=== PATIENT | female | born 1975 | race Caucasian/White ===

== ENCOUNTER 2019-10-26 13:05 | Emergency (ER) | payer BC, SELFPAY ==
--- NOTE | ~2019-10-26 | XR_ITS ---
EXAMINATION: XR foot LT min 3V DATE: 10/26/2019 13:24 INDICATION: Left foot injury and pain. TECHNIQUE: 4 views of left foot were obtained. COMPARISON: None. FINDINGS: Bone alignment is normal. No fracture. There is mild osteoarthritis of first metatarsophala ngeal joint and fifth proximal interphalangeal joint. There is an enthesophyte at posterior aspect of calcaneal tuberosity. IMPRESSION: 1. Mild polyarticular osteoarthritis. Reviewed, dictated and finalized at location A.
[2019-10-26 13:31] VITALS: BP 151/94; PULSE 89; RESP 18; TEMP 37.4; O2SAT 99
--- NOTE | 2019-10-26 13:59 | ED.LOWEXIN ---
HPI - Extremity Injury (Lower) General Chief Complaint: Extremity Injury, Lower Stated Complaint: left ankle injury Time Seen by Provider: 10/26/19 13:36 Source: patient and RN notes reviewed Mode of arrival: ambulatory Limitations: no limitations History of Present Illness HPI Narrative: Patient presents today complaining of an injury to the dorsum of her left foot. 2 days ago, she dropped a piece of Isabella on her foot at home. She has been ambulatory with increased pain. Patient has numbness to the plantar aspect of her foot at baseline, due to chronic sciatica, however, she is having some numbness to the fifth toe that is acute. She currently rates her pain 5/10. She applied ice for 2 hours immediately after injury, but has not applied or taken any [id number] interventions prior to arrival. MD complaint: foot injury Related Data Home Medications Medication Instructions Recorded Confirmed No Home Medications 10/26/19 10/26/19 Allergies Allergy/AdvReac Type Severity Reaction Status Date / Time No Known Allergies Allergy Verified 10/26/19 13:34 Review of Systems Review of Systems: Narrative: CONSTITUTIONAL: Denies body aches, fever, chills, or sweats. EYES: Denies visual changes, redness, or discharge. ENT: Denies rhinorrhea, congestion, sore throat, or otalgia. CARDIOVASCULAR: Denies chest pain, palpitations, or edema. RESPIRATORY: Denies cough or dyspnea. GASTROINTESTINAL: Denies abdominal pain, nausea, vomiting, or diarrhea. GENITOURINARY: Denies dysuria or hematuria. SKIN: Denies rash, itching, or wounds. MUSCULOSKELETAL: Denies back pain, or myalgia. + Left foot injury NEUROLOGIC: Denies headache, numbness, tingling, or weakness. PSYCH: Denies depression or anxiety. [facility] Past Medical History Medical History (Updated 10/26/19 @ 14:05 by Patricia Gomez, [facility], ) Familial Mediterranean fever Comments At time of signature, I have reviewed and agree with nursing past medical, surgical, social and family history unless otherwise noted. Please see nursing chart for further information. There is no relevant family history pertinent to the presenting complaint Exam Narrative: Exam Narrative: GENERAL: Well-appearing, well-nourished, and in no acute distress. HEAD: Normocephalic, atraumatic. EYES: EOMI. No redness or drainage. Conjunctivae normal. ENT: Mucous membranes pink and moist. NECK: Normal AROM. CHEST: No respiratory distress. EXTREMITIES: Left foot: Mild ecchymosis and moderate edema to the dorsum of the foot, extending to the anterior ankle. Sensation intact in toes 1 through 4, but decreased in toe 5. Capillary refill normal. Pedal pulse normal. Full AROM of the ankle and all toes with increased pain. 0.5 cm round scab to the proximal foot. SKIN: Warm, dry, no rash. Capillary refill normal. Normal skin turgor. NEURO: No focal deficits. Alert and oriented x3. Gait steady. PSYCH: Normal affect. No signs of depression or anxiety. Course Vital Signs Vital signs: Vital Signs Temperature 99.3 F 10/26/19 13:31 Pulse Rate 89 10/26/19 13:31 Respiratory Rate 18 10/26/19 13:31 Blood Pressure 151/94 H 10/26/19 13:31 Pulse Oximetry 99 10/26/19 13:31 Temperature 99.3 F 10/26/19 13:31 Pulse Rate 89 10/26/19 13:31 Respiratory Rate 18 10/26/19 13:31 Blood Pressure 151/94 H 10/26/19 13:31 Pulse Oximetry 99 10/26/19 13:31 Reviewed. Pt has been instructed to follow up with her PCP regarding her elevated blood pressure today. MDM - Extremity Injury (Lower) Differential Diagnosis Differential diagnosis: Likely ankle sprain and strain, fracture of toe, ankle fracture and other (Foot fracture, foot sprain, contusion) Imaging Data Radiologist's impression: ITS Impressions Foot X-Ray 10/26/19 13:32 IMPRESSION: 1. Mild polyarticular osteoarthritis. Critical Care Time Critical Care Time Critical Care Time: No Discharge Plan Di
== END 2019-10-26 14:12 | disposition home or self-care (01) ==
PROVIDERS: Emergency Provider Nurse Practitioner
DX: S90.02XA Contusion of left ankle, initial encounter (principal); W20.8XXA Other cause of strike by thrown, projected or falling object, initial encounter; E06.3 Autoimmune thyroiditis
CPT/HCPCS: 73630; 99213; G0463

== ENCOUNTER 2021-07-08 19:56 | Emergency (ER) | payer BC, SELFPAY ==
--- NOTE | ~2021-07-08 | XR_ITS ---
EXAMINATION: XR chest 1V portable Exam Date/Time: 07/08/2021 21:15 CDT CLINICAL HISTORY: fever, chest pain Comparison: None available. RESULT: Lines, tubes, and devices: None. Lungs and pleura: Low lung volumes with crowding, otherwise clear. Cardiomediastinal silhouette: Normal cardiomediastinal silhouette. Other: No acute osseous or upper abdominal finding. IMPRESSION: No acute cardiopulmonary process Reviewed, dictated and finalized at location K.
--- NOTE | ~2021-07-08 | CT_ITS ---
EXAMINATION: CT abdomen pelvis w con DATE: 07/08/2021 22:02 INDICATION: right upper abdominal pain TECHNIQUE: Computed tomography (CT) of the abdomen and pelvis was performed with 100 mL Omnipaque-350 intravenous contrast. Automated exposure control and iterative reconstruction technique were employe d. The dose-length product was 1252.60 mGy-cm. COMPARISON: None FINDINGS: Lower thorax: Hiatal hernia. Liver: Normal. Biliary/Gallbladder: Gallbladder is normal. No bile duct dilation. Pancreas: No mass or duct dilation. Spleen: Normal. Adrenals:No mass. Kidneys: Bilateral nonobstructing renal calculi. Right lower pole hypodensity too small to characteri ze but likely representing a cyst. GI tract: No small or large bowel dilation. Normal appendix. Mesentery/Peritoneum: No ascites, mass, or free air. Retroperitoneum: No mass. Pelvis: Fibroid uterus. Soft Tissues: Small fat-containing umbilical and bilateral inguinal hernias Bones: No acute osseous finding. IMPRESSION: No acute abdominopelvic process detected. Reviewed, dictated and finalized at location K.
[2021-07-08 20:00] VITALS: BP 183/104; PULSE 100; RESP 18; TEMP 36.4; O2SAT 98
[2021-07-08 20:47] LABS: Basophils Absolute Auto 0.1 K/mm3 (0.0-0.1); Basophils Percent Auto 0.7 % (0.2-1.2); Eosinophils Absolute Auto 0.7 K/mm3 (0-0.3); Eosinophils Percent Auto 4.6 % (0-4.4); Hematocrit 33.6 % (37.0-47.0); Hemoglobin 9.1 g/dL (12.0-15.0); Immature Granulocyte Absolute 0.07 K/mm3 (0.00-0.031); Immature Granulocyte Percent A 0.5 % (0-0.5); Lymphocytes Percent Auto 19.7 % (18.3-44.2); Mean Corpuscular HGB Conc 27.1 g/dl (32-36); Mean Corpuscular Hemoglobin 18.7 pg (26-34); Mean Corpuscular Volume 69.1 fl (80-100); Monocytes Absolute Auto 0.9 K/mm3 (0.1-0.6); Neutrophils Absolute Auto 10.1 K/mm3 (1.3-6.7); Neutrophils Percent Auto 68.5 % (45.5-73.1); Platelet Count Result 474 k/mm3 (150-375); Red Blood Count 4.86 M/mm3 (4.2-5.4); Red Cell Distribution Width 18.7 % (11.5-14.5); White Blood Count 14.7 K/mm3 (4.5-10.0)
[2021-07-08 20:56] LABS: Alanine Aminotransferase 19 U/L (6-35); Albumin Level 4.7 g/dL (3.5-5.1); Alkaline Phosphatase 77 U/L (38-126); Anion Gap 7 mmol/L (8-16); Aspartate Amino Transferase 22 U/L (14-36); Bilirubin,Total 0.3 mg/dL (0.2-1.3); Blood Urea Nitrogen 11 mg/dL (7-17); Carbon Dioxide 26 mmol/L (22-30); Chloride 102 mmol/L (98-107); Estimated CRCL calculation 116 ml/min; Estimated Glomerular Filt Rate > 60; Glucose 110 mg/dL (65-110); Lipase 57 U/L (23-300); Potassium 3.9 mmol/L (3.4-5.0); Sodium 135 mmol/L (137-145)
[2021-07-08 21:21] LABS: Appearance Urine Clear (Clear); Bilirubin Urine Negative (Negative); Blood Urine 2+ (Negative); Color Urine Yellow (Yellow); Glucose Urine UA Negative (Negative); Ketones Urine Trace mg/dL (Negative); Leukocyte Esterase Ur Trace LEU/UL (Negative); Nitrate Urine Negative (Negative); Protein Urine 1+ mg/dL (Negative); Urobilinogen Urine 0.2 mg/dL (<2.0)
[2021-07-08 21:24] LABS: Add Urine Microscopic? YES; Bacteria Urine Trace /hpf; Mucus Urine Rare /lpf; RBC Urine >75 /hpf (0-2); Squamous Epithelial Cell Urine Few /hpf (Few)
[2021-07-08] MEDS: KETOROLAC 30 MG/ML VIAL (*BKC) IV PUSH (21:25)
[2021-07-08] MEDS: SODIUM CHLORIDE 0.9% IV 1,000 ML 999 ML IV CONT (21:26)
[2021-07-08] MEDS: ONDANSETRON INJ 4 MG/2 ML VIAL IV PUSH (21:26)
--- NOTE | 2021-07-08 22:24 | ED.ABDPAIN ---
HPI - Abdominal Pain General Chief Complaint: Abdominal Pain Stated Complaint: Abdominal for several days Time Seen by Provider: 07/08/21 20:51 Source: patient, RN notes reviewed and old records reviewed Mode of arrival: ambulatory Limitations: no limitations History of Present Illness HPI narrative: This is a 45 year old female who presents for evaluation of right upper abdominal pain. This pain has been constant for 3 days. She reports pain is radiating to her right back. She reports having episode of nausea and vomiting. She also states her pain is worse with eating. She has not taken anything for pain. She states she had fever right before coming to ER but she denies taking any medication for her fever or pain. She denies runny nose, congestion, or urinary symptoms. she reports having chronic cough due to asthma. 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 Related Data Allergies Allergy/AdvReac Type Severity Reaction Status Date / Time No Known Allergies Allergy Verified 07/08/21 20:30 Review of Systems Review of Systems: All systems reviewed & are unremarkable except as noted in HPI and below Constitutional: Constitutional: Reports chills and Reports fever(s) ENT: Denies nasal congestion and Denies sore throat Cardiovascular: Cardiovascular: Denies chest pain and Denies radiating jaw, neck or arm pain Respiratory: Respiratory: Reports cough and Denies dyspnea Gastrointestinal: Gastrointestinal: Reports abdominal pain, Denies diarrhea, Reports nausea and Reports vomiting Genitourinary: Genitourinary: Denies hematuria, Denies nocturia and Reports flank pain Musculoskeletal: Musculoskeletal: Reports arthralgias (chronic) [facility] Past Medical History Medical History Familial Mediterranean fever Social History Social History (Updated 07/08/21 @ 22:27 by Lenora Leigh MD) Smoking status: Former smoker Exam Narrative: GENERAL: well-nourished, and appears to be in pain. HEAD: Normocephalic, atraumatic EYES: PERRLA and EOMI, conjunctiva clear without discharge EARS: TM's clear bilaterally without erythema or dullness NOSE: Nares clear, no rhinorrhea or epistaxis THROAT:Mucous membranes moist, Oropharynx normal without erythema, exudate, peritonsillar swelling or fluctuance NECK: Supple, without lymphadenopathy or mass RESPIRATORY: No respiratory distress, Airway patent, Respirations non-labored, Clear to auscultation without rales, rhonchi or wheeze HEART: Regular rate and rhythm. No murmur heard. Normal peripheral pulses. ABDOMEN: Soft, RUQ, nondistended, normal active bowel sounds. No masses. No rebound or guarding, No organomegaly. no CVA tenderness EXTREMITIES: No edema, normal strength with full range of motion. SKIN: Warm, dry, normal color without rash NEURO: Alert and oriented x3. CN 2-12 grossly intact. No focal deficits. PSYCH: Normal mood and affect. Course Reevaluation(s) Reevaluation #1: I discussed with patient her CT did not show any cause for her pain. Urine is slightly abnormal so will place on antibiotics. I discussed with patient that her symptoms may be due to her FMF but she does not think so. I offered something different for pain and she declines pain medication. Date: 07/09/21 Time: 00:08 Vital Signs Vital signs: Vital Signs Temperature 97.5 F L 07/08/21 20:00 Pulse Rate 100 07/08/21 20:00 Respiratory Rate 18 07/08/21 20:00 Blood Pressure 183/104 H 07/08/21 20:00 Pulse Oximetry 98 07/08/21 20:00 Temperature 97.5 F L 07/08/21 20:00 Pulse Rate 77 07/09/21 01:28 Respiratory Rate 16 07/09/21 01:28 Blood Pressure 181/107 H 07/09/21 01:28 Pulse Oximetry 97 07/09/21 01:28 MDM - Abdominal Pain Lab Data Attestation: I reviewed the patient's lab results. Result diagrams: 07/08/21 20:41
[2021-07-08 22:59] LABS: SARS-CoV-2 RNA PCR Negative
[2021-07-09 01:28] VITALS: BP 181/107; PULSE 77; RESP 16; O2SAT 97
== END 2021-07-09 01:33 | disposition home or self-care (01) ==
PROVIDERS: Emergency Medicine; Emergency Provider General Practice
DX: N39.0 Urinary tract infection, site not specified (principal); D64.9 Anemia, unspecified; R10.11 Right upper quadrant pain; Z20.822 Contact with and (suspected) exposure to COVID-19; Z87.891 Personal history of nicotine dependence
CPT/HCPCS: 36415; 71045; 74177; 80053; 81001; 81025; 83690; 85025; 87086; 87088; 96361; 96365; 96375; 99284; C9803; J0696; J1885; J2405; J7030; Q9967; U0003; U0005

== ENCOUNTER 2022-12-02 17:48 | Emergency (ER) | payer BC, OTHER, SELFPAY ==
[2022-12-02] VITALS (9 sets, daily range): BP systolic 153–201; BP diastolic 102–115; PULSE 76–96; RESP 11–18; TEMP 36.9; O2SAT 97–99
--- NOTE | ~2022-12-02 | XR_ITS ---
EXAMINATION: XR chest 1V portable INDICATION: Stroke alert TECHNIQUE: Portable AP chest at 1831 hours COMPARISON: 07/08/2021 FINDINGS: The lungs are free of acute opacities. No pleural effusion or pneumothorax. The cardiomedia stinal silhouette is normal. IMPRESSION: 1. No acute cardiopulmonary abnormality. Reviewed, dictated and finalized at location F.
--- NOTE | ~2022-12-02 | CT_ITS ---
EXAMINATION: CT brain wo con INDICATION: Headache COMPARISON: None TECHNIQUE: Standard unenhanced head CT. The dose-length product (DLP) was 605.33 mGy-cm. The mA was a djusted according to patient size. Iterative reconstruction technique was employed. FINDINGS: No intracranial hemorrhage, acute infarction, or abnormal mass lesion. The ventricles are n ormal. No abnormal mass effect or midline shift. The cortes-white matter differentiation is normal. The basal cisterns are patent. The orbits are normal. The paranasal sinuses, mastoids and calvarium are normal. IMPRESSION: 1. No acute intracranial abnormality. As per stroke protocol, I called these results to the Emergency Department. Reviewed, dictated and finalized at location F.
--- NOTE | 2022-12-02 18:00 | ECG_ITS ---
Measurements Intervals [place] Rate: 77 P: 24 NV: 166 QRS: -20 QRSD: 125 T: 17 QT: 394 QTc: 447 Interpretive Statements SINUS RHYTHM RIGHT BUNDLE BRANCH BLOCK [120+ ms QRS DURATION, UPRIGHT V1, 40+ ms S IN I/aVL/V4/V5/V6] POSSIBLE LEFT VENTRICULAR HYPERTROPHY [VOLTAGE CRITERIA PLUS LAE OR QRS WIDENING] LEFT ANTERIOR FASCICULAR BLOCK ABNORMAL ECG NO PREVIOUS ECG AVAILABLE FOR COMPARISON Electronically Signed On 12-03-2022 10:27:22 CDT by Riccardo Dillon M.D.
--- NOTE | 2022-12-02 18:03 | ED.NEUROSD ---
HPI - Neuro Symptoms/Deficit General Chief Complaint: Neuro Symptoms/Deficit Stated Complaint: high blood pressure Time Seen by Provider: 12/02/22 18:00 History of Present Illness HPI Narrative: Patient is a 47-year-old female with history of hypertension, familial Mediterranean fever, possible prior TIA here with a headache, high blood pressure and neurologic symptoms. She states that she has been having headache throughout the day today and checked her blood pressure at home which was elevated. They initially came in for these reasons and on walking into the emergency department she started to feel her left side become weak. LKN [id number]. She notes she is having left face weakness, upper and lower extremity weakness as well as numbness on the left side. She does notes similar symptoms about 10 years ago, they were also left-sided symptoms which mostly resolved. she did not have insurance at that time so she did not get initially evaluated for it however she has been told later on that she likely suffered a TIA. No blood thinner use. No recent surgeries. She notes history of fibroids, no active bleeding at this time. Related Data Allergies Allergy/AdvReac Type Severity Reaction Status Date / Time No Known Allergies Allergy Verified 07/08/21 20:30 [facility] Past Medical History Medical History Familial Mediterranean fever Social History Social History (Updated 07/08/21 @ 22:27 by Lenora Leigh MD) Smoking status: Former smoker Exam Narrative: GENERAL: Well-appearing, well-nourished, and tearful. HEAD: Normocephalic, atraumatic. EYES: PERRLA and EOMI. ENT: Nares clear. Mucous membranes moist. NECK: Supple. CHEST: Clear to auscultation. No respiratory distress. HEART: Regular rate and rhythm. Normal peripheral pulses. ABDOMEN: Soft, nontender, nondistended. EXTREMITIES: Normal range of motion. No edema. SKIN: Warm, dry, no rash. NEURO: Left upper and lower extremity drift, decreased sensation over left upper and lower extremity. Facial droop appreciated on the left side with decreased sensation over the left face. Alert, oriented, follows commands. PSYCH: Normal mood and affect. Course Course Emergency Course: Patient seen and evaluated on arrival to her room in the emergency department at 1803. Neurologic exam performed, NIH is 7, she was hypertensive in triage. She has left-sided deficits. Stroke alert activated and patient brought to CT, orders placed by myself. Labetalol ordered for hypertension in triage and Tylenol, morphine, Zofran ordered for headache. CT head negative on my evaluation and confirmed on radiology read. Initial delay in TPA administration due to hypertension. After labetalol patient's blood pressure is 153/108, no contraindications appreciated or tPA. At this time extensive discussion with patient and boyfriend at bedside regarding risks and benefits of tPA. I did discuss that there is a chance of life-threatening bleeding with medication. She would like to proceed with tPA at this time. All questions and concerns addressed. I did speak with Dr. Pardo from [facility] stroke service he was in agreement with tPA and will need patient at [facility] on arrival. tPA administered. Accepting physician at [facility] is Dr. Collins. Helicopter coordinated for ED to ED transfer. Vital Signs Vital signs: Vital Signs Temperature 98.5 F 12/02/22 17:50 Pulse Rate 96 12/02/22 17:50 Respiratory Rate 16 12/02/22 17:50 Blood Pressure 201/110 H 12/02/22 17:50 Pulse Oximetry 99 12/02/22 17:50 Temperature 98.5 F 12/02/22 17:50 Pulse Rate 78 12/02/22 18:48 Respiratory Rate 14 12/02/22 18:48 Blood Pressure 167/102 H 12/02/22 18:48 Pulse Oximetry 97 12/02/22 18:48 Transfer Transfered to: [facility] MDM - Neuro Symptoms/Deficit Lab Data 12/02/22 18:14 12/02/22 18:14 Labs: Lab Results
[2022-12-02 18:14] LABS: Glucose Point of Care 120 mg/dl (65-105)
[2022-12-02] MEDS: LABETALOL HCL INJ 100 MG/20 ML VIAL 10 MG IV PUSH (18:17)
[2022-12-02] MEDS: MORPHINE SULFATE (*CRX) 4 MG/ML INJ IV PUSH (18:17)
[2022-12-02] MEDS: ONDANSETRON INJ 4 MG/2 ML VIAL IV PUSH (18:17)
[2022-12-02 18:19] LABS: Basophils Absolute Auto 0.1 K/mm3 (0.0-0.1); Basophils Percent Auto 0.8 % (0.2-1.2); Eosinophils Absolute Auto 0.4 K/mm3 (0-0.3); Eosinophils Percent Auto 3.2 % (0-4.4); Hematocrit 33.7 % (37.0-47.0); Hemoglobin 9.6 g/dL (12.0-15.0); Immature Granulocyte Absolute 0.08 K/mm3 (0.00-0.031); Immature Granulocyte Percent A 0.6 % (0-0.5); Lymphocytes Absolute Auto 2.05 K/mm3 (0.9-3.2); Lymphocytes Percent Auto 14.9 % (18.3-44.2); Mean Corpuscular HGB Conc 28.5 g/dl (32-36); Mean Corpuscular Volume 73.7 fl (80-100); Mean Platelet Volume 9.7 fl (7.4-10.4); Monocytes Absolute Auto 0.7 K/mm3 (0.1-0.6); Monocytes Percent Auto 4.7 % (2.6-8.5); Neutrophils Absolute Auto 10.5 K/mm3 (1.3-6.7); Neutrophils Percent Auto 75.8 % (45.5-73.1); Platelet Count Result 461 k/mm3 (150-375); Red Blood Count 4.57 M/mm3 (4.2-5.4); Red Cell Distribution Width 15.9 % (11.5-14.5); White Blood Count 13.8 K/mm3 (4.5-10.0)
[2022-12-02 18:28] LABS: Alanine Aminotransferase 32 U/L (6-35); Albumin Level 4.5 g/dL (3.5-5.1); Alkaline Phosphatase 69 U/L (38-126); Anion Gap 10 mmol/L (8-16); Aspartate Amino Transferase 31 U/L (14-36); Bilirubin,Total 0.5 mg/dL (0.2-1.3); Blood Urea Nitrogen 11 mg/dL (7-17); Calcium 9.4 mg/dL (8.4-10.2); Carbon Dioxide 25 mmol/L (22-30); Chloride 100 mmol/L (98-107); Estimated CRCL calculation 126 ml/min; Estimated Glomerular Filt Rate > 60; Glucose 126 mg/dL (65-110); Potassium 3.7 mmol/L (3.4-5.0); Prothrombin Time 13.2 Seconds (11.1-14.7); Sodium 135 mmol/L (137-145)
[2022-12-02 18:29] LABS: Partial Thromboplastin Time 30.8 SECONDS (22.3-36.8)
[2022-12-02 18:34] LABS: Ethanol < 10 mg/dL (<10)
[2022-12-02 18:40] LABS: Troponin I 0.023 ng/mL (0.000-0.034)
--- NOTE | 2022-12-02 18:40 | PC.NURSE ---
dr rose gave VORB for TPA PT DOES GIVE CONSENT QUESTIONA ANSWERED PRIOR TO ADMINISTRATION
--- NOTE | 2022-12-02 18:51 | PC.NURSE ---
PT DID NOT RECEIVE MORPHINE, UNABLE TO CHANGE IN APR. PIPER ROMERO IS WITNESS PT ALSO REFUSED T YLENOL TPA STARTED IN PRESCENCE OF AIREVAC
[2022-12-02 18:55] LABS: Hypochromasia 1+ (NORMAL); Platelet Estimate Increased (Adequate); Schistocytes None Seen (NORMAL)
[2022-12-02 18:56] LABS: Anisocytosis 2+ (NORMAL)
== END 2022-12-02 19:08 | disposition short-term general hospital (02) ==
PROVIDERS: Emergency Provider Student in an Organized Health Care Education/Training Program
DX: R51.9 Headache, unspecified (principal); I10 Essential (primary) hypertension; R53.1 Weakness; R20.2 Paresthesia of skin
CPT/HCPCS: 36415; 37195; 70450; 71045; 80053; 80307; 82948; 84484; 85025; 85610; 85730; 93005; 96374; 96375; 99285; A9270; J2270; J2405; J2997

== ENCOUNTER 2022-12-09 05:59 | Emergency (ER) | payer BC, OTHER, SELFPAY ==
[2022-12-09] VITALS (30 sets, daily range): BP systolic 131–161; BP diastolic 97–116; PULSE 88–121; RESP 8–22; TEMP 37; O2SAT 96–100
--- NOTE | ~2022-12-09 | XR_ITS ---
Clinical Indication: Shortness of breath AP and lateral views of the chest: Comparison: 12/02/2022 Findings: The lungs are clear, without evidence of focal consolidation or pleural effusion. Cardiome diastinal silhouette is within normal limits. Bones and soft tissues are unremarkable. Impression: Normal chest. Reviewed, dictated and finalized at location . Impression: Normal chest.
--- NOTE | 2022-12-09 06:09 | ECG_ITS ---
Measurements Intervals [place] Rate: 100 P: 40 MD: 159 QRS: -20 QRSD: 115 T: 56 QT: 349 QTc: 450 Interpretive Statements SINUS TACHYCARDIA POSSIBLE LEFT ATRIAL ENLARGEMENT [-0.1mV P WAVE IN V1/V2] INCOMPLETE RIGHT BUNDLE BRANCH BLOCK [90+ ms QRS DURATION, TERMINAL R IN V1/V2, 40+ ms S IN I/aVL/V4/V5/V6] POSSIBLE LEFT VENTRICULAR HYPERTROPHY [VOLTAGE CRITERIA PLUS LAE OR QRS WIDENING] COMPARED TO ECG 12/02/2022 18:42:16 NO SIGNIFICANT CHANGES Electronically Signed On 12-09-2022 15:00:14 CDT by Uri Horta M.D.
[2022-12-09 07:36] LABS: Basophils Absolute Auto 0.1 K/mm3 (0.0-0.1); Basophils Percent Auto 0.9 % (0.2-1.2); Eosinophils Absolute Auto 0.6 K/mm3 (0-0.3); Hematocrit 36.8 % (37.0-47.0); Hemoglobin 10.3 g/dL (12.0-15.0); Immature Granulocyte Absolute 0.03 K/mm3 (0.00-0.031); Immature Granulocyte Percent A 0.3 % (0-0.5); Lymphocytes Absolute Auto 2.04 K/mm3 (0.9-3.2); Lymphocytes Percent Auto 22.1 % (18.3-44.2); Mean Corpuscular Hemoglobin 20.9 pg (26-34); Mean Corpuscular Volume 74.8 fl (80-100); Mean Platelet Volume 10.7 fl (7.4-10.4); Monocytes Absolute Auto 0.8 K/mm3 (0.1-0.6); Monocytes Percent Auto 8.3 % (2.6-8.5); Neutrophils Absolute Auto 5.8 K/mm3 (1.3-6.7); Neutrophils Percent Auto 62.4 % (45.5-73.1); Platelet Count Result 468 k/mm3 (150-375); Red Blood Count 4.92 M/mm3 (4.2-5.4); Red Cell Distribution Width 16.1 % (11.5-14.5); White Blood Count 9.2 K/mm3 (4.5-10.0)
[2022-12-09 07:46] LABS: Alanine Aminotransferase 39 U/L (6-35); Albumin Level 4.7 g/dL (3.5-5.1); Alkaline Phosphatase 69 U/L (38-126); Anion Gap 12 mmol/L (8-16); Aspartate Amino Transferase 30 U/L (14-36); Bilirubin,Total 0.5 mg/dL (0.2-1.3); Blood Urea Nitrogen 15 mg/dL (7-17); Calcium 9.4 mg/dL (8.4-10.2); Carbon Dioxide 25 mmol/L (22-30); Chloride 100 mmol/L (98-107); Estimated CRCL calculation 102 ml/min; Estimated Glomerular Filt Rate > 60; Glucose 132 mg/dL (65-110); Potassium 3.9 mmol/L (3.4-5.0); Sodium 137 mmol/L (137-145)
[2022-12-09] MEDS: ALBUTEROL SULFATE NEB 2.5 MG/3 ML INH 10 MG INHALATION (07:47)
[2022-12-09] MEDS: IPRATROPIUM BR 0.02% INH SOLN 0.5 MG/2.5 ML VIAL 1 MG INHALATION (07:47)
--- NOTE | 2022-12-09 07:53 | ED.GENADULT ---
HPI - General Adult General Chief complaint: Shortness of Breath/Dyspnea Stated complaint: SOB, cough, congestion Time Seen by Provider: 12/09/22 07:02 History of Present Illness HPI narrative: Patient is a 47-year-old female who presents ER with reports of cough and cold symptoms. Last 2 days she has had sinus congestion with sore throat and productive cough. She endorses wheezing when she breathes. She has history of asthma. Of note patient reports last week she had a CVA and was given tPA and flown to [facility]. She reports she has no residual deficits. No chest pain or chest pressure. No hemoptysis. No leg swelling from Related Data Allergies Allergy/AdvReac Type Severity Reaction Status Date / Time No Known Allergies Allergy Verified 07/08/21 20:30 Review of Systems Review of Systems: All systems reviewed & are unremarkable except as noted in HPI and below Constitutional: Constitutional: Reports chills and Reports fever(s) ENT: Reports nasal congestion and Reports sore throat Cardiovascular: Cardiovascular: Denies chest pain, Denies rapid heart rate and Denies radiating jaw, neck or arm pain Respiratory: Respiratory: Reports cough, Reports dyspnea and Reports wheezing Gastrointestinal: Gastrointestinal: Denies abdominal pain, Denies nausea and Denies vomiting Neurologic: Reports system reviewed and no additional complaints, except as documented PMFSH Past Medical History Medical History (Updated 12/09/22 @ 09:16 by Alistair Yancey MD) CVA (cerebral vascular accident) Received tPA 11/2022, transferred to [facility], discharged without antiplatelet therapy. Familial Mediterranean fever Hyperlipidemia Hypertension Social History Social History (Updated 07/08/21 @ 22:27 by Lenora Leigh MD) Smoking status: Former smoker Exam Narrative: GENERAL: Fatigued-appearing, well-nourished, and in no acute distress. HEAD: Normocephalic, atraumatic. CHEST: Expiratory wheezing bilaterally. No respiratory distress. HEART: Regular rate and rhythm. Normal peripheral pulses. ABDOMEN: Soft, nontender, nondistended. EXTREMITIES: Normal range of motion. No edema. SKIN: Warm, dry, no rash. NEURO: Alert and oriented x3. PSYCH: Normal mood and affect. Course Course Emergency Course: Wheezing improved after nebulizer treatment. No leukocytosis. Chest x-ray without pneumonia. Normal electrolytes and renal function. COVID and influenza testing negative. Patient felt to have a viral bronchitis. Will be started on prednisone. She also has a nebulizer at home so she will be given DuoNeb medication to help with wheezing. Vital Signs Vital signs: Vital Signs Temperature 98.6 F 12/09/22 06:25 Pulse Rate 98 12/09/22 06:25 Respiratory Rate 19 12/09/22 06:25 Blood Pressure 161/105 H 12/09/22 06:25 Pulse Oximetry 97 12/09/22 06:25 Oxygen Delivery Room Air 12/09/22 06:25 Temperature 98.6 F 12/09/22 06:25 Pulse Rate 115 H 12/09/22 08:48 Respiratory Rate 18 12/09/22 08:48 Blood Pressure 161/105 H 12/09/22 06:25 Pulse Oximetry 97 12/09/22 06:25 Oxygen Delivery Room Air 12/09/22 06:25 Medical Decision Making Vital Signs Vital Signs: Vital Signs Temperature 98.6 F 12/09/22 06:25 Pulse Rate 98 12/09/22 06:25 Respiratory Rate 19 12/09/22 06:25 Blood Pressure 161/105 H 12/09/22 06:25 Pulse Oximetry 97 12/09/22 06:25 Oxygen Delivery Room Air 12/09/22 06:25 Temperature 98.6 F 12/09/22 06:25 Pulse Rate 115 H 12/09/22 08:48 Respiratory Rate 18 12/09/22 08:48 Blood Pressure 161/105 H 12/09/22 06:25 Pulse Oximetry 97 12/09/22 06:25 Oxygen Delivery Room Air 12/09/22 06:25 Lab Data 12/09/22 07:31 12/09/22 07:31 Labs: Lab Results 12/09/22 12/09/22 Range/Units 07:31 07:49 WBC 9.2 (4.5-10.0) K/mm3 RBC 4.92 (4.2-5.4) M/mm3 Hgb 10.3 L (12.0-15.0) g/d
[2022-12-09 07:54] LABS: Anisocytosis 2+ (NORMAL); Platelet Estimate Increased (Adequate)
[2022-12-09 07:55] LABS: Hypochromasia 2+ (NORMAL); Schistocytes None Seen (NORMAL)
[2022-12-09 08:31] LABS: Influenza A QL RT-PCR Negative (Negative); Influenza B QL RT-PCR Negative (Negative); SARS-CoV-2 RNA PCR Negative (Negative)
== END 2022-12-09 09:29 | disposition home or self-care (01) ==
PROVIDERS: Emergency Provider Emergency Medicine; PCP Family Medicine
DX: J20.9 Acute bronchitis, unspecified (principal); J45.909 Unspecified asthma, uncomplicated; Z20.822 Contact with and (suspected) exposure to COVID-19; E78.5 Hyperlipidemia, unspecified; I10 Essential (primary) hypertension; Z86.73 Personal history of transient ischemic attack (TIA), and cerebral infarction without residual deficits; Z87.891 Personal history of nicotine dependence
CPT/HCPCS: 36415; 71046; 80053; 85025; 87636; 93005; 94640; 99284

== ENCOUNTER 2023-01-12 12:31 | Outpatient (CLI) | payer BC, OTHER, SELFPAY ==
[2023-01-15 05:25] LABS: Lupus dRVVT Screen 40 sec (<=45); PTT-LA Screen 34 sec (<=40)
[2023-01-18 16:19] LABS: Factor V (Leiden) Mutation NEGATIVE
[2023-01-19 06:25] LABS: Anti Cardio Antibody IgM <2.0 MPL-U/mL (<20.0); Anti Cardiolipin Antibody IgA <2.0 APL-U/mL (<20.0); Anti Cardiolipin Antibody IgG <2.0 GPL-U/mL (<20.0)
== END 2023-01-12 12:32 | disposition home or self-care (01) ==
PROVIDERS: PCP Family Medicine
DX: I63.9 Cerebral infarction, unspecified (principal)
CPT/HCPCS: 36415; 81240; 81241; 85303; 85306; 85613; 85730; 86147

== ENCOUNTER 2023-03-13 09:51 | Outpatient (CLI) | payer BC, OTHER, SELFPAY ==
[2023-03-13 12:22] LABS: Amylase 104 U/L (30-110); Lipase 118 U/L (23-300)
== END 2023-03-13 09:52 | disposition home or self-care (01) ==
LOC: ANHGOSHLAB 09:53
PROVIDERS: PCP Family Medicine; Visit Provider Nurse Practitioner Family
DX: E78.5 Hyperlipidemia, unspecified (principal); R10.11 Right upper quadrant pain; K80.20 Calculus of gallbladder without cholecystitis without obstruction
CPT/HCPCS: 36415; 82150; 83690

== ENCOUNTER 2023-03-13 12:58 | Outpatient (CLI) | payer BC, OTHER, SELFPAY ==
--- NOTE | ~2023-03-13 | US_ITS ---
EXAMINATION: US abdomen limited DATE: 03/13/2023 14:45 INDICATION: Right upper quadrant abdominal pain. TECHNIQUE: Multiple grayscale and Doppler ultrasound images of the abdomen were obtained. COMPARISON: CT abdomen and pelvis 07/08/2021 FINDINGS: The visualized portions of the head and body of pancreas are normal. There is diffuse hepat ic steatosis. There is normal flow in main portal vein. The gallbladder is normal in size. No gallsto gonzalo or gallbladder wall thickening. There was no sonographic Lopez sign. The common duct is normal a nd measures 5 mm. IMPRESSION: 1. Diffuse hepatic steatosis. Reviewed, dictated and finalized at location E. 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
== END 2023-03-13 12:59 | disposition home or self-care (01) ==
LOC: ANHIMG 13:01
PROVIDERS: PCP Family Medicine; Visit Provider Nurse Practitioner Family
DX: R10.11 Right upper quadrant pain (principal); K80.20 Calculus of gallbladder without cholecystitis without obstruction; K76.0 Fatty (change of) liver, not elsewhere classified
CPT/HCPCS: 76705

== ENCOUNTER 2023-04-02 10:58 | Emergency (ER) | payer BC, OTHER, SELFPAY ==
--- NOTE | ~2023-04-02 | XR_ITS ---
EXAMINATION: XR chest 1V portable INDICATION: Epigastric pain TECHNIQUE: Portable AP chest at 1243 hours COMPARISON: 12/09/2022 FINDINGS: The lungs are free of acute opacities. No pleural effusion or pneumothorax. The cardiomedia stinal silhouette is normal. IMPRESSION: 1. No acute cardiopulmonary abnormality. Reviewed, dictated and finalized at location L. GER [employer]ANNING
--- NOTE | ~2023-04-02 | US_ITS ---
EXAMINATION: US abdomen limited DATE: 04/02/2023 14:45 INDICATION: Right upper quadrant pain TECHNIQUE: Multiple grayscale and Doppler ultrasound images of the abdomen were obtained. COMPARISON: 03/13/2023 FINDINGS: Bowel gas obscures visualization of the pancreas. The visualized portions of the pancreas a re unremarkable. The liver is normal with normal echogenicity and echotexture. No surface nodularity. Normal hepatopetal flow in the main portal vein. The gallbladder is normal with no abnormal wall thi ckening, pericholecystic fluid or stones. The normal common bile duct measures 3 mm. There was no son ographic Lopez sign. IMPRESSION: 1. Normal sonographic study of the gallbladder. Reviewed, dictated and finalized at location L. 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
--- NOTE | ~2023-04-02 | CT_ITS ---
EXAMINATION: CT abdomen pelvis w con INDICATION: Epigastric abdominal pain TECHNIQUE: Computed tomographic images of the abdomen and pelvis were obtained after the administrati on of 100 cc of Omnipaque 350 intravenous contrast. The dose-length product (DLP) was 1480.72 mGy-cm. Automated exposure control and iterative reconstruction technique were employed. COMPARISON: 07/08/2021 FINDINGS: The lung bases are clear. The heart size is normal. There is a small sliding hiatal hernia. There is mild wall thickening of the distal stomach. The liver, spleen, pancreas, gallbladder, and a drenal glands are normal. The right kidney is unremarkable. There is a 9 mm nonobstructing stone of t he left kidney lower pole. There is a 4 mm nonobstructing stone of the left mid kidney. No pathologic ally enlarged abdominal or pelvic lymph nodes are identified. No free intraperitoneal gas or evidence of bowel obstruction. The appendix is normal. There is a 5.7 cm enhancing intramural fibroid of the left uterine body. There is mild lumbar spondylosis. There are bilateral inguinal hernias containing fat. IMPRESSION: 1. Mild wall thickening of the distal stomach which could reflect gastritis. Reviewed, dictated and finalized at location L. 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
[2023-04-02 11:55] VITALS: BP 155/100; PULSE 88; RESP 16; TEMP 36.7; O2SAT 100
--- NOTE | 2023-04-02 12:00 | ECG_ITS ---
Measurements Intervals [place] Rate: 87 P: 40 ID: [id number] QRS: -13 QRSD: 116 T: 42 QT: 371 QTc: 446 Interpretive Statements SINUS RHYTHM WITH SINUS ARRHYTHMIA INCOMPLETE RIGHT BUNDLE BRANCH BLOCK [90+ ms QRS DURATION, TERMINAL R IN V1/V2, 40+ ms S IN I/aVL/V4/V5/V6] MODERATE VOLTAGE CRITERIA FOR LVH, CONSIDER NORMAL VARIANT [MEETS CRITERIA IN ONE OF: R(aVL), S(V1), R(V5), R(V5/V6)+S(V1)] COMPARED TO ECG 12/09/2022 06:08:42 SINUS RHYTHM NOW PRESENT SINUS ARRHYTHMIA NOW PRESENT Electronically Signed On 04-02-2023 15:02:55 [employer] OPERATOR by Uri Horta M.D.
[2023-04-02 12:16] LABS: Basophils Absolute Auto 0.1 K/mm3 (0.0-0.1); Basophils Percent Auto 0.6 % (0.2-1.2); Eosinophils Absolute Auto 0.2 K/mm3 (0-0.3); Hematocrit 32.4 % (37.0-47.0); Hemoglobin 9.2 g/dL (12.0-15.0); Immature Granulocyte Absolute 0.06 K/mm3 (0.00-0.031); Immature Granulocyte Percent A 0.4 % (0-0.5); Lymphocytes Absolute Auto 2.43 K/mm3 (0.9-3.2); Lymphocytes Percent Auto 15.4 % (18.3-44.2); Mean Corpuscular HGB Conc 28.4 g/dl (32-36); Mean Corpuscular Hemoglobin 20.8 pg (26-34); Mean Corpuscular Volume 73.1 fl (80-100); Mean Platelet Volume 10.4 fl (7.4-10.4); Monocytes Absolute Auto 0.7 K/mm3 (0.1-0.6); Monocytes Percent Auto 4.6 % (2.6-8.5); Neutrophils Absolute Auto 12.3 K/mm3 (1.3-6.7); Platelet Count Result 459 k/mm3 (150-375); Red Blood Count 4.43 M/mm3 (4.2-5.4); Red Cell Distribution Width 16.9 % (11.5-14.5); White Blood Count 15.8 K/mm3 (4.5-10.0)
[2023-04-02 12:29] LABS: Alanine Aminotransferase 19 U/L (6-35); Albumin Level 4.4 g/dL (3.5-5.1); Alkaline Phosphatase 82 U/L (38-126); Anion Gap 8 mmol/L (8-16); Aspartate Amino Transferase 22 U/L (14-36); Bilirubin,Total 0.5 mg/dL (0.2-1.3); Blood Urea Nitrogen 11 mg/dL (7-17); Calcium 9.5 mg/dL (8.4-10.2); Carbon Dioxide 26 mmol/L (22-30); Chloride 104 mmol/L (98-107); Estimated CRCL calculation 122 ml/min; Estimated Glomerular Filt Rate > 60; Glucose 106 mg/dL (65-110); Lipase 65 U/L (23-300); Sodium 138 mmol/L (137-145)
[2023-04-02 12:40] LABS: Anisocytosis 1+ (NORMAL); Hypochromasia 2+ (NORMAL); Ovalocytes 1+ (NORMAL); Platelet Estimate Increased (Adequate); Schistocytes None Seen (NORMAL)
[2023-04-02 12:48] LABS: Appearance Urine Cloudy (Clear); Bacteria Urine 1+ /hpf; Bilirubin Urine Negative (Negative); Blood Urine Negative (Negative); Color Urine Yellow (Yellow); Glucose Urine UA Negative (Negative); Ketones Urine Trace mg/dL (Negative); Leukocyte Esterase Ur 1+ LEU/UL (Negative); Mucus Urine Present /lpf; Nitrate Urine Negative (Negative); Non Pathogenic Casts 0-2; Protein Urine Trace mg/dL (Negative); Specific Grav Ur 1.022 (1.001-1.035); Squamous Epithelial Cell Urine Moderate /hpf (Few); Urobilinogen Urine 0.2 mg/dL (<2.0); pH Urine 7.5 (5.0-9.0)
[2023-04-02 12:52] LABS: Add Urine Microscopic? YES
[2023-04-02 13:01] LABS: Lactic Acid Reflex 1.3 mmol/L (0.7-2.0)
[2023-04-02 13:11] LABS: Troponin I 0.018 ng/mL (0.000-0.034)
--- NOTE | 2023-04-02 13:37 | ED.ABDPAIN ---
HPI - Abdominal Pain General Chief Complaint: Abdominal Pain Stated Complaint: abd pain Time Seen by Provider: 04/02/23 12:06 Source: patient Limitations: no limitations History of Present Illness HPI narrative: Patient is a 47-year-old female presents to the emergency department complaining of abdominal pain. Patient states she has been having right upper quadrant soreness that is constant for a couple weeks now in addition to a hunger pain that comes and goes for the gastric region and radiates to the bilateral upper quadrants, has not tried any medications for, admits to history is in the past 1.5 years ago in which she does not know what was going on at the time of found a toy and helps was to stop eating, has not noticed anything making her pain better or worse, admits to associated nausea. Patient admits to seeing a service promoter salesperson in the remote past however she needs to establish care with a new service promoter salesperson. Patient denies chest pain, difficulty breathing, diarrhea, constipation, urinary discomfort, urinary urgency, hematuria, cough, sore throat, nasal congestion, rash, numbness, weakness, recent injuries. Patient has not noticed any association with fatty foods. Patient admits to trying to make an appointment with her primary care physician a couple weeks ago and they did blood work addition to an ultrasound which she does not know what the results were. Patient admits to urinary frequency at night. Patient is to history kidney stones. Patient states when she had symptoms similar to this in the past antibiotics were given and she does feel as though that may have helped. Related Data Home Medications Medication Instructions Recorded Confirmed albuterol sulfate 90 mcg/actuation 1 puff inhalation Q4H PRN 12/25/22 03/13/23 aerosol inhaler fluticasone propionate 44 1 puff inhalation DAILY 12/25/22 03/13/23 mcg/actuation HFA aerosol inhaler (Flovent HFA) losartan 100 1 tablet PO DAILY 12/25/22 03/13/23 mg-hydrochlorothiazide 25 mg tablet Allergies Allergy/AdvReac Type Severity Reaction Status Date / Time aloe AdvReac Mild Skin Verified 03/25/23 08:17 Irritation latex AdvReac Mild Skin Verified 03/25/23 08:17 Irritation Review of Systems Review of Systems: A 10 system review of systems was completed on the patient and is negative except for what is stated in the HPI. Nursing and ancillary documentation was reviewed. [facility] Past Medical History Medical History Allergies Anxiety Arthritis Asthma CVA (cerebral vascular accident) Received tPA 11/2022, transferred to [facility], discharged without antiplatelet therapy. Familial Mediterranean fever Febrile seizures GERD (gastroesophageal reflux disease) Jamar's disease Hyperlipidemia Hypertension RUQ abdominal pain Skin cancer Basal cell carcinoma removed 2002 Family History Family History Father Alcoholism Carcinoma of colon Diabetes mellitus Hypertension Malignant neoplasm of prostate Mother Diabetes mellitus Hypertension Depression Thyroid disorder Daughter Asthma Depression Grandparent Alcoholism Cancer Cerebrovascular accident Social History Social History Smoking status: Never smoker Alcohol intake: never Substance use: never Substance use type: does not use Do You Feel Safe in your Home?: Yes Lack of Transportation: No Lack of Food: Never True Current Housing: I Have Housing Concerned About Future Housing: No Difficulty Paying Gas/Electric Bills: No Difficulty Paying for Meds: No Currently Unemployed: No Education: Master's Degree or Higher Living arrangements: with family Comments At time of signature, I have reviewed and agree with nursing past medical, surgical, social and
[2023-04-02] MEDS: ONDANSETRON INJ 4 MG/2 ML VIAL IV PUSH (13:46)
[2023-04-02] MEDS: FAMOTIDINE 20 MG/2 ML VIAL IV PUSH (13:47)
[2023-04-02] MEDS: SODIUM CHLORIDE 0.9% IV 1,000 ML 999 ML IV CONT (14:43)
[2023-04-02] MEDS: cefTRIAXone 2 GM/NS 100 ML 2 GM/100 ML BAG IVPB (14:44)
[2023-04-02 14:51] VITALS: BP 160/99; PULSE 78; RESP 20; TEMP 37; O2SAT 100
[2023-04-02 16:08] VITALS: BP 158/110; PULSE 72; RESP 20; O2SAT 100
[2023-04-02 16:54] VITALS: BP 156/104; PULSE 73; RESP 20; TEMP 36.1; O2SAT 100
== END 2023-04-02 16:57 | disposition home or self-care (01) ==
PROVIDERS: Emergency Medicine; Emergency Provider Student in an Organized Health Care Education/Training Program; PCP Family Medicine
DX: K29.70 Gastritis, unspecified, without bleeding (principal); N39.0 Urinary tract infection, site not specified; R31.9 Hematuria, unspecified; I10 Essential (primary) hypertension; J45.909 Unspecified asthma, uncomplicated; E06.3 Autoimmune thyroiditis; E78.5 Hyperlipidemia, unspecified; K21.9 Gastro-esophageal reflux disease without esophagitis; Z86.73 Personal history of transient ischemic attack (TIA), and cerebral infarction without residual deficits; Z85.828 Personal history of other malignant neoplasm of skin; I45.10 Unspecified right bundle-branch block
CPT/HCPCS: 36415; 71045; 74177; 76705; 80053; 81001; 81025; 83605; 83690; 84484; 85025; 87086; 93005; 96365; 96375; 99284; J0696; J2405; J7030; Q9967

== ENCOUNTER 2023-04-28 01:24 | Day surgery (SDC) | payer BC, OTHER, SELFPAY ==
[2023-04-15 14:51] VITALS: BMI 39.1
--- NOTE | 2023-04-24 13:51 | SUR.PREOP ---
Patient called regarding upcoming procedure. Reviewed preop instructions, appointment times, and procedure prep.
[2023-04-28 12:35] VITALS: BP 133/95; PULSE 95; RESP 18; TEMP 36.4; O2SAT 100; BMI 37.4
--- NOTE | 2023-04-28 12:53 | WPDANESEPPF ---
Anes - Initial Pre Proc Eval Procedure: Operation Date: 04/28/23 13:30 Proposed Procedures p Esophagogastroduodenoscopy & Colonoscopy - Diego Rosales MD Date/Time: 04/28/23 12:53 Surgeon: Diego Rosales MD Pre Op Diagnosis: Right upper quadrant pain, nausea Patient Data Age: 47 Gender: F Height: 1.68 m Weight: 110 kg Allergies Allergy/AdvReac Type Severity Reaction Status Date / Time latex Allergy Mild Skin Verified 04/28/23 12:49 Irritation aloe AdvReac Intermediate DERMATITIS Verified 04/28/23 12:49 chlorine Allergy Intermediate Rash Uncoded 04/28/23 12:49 Home Medications Medication Instructions Recorded Confirmed Type ipratropium 0.5 mg-albuterol 3 mg 3 ml inhalation QID PRN shortness 12/09/22 04/28/23 Rx (2.5 mg base)/3 mL nebulization of breath or wheezing #90 mL soln albuterol sulfate 90 mcg/actuation 1 puff inhalation Q4H PRN 12/25/22 04/28/23 History aerosol inhaler Shortness Of Breath Or Wheezing fluticasone propionate 44 2 puff inhalation BID 12/25/22 04/28/23 History mcg/actuation HFA aerosol inhaler (Flovent HFA) losartan 100 1 tablet PO DAILY 12/25/22 04/28/23 History mg-hydrochlorothiazide 25 mg tablet norethindrone (contraceptive) 0.35 0.35 mg PO DAILY #84 tabs 01/29/23 04/28/23 Rx mg tablet atorvastatin 80 mg tablet 80 mg PO QHS #90 tabs 03/04/23 04/28/23 Rx levothyroxine 25 mcg tablet 25 mcg PO DAILY #90 tabs 03/31/23 04/28/23 Rx aluminum-mag hydroxide-simethicone 10 ml PO QID PRN dyspepsia #3,000 04/02/23 04/28/23 Rx 200 mg-200 mg-20 mg/5 mL oral susp mL (Antacid Regular Strength) famotidine 20 mg tablet 20 mg PO DAILY 1 month #30 tabs 04/09/23 04/28/23 Rx ondansetron HCl 4 mg tablet 4 mg PO Q6H PRN Nausea #4 tabs 04/15/23 Rx Patient hx anesthesia problems: none Family hx anesthesia problems: none Results Review: All pre-operative results and documents have been reviewed as part of the pre-operative evaluation. [facility] Past Medical History Medical History (Updated 04/09/23 @ 14:43 by KARTHIK Wills) Allergies Anxiety Arthritis Asthma CVA (cerebral vascular accident) Received tPA 11/2022, transferred to [facility], discharged without antiplatelet therapy. Encounter for screening colonoscopy Familial Mediterranean fever Family history of colon cancer in father Febrile seizures GERD (gastroesophageal reflux disease) Jamar's disease Hyperlipidemia Hypertension Nausea RUQ abdominal pain Skin cancer Basal cell carcinoma removed 2002 Family History Family History Father Alcoholism Carcinoma of colon Diabetes mellitus Hypertension Malignant neoplasm of prostate Mother Diabetes mellitus Hypertension Depression Thyroid disorder Daughter Asthma Depression Grandparent Alcoholism Cancer Cerebrovascular accident Social History Social History Years smoked: 7 Smoking status: Former smoker Tobacco type: cigarettes Alcohol intake: current Substance use: never Substance use type: does not use Do You Feel Safe in your Home?: Yes Lack of Transportation: No Lack of Food: Never True Current Housing: I Have Housing Concerned About Future Housing: No Difficulty Paying Gas/Electric Bills: No Difficulty Paying for Meds: No Currently Unemployed: No Education: Master's Degree or Higher Living arrangements: with family Spiritual care concerns: No Anes - Eval Final PreProcedure Day of Procedure 04/28/23 12:53 Patient weight: morbidly obese Heart: regular rate and rhythm Lungs: clear to auscultation Airway: Mallampati scale Neurological: alert and oriented Last oral intake: >/= 8 hours ASA classification: III Emergent: no Anesthetic plan: proceed Results Review: All pre-operative results and documents have been reviewed as part of the
[2023-04-28] MEDS: LACTATED RINGERS 1,000 ML 150 ML IV CONT (13:05)
--- NOTE | 2023-04-28 13:34 | WPDHPUPDATE1 ---
History and Physical Update Update Date/Time: 04/28/23 13:34 History and Physical has been reviewed, including an updated exam of the patient. There are NO changes in the patient's condition. Risks, benefits, and alternatives have been discussed and questions answered. Patient agrees to proceed with procedure.
--- NOTE | 2023-04-28 14:03 | SUR.OPER ---
EGD START: 1343; END: 1348. COLONOSCOPY START: 1353; END: 1410.
[2023-04-28 14:14] VITALS: BP 106/68; PULSE 87; RESP 18; O2SAT 98
[2023-04-28 14:23] VITALS: BP 105/72; PULSE 83; RESP 18; O2SAT 99
[2023-04-28 14:33] VITALS: BP 132/72; PULSE 75; RESP 18; O2SAT 100
== END 2023-04-28 14:45 | disposition home or self-care (01) ==
PROVIDERS: PCP Family Medicine; Visit Provider Internal Medicine Gastroenterology
PROC: 0DJ08ZZ Inspection of Upper Intestinal Tract, Via Natural or Artificial Opening Endoscopic (ICD-10-PCS; CPT 43235; principal; 2023-04-28 13:30)
DX: Z12.11 Encounter for screening for malignant neoplasm of colon (principal); D12.5 Benign neoplasm of sigmoid colon; K57.30 Diverticulosis of large intestine without perforation or abscess without bleeding; K64.8 Other hemorrhoids; Z80.0 Family history of malignant neoplasm of digestive organs; K25.9 Gastric ulcer, unspecified as acute or chronic, without hemorrhage or perforation; K29.70 Gastritis, unspecified, without bleeding; K21.9 Gastro-esophageal reflux disease without esophagitis; J45.909 Unspecified asthma, uncomplicated; I10 Essential (primary) hypertension; E78.5 Hyperlipidemia, unspecified; E06.3 Autoimmune thyroiditis; F41.9 Anxiety disorder, unspecified; Z86.73 Personal history of transient ischemic attack (TIA), and cerebral infarction without residual deficits; Z79.51 Long term (current) use of inhaled steroids; E66.01 Morbid (severe) obesity due to excess calories; Z68.37 Body mass index [BMI] 37.0-37.9, adult
CPT/HCPCS: 45385; 43239; 87081; 88305; 88342; J2405; J2704; J3010; J7120

== ENCOUNTER 2023-05-11 12:10 | Outpatient (CLI) | payer BC, OTHER, SELFPAY ==
[2023-05-11 12:28] LABS: Basophils Absolute Auto 0.1 K/mm3 (0.0-0.1); Basophils Percent Auto 0.9 % (0.2-1.2); Eosinophils Absolute Auto 0.7 K/mm3 (0-0.3); Hematocrit 26.7 % (37.0-47.0); Hemoglobin 7.5 g/dL (12.0-15.0); Immature Granulocyte Absolute 0.08 K/mm3 (0.00-0.031); Immature Granulocyte Percent A 0.7 % (0-0.5); Lymphocytes Absolute Auto 3.22 K/mm3 (0.9-3.2); Lymphocytes Percent Auto 27.5 % (18.3-44.2); Mean Corpuscular HGB Conc 28.1 g/dl (32-36); Mean Corpuscular Volume 71.2 fl (80-100); Mean Platelet Volume 9.5 fl (7.4-10.4); Monocytes Absolute Auto 0.6 K/mm3 (0.1-0.6); Monocytes Percent Auto 5.4 % (2.6-8.5); Neutrophils Percent Auto 59.5 % (45.5-73.1); Platelet Count Result 444 k/mm3 (150-375); Red Blood Count 3.75 M/mm3 (4.2-5.4); Red Cell Distribution Width 16.2 % (11.5-14.5); White Blood Count 11.7 K/mm3 (4.5-10.0)
[2023-05-11 12:37] LABS: Anisocytosis 1+; Microcytosis 1+ (NORMAL); Ovalocytes 1+; Platelet Estimate Increased (Adequate); Schistocytes None Seen
[2023-05-11 12:38] LABS: Hypochromasia 1+; Poikilocytosis 1+
[2023-05-11 14:08] LABS: Alanine Aminotransferase 14 U/L (6-35); Albumin Level 3.9 g/dL (3.5-5.1); Alkaline Phosphatase 78 U/L (38-126); Anion Gap 6 mmol/L (8-16); Aspartate Amino Transferase 16 U/L (14-36); Bilirubin,Total 0.3 mg/dL (0.2-1.3); Blood Urea Nitrogen 12 mg/dL (7-17); CRP 1.8 mg/dL (<1.0); Calcium 9.1 mg/dL (8.4-10.2); Carbon Dioxide 26 mmol/L (22-30); Chloride 105 mmol/L (98-107); Estimated Glomerular Filt Rate > 60; Glucose 107 mg/dL (65-110); Lactate Dehydrogenase 146 U/L (120-246); Potassium 3.8 mmol/L (3.4-5.0); Sodium 137 mmol/L (137-145)
[2023-05-11 14:23] LABS: Erythrocyte Sedimentation Rate 50 mm/hr (0-20)
[2023-05-11 14:41] LABS: Iron 20 ug/dL (37-170)
[2023-05-11 14:51] LABS: Percent Iron Saturation 4 % (20-50)
[2023-05-11 15:21] LABS: Ferritin 5.99 ng/mL (6.24-137)
[2023-05-11 18:27] LABS: Folic Acid 6.4 ng/mL (2.76->20)
[2023-05-14 16:46] LABS: Methylmalonic Acid 102 nmol/L (87-318)
[2023-05-19 12:32] LABS: Soluble Transferrin Receptor 3.67 mg/L (0.76-1.76)
[2023-05-21 23:44] LABS: Hematocrit 29.2 % (35.0-45.0); Hemoglobin 7.6 g/dL (11.7-15.5); MCH 19.4 pg (27.0-33.0); MCV 74.5 fL (80.0-100.0); RDW 15.2 % (11.0-15.0); Red Blood Cell Count 3.92 Mill/uL (3.80-5.10)
== END 2023-05-11 12:11 | disposition home or self-care (01) ==
LOC: ANHLAB 12:12
PROVIDERS: Nurse Practitioner Family; PCP Family Medicine; Visit Provider Internal Medicine Hematology & Oncology
DX: D72.829 Elevated white blood cell count, unspecified (principal); D50.9 Iron deficiency anemia, unspecified
CPT/HCPCS: 36415; 80053; 82607; 82728; 82746; 83021; 83540; 83550; 83615; 83921; 84238; 85025; 85652; 86140

== ENCOUNTER 2023-07-09 07:51 | Observation (INO) | payer BC, OTHER, SELFPAY ==
[2023-07-09] VITALS (29 sets, daily range): BP systolic 116–164; BP diastolic 47–98; PULSE 65–99; RESP 12–20; TEMP 36.2–37.1; O2SAT 96–100; BMI 39.8
--- NOTE | 2023-07-09 | ECHO_ITS ---
Patient Info Name: Tita Boucher Age: 47 years : 1975 Gender: Female Ht: 66 in Wt: 246 lbs BSA: 2.33 m2 HR: 77 bpm BP: 150 / 93 mmHg Heart Rhythm: Sinus Rhythm Technical Quality: Fair Exam Date: 07/09/2023 3:13 PM Exam Location: Echo Lab Patient Status: Inpatient Admit Date: 07/09/2023 Staff Ordering Physician: Uri Horta MD (meagan/azeb) Target Worker: Jodie Medeiros [facility] Attending Provider: Fatoumata Weller MD Referring Physician: Mychal WOOD; Exam Type: CA echo dop color flow w con Study Info Indications R00.2 - Palpitations Complete two-dimensional, color flow and Doppler transthoracic echocardiogram is performed with contrast to opacify the left ventricle and to improve the deliniation of the left ventricle endocardial borders. Contrast/Agitated Saline Contrast/Ag. Saline: Definity Amount: 2.00 ml IV Access Condition: patent with no signs of infiltration Summary 1. Left ventricular chamber dimension is normal. 2. Left ventricular systolic function is normal, estimated at 65-70%. 3. The left ventricular diastolic function is grade I diastolic dysfunction. 4. Right ventricular systolic function is normal. 5. No significant valvular disease. Left Ventricle Left ventricular chamber dimension is normal. Left ventricular systolic function is normal, estimated at 65-70%. There is no increased left ventricular wall thickness. The left ventricular diastolic function is grade I diastolic dysfunction. Right Ventricle Right ventricular chamber dimension is normal. Right ventricular systolic function is normal. Left Atria Left atrial chamber dimension is normal. Right Atria Right atrial chamber dimension is normal. Atrial Septum Intact interatrial septum visualized by color flow imaging. Aortic Valve The aortic valve is trileaflet. There is no aortic valve stenosis. There is no aortic valve regurgitation. Pulmonic Valve The pulmonic valve is not well visualized. There is trace pulmonic regurgitation. Mitral Valve There is trace mitral valve regurgitation. Tricuspid Valve There is trace tricuspid valve regurgitation. Pericardium/Pleural The pericardium appears epicardial fat pad. There is no pericardial effusion. Inferior Vena Cava Normal inferior vena cava with >50% collapse upon inspiration consistent with normal right atrial pressure, 3 mmHg. Aorta The aortic root size at the sinus of Valsalva is normal. Left Ventricular Outflow Tract Name Value Normal LVOT 2D LVOT Diameter 2.04 cm LVOT Doppler LVOT Peak Gradient 6 mmHg LVOT Mean Gradient 3 mmHg LVOT VTI 24.56 cm LVOT VTI/AV VTI Ratio 0.84 LVOT Stroke Volume 80.46 ml LVOT CO 5.89 l/min LVOT CI 2.52 L/min/m2 Pulmonic Valve Name Value Normal RVOT Doppler
--- NOTE | ~2023-07-09 | XR_ITS ---
Clinical Indication: Heart fluttering PA and lateral views of the chest: Comparison: 04/02/2023 Findings: The lungs are clear, without evidence of focal consolidation or pleural effusion. Cardiome diastinal silhouette is within normal limits. Bones and soft tissues are unremarkable. Impression: Normal chest. Reviewed, dictated and finalized at location . Impression: Normal chest.
--- NOTE | ~2023-07-09 | NM_ITS ---
EXAMINATION: NM brie stress w perfusion DATE: 07/10/2023 14:19 INDICATION: Elevated troponins. TECHNIQUE: Rest images were obtained following intravenous administration of 9.6 mCi Tc99m tetrofosmi n (Myoview). The patient was infused intravenously with Lexiscan (Regadenoson). Then, 30.8 mCi Tc99m tetrofosmin (Myoview) was administered intravenously, and stress images were obtained initially in th e supine position with repeat post stress images obtained in the prone position. Data was reconstruct ed into short axis and horizontal and vertical long axis SPECT images. Gated SPECT images were also o btained. COMPARISON: None. FINDINGS: There is some diaphragmatic attenuation artifact along the inferior and inferolateral pickard which reverses with prone imaging. There is no perfusion defect on the prone post stress imaging to suggest ischemia or infarction. There is normal left ventricular chamber size, wall motion and eject ion fraction. Left ventricular ejection fraction measures >70%. IMPRESSION: 1. Normal myocardial perfusion at rest and during stress. 2. Left ventricular ejection fraction measuring >70%. Reviewed, dictated and finalized at location A.
--- NOTE | ~2023-07-09 | US_ITS ---
EXAMINATION: US venous doppler [facility] DATE: 07/09/2023 14:51 INDICATION: Left lower limb swelling TECHNIQUE: Grayscale ultrasound images without and with compression and Doppler ultrasound images of the left lower extremity veins were obtained. COMPARISON: None. FINDINGS: The visualized portions of left common femoral vein, profunda (deep) femoral vein, femoral vein, popl iteal vein, peroneal veins, posterior tibial veins, gastrocnemius vein and greater saphenous vein out flow are patent. IMPRESSION: 1. No deep venous thrombosis in the left lower limb. Reviewed, dictated and finalized at location A.
--- NOTE | ~2023-07-09 | CT_ITS ---
Clinical Indication: Leg swelling, palpitations CT Scan of the Chest with Contrast: Technique: Contiguous sections were acquired throughout the chest after intravenous administration of 100 cc of Omnipaque 350. Dose reduction technique was used on this scan by utilizing automated expos ure control and iterative reconstruction technique. The dose-length product (DLP) was 593.87 mGy-cm. Findings: There is no evidence of any significant mediastinal, hilar or axillary lymphadenopathy. There is no f illing defect in the pulmonary arterial tree to suggest pulmonary embolus. There is no evidence of ao rtic dissection or aneurysm. There is no evidence of pleural or pericardial effusion. The lungs are clear. No pulmonary nodules or infiltrates are noted. Images through the upper abdomen reveal no abnormalities. Impression: No evidence of pulmonary embolus, aortic dissection, or aortic aneurysm. Clear lungs. Reviewed, dictated and finalized at [facility]. Impression: No evidence of pulmonary embolus, aortic dissection, or aortic aneurysm. Clear lungs.
--- NOTE | 2023-07-09 08:01 | ECG_ITS ---
SEE SCANNED COPY FOR CONFIRMED REPORT MTDD
[2023-07-09 08:21] LABS: Basophils Absolute Auto 0.1 K/mm3 (0.0-0.1); Basophils Percent Auto 0.6 % (0.2-1.2); Eosinophils Absolute Auto 0.3 K/mm3 (0-0.3); Eosinophils Percent Auto 2.4 % (0-4.4); Hematocrit 31.2 % (37.0-47.0); Hemoglobin 8.5 g/dL (12.0-15.0); Immature Granulocyte Absolute 0.06 K/mm3 (0.00-0.031); Immature Granulocyte Percent A 0.4 % (0-0.5); Lymphocytes Absolute Auto 1.97 K/mm3 (0.9-3.2); Lymphocytes Percent Auto 14.1 % (18.3-44.2); Mean Corpuscular HGB Conc 27.2 g/dl (32-36); Mean Corpuscular Hemoglobin 20.9 pg (26-34); Mean Corpuscular Volume 76.8 fl (80-100); Monocytes Absolute Auto 0.6 K/mm3 (0.1-0.6); Monocytes Percent Auto 4.2 % (2.6-8.5); Neutrophils Absolute Auto 10.9 K/mm3 (1.3-6.7); Neutrophils Percent Auto 78.3 % (45.5-73.1); Platelet Count Result 491 k/mm3 (150-375); Red Blood Count 4.06 M/mm3 (4.2-5.4)
--- NOTE | 2023-07-09 08:29 | ED.GENADULT ---
HPI - General Adult General Chief complaint: Unspecified Stated complaint: Nausea, lethargy, heart flutters Time Seen by Provider: 07/09/23 07:56 History of Present Illness HPI narrative: This is a 47-year-old female, with history of ischemic stroke 1 year ago, asthma, hypothyroidism, who presents emergency department complaining of palpitations since last night. The patient states history evening, she noted the sensation of ?bubbles in my heart.? These seem to have worsened with rest. She states she woke twice overnight with a moderate squeezing sensation in the center of the chest lasting seconds and completely resolving without radiation. She states physical exertion seems to improve the sensation. She recently started a new inhaler (Tami) but denies other changes in her medications. She believes her left leg is slightly swollen compared to the right. She has no other complaints at this time. Related Data Home Medications Medication Instructions Recorded Confirmed losartan 100 1 tablet PO DAILY 12/25/22 07/09/23 mg-hydrochlorothiazide 25 mg tablet vitamin B complex 1 tablet PO DAILY 06/02/23 07/09/23 ascorbic acid (vitamin C) 1 tab-cap PO DAILY 07/09/23 07/09/23 Allergies Allergy/AdvReac Type Severity Reaction Status Date / Time latex Allergy Mild Skin Verified 07/09/23 08:00 Irritation aloe AdvReac Intermediate DERMATITIS Verified 07/09/23 08:00 chlorine Allergy Intermediate Rash Uncoded 07/09/23 08:00 Review of Systems Review of Systems: All systems reviewed & are unremarkable except as noted in HPI and below PMFSH Past Medical History Medical History Allergies Anxiety Arthritis Asthma CVA (cerebral vascular accident) Received tPA 11/2022, transferred to [facility], discharged without antiplatelet therapy. Encounter for screening colonoscopy Familial Mediterranean fever Family history of colon cancer in father Febrile seizures GERD (gastroesophageal reflux disease) Jamar's disease Hyperlipidemia Hypertension Nausea RUQ abdominal pain Skin cancer Basal cell carcinoma removed 2002 Family History Family History Father Alcoholism Carcinoma of colon Diabetes mellitus Hypertension Malignant neoplasm of prostate Mother Diabetes mellitus Hypertension Depression Thyroid disorder Daughter Asthma Depression Grandparent Alcoholism Cancer Cerebrovascular accident Social History Social History Smoking packs per day: 0.5 Smoking cigarettes per day: 10.0 Years smoked: 7 Smoking pack-years: 3.50 Smoking status: Former smoker Tobacco type: cigarettes Smoking end date: 12/22/18 Alcohol intake: never Substance use: current Substance use type: marijuana Do You Feel Safe in your Home?: Yes Lack of Transportation: No Lack of Food: Never True Current Housing: I Have Housing Concerned About Future Housing: No Difficulty Paying Gas/Electric Bills: No Difficulty Paying for Meds: No Currently Unemployed: No Education: High School Diploma/GED Difficulty w/ Childcare or Family Care: No Living arrangements: with family Spiritual care concerns: No Exam Narrative: GENERAL: Well-developed, well-nourished, and in no acute distress. HEAD: Normocephalic, atraumatic. EYES: PERRLA and EOMI. CHEST: Clear to auscultation. No respiratory distress. No wheezes rales or rhonchi HEART: Regular rate and rhythm. No murmur heard. Normal peripheral pulses. ABDOMEN: Soft, nontender, nondistended, normal active bowel sounds. EXTREMITIES: Normal range of motion. No edema. SKIN: Warm, dry, no rash. NEURO: Alert and oriented x3. No focal deficit. Moving all 4 limbs spontaneously PSYCH: Mildly anxious mood and affect. Course Course Emergency Course: 10:00 - CBC demonstrates previously elevat
[2023-07-09 08:33] LABS: Alanine Aminotransferase 20 U/L (6-35); Albumin Level 4.4 g/dL (3.5-5.1); Alkaline Phosphatase 79 U/L (38-126); Anion Gap 7 mmol/L (4-12); Aspartate Amino Transferase 18 U/L (14-36); Bilirubin,Total 0.4 mg/dL (0.2-1.3); Blood Urea Nitrogen 14 mg/dL (7-17); Calcium 8.9 mg/dL (8.4-10.2); Carbon Dioxide 25 mmol/L (22-30); Chloride 104 mmol/L (98-107); Estimated CRCL calculation 146 ml/min; Estimated Glomerular Filt Rate > 60; Glucose 135 mg/dL (65-110); Lipase 87 U/L (23-300); Partial Thromboplastin Time 28.3 Seconds (22.3-36.8); Potassium 4.3 mmol/L (3.4-5.0); Prothrombin Time 13.9 Seconds (11.1-14.7); Sodium 136 mmol/L (137-145)
[2023-07-09 08:37] LABS: D Dimer 2.23 ug/mL (<0.48)
[2023-07-09 08:45] LABS: Hypochromasia 2+; Ovalocytes 1+; Platelet Estimate Adequate (Adequate); Poikilocytosis 1+; Stomatocytes 1+
[2023-07-09 08:46] LABS: Anisocytosis 1+; Microcytosis 1+ (NORMAL); Schistocytes Rare
[2023-07-09] MEDS: ASPIRIN 81 MG CHEWABLE TABLET 324 MG PO (10:09)
--- NOTE | 2023-07-09 11:04 | ADMGEN ---
This patient, Tita Boucher, was admitted to IMU Room 202-01. Patient/family oriented to hospital policies and general routines including ID bracelet, bed and alarms, visiting hours, pain management, procedures, bathroom and other care routines, personal items, smoking policy, room service/diet, and visiting hours. Information on how to activate the Rapid Response Team has been discussed. Patient/Family are encouraged to report perceived risks to care and to ask questions if they do not understand what they are told or what they should do.
--- NOTE | 2023-07-09 11:51 | PM.CNCAR ---
Assessment and Plan Assessment and plan (1) Palpitations: Code(s): R00.2 - Palpitations Status: Acute Assessment and Plan: Continue to monitor on tele. Will check TSH level. Echocardiogram ordered. (2) Chest pain: Qualifiers: Chest pain type: unspecified Qualified Code(s): R07.9 - Chest pain, unspecified Code(s): R07.9 - Chest pain, unspecified Status: Acute Assessment and Plan: Atypical, currently chest pain free. Echocardiogram ordered. (3) Elevated troponin: Code(s): R79.89 - Other specified abnormal findings of blood chemistry Status: Acute Assessment and Plan: Minimally elevated. EKG without ischemic changes. Will trend troponins. Echocardiogram ordered. (4) Hyperlipidemia: Code(s): E78.5 - Hyperlipidemia, unspecified Status: Acute Assessment and Plan: Continue statin. (5) CVA (cerebral vascular accident): Qualifiers: CVA mechanism: unspecified Qualified Code(s): I63.9 - Cerebral infarction, unspecified Code(s): I63.9 - Cerebral infarction, unspecified Status: Acute Assessment and Plan: Continue statin. History of Present Illness History of Present Illness Consult date/time: 07/09/23 11:51 Requesting physician: Rigo Staton MD Consult reason: Other (Chest pain, palpitations, elevated troponin) Reason For Visit: chest pain,pancreatitis Narrative: Patient is a 47 year old female with CVA 11/2022 (received TPA), familial Mediterranean fever, iron deficiency anemia (currently receiving IV iron transfusions as outpatient), hypertension, hyperlipidemia, asthma who presented with palpitations. Patient states that yesterday morning, she had sudden onset of what she states bubbles in her chest and heart fluttering. This lasted the whole day. She did not notice it as much with exertion or doing activities, but could tell when resting. Overnight when laying down to sleepy, she had two very brief episodes of chest squeezing. Has not had these symptoms before. Patient states she started Symbicort yesterday morning, which is a new medication for her. Her symptoms started after that. Reports father had coronary stent in his late 60s. Former smoker - quit in 2019, smoked about 6-7 years. Workup shows: EKG w ith sinus rhythm with IRBBB. Has chronically elevated WBC count. Hgb at 8.5. Platelet count at 491. D-dimer elevated at 2.23. Initial troponin was 0.050. Chest CTA negative for PE. Review of Systems Review of Systems: All systems reviewed & are unremarkable except as noted in HPI and below (HPI) [facility] Past Medical History Medical History Allergies Anxiety Arthritis Asthma CVA (cerebral vascular accident) Received tPA 11/2022, transferred to [facility], discharged without antiplatelet therapy. Encounter for screening colonoscopy Familial Mediterranean fever Family history of colon cancer in father Febrile seizures GERD (gastroesophageal reflux disease) Jamar's disease Hyperlipidemia Hypertension Nausea RUQ abdominal pain Skin cancer Basal cell carcinoma removed 2002 Family History Family History Father Alcoholism Carcinoma of colon Diabetes mellitus Hypertension Malignant neoplasm of prostate Mother Diabetes mellitus Hypertension Depression Thyroid disorder Daughter Asthma Depression Grandparent Alcoholism Cancer Cerebrovascular accident Social History Social History Smoking packs per day: 0.5 Smoking cigarettes per day: 10.0 Years smoked: 7 Smoking pack-years: 3.50 Smoking status: Former smoker Tobacco type: cigarettes Smoking end date: 12/22/18 Alcohol intake: never Substance use: current Substance use type: marijuana Do You Feel Safe in your Home?: Yes
--- NOTE | 2023-07-09 12:39 | PM.IMHP ---
H&P: HPI History of Present Illness Date/Time: 07/09/23 22:55 Chief Complaint: Palpitations Narrative: 47 y/o F presents here with palpitations with PMH of asthma, anxiety, arthritis, gastric ulcers, CVA (2022), familial Mediterranean fever, GERD, Jamar's, HLD, HTN, and basal cell carcinoma (s/p excision, 2002). Patient presents here with palpitations and chest discomfort. Palpations started yesterday morning upon awakening (07/07) around 0500. Patient describes the palpations as a bubbling sensation. Patient rested her hand over her heart and could feel her heart racing/tapping against her fingers quickly. Started Symbicort that morning (first dose of this med, was not on prior), unclear if the symptoms started with the inhaler or awakening because the patient takes her meds shortly after getting up. Chest discomfort started at last night while she was sleeping. She experienced 2 sharp episodes of chest pain that lasted approximately 5 seconds each that woke her from her sleep. Describes the pain as squeezing, nonradiating, and has some second episode was accompanied by diaphoresis and nausea without emesis. Also reporting asymmetric leg swelling, L worse than R, with unclear onset. No tenderness or erythema. Patient is currently on oral contraceptives to control fibroid bleeding. Initial VS at presentation: 98? F, HR 99, RR 16, 164/98, and 100% on RA. ED workup showed: WBC 14, hgb 8.5, elevated d-dimer, no significant electrolyte derangements, creatinine 0.5 and GFR >60. Initial troponin 0.042 an EKG showed RBBB, moderate voltage criteria for LVH, borderline R-wave progression. CXR showed normal chest. Chest CTA showed clear lungs and no evidence of PE, dissection, or aneurysm. Review of Systems Review of Systems: All systems reviewed & are unremarkable except as noted in HPI and below [facility] Past Medical History Medical History (Updated 07/09/23 @ 23:18 by Tatiana Saldivar APRN) Allergies Anxiety Arthritis Asthma CVA (cerebral vascular accident) Received tPA 11/2022, transferred to [facility], discharged without antiplatelet therapy. Encounter for screening colonoscopy Familial Mediterranean fever Family history of colon cancer in father Febrile seizures GERD (gastroesophageal reflux disease) Jamar's disease Hyperlipidemia Hypertension Iron deficiency anemia Kidney stones staghorn Major depressive disorder Nausea Restless leg syndrome Sciatica Skin cancer Basal cell carcinoma, s/p Moh's, 2002 Umbilical hernia Family History Family History Father Alcoholism Carcinoma of colon Diabetes mellitus Hypertension Malignant neoplasm of prostate Mother Diabetes mellitus Hypertension Depression Thyroid disorder Daughter Asthma Depression Grandparent Alcoholism Cancer Cerebrovascular accident Social History Social History Smoking packs per day: 0.5 Smoking cigarettes per day: 10.0 Years smoked: 7 Smoking pack-years: 3.50 Smoking status: Former smoker Tobacco type: cigarettes Smoking end date: 12/22/18 Alcohol intake: never Substance use: current Substance use type: marijuana Do You Feel Safe in your Home?: Yes Lack of Transportation: No Lack of Food: Never True Current Housing: I Have Housing Concerned About Future Housing: No Difficulty Paying Gas/Electric Bills: No Difficulty Paying for Meds: No Currently Unemployed: No Education: High School Diploma/GED Difficulty w/ Childcare or Family Care: No Living arrangements: with family Spiritual care concerns: No Meds Home Medications and Allergies Home Medications Medication Instructions Recorded Confirmed Type ipratropium 0.5 mg-albuterol 3 mg 3 ml inhalation QID PRN shortness 12/09/22 07/09/23 Rx (2.5 mg base)/3 mL nebulization of breath or wheezing #90 mL soln
[2023-07-09 13:02] LABS: Free T4 Free Thyroxine 1.24 ng/mL (0.78-2.19)
[2023-07-09 13:03] LABS: Troponin I 0.042 ng/mL (0.000-0.034)
[2023-07-09] MEDS: VITAMIN B COMPLEX CAPSULE 1 CAP PO (15:54)
[2023-07-09] MEDS: PANTOPRAZOLE SODIUM IV 40 MG VIAL IV PUSH (15:54)
--- NOTE | 2023-07-09 16:30 | IVDEFINITY ---
Prior to administration of IV Definity the patient was educated on the risks and benefits of the imaging enhancing agent including potential adverse side effects. The patient verbalized understanding. Allergies were verified. No exclusion criteria were identified and at least one of the following inclusion criteria were met: 1) physician request, 2) patient technically difficult to image (per the [place] [employer] guidelines of two or more segments not discernable within the apical view), or 3) questionable left ventricular function. ?
[2023-07-09] MEDS: PERFLUTREN LIPID MICROSPHERES 1.5 ML VIAL DILUTED TO 10 ML TOTAL VOLUME IV PUSH (16:31)
[2023-07-09 18:07] LABS: Troponin I 0.046 ng/mL (0.000-0.034)
[2023-07-09] MEDS: FLUTICASONE/SALMETEROL 115-21 MCG INHALER 1 PUFF 2 PUFF INHALATION (20:10)
[2023-07-09] MEDS: ATORVASTATIN 40 MG TABLET 80 MG PO (20:16)
[2023-07-09] MEDS: ACETAMINOPHEN 325 MG TABLET 650 MG PO (20:17)
[2023-07-10] VITALS (9 sets, daily range): BP systolic 130–148; BP diastolic 84–87; PULSE 61–104; RESP 14–16; TEMP 36.2; O2SAT 98–100
[2023-07-10 05:17] LABS: Anion Gap 6 mmol/L (4-12); Blood Urea Nitrogen 14 mg/dL (7-17); Calcium 8.6 mg/dL (8.4-10.2); Carbon Dioxide 26 mmol/L (22-30); Chloride 106 mmol/L (98-107); Estimated CRCL calculation 106 ml/min; Estimated Glomerular Filt Rate > 60; Glucose 101 mg/dL (65-110); Potassium 3.7 mmol/L (3.4-5.0); Sodium 138 mmol/L (137-145)
[2023-07-10 05:34] LABS: Basophils Absolute Auto 0.1 K/mm3 (0.0-0.1); Eosinophils Absolute Auto 0.5 K/mm3 (0-0.3); Eosinophils Percent Auto 4.4 % (0-4.4); Hematocrit 30.2 % (37.0-47.0); Hemoglobin 7.9 g/dL (12.0-15.0); Immature Granulocyte Absolute 0.05 K/mm3 (0.00-0.031); Immature Granulocyte Percent A 0.5 % (0-0.5); Lymphocytes Percent Auto 29.8 % (18.3-44.2); Mean Corpuscular HGB Conc 26.2 g/dl (32-36); Mean Corpuscular Hemoglobin 20.5 pg (26-34); Mean Corpuscular Volume 78.4 fl (80-100); Mean Platelet Volume 10.2 fl (7.4-10.4); Monocytes Absolute Auto 0.6 K/mm3 (0.1-0.6); Monocytes Percent Auto 6.1 % (2.6-8.5); Neutrophils Absolute Auto 6.1 K/mm3 (1.3-6.7); Neutrophils Percent Auto 58.2 % (45.5-73.1); Platelet Count Result 445 k/mm3 (150-375); Red Blood Count 3.85 M/mm3 (4.2-5.4); Red Cell Distribution Width 23.2 % (11.5-14.5); White Blood Count 10.4 K/mm3 (4.5-10.0)
[2023-07-10] MEDS: LEVOTHYROXINE SODIUM 25 MCG TABLET PO (06:35)
[2023-07-10 07:16] LABS: Anisocytosis 2+; Hypochromasia 1+; Microcytosis 2+ (NORMAL); Ovalocytes 1+; Platelet Estimate Increased (Adequate); Schistocytes None Seen
[2023-07-10] MEDS: PANTOPRAZOLE SODIUM IV 40 MG VIAL IV PUSH (08:29)
[2023-07-10] MEDS: VITAMIN B COMPLEX CAPSULE 1 CAP PO (08:29)
[2023-07-10] MEDS: LOSARTAN POTASSIUM 100 MG TABLET PO (08:30)
[2023-07-10] MEDS: hydroCHLOROthiazide 25 MG TABLET PO (08:30)
[2023-07-10] MEDS: FLUTICASONE/SALMETEROL 115-21 MCG INHALER 1 PUFF 2 PUFF INHALATION (08:39)
--- NOTE | 2023-07-10 08:54 | EST_ITS ---
Patient Info Name: Tita Boucher Age: 47 years : 1975 Gender: Female Ht: 66 in Wt: 251 lbs BSA: 2.36 m2 Exam Date: 07/10/2023 12:30 PM Exam Location: Echo Lab Patient Status: Inpatient Admit Date: 07/09/2023 Staff Ordering Physician: Uri Horta MD Attending Provider: Fatoumata Weller MD Exercise Technologist: Olivia Gustafson RDCS Nurse: Shelia Blair APN Exam Type: CA stress brie w NM Study Info A regadenoson stress test was performed. Summary 1. No abnormal ST/T wave changes diagnostic of ischemia with Lexiscan. 2. Please correlate with nuclear medicine images, reported separately. 3. Stress test supervised by Shelia Blair NP. Stress test interpreted by Uri Horta MD. Protocol: Lexiscan Stress ECG Details Stage: REST Duration (min): 0 min : 49 sec HR (bpm): 84 SBP (mmHg): 141 DBP (mmHg): 96 Stage: REST Duration (min): 3 min : 50 sec HR (bpm): 87 SBP (mmHg): 141 DBP (mmHg): 96 Stage: STAGE 1 Duration (min): 0 min : 59 sec HR (bpm): 122 SBP (mmHg): 172 DBP (mmHg): 101 Stage: RECOVERY Duration (min): 1 min : 0 sec HR (bpm): 112 SBP (mmHg): 172 DBP (mmHg): 101 Stage: RECOVERY Duration (min): 2 min : 0 sec HR (bpm): 101 SBP (mmHg): 172 DBP (mmHg): 101 Stage: RECOVERY Duration (min): 3 min : 0 sec HR (bpm): 99 SBP (mmHg): 160 DBP (mmHg): 100 Stage: RECOVERY Duration (min): 4 min : 0 sec HR (bpm): 100 SBP (mmHg): 160 DBP (mmHg): 100 Stage: RECOVERY Duration (min): 4 min : 48 sec HR (bpm): 97 SBP (mmHg): 137 DBP (mmHg): 99 Rest HR: 87 bpm Peak HR: 123 bpm Rest Sys BP: 141 mmHg Peak Sys BP: 172 mmHg Max Pred HR: 171 bpm % Max Pred HR: 72 % Target HR: 145 bpm Max RPP: 21,156 bpm*mmHg Total Time: 1 min : 0 sec Rest Mcdaniel BP: 96 mmHg Peak Mcdaniel BP: 101 mmHg Total Dose: 0.4 mg Resting ECG Sinus rhythm. Right bundle branch block. Stress ECG Sinus tachycardia. No abnormal ST/T wave changes diagnostic of ischemia with Lexiscan. Arrhythmias None. Report Signatures
--- NOTE | 2023-07-10 10:34 | PM.PNCARD ---
Progress Note: A&P Assessment and Plan (1) Palpitations: Code(s): R00.2 - Palpitations Status: Acute Assessment and Plan: No arrhythmias noted on telemetry Echo showed normal LV function, no valvular abnormalities TSH WNL If she has further palpitations can order outpatient tele monitor, however, patient has latex allergy so need to ensure there is a latex free monitor that can be placed. (2) Chest pain: Qualifiers: Chest pain type: unspecified Qualified Code(s): R07.9 - Chest pain, unspecified Code(s): R07.9 - Chest pain, unspecified Status: Acute Assessment and Plan: Atypical, currently chest pain free. Echocardiogram unremarkable. Lexiscan today negative for any ischemia or infarct. (3) Elevated troponin: Code(s): R79.89 - Other specified abnormal findings of blood chemistry Status: Acute Assessment and Plan: Minimally elevated. EKG without ischemic changes. Negative MPI and normal echo. (4) Hyperlipidemia: Code(s): E78.5 - Hyperlipidemia, unspecified Status: Inactive Assessment and Plan: Continue statin. (5) CVA (cerebral vascular accident): Qualifiers: CVA mechanism: unspecified Qualified Code(s): I63.9 - Cerebral infarction, unspecified Code(s): I63.9 - Cerebral infarction, unspecified Status: Resolved Assessment and Plan: Continue statin. Plan OK for discharge from a cardiac perspective. Cardiology will sign off please call with questions. Subjective Date/time seen: 07/10/23 10:34 Interval history: Cardiology follow-up for palpitations, chest pain Date of service 07/10/2023: She is feeling better today. She has not had any recurrence of palpitations or ?bubbles? she describes them. No chest pain. Review of Systems Review of Systems: All systems reviewed & are unremarkable except as noted in HPI and below (HPI) Exam Const: General: comfortable and no acute distress HENMT: Mouth: Yes moist mucous membranes Eyes: General: appearance normal, both eyes and all related structures Sclera: sclerae normal Neck: Neck: supple Resp: Effort & Inspection: normal respiratory effort Cardio: Rate: regular rate Rhythm: regular rhythm Heart sounds: no murmurs Skin: General skin exam: normal color Neuro: Speech: normal speech Psych: Mental Status: mental status grossly normal Affect: normal affect Objective Data Vital Signs Vital Signs: Vital Signs - 24 hr 07/09/23 10:40 07/09/23 10:58 07/09/23 12:05 Temperature 37.1 C 37.0 C Pulse Rate 90 86 89 Respiratory Rate 18 20 20 Blood Pressure 147/90 H 150/93 H 148/47 H Pulse Oximetry 99 99 100 Oxygen Delivery 07/09/23 12:00 07/09/23 15:57 07/09/23 14:00 Temperature 36.4 C Pulse Rate 81 82 70 Respiratory Rate 20 Blood Pressure 130/86 Pulse Oximetry 96 Oxygen Delivery 07/09/23 16:00 07/09/23 16:00 07/09/23 18:00 Temperature Pulse Rate 65 90 Respiratory Rate Blood Pressure Pulse Oximetry Oxygen Delivery Room Air 07/09/23 19:50 07/09/23 21:57 07/09/23 20:00 Temperature 37.1 C Pulse Rate 86 Respiratory Rate 16 Blood Pressure 116/72 Pulse Oximetry 97 98 Oxygen Delivery Room Air Room Air 07/09/23 23:58 07/10/23 00:00 07/10/23 04:00 Temperature 36.2 C L Pulse Rate 77 Respiratory Rate 16 Blood Pressure 124/76 Pulse Oximetry 96 Oxygen Delivery Room Air Room Air 07/10/23 04:00 07/09/23 20:00 07/09/23 22:00 Temperature 36.2 C L Pulse Rate 65 89 70 Respiratory Rate 16 Blood Pressure 130/84 Pulse Oximetry 100 Oxygen Delivery 07/10/23 00:00 07/10/23 02:00 07/10/23 04:00 Temperature Pulse Rate 75 61 62 Respiratory Rate Blood Pressure Pulse Oximetry Oxygen Delivery 07/10/23 06:00 07/10/23 07:51 07/10/23 08:45 Temperature 36.2 C L Pulse Rate 72 75 Respiratory Rate 14 Blood Pressure 148/87 H Pu
--- NOTE | 2023-07-10 11:47 | PC.NURSE ---
Patient left floor via wheelchair with transportation for [id number].
--- NOTE | 2023-07-10 15:29 | PM.DS ---
DS: Admitting Diagnosis Discharge Date July 10, 2023 Admitting Diagnosis Chest pain DS: Discharge Diagnosis Discharge Diagnosis (1) Asthma: Code(s): J45.909 - Unspecified asthma, uncomplicated Status: Acute (2) Chest pain: Qualifiers: Chest pain type: unspecified Qualified Code(s): R07.9 - Chest pain, unspecified Code(s): R07.9 - Chest pain, unspecified Status: Acute DS: Summary Hospital Course Hospital Course: 47-year-old female with a past medical history CVA (received TPA in 11/2022), familial Mediterranean fever, iron deficiency anemia (currently receiving IV iron transfusions in the outpatient setting), hypertension, hyperlipidemia, asthma, hypothyroidism, gastritis who presents with palpitations to which she more describes as a bubbly feeling in her chest and heart fluttering. They lasted an entire day and then she decided to present to [place] [facility]. As well, she had 2 brief episodes of squeezing in the chest the night prior to admission, it woke her up. She did just start Symbicort. Due to gastritis the patient elected to stop aspirin previously. Patient was admitted on 07/08 for further workup. Workup revealed TSH within normal limits Surface echocardiogram with normal LV function and no valvular abnormalities Telemetry without any noted arrhythmias Lexiscan stress test negative for ischemia or infarct. Minimal elevation of troponins and no ischemic changes noted on EKGs. The patient's pain resolved she is stable for discharge on 07/10/2023. Her Symbicort is being switched out for Advair. Adverse effects, risks, benefits discussed with the patient to which she understands and agrees to medications and the above plan. She knows to follow up with her PCP within 2 weeks and knows to return to the ER if she has significant pain or worsening/return of symptoms. She was full code during the admission. Time Spent with Patient Time attestation: Total time spent providing and/or coordinating discharge services: Exam Const: General: cooperative and no acute distress Resp: Effort & Inspection: normal respiratory effort Auscultation: clear to auscultation bilaterally Cardio: Rate: regular rate Rhythm: regular rhythm Heart sounds: S1 normal heart sound present and S2 normal heart sound present GI: GI Palp: No abdominal tenderness Auscultation: normal bowel sounds DS: Data Data Completed and Pending Labs on day of discharge: Labs from last 24 hours 07/10/23 07/09/23 04:20 17:14 WBC 10.4 H RBC 3.85 L Hgb 7.9 L Hct 30.2 L MCV 78.4 L MCH 20.5 L MCHC 26.2 L RDW 23.2 H Plt Count 445 H MPV 10.2 Immature Gran % (Auto) 0.5 Neut % (Auto) 58.2 Lymph % (Auto) 29.8 [place] % (Auto) 6.1 Eos % (Auto) 4.4 Baso % (Auto) 1.0 Lymph # (Auto) 3.10 [place] # (Auto) 0.6 Eos # (Auto) 0.5 H Baso # (Auto) 0.1 Abs Immat Gran (auto) 0.05 H Absolute Neuts (auto) 6.1 Absolute Nucleated RBC 0.000 Nucleated RBC % 0.0 Platelet Estimate Increased Hypochromasia 1+ Anisocytosis 2+ Microcytosis 2+ Ovalocytes 1+ Schistocytes None seen Sodium 138 Potassium 3.7 Chloride 106 Carbon Dioxide 26 Anion Gap 6 BUN 14 Creatinine 0.70 Estim Creat Clear Calc 106 Estimated GFR > 60 Glucose 101 Calcium 8.6 Troponin I 0.046 H* Discharge Plan Discharge Attending physician on discharge: Nicole Majano Consulting providers: Uri Horta Discharging Clinician: Nicole Majano Patient Disposition: Home, Self-Care Activity: may shower Diet: as tolerated Patient Instructions: Antibiotic Form Stand Alone Forms: General Discharge Information Follow-up/Referrals: Dafne Gomez DO [Primary Care Provider] - 2 Weeks Discharge Medications: New fluticasone propion-salmeterol [Advair Diskus] 100-50 mcg/dose blister with device 1 inh inhalation Q12H Qty: 60 0RF Continued vitamin
== END 2023-07-10 15:50 | disposition home or self-care (01) ==
LOC: ANHED 10:01 → ANHIMU 07-10 11:03
PROVIDERS: Internal Medicine; Admitting Provider Family Medicine; Emergency Provider Preventive Medicine Aerospace Medicine; PCP Family Medicine; Visit Provider General Practice
DX: R07.9 Chest pain, unspecified (principal); J45.909 Unspecified asthma, uncomplicated; R00.2 Palpitations; R79.89 Other specified abnormal findings of blood chemistry; M79.89 Other specified soft tissue disorders; I10 Essential (primary) hypertension; E78.5 Hyperlipidemia, unspecified; D50.9 Iron deficiency anemia, unspecified; E06.3 Autoimmune thyroiditis; K21.9 Gastro-esophageal reflux disease without esophagitis; Z86.73 Personal history of transient ischemic attack (TIA), and cerebral infarction without residual deficits; Z87.891 Personal history of nicotine dependence; F12.90 Cannabis use, unspecified, uncomplicated; Z79.51 Long term (current) use of inhaled steroids
CPT/HCPCS: 36415; 71046; 71275; 78452; 80048; 80053; 81025; 83690; 84439; 84443; 84484; 85025; 85380; 85610; 85730; 93005; 93017; 93306; 93971; 94640; 96374; 96375; 96376; 99285; A9270; A9502; C8929; C9113; G0378; J2785; Q9957; Q9967

== ENCOUNTER 2023-07-29 15:09 | Outpatient (CLI) | payer BC, OTHER, SELFPAY ==
[2023-07-29 19:58] LABS: CRP 1.2 mg/dL (<1.0); Cholesterol 146 mg/dL (0-200); HDL Direct 43 mg/dL; Triglycerides 139 mg/dL (<150)
[2023-07-29 20:00] LABS: Rheumatoid Factor < 12.0 IU/ML (<12)
[2023-07-29 20:06] LABS: LDL Cholesterol Direct 75 mg/dL
[2023-07-29 20:10] LABS: Hemoglobin A1C 5.3 % (<5.7)
[2023-07-29 20:25] LABS: Vitamin D 25 Hydroxy 36.3 ng/mL
[2023-07-29 20:55] LABS: Erythrocyte Sedimentation Rate 23 mm/hr (0-20)
[2023-08-05 14:19] LABS: Anti Cyclic Citrullinated Pept <16 UNITS
== END 2023-07-29 15:10 | disposition home or self-care (01) ==
LOC: ANHGOSHLAB 15:11
PROVIDERS: PCP Family Medicine; Visit Provider Family Medicine
DX: E78.5 Hyperlipidemia, unspecified (principal); E55.9 Vitamin D deficiency, unspecified; R73.9 Hyperglycemia, unspecified; M25.50 Pain in unspecified joint
CPT/HCPCS: 36415; 80061; 82306; 83036; 85652; 86038; 86039; 86140; 86200; 86430

== ENCOUNTER 2023-08-12 19:20 | Outpatient (NON) | payer BC, OTHER, SELFPAY ==
[2023-08-12 20:29] LABS: Appearance Urine Clear (Clear); Bacteria Urine None Seen /hpf; Bilirubin Urine Negative (Negative); Blood Urine Negative (Negative); Color Urine Yellow (Yellow); Glucose Urine UA Negative (Negative); Ketones Urine Negative (Negative); Leukocyte Esterase Ur Negative LEU/UL (Negative); Nitrate Urine Negative (Negative); Protein Urine Trace mg/dL (Negative); Specific Grav Ur 1.013 (1.001-1.035); Squamous Epithelial Cell Urine Occasional /hpf (Few); Urobilinogen Urine 0.2 mg/dL (<2.0); WBC Urine 0-5 /hpf (0-3)
[2023-08-12 20:32] LABS: Add Urine Microscopic? YES
== END 2023-08-12 19:21 | disposition home or self-care (01) ==
LOC: ANHLAB 19:22
PROVIDERS: PCP Family Medicine; Visit Provider Nurse Practitioner
DX: R30.0 Dysuria (principal)
CPT/HCPCS: 81001; 87086; 87088

== ENCOUNTER 2023-10-08 15:15 | Outpatient (CLI) | payer BC, OTHER, SELFPAY ==
--- NOTE | ~2023-10-08 | MM_ITS ---
EXAMINATION: MM screening michael BI w haily HISTORY: Screening TECHNIQUE: Craniocaudal and mediolateral oblique 3-D tomosynthesis images were obtained and synthetic 2-D images were generated. CAD analysis was submitted and interpreted. COMPARISON: No prior mammogram is available for comparison at this institution. BREAST PARENCHYMAL COMPOSITION: Not dense: There are scattered areas of fibroglandular density. FINDINGS: There is focal asymmetry laterally in the right breast on CC view, middle third. There is n o mammographic evidence for malignancy in the left breast. IMPRESSION: 1. Right breast asymmetry. 2. Additional spot compression and mediolateral views with possible follow-up breast ultrasound recom mended. BI-RADS Category 0: Incomplete: Needs additional imaging evaluation. Reviewed, dictated and finalized at location B. IMPRESSION: 1. Right breast asymmetry. 2. Additional spot compression and mediolateral views with possible follow-up b reast ultrasound recommended. BI-RADS Category 0: Incomplete: Needs additional imaging evaluation.
== END 2023-10-08 15:16 | disposition home or self-care (01) ==
LOC: ANHIMG 15:16
PROVIDERS: PCP Family Medicine; Visit Provider Nurse Practitioner Family
DX: Z12.31 Encounter for screening mammogram for malignant neoplasm of breast (principal); N64.89 Other specified disorders of breast
CPT/HCPCS: 77063; 77067

== ENCOUNTER 2023-10-29 09:49 | Outpatient (CLI) | payer BC, OTHER, SELFPAY ==
--- NOTE | ~2023-10-29 | US_ITS ---
EXAMINATION: US pelvic complete w TV INDICATION: Excessive frequent menstruation Comparison:No prior studies for comparison. TECHNIQUE: Multiple transabdominal and endovaginal sonographic images of the pelvis performed. FINDINGS: The uterus measures 11.8 x 7.6 x 7.8 cm. There are multiple uterine fibroids, largest measu ring 6.3 x 6.1 x 5.5 cm. Endometrium is not well delineated due to fibroid changes. There is a right ovarian cyst measuring 2.5 cm which is minimally complicated. Left ovary measures 2.3 x 1.9 x 1.5 cm with normal Doppler signal. There is no free fluid in the pelvis. There are no abnormal masses seen on either side. IMPRESSION: 1. Enlarged fibroid uterus, largest discrete fibroid measures 6.3 cm. 2: Minimally complicated right ovarian cyst measuring 2.5 cm. Reviewed, dictated and finalized at location B.
== END 2023-10-29 09:50 | disposition home or self-care (01) ==
PROVIDERS: PCP Family Medicine; Visit Provider Obstetrics & Gynecology
DX: N92.0 Excessive and frequent menstruation with regular cycle (principal); Z86.018 Personal history of other benign neoplasm; D25.9 Leiomyoma of uterus, unspecified
CPT/HCPCS: 76830; 76856

== ENCOUNTER 2023-10-29 10:50 | Outpatient (CLI) | payer BC, OTHER, SELFPAY ==
--- NOTE | ~2023-10-29 | MM_ITS ---
EXAMINATION: MM diagnostic michael RT w haily HISTORY: Asymmetric density right breast. TECHNIQUE: Additional 3-D tomosynthesis images of the right breast were performed and synthetic 2-D i mages were generated. CAD analysis was submitted and interpreted. COMPARISON: 10/08/2023 BREAST PARENCHYMAL COMPOSITION:Not Dense. There are scattered areas of fibroglandular density. FINDINGS: Spot compression views demonstrate several small low-density circumscribed nodules, most co mpatible with small benign findings. No suspicious masses or dissection seen. No suspicious mammograp hic or calcification. IMPRESSION: No mammographic evidence for malignancy. BI-RADS Category 2: Benign finding(s). Reviewed, dictated and finalized at location M.
== END 2023-10-29 10:51 | disposition home or self-care (01) ==
PROVIDERS: PCP Family Medicine; Visit Provider Internal Medicine Hematology & Oncology
DX: R92.8 Other abnormal and inconclusive findings on diagnostic imaging of breast (principal)
CPT/HCPCS: 77061; 77065; G0279

== ENCOUNTER 2024-02-22 12:59 | Outpatient (CLI) | payer BC, OTHER, SELFPAY ==
[2024-02-22 13:44] LABS: Hematocrit 36.7 % (37.0-47.0); Hemoglobin 11.3 g/dL (12.0-15.0); Mean Corpuscular HGB Conc 30.8 g/dl (32-36); Mean Corpuscular Hemoglobin 25.4 pg (26-34); Mean Corpuscular Volume 82.5 fl (80-100); Mean Platelet Volume 10.4 fl (7.4-10.4); Platelet Count Result 341 k/mm3 (150-375); Red Blood Count 4.45 M/mm3 (4.2-5.4); Red Cell Distribution Width 20.8 % (11.5-14.5); White Blood Count 13.3 K/mm3 (4.5-10.0)
[2024-02-22 14:15] LABS: Add Urine Microscopic? YES; Appearance Urine Cloudy (Clear); Bacteria Urine None Seen /hpf; Bilirubin Urine Negative (Negative); Blood Urine Negative (Negative); Color Urine Yellow (Yellow); Glucose Urine UA Negative (Negative); Ketones Urine Trace mg/dL (Negative); Leukocyte Esterase Ur Negative LEU/UL (Negative); Mucus Urine Present /lpf; Need Manual Microscopic Reviewed; Nitrate Urine Negative (Negative); Non Pathogenic Casts 0-2; Protein Urine Negative (Negative); RBC Urine 51-100 /hpf (0-2); Specific Grav Ur 1.022 (1.001-1.035); Squamous Epithelial Cell Urine None Seen /hpf (Few); Urobilinogen Urine 0.2 mg/dL (<2.0); WBC Urine 0-5 /hpf (0-3); pH Urine 6.5 (5.0-9.0)
== END 2024-02-22 13:00 | disposition home or self-care (01) ==
LOC: ANHLAB 13:00
PROVIDERS: Visit Provider Obstetrics & Gynecology
DX: N92.0 Excessive and frequent menstruation with regular cycle (principal); Z87.440 Personal history of urinary (tract) infections
CPT/HCPCS: 36415; 81001; 85027

== ENCOUNTER 2024-03-11 10:40 | Outpatient (CLI) | payer BC, OTHER, SELFPAY ==
[2024-03-11 15:41] LABS: Anion Gap 7 mmol/L (4-12); Blood Urea Nitrogen 16 mg/dL (7-17); Calcium 8.6 mg/dL (8.4-10.2); Carbon Dioxide 30 mmol/L (22-30); Chloride 103 mmol/L (98-107); Estimated Glomerular Filt Rate > 60; Glucose 92 mg/dL (65-110); Potassium 4.3 mmol/L (3.4-5.0); Sodium 140 mmol/L (137-145)
--- OUTSIDE RECORDS SUMMARY | 2024-03-17 06:31 | XMS_ITS | Continuity of Care Document ---
Author Name [facility] Organization [facility] Care Team Providers Care Knotter Name Role Phone [facility] Unavailable Unavailable Problems Combined list of problems from Department of Defense and Veterans Affairs facilities. It does not include entries that were removed or entered in error. Problem Status Onset Date Problem Type Date of Resolution Comments Source pyrexia Inactive Condition DoD Fever Inactive Condition Pt to walk in for recurrent fevers. [facility] Vaginal Pap Smear Inactive Condition [facility] Cervical Pap Smear Inactive Condition [facility] Gynecologic Services Contraceptive Management Active Condition DoD visit for: screening exam malignant neoplasm breast Inactive Condition [facility] Pelvic Exam (Internal) Active Condition Mood/Depression : stable, pt has few weeks of Zoloft remaining. Instructed pt to call clinic 4-5 days prior to run out of meds, leave [facility] for med refill...... will provide 90 day supply of Zoloft 100mg daily.Of note: , will no longer have after . [facility] nontoxic solitary thyroid nodule Active Condition Pt notes that a previous FNAB at [employer] was benign, pt advised that the nodule would need to be re-aspirated if the lesion increases in size. [facility] Gynecologic Service Prescrip Of Contracept Agent - Repeat Rx Active Condition Pt overdue for PapSmear; due in . Refill current OCP until can be seen for CPE/well woman exam for breast/pap/pelvi c. DoD esophageal reflux Active Condition Ne w onset, trial of acute management with Zantac and addition of Prilosec fo [place] therapy. [facility] nontoxic goiter diffuse Active Condition Thyroid US foun d mass in mid-right lobe of thyroid. This is a known finding with hx of negative bx few yrs ago. Given new symptom of fever of unknown cause, recommend Endocrinology Consult to determine if further evaluation required.Thyriod note: 30yo female with Hx of Thyroid lump. Recent thyroid US revealed 1.5cm round hypechoic mass noted in mid lobe of thyroid. Patient states this is known finding, had a negative biopsy few yrs ago. US performed during evaluation for fever of unknown origin (chest CT revealed thryoid mass). Please assist if further evaluation/manag ement required. thank you. DoD visit for: administrative purpose Inactive Condition DoD fever of unknown origin Inactive Condition DoD lumbago Active Condition DoD Other Physical Therapy Inactive Condition Pt has progressed well w/ her LBP. Pt has met all of her goals and is IND w/ her HEP. Pt displays good LS AROM w/ mild TTP at bilat PSIS areas. Pt instructed to continue w/ CORE stability trng and swimming to continue to combat and eliminate her LBP. Pt verbalized understanding. Pt is therefore being discharged to her HEP. Pt verbalized understanding and appreciation. DoD intervertebral disc degeneration - lumbar Active Condition DoD muscle weakness Active Condition DoD herniated disc of L5 - S1 Active Condition Improving with physical therapy. Reviewed MRI findings-- slight disc protrusion at L5-S1, will consult neurosurg to discuss management options and jail prognosis. [facility] visit for: services physical Inactive Condition DoD hypothyroidism Active Condition DoD dysthymic disorder (depressive neurosis) Active Condition Reviewed result s only. Sub optimal control. Increase Zoloft to 150mg daily. (Dose not increased at last visit). F/u 1 mo. DoD joint pain, localized in the shoulder Active Condition DoD depression Active Condition DoD anxiety disorder NOS Active Condition DoD upper respiratory infection Inactive Condition DoD Allergies, Adverse Reactions, Alerts Combined list of allergies from Department of Defense and Veterans Affairs facilities. It does not include entries that were removed or entered in error. Substance Category Reaction Severity Reaction type Status Date Reported Comments Source No Known Allergies Drug allergy (disorder) active 7 [facility] Encounters Combined list of: 1) Encounters from Department of Veterans Affairs facilities going back up to thelast 18 months. 2) Encounters from the Department of Defense facilities going back up to 280 months. Location Location Details Encounter Type Encounter Number Reason For Visit Attending Provider ADM Date DC Date Status Disposition Source [facility]) TELE CONSULT [id number] referra GLADYS Mckenzie 10/05 [facility](F am Prac Resourc e Sharing ) [facility]) OUTPATIENT [id number] sore throat & congest GLADYS Low 12/31 Released w/o Limitations [facility](F am[facility] Practic e Contrac t [facility]) [facility] OUTPATIENT [id number] SHOULDE GLADYS ANGELES M 05/09 Released w/o Limitations [facility]rac [facility]) [facility]) TELE CONSULT [id number] Med GLADYS Cheema M 06/03 [facility]) [facility]) TELE CONSULT [id number] Medicat ion refGLADYS Saenz M 07/30 [facility]) [facility]) OUTPATIENT [id number] OSS GLADYS FLORENCE M 11/27 Released w/o Limitations [facility](F amily Practic e Contrac t Clinic) [facility]) OUTPATIENT [id number] WAYNE BLAKE 08/14 Released w/o Limitations [facility]) [facility](Phy Ther FE) OUTPATIENT [id number] Lumbago HUMAIRA WAKEFIELD 09/03 Released w/o Limitations [facility]) [facility]) OUTPATIENT [id number] mri results WAYNE BLAKE 09/04 Released w/o Limitations [facility]) [facility]) OUTPATIENT [id number] back ALEXANDRA SERNA 09/08 Released w/o Limitations [facility]) [facility]) OUTPATIENT [id number] back GUDELIA MCCORMACK 09/10 Released w/o Limitations [facility]) [facility]hy [facility]) OUTPATIENT [id number] back SCARLETT HART 09/11 Released w/o Limitations [facility]) [facility]) TELE CONSULT [id number] mri results need to be address ed lab results were [facility] Dodge [facility] [place] [facility](Phy Ther FE) OUTPATIENT [id number] back SCARLETT HART 09/16 Released w/o Limitations [facility]) [facility](Neurosu rgery [facility]) OUTPATIENT [id number] HERNIAT ED DISC (L5 - S1) ELTON GARCIA 09/22 Released w/o Limitations [facility](Clive rosurge ry [facility]) [facility] h(Phy Ther FE) OUTPATIENT [id number] back HUMAIRA WAKEFIELD 09/23 Released w/o Limitations [facility] h(Phy Ther FE) OUTPATIENT [id number] back TRENTON, YOANNA H 09/30 Released w/o Limitations [facility] h(Phy Ther FE) OUTPATIENT [id number] back TRENTON, YOANNA H 10/01 Released w/o Limitations [facility]) [facility] h(Phy Ther FE) OUTPATIENT [id number] back ALEXANDRA SERNA 10/06 Released w/o Limitations [facility]) [facility] [place] [facility](Phy Ther [facility]) OUTPATIENT [id number] back TRENTON, YOANNA H 10/08 Released w/o Limitations [facility]) OUTPATIENT [id number] back ALEXANDRA SERNA 10/13 Released w/o Limitations [facility]) [facility]PATIENT [id number] back ALEXANDRA SERNA 10/15 Released w/o Limitations [facility](Phy Ther FE) OUTPATIENT [id number] back GUDELIA MCCORMACK 10/29 Released w/o Limitations [facility]) [facility](Phy Ther [facility]) OUTPATIENT [id number] LOWER BACK HUMAIRA WAKEFIELD 10/30 Released w/o Limitations [facility]) [facility]) [facility] [id number] [facility] w/o Limitations [facility]) [facility]) TELE CONSULT [id number] lab results EYAD HAUSER 12/02 [facility]) [facility]) OUTPATIENT [id number] ongoing fevers WAYNE BLAKE 12/10 Released w/o Limitations [facility]) [facility]) OUTPATIENT [id number] f/u labs WAYNE BLAKE 01/14 Released w/o Limitations [facility]) [facility]) TELE CONSULT [id number] CT results WAYNE BLAKE 02/09 [facility]) [facility]) OUTPATIENT [id number] Pas entered the order WAYNE BLAKE 03/04 Released w/o Limitations [facility]) [facility]) TELE CONSULT [id number] Thyroid US results WAYNE BLAKE 03/25 [facility]) [facility](Infecti ous Disease [facility]) OUTPATIENT [id number] FEVER OF UNKNOWN ORIGIN ADELA VAUGHAN 03/31 Released w/o Limitations [facility](Inf ectious Disease [facility]) [facility](Endocri nology [facility]) OUTPATIENT [id number] GOITER (DIFFUS E NONTOXI C) JEANETTE CHAVEZ 04/22 Released w/o Limitations [facility](End ocrinol ogy [facility]) [facility]) TELE CONSULT [id number] MED REFILL EYAD HAUSER 04/28 [facility]) [facility]) OUTPATIENT [id number] pap WAYNE BLAKE 05/20 Released w/o Limitations [facility]) [facility](Infecti ous Disease [facility]) OUTPATIENT [id number] ADELA VAUGHAN 05/26 Released w/o Limitations [facility](Inf ectious Disease [facility]) [facility]) TELE CONSULT [id number] MED REFILL EYAD HAUSER 06/01 [facility]) [facility](Infecti ous Disease [facility]) TELE CONSULT [id number] MRI [facility] ADELA VAUGHAN 06/03 [facility](Inf ectious Disease [facility]) [facility]) TELE CONSULT [id number] pap WYATT Barboza 06/10 [facility]) [facility](Infecti ous Disease [facility]) TELE CONSULT [id number] retrun call ADELA VAUGHAN 06/15 [facility](Inf ectious Disease [facility]) [facility](Infecti ous Disease [facility]) OUTPATIENT [id number] ADELA VAUGHAN 04/26 /2007 Released w/o Limitations [facility](Inf ectious Disease [facility]) [facility](Infecti ous Disease [facility]) TELE CONSULT [id number] Lab Results ADELA VAUGHAN 06/29 [facility](Inf ectious Disease [facility]) [facility](Infecti ous Disease [facility]) TELE CONSULT [id number] lab results ADELA VAUGHAN 07/07 [facility](Inf ectious Disease [facility]) Procedures Combined list of: 1) Procedures from Department of [facility] Affairs facilities going back up to thelast 18 months, not all [place] non-surgical procedures are included; 2) All procedures from the Department of Defense facilities. Procedure Procedure Type Code Date Perfomer Comments Sourc e INDIVIDUAL PSYCHOTHERAPY, INSIGHT ORIENTED, BEHAVIOR MODIFYING AND/OR SUPPORTIVE, IN AN OFFICE OR OUTPATIENT FACILITY, APPROXIMATELY 20 TO 30 MINUTES [id number] WITH THE PATIENT 11/27/2004 [facility] SCREENING PAPANICOLAOU SMEAR; OBTAINING, PREPARING AND CONVEYANCE OF CERVICAL OR VAGINAL SMEAR TO LABORATORY 05/20/2006 [facility] SELF-CARE/HOME MANAGMENT TRAIN (EG,ACT OF DAILY LIVING (ADL) &COMPENSAT TRAIN,MEAL PREPARATION,SAFETY PROCS,AND INSTRUCT IN USE OF ASST TECHNOLOGY DEV/ADPT EQUIP) DIR ONE-ON-ONE CONT,EA 15 MINUTES 10/30/2005 [facility] THERAPEUTIC PROCEDURE,1 OR MORE AREAS,EACH 15 MINUTES;NEUROMUSCULA R REEDUCATION OF MOVEMENT,BALANCE,BARYTES GRINDER RDINATION,KINESTHETI C SENSE,POSTURE,AND/OR PROPRIOCEPTION FOR SITTING AND/OR STANDING ACTIVITIES 10/29/2005 DoD THERAPEUTIC PROCEDURE,1 OR MORE AREAS,EACH 15 MINUTES;NEUROMUSCULA R REEDUCATION OF MOVEMENT,BALANCE,BARYTES GRINDER RDINATION,KINESTHETI C SENSE,POSTURE,AND/OR PROPRIOCEPTION FOR SITTING AND/OR STANDING ACTIVITIES 10/15/2005 [facility]D THERAPEUTIC PROCEDURE,1 OR MORE AREAS,EACH 15 MINUTES;NEUROMUSCULA R REEDUCATION OF MOVEMENT,BALANCE,BARYTES GRINDER RDINATION,KINESTHETI C SENSE,POSTURE,AND/OR PROPRIOCEPTION FOR SITTING AND/OR STANDING ACTIVITIES 10/13/2005 [facility]D THERAPEUTIC PROCEDURE,1 OR MORE AREAS,EACH 15 MINUTES;NEUROMUSCULA R REEDUCATION OF MOVEMENT,BALANCE,BARYTES GRINDER RDINATION,KINESTHETI C SENSE,POSTURE,AND/OR PROPRIOCEPTION FOR SITTING AND/OR STANDING ACTIVITIES 10/08/2005 [facility] THERAPEUTIC PROCEDURE,1 OR MORE AREAS,EACH 15 MINUTES;NEUROMUSCULA R REEDUCATION OF MOVEMENT,BALANCE,BARYTES GRINDER RDINATION,KINESTHETI C SENSE,POSTURE,AND/OR PROPRIOCEPTION FOR SITTING AND/OR STANDING ACTIVITIES 10/06/2005 [facility] THERAPEUTIC ACTIVITIES, DIRECT (ONE-ON-ONE) PATIENT CONTACT (USE OF DYNAMIC ACTIVITIES TO IMPROVE FUNCTIONAL PERFORMANCE), EACH 15 MINUTES 10/01/2005 [facility] THERAPEUTIC PROCEDURE,1 OR MORE AREAS,EACH 15 MINUTES;NEUROMUSCULA R REEDUCATION OF MOVEMENT,BALANCE,BARYTES GRINDER RDINATION,KINESTHETI C SENSE,POSTURE,AND/OR PROPRIOCEPTION FOR SITTING AND/OR STANDING ACTIVITIES 09/30/2005 [facility] SELF-CARE/HOME MANAGMENT TRAIN (EG,ACT OF DAILY LIVING (ADL) &COMPENSAT TRAIN,MEAL PREPARATION,SAFETY PROCS,AND INSTRUCT IN USE OF ASST TECHNOLOGY DEV/ADPT EQUIP) DIR ONE-ON-ONE CONT,EA 15 MINUTES 09/23/2005 [facility] APPLICATION OF A MODALITY TO 1 OR MORE AREAS; TRACTION, MECHANICAL 09/16/2005 [facility] APPLICATION OF A MODALITY TO 1 OR MORE AREAS; TRACTION, MECHANICAL 09/11/2005 [facility] THERAPEUTIC PROCEDURE,1 OR MORE AREAS,EACH 15 MINUTES;NEUROMUSCULA R REEDUCATION OF MOVEMENT,BALANCE,BARYTES GRINDER RDINATION,KINESTHETI C SENSE,POSTURE,AND/OR PROPRIOCEPTION FOR SITTING AND/OR STANDING ACTIVITIES 09/10/2005 [facility] APPLICATION OF A MODALITY TO 1 OR MORE AREAS; HOT OR COLD PACKS 09/08/2005 [facility] APPLICATION OF A MODALITY TO 1 OR MORE AREAS; HOT OR COLD PACKS 09/03/2005 [facility] INJECTION, DIAZEPAM, UP TO 5 MG 08/07/2005 [facility] CYTOPATHOLOGY, SMEARS, CERVICAL OR VAGINAL, UP TO THREE SMEARS; SCREENING BY FRUIT COORDINATOR UNDER PHYSICIAN SUPERVISION 02/03/2005 [facility] Screening papanicolaou smear; obtaining, preparing and conveyance of cervical or vaginal smear to laboratory 05/20/2006 WAYNE BLAKE [facility] Patient Training And Self-Care Skills Patient Training And Self-Care Skills [id number] 10/30/2005 HUMAIRA WAKEFIELD [facility] Physical Therapy Service Re-Evaluation Physical Therapy Service Re-Evaluation [id number] 10/30/2005 HUMAIRA WAKEFIELD [facility] Physical Therapy Neuromuscular Re-education Physical Therapy Neuromuscular Re-education [id number] 10/29/2005 GUDELIA MCCORMACK Rodriguez [facility] Physical Therapy: ___ Se ion Segments, 15 Minutes Each Physical Therapy: ___ Session Segments, 15 Minutes Each [id number] 10/29/2005 GUDELIA MCCORMACK Rodriguez [facility] Physical Therapy Neuromuscular Re-education Physical Therapy Neuromuscular Re-education [id number] 10/15/2005 ALEXANDRA SERNA [facility] Physical Therapy: ___ Se ion Segments, 15 Minutes Each Physical Therapy: ___ Session Segments, 15 Minutes Each [id number] 10/15/2005 ALEXANDRA SERNA [facility] Physical Therapy Neuromuscular Re-education Physical Therapy Neuromuscular Re-education [id number] 10/13/2005 ALEXANDRA SERNA [facility] Physical Therapy: ___ Se ion Segments, 15 Minutes Each Physical Therapy: ___ Session Segments, 15 Minutes Each [id number] 10/13/2005 ALEXANDRA SERNA [facility] Physical Therapy Neuromuscular Re-education Physical Therapy Neuromuscular Re-education [id number] 10/08/2005 TRENTONYOANNA [facility] Physical Therapy: ___ Se ion Segments, 15 Minutes Each Physical Therapy: ___ Session Segments, 15 Minutes Each [id number] 10/08/2005 TRENTON, YOANNA [facility] Physical Therapy Neuromuscular Re-education Physical Therapy Neuromuscular Re-education 42221 10/06/2005 ALEXANDRA SERNA [facility] Physical Therapy: ___ Se ion Segments, 15 Minutes Each Physical Therapy: ___ Session Segments, 15 Minutes Each [id number] 10/06/2005 ALEXANDRA SERNA [facility] PT A e ment Kinetic Training PT Assessment Kinetic Training [id number] 10/03/2005 TRENTONVANESSAYOANNA Luiza [facility] Physical Therapy: ___ Se ion Segments, 15 Minutes Each Physical Therapy: ___ Session Segments, 15 Minutes Each [id number] 10/03/2005 TRENTON, YOANNA Luiza [facility] Physical Therapy Neuromuscular Re-education Physical Therapy Neuromuscular Re-education [id number] 09/30/2005 TRENTON, YOANNA Luiza [facility] Physical Therapy: ___ Se ion Segments, 15 Minutes Each Physical Therapy: ___ Session Segments, 15 Minutes Each [id number] 09/30/2005 TRENTON, YOANNA [facility] Physical Therapy Service Re-Evaluation Physical Therapy Service Re-Evaluation [id number] 09/23/2005 HUMAIRA WAKEFIELD [facility] Patient Training And Self-Care Skills Patient Training And Self-Care Skills [id number] 09/23/2005 HUMAIRA WAKEFIELD [facility] Physical Therapy: ___ Se ion Segments, 15 Minutes Each Physical Therapy: ___ Session Segments, 15 Minutes Each [id number] 09/16/2005 JOSE HARTELE Rosey [facility] Physical Therapy Neuromuscular Re-education Physical Therapy Neuromuscular Re-education 55646 09/16/2005 SCARLETT HART [facility] Traction Pelvic Traction Pelvic [id number] 09/16/2005 SCARLETT SANCHEZ [facility] Physical Therapy: ___ Se ion Segments, 15 Minutes Each Physical Therapy: ___ Session Segments, 15 Minutes Each [id number] 09/11/2005 HART, SCARLETT Rosey [facility] Physical Therapy Neuromuscular Re-education Physical Therapy Neuromuscular Re-education 19939 09/11/2005 HARTSCARLETT Rosey [facility] Traction Pelvic Traction Pelvic 57362 09/11/2005 RYLIE CRAMERJOSE MartinezELE Rosey [facility] Physical Therapy: ___ Se ion Segments, 15 Minutes Each Physical Therapy: ___ Session Segments, 15 Minutes Each [id number] 09/08/2005 ALEXANDRA SERNA [facility] Physical Therapy Neuromuscular Re-education Physical Therapy Neuromuscular Re-education 26627 09/08/2005 ALEXANDRA SERNA [facility] Modalities Traction Modalities Traction 13840 006 ALEXANDRA SERNA [facility] Modalities Cryotherapy Cold Packs Modalities Cryotherapy Cold Packs 52539 09/08/2005 ALEXANDRA SERNA [facility] Patient Training And Self-Care Skills Patient Training And Self-Care Skills 63005 09/03/2005 HUMAIRA WAKEFIELD [facility] Physical Therapy: ___ Se ion Segments, 15 Minutes Each Physical Therapy: ___ Session Segments, 15 Minutes Each [id number] 09/03/2005 HUMAIRA WAKEFIELD [facility] Modalities Heat Hot Packs Modalities Heat Hot Packs 05878 09/03/2005 HUMAIRA WAKEFIELD [facility] Physical Therapy Service Evaluation Physical Therapy Service Evaluation 13261 09/03/2005 HUMAIRA WAKEFIELD [facility] Social History Combined list of available smoking, tobacco, and other social history from Department of Defense and Veterans Affairs facilities. Social History Type Response Date Comment [facility] e This section is an empty social history section. DoD
--- OUTSIDE RECORDS SUMMARY | 2024-03-17 06:31 | XMS_ITS | Data Portability ---
Author Organization [place] [facility] [employer], Main Office Address [address] [place] [address] Assessment No assessment recorded. Plan of Treatment Reminders Order Date Submit Date Provider Last Modified By Organization Details Last Modified Time Details Appointments None record ed. Lab None record ed. Referral None record ed. Procedures None record ed. Surgeries None record ed. Imaging None record ed. Medication Orders None record ed. Patient TargetsNo targets recorded. Patient InstructionsNo instructions recorded. Reason for Referral None Reported. Results Created Date Observation Date Name Description Value Unit Range Abnormal Flag Note LastModifiedBy Organization Detail LastModifiedTime 07/20/19 22 07/23/2021 PRISCILLA/A NTINU CLEAR ANTIB ODIES ,IFA antinuclear antibodies, ifa negati ve Negat vanessa <1:80 Borde rline 1:80 Posit vanessa >1:80 ICAP nomen clatu re: AC-0 For more infor roosevelt andrews about Hep-2 cell patte rns use ANApa ttern s.org , the offic paul jose for the Inter natio nal Conse nsus on Antin uclea r Antib amaya (PRISCILLA) Patte rns (ICA ). Perfo rmed at: - [facility] [address], [place] [address] Lab Direc tor: Lupillo aguilar PhD, Phone : [phone] Not Available [facility] (Lab) [address] [place], [address], 07/23/2021 16:10:44 07/20/19 22 07/19/2021 HEMOG LOBIN A1C HA1C 5.5 % 4.0-6. 0 Diabe jaylen Screaaron ogdeng Crite trinh: <5.7% Consi stent with absen ce of diabe jaylen 5.7-6 .4% Consi stent with incre ased risk for diabe jaylen (pred iabet es) >OR=6 .5% Consi stent with diabe jaylen REFER ENCE: Diabe jaylen Care 2016, 39(Andrew ppl.1 ):s13 -s22 Not Available [facility] (Lab) [address] [place], [address], 07/19/2021 19:47:25 07/20/19 22 07/19/2021 SEDIM ENTAT ION RATE erythrocyte sedimentatio n rate 18 mm/HR 0-20 Not Available [facility] (Lab) [address] [place], [address], 07/19/2021 19:32:48 07/20/19 22 07/19/2021 TSH thyroid-stim ulating hormone 1.510 uIU/m L 0.465- 4.680 Not Available [facility] (Lab) [address] [place], [address], 07/19/2021 19:19:56 07/20/19 22 07/19/2021 T3 FREE free T3 3.1 pg/mL 2.77-5 .27 Not Available [facility] (Lab) [address] [place], [address], 07/19/2021 19:06:19 07/20/19 22 07/19/2021 T4 FREE free T4 1.43 NG/dL 0.78-2 .19 Not Available [facility] (Lab) [address] [place], [address], 07/19/2021 19:06:18 07/20/19 22 07/19/2021 CBC W/O DIFFE RENTI AL white blood cells 8.6 x10'3 /uL 4.2-10 .8 Not Available [facility] (Lab) [address] [place], [address], 07/19/2021 19:03:06 07/20/19 22 07/19/2021 CBC W/O DIFFE RENTI AL red blood cells 4.69 x10'6 /uL 3.80-5 .20 Not Available [facility] (Lab) [address] [place], [address], 07/19/2021 19:03:06 07/20/19 22 07/19/2021 CBC W/O DIFFE RENTI AL hemoglobin 8.9 g/dL 12.0-1 5.6 low Not Available [facility] (Lab) [address] [place], [address], 07/19/2021 19:03:06 07/20/19 22 07/19/2021 CBC W/O DIFFE RENTI AL hematocrit 32.5 % 35.7-4 5.7 low Not Available [facility] (Lab) [address] [place], [address], 07/19/2021 19:03:06 07/20/19 22 07/19/2021 CBC W/O DIFFE RENTI AL mean red cell volume 69.3 fL 82.0-9 9.0 low Not Available [facility] (Lab) [address] [place], [address], 07/19/2021 19:03:06 07/20/19 22 07/19/2021 CBC W/O DIFFE RENTI AL mean red cell hemoglobin 19.0 pg 27.0-3 3.0 low Not Available [facility] (Lab) [address] [place], [address], 07/19/2021 19:03:06 07/20/19 22 07/19/2021 CBC W/O DIFFE RENTI AL mean RBC HGB concentratio n 27.4 g/dL 31.0-3 6.0 low Not Available [facility] (Lab) [address] [place], [address], 07/19/2021 19:03:06 07/20/19 22 07/19/2021 CBC W/O DIFFE RENTI AL red cell distribution width 18.3 % 11.8-1 5.5 high Not Available [facility] (Lab) [address] [place], [address], 07/19/2021 19:03:06 07/20/19 22 07/19/2021 CBC W/O DIFFE RENTI AL platelets 471 x10'3 /uL 150-40 0 high Not Available [facility] (Lab) [address] [place], [address], 07/19/2021 19:03:06 07/20/19 22 07/19/2021 CBC W/O DIFFE RENTI AL mean platelet volume 11.4 fL 9.0-12 .4 Not Available [facility] (Lab) [address] [place], [address], 07/19/2021 19:03:06 07/20/19 22 07/19/2021 RHEUM ATOID FACTO R rf <8.6 IU/mL 0.0-11 .9 Not Available [facility] (Lab) [address] [place], [address], 07/19/2021 18:58:57 07/20/19 22 07/19/2021 C REACT VANESSA PROTE IN,UL TRA SENS C-reactive protein 1.33 mg/dL 0.0-0. 5 high Not Available [facility] (Lab) [address] [place], [address], 07/19/2021 18:58:52 07/20/19 22 07/19/2021 LIPID PANEL cholesterol 209 mg/dL 140-19 9 high NIH ADALI NSUS RECOM MENDA TION FOR KYLER STERO L: ADULT CHILD LOW RISK: <200 <170 BORDE RLINE : <200- 239 ----- HIGH RISK: >240 >200 Not Available [facility] (Lab) [address] [place], [address], 07/19/2021 18:58:13 07/20/1907/19/2021 LIPID PANEL triglyceride s 123 mg/dL 0-150 NIH ADALI NSUS REPOR T RECOM MENDA TION FOR TRIGL YCERI RYAN: ADULT CHILD LOW RISK: <150 ----- BODER LINE: 150-1 99 ----- HIGH RISK: >200 ----- Not Available [facility] (Lab) [address] [place], [address], 07/19/2021 18:58:13 07/20/1907/19/2021 LIPID PANEL HDL cholesterol 68 mg/dL 40- Not Available [facility] (Lab) [address] [place], [address], 07/19/2021 18:58:13 07/20/19 22 07/19/2021 LIPID PANEL LDL cholesterol, calculated 116 mg/dL 0-130 NIH ADALI NSUS REPOR T RECOM MENDA TIONS FOR LDL: ADULT CHILD LOW RISK <130 <110 (OPTI MAL LDL) <100 ----- BORDE RLINE : 130-1 59 ----- HIGH RISK: >160 >130 A TRIGL YCERI DE RESUL T >400 INVAL IDATE S THE CALCU LATIO N FOR LDL FRACT IONAT ION - THE LDL RESUL T WILL NOT BE REPOR JANE. Not Available [facility] (Lab) [address] [place], [address], 07/19/2021 18:58:13 07/20/1907/19/2021 COMPR EHENS VANESSA METAB OLIC PANEL sodium 138 mmol/ L 137-14 5 Not Available [facility] (Lab) [address] [place], [address], 07/19/2021 18:58:02 07/20/19 22 07/19/2021 COMPR EHENS VANESSA METAB OLIC PANEL potassium 4.4 mmol/ L 3.5-5. 1 Not Available [facility] (Lab) [address] [place], [address], 07/19/2021 18:58:02 07/20/19 22 07/19/2021 COMPR EHENS VANESSA METAB OLIC PANEL chloride 104 mmol/ L 98-107 Not Available [facility] (Lab) [address] [place], [address], 07/19/2021 18:58:02 07/20/19 22 07/19/2021 COMPR EHENS VAENSSA METAB OLIC PANEL carbon dioxide 26 mmol/ L 22-30 Not Available [facility] (Lab) [address] [place], [address], 07/19/2021 18:58:02 07/20/19 22 07/19/2021 COMPR EHENS VANESSA METAB OLIC PANEL anion gap 12.4 mmol/ L 14-22 low Not Available [facility] (Lab) [address] [place], [address], 07/19/2021 18:58:02 07/20/19 22 07/19/2021 COMPR EHENS VANESSA METAB OLIC PANEL glucose 77 mg/dL 70-99 Not Available [facility] (Lab) [address] [place], [address], 07/19/2021 18:58:02 07/20/19 22 07/19/2021 COMPR EHENS VANESSA METAB OLIC PANEL BUN 11 mg/dL 8-19 Not Available [facility] (Lab) [address] [place], [address], 07/19/2021 18:58:02 07/20/19 22 07/19/2021 COMPR EHENS VANESSA METAB OLIC PANEL creatinine 0.62 mg/dL 0.66-1 .25 low Not Available [facility] (Lab) [address] [place], [address], 07/19/2021 18:58:02 07/20/19 22 07/19/2021 COMPR EHENS VANESSA METAB OLIC PANEL GFR >60 Refer ence Range : [place] ge GFR Healt hy Adult : >60 mL/mi n/1.7 3 m2 Chron ic Kidne y Disea se: 15-60 mL/mi n/1.7 3 m2 Kidne y Failu re: <15/m L/min /1.73 m2 www.n iddk. nih.g ov The MDRD study equat ion has not been valid ated in child gunnar <18 years of age; pregn ant women ; the elder ly >85 years of age; or in some racia l or ethni c subgr oups, such as Hispa nics. Outsi de the valid ated alexander eters , estim ated GFR is less accur ate, requi ring clini monica judgm ent on a case- by-ca se basis . Clini monica inter preta tion for other races and ages must be made by the clini cezar. The MDRD study equat ion has not been valid ated for the evalu ation of serum creat inine relat ed to nutri haylee l statu s or medic ation usage . For perso ns <18 years of age, a pedia tric GFR calcu lator is avail able on the [facility] websi te: https ://mai ceja.rich ornelas.o moshe/pr delano champagneal s/kdo qi/gf r_cal culat or Not Available [facility] (Lab) [address] [place], [address], 07/19/2021 18:58:02 07/20/19 22 07/19/2021 COMPR EHENS VANESSA METAB OLIC PANEL alkaline phosphatase 72 U/L 38-126 Not Available [facility] (Lab) [address] [place], [address], 07/19/2021 18:58:02 07/20/19 22 07/19/2021 COMPR EHENS VANESSA METAB OLIC PANEL alanine aminotransfe rase 16 U/L 0-35 Not Available [facility] (Lab) [address] [place], [address], 07/19/2021 18:58:02 07/20/19 22 07/19/2021 COMPR EHENS VANESSA METAB OLIC PANEL aspartate aminotransfe rase 25 U/L 15-37 Not Available [facility] (Lab) [address] [place], [address], 07/19/2021 18:58:02 07/20/19 22 07/19/2021 COMPR EHENS VANESSA METAB OLIC PANEL bilirubin, total 0.20 mg/dL 0.20-1 .30 Not Available [facility] (Lab) [address] [place], [address], 07/19/2021 18:58:02 07/20/19 22 07/19/2021 COMPR EHENS VANESSA METAB OLIC PANEL calcium 9.3 mg/dL 8.4-10 .2 Not Available [facility] (Lab) [address] [place], [address], 07/19/2021 18:58:02 07/20/19 22 07/19/2021 COMPR EHENS VANESSA METAB OLIC PANEL total protein 7.4 g/dL 6.3-8. 2 Not Available [facility] (Lab) [address] [place], [address], 07/19/2021 18:58:02 07/20/19 22 07/19/2021 COMPR EHENS VANESSA METAB OLIC PANEL albumin 4.3 g/dL 3.4-5. 0 Not Available [facility] (Lab) [address] [place], [address], 07/19/2021 18:58:02 07/20/19 22 07/19/2021 COMPR EHENS VANESSA METAB OLIC PANEL globulin 3.1 g/dL 2.6-4. 2 Not Available [facility] (Lab) [address] [place], [address], 07/19/2021 18:58:02 07/20/19 22 07/19/2021 COMPR EHENS VANESSA METAB OLIC PANEL A/G ratio 1.4 ratio 1.0-2. 0 Not Available [facility] (Lab) [address] [place], [address], 07/19/2021 18:58:02 07/20/19 22 07/19/2021 CPK TOTAL creatine kinase 88 U/L 30-135 Not Available [facility] (Lab) [address] [place], [address], 07/19/2021 18:57:50 01/09/20 22 01/10/2022 FOLAT E, SERUM /PLAS MA folate >20.0 NG/mL 2.76-2 0.0 Not Available [facility] (Lab) [address] [place], [address], 01/10/2022 16:38:20 01/09/20 22 01/10/2022 VITAM IN B12 (KRISH SHARON ) vb12 400 pg/mL 239-93 1 Not Available [facility] (Lab) [address] [place], [address], 01/10/2022 16:38:19 01/09/20 22 01/10/2022 VITAM IN D 25-HY DROXY vd25oh 14.3 NG/mL 30-100 low Vitam in D Statu s: Defic ient: <20 ng/mL Insuf ficie nt: 20-29 ng/mL Suffi cient : 30-10 0 ng/mL Not Available [facility] (Lab) [address] [place], [address], 01/10/2022 15:48:59 01/09/20 22 01/08/2022 IRON/ TIBC PANEL total iron binding capacity 445 mcg/d L 265-47 5 Not Available [facility] (Lab) [address] [place], [address], 01/08/2022 22:09:37 01/09/20 22 01/08/2022 IRON/ TIBC PANEL % transferrin saturation 4 % 20-55 low Not Available [facility] (Lab) [address] [place], [address], 01/08/2022 22:09:37 01/09/20 22 01/08/2022 IRON/ TIBC PANEL unsaturated iron bind capacity 425 mcg/d L 126-38 2 high Not Available [facility] (Lab) [address] [place], [address], 01/08/2022 22:09:37 01/09/20 22 01/08/2022 IRON/ TIBC PANEL iron 20 mcg/d L 42-175 low Not Available [facility] (Lab) [address] [place], [address], 01/08/2022 22:09:37 01/09/20 22 01/08/2022 CBC W/O DIFFE RENTI AL white blood cells 9.6 x10'3 /uL 4.2-10 .8 Not Available [facility] (Lab) [address] [place], [address], 01/08/2022 20:58:54 01/09/20 22 01/08/2022 CBC W/O DIFFE RENTI AL red blood cells 3.62 x10'6 /uL 3.80-5 .20 low Not Available [facility] (Lab) [address] [place], [address], 01/08/2022 20:58:54 01/09/20 22 01/08/2022 CBC W/O DIFFE RENTI AL hemoglobin 9.4 g/dL 12.0-1 5.6 low Not Available [facility] (Lab) [address] [place], [address], 01/08/2022 20:58:54 01/09/20 22 01/08/2022 CBC W/O DIFFE RENTI AL hematocrit 31.4 % 35.7-4 5.7 low Not Available [facility] (Lab) [address] [place], [address], 01/08/2022 20:58:54 01/09/20 22 01/08/2022 CBC W/O DIFFE RENTI AL mean red cell volume 86.7 fL 82.0-9 9.0 Not Available [facility] (Lab) [address] [place], [address], 01/08/2022 20:58:54 01/09/20 22 01/08/2022 CBC W/O DIFFE RENTI AL mean red cell hemoglobin 26.0 pg 27.0-3 3.0 low Not Available [facility] (Lab) [address] [place], [address], 01/08/2022 20:58:54 01/09/20 22 01/08/2022 CBC W/O DIFFE RENTI AL mean RBC HGB concentratio n 29.9 g/dL 31.0-3 6.0 low Not Available [facility] (Lab) [address] [place], [address], 01/08/2022 20:58:54 01/09/20 22 01/08/2022 CBC W/O DIFFE RENTI AL red cell distribution width 15.9 % 11.8-1 5.5 high Not Available [facility] (Lab) [address] [place], [address], 01/08/2022 20:58:54 01/09/20 22 01/08/2022 CBC W/O DIFFE RENTI AL platelets 383 x10'3 /uL 150-40 0 Not Available [facility] (Lab) [address] [place], [address], 01/08/2022 20:58:54 01/09/20 22 01/08/2022 CBC W/O DIFFE YARELIS GARCIA mean platelet volume 11.1 fL 9.0-12 .4 Not Available [facility] (Lab) [address] [place], [address], 01/08/2022 20:58:54 Result Notes None recorded. 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 Not Available [facility] 3 18:11:59 History of pneumonia 777199194 Active 2021 Not Available [facility] 3 18:11:59 Asthma 662145999 Active 2021 Not Available [facility] 3 18:11:59 Irritable bowel syndrome with diarrhea 793521658 Active 2021 Not Available [facility] 3 18:11:59 Jamar thyroiditis 01814918 Active 2021 Not Available [facility] 3 18:11:59 Arthritis 9697148 Active 2021 Not Available [facility] 3 18:11:59 Basal cell carcinoma of face 141991684 Active 2021 Not Available [facility] 3 18:11:59 Obesity 284982366 Active 2021 Not Available [facility] 3 18:11:59 Chronic colitis 68448507 Active 2021 Not Available [facility] 3 18:11:59 Essential hypertension 32340789 Active 2021 Not Available [facility] 3 18:11:59 Optic neuritis 88973826 Active 2021 Not Available [facility] 3 18:11:59 Intervertebra l disc prolapse 00144392 Active 2021 Not Available [facility] 3 18:11:59 Hiatal hernia 45393002 Active 2021 Not Available [facility] 3 18:11:59 Uterine leiomyoma 36770884 Active 05/27/ 2022 Not Available [facility] 3 18:11:59 Notes:Some problems listed i n Document: #[id number] could not be added to this patient's chart. Please review this document and add these problems to the patient's chart manually as needed. Problem Notes None recorded. Medical Equipment None Reported. Medications Name Sig Start Date Stop Date Status Note LastModified by Organization Details LastModified Time losartan 100 mg-hydrochlor othiazide 25 mg tablet Take 1 tablet by mouth once daily active Not Available Not Available No t Available cephalexin 500 mg capsule 08/12 completed Not Available Not Available Not Available ferrous sulfate 325 mg (65 mg iron) tablet Take 1 tablet by mouth once daily 2022 active Not Available Not Available Not Avai lable docusate sodium 100 mg capsule Take one cap daily prn 2022 active Not Available Not Available Not Avai lable albuterol sulfate HFA 90 mcg/actuation aerosol inhaler INHALE 2 PUFFS BY MOUTH EVERY 4 HOURS NEEDED active Not Available Not Available No t Available norethindrone (contraceptiv e) 0.35 mg tablet Take 1 tablet every day by oral route. active Not Available Not Available No t Available losartan 100 mg tablet Take 1 tablet every day by oral route for 90 days. active Not Available Not Available No t Available Flovent HFA 44 mcg/actuation aerosol inhaler active Not Available Not Available Not Available Vitals Date Recorded Body mass index (BMI) Body height Oxygen saturation Oxygen saturation in Arterial blood by Pulse oximetry Heart rate Body temperature Body weight Systolic blood pressure Diastolic blood pressure Provider Name and Address Organization Details Last Updated DateTime 2 36.2 kg/m2 167.64 cm 99 % 99 % 79 /min 99.5 [degF] 614639. 69 g 166 mm[Hg] 100 mm[Hg] Not Available [facility] 3 17:12:47 Date Recorded Body mass index (BMI) Body height Oxygen saturation Oxygen saturation in Arterial blood by Pulse oximetry Heart rate Body temperature Body weight Systolic blood pressure Diastolic blood pressure Provider Name and Address Organization Details Last Updated DateTime 2 36.8 kg/m2 167.64 cm 98 % 98 % 70 /min 96.8 [degF] 845377. 06 g 145 mm[Hg] 100 mm[Hg] Not Available [facility] 3 17:12:47 Date Recorded Body mass index (BMI) Body height Oxygen saturation Oxygen saturation in Arterial blood by Pulse oximetry Heart rate Body temperature Body weight Systolic blood pressure Diastolic blood pressure Provider Name and Address Organization Details Last Updated DateTime 2 37.2 kg/m2 167.64 cm 97 % 97 % 84 /min 99 [degF] 038905. 4 g 120 mm[Hg] 80 mm[Hg] Not Available [facility] 3 17:12:47 Date Recorded Body mass index (BMI) Body height Oxygen saturation Oxygen saturation in Arterial blood by Pulse oximetry Heart rate Body temperature Body weight Systolic blood pressure Diastolic blood pressure Provider Name and Address Organization Details Last Updated DateTime 2 37.3 kg/m2 167.64 cm 97 % 97 % 98 /min 97.8 [degF] 593275. 84 g 138 mm[Hg] 78 mm[Hg] Not Available [facility] 3 17:12:47 Date Recorded Body mass index (BMI) Body height Oxygen saturation Oxygen saturation in Arterial blood by Pulse oximetry Heart rate Body temperature Body weight Systolic blood pressure Diastolic blood pressure Provider Name and Address Organization Details Last Updated DateTime 2 36.6 kg/m2 167.64 cm 99 % 99 % 88 /min 96.8 [degF] 533243. 47 g 150 mm[Hg] 98 mm[Hg] Not Available [facility] 3 17:12:47 Social History Question Answer Notes LastModified by Organizat ion Details LastModified Time Tobacco Smoking Status Former Smoker Not Available [facility] 04/23/2022 17:12:25 Do You Have An Advance Directive? No [id number].66531 [id number] Information not available 04/23/2022 What Is Your Level Of Alcohol Consumption? None MIGRATION.86617 80935 Information not available 04/23/2022 Do You Wear A Helmet When Biking? No MIGRATION.43023 19076 Information not available 04/23/2022 What Is Your Level Of Caffeine Consumption? Heavy MIGRATION.11162 77832 Information not available 04/23/2022 In The 14 Days Before Symptom Onset, Have You Had Close Contact With A Laboratory-oneyda burger COVID-19 While That Case Was Ill? No MIGRATION.95747 36461 Information not available 04/23/2022 In The 14 Days Before Symptom Onset, Have You Had Close Contact With A Person Who Is Under Investigation For COVID-19 While That Person Was Ill? No MIGRATION.46190 93590 Information not available 04/23/2022 What Type Of Diet Are You Following? REGULAR MIGRATION.57524 02512 Information not available 04/23/2022 What Is The Highest Grade Or Level Of School You Have Completed Or The Highest Degree You Have Received? [id number] MIGRATION.86045 49133 Information not available 04/23/2022 Have There Been Any Changes To Your Family Or Social Situation? Yes MIGRATION.80477 01629 Information not available 04/23/2022 What Is The Fluoride Status Of Your Home? Unknown MIGRATION.58631 82967 Information not available 04/23/2022 When Did You Quit Smoking? 1-5yearssincelastci torrie MIGRATION.27219 06496 Information not available 04/23/2022 Are There Any Guns Present In Your Home? No MIGRATION.34960 36809 Information not available 04/23/2022 Do You Use Insect Repellent Routinely? Yes MIGRATION.10107 36956 Information not available 04/23/2022 Where Do You Live? [place] MIGRATION.51870 91821 Information not available 04/23/2022 Do You Have A Medical Power Of Head Batcher? No MIGRATION.02847 79158 Information not available 04/23/2022 What Was The Date Of Your Most Recent Tobacco Screening? 08/21/2021 MIGRATION.77670 39018 Information not available 04/23/2022 Do You Have Any Pets? Yes MIGRATION.56345 90987 Information not available 04/23/2022 What Is Your Relationship Status? MIGRATION.01889 05280 Information not available 04/23/2022 Do You Use Your Seat Belt Or Car Seat Routinely? Yes MIGRATION.21402 12458 Information not available 04/23/2022 Do You Have Smoke And Carbon Monoxide Detectors In Your Home? No MIGRATION.72337 45859 Information not available 04/23/2022 At What Age Did You Start Smoking Tobacco? 16 MIGRATION.03896 56511 Information not available 04/23/2022 Are You Passively Exposed To Smoke? Yes MIGRATION.52507 16686 Information not available 04/23/2022 Are There Any Smokers In Your House? Yes MIGRATION.11918 57504 Information not available 04/23/2022 Do You Participate In Social Media? Yes MIGRATION.21892 34602 Information not available 04/23/2022 Do You Feel Stressed (tense, Restless, Nervous, Or Anxious, Or Unable To Sleep At Night)? [id number] MIGRATION.79304 23867 Information not available 04/23/2022 Do You Use Any Illicit Or Recreational Drugs? No MIGRATION.39461 45882 Information not available 04/23/2022 Do You Use Sunscreen Routinely? No MIGRATION.21562 80261 Information not available 04/23/2022 How Many Years Have You Smoked Tobacco? 15 MIGRATION.61028 15875 Information not available 04/23/2022 Have You Recently Traveled Abroad? No MIGRATION.50474 67190 Information not available 04/23/2022 Are You Currently In School? No MIGRATION.23701 09017 Information not available 04/23/2022 Do You Have Any Dietary Restrictions? No MIGRATION.70102 20989 Information not available 04/23/2022 Do You Or Have You Ever Used Any Other Forms Of Tobacco Or Nicotine? No MIGRATION.45237 44141 Information not available 04/23/2022 Sex: Unknown Functional Status Question Answer Note LastModified by [email or web address] ion Details LastModified Time What is your exercise level? Occasional [id number] Information not available 04/23/2022 Mental Status None recorded. Family History Relationship Description Onset Age of this Age Resolved Age Notes LastModified by Organization Details LastModified Time Mother Jamar thyroiditis MIGRATION.714 [id number] Not available 04/23/2022 17:12:31 Mother Diabetes mellitus MIGRATION.111 [id number] Not available 04/23/2022 17:12:31 Mother Glaucoma MIGRATION.937 [id number] Not available 04/23/2022 17:12:31 Mother Diverticulit is MIGRATION.173 [id number] Not available 04/23/2022 17:12:31 Mother Cataract MIGRATION.234 [id number] Not available 04/23/2022 17:12:31 Father Malignant tumor of colon MIGRATION.214 [id number] Not available 04/23/2022 17:12:31 Father Malignant tumor of prostate MIGRATION.512 [id number] Not available 04/23/2022 17:12:31 Father Gallstone MIGRATION.198 [id number] Not available 04/23/2022 17:12:31 Father Kidney stone MIGRATION.0 30 [id number] Not available 04/23/2022 17:12:31 Father Chronic renal failure MIGRATION.769 [id number] Not available 04/23/2022 17:12:31 Father Anemia MIGRATION.864 [id number] Not available 04/23/2022 17:12:31 Medical History Condition Response BLINDNESS N RHEUMATIC FEVER N KIDNEY STONES N BLADDER PROBLEMS N MRSA N OTHER # 1 Y POLIO N LUNG DISEASE/DISORDER Y HISTORY OF DRUG ABUSE N COPD N RADIATION / CHEMOTHERAPY N Other # 2 N BLOOD DISEASES N SURGERY N EAR OR HEARING PROBLEMS N MUMPS N SHINGLES N FEMALE PROBLEMS / INFECTIONS N DEPRESSION (INCLUDING POST ) Y BOWEL PROBLEMS N STROKE/TIA N THYROID DISEASE N ULCERS N BENIGN PROSTATIC HYPERPLASIA N MEASLES N CERVICALGIA N HYPOTENSION N TB SKIN TEST N MYOCARDIAL INFARCTION N OBESITY Y PARAPELGIA N GERD/NAUSEA Y ANEURYSM N URINARY/BLADDER/KIDNEY PROBLEMS N CORONARY ARTERY DISEASE (CAD) N MENIERE'S DISEASE N ADDICTION CONCERNS N ENDOMETRIOSIS N USE OF BLOOD THINNERS N SKIN PROBLEMS Y EMPHYSEMA N GASTROINTESTINAL DISORDER N MUSCLE,JOINT OR BONE PROBLEMS N GASTROINTESTINAL BLEEDING N BLOOD CLOTS N ASTHMA N CATARACTS N ERECTILE DYSFUNCTION N GI PROBLEMS Y CHF N Low Testosterone N NEUROPATHY N INFERTILITY N AIDS/HIV N FRACTURES N CHEMOTHERAPY / RADIATION N VISION/EYE PROBLEMS N LIVER DISEASE N MALE HYPOGONADISM N HYPERTENSION Y TOURETTE'S N ANXIETY DISORDER N BLOOD TRANSFUSION N ANEMIA/BLOOD DISORDER Y CHRONIC EAR INFECTIONS N BRONCHITIS N TUBERCULOSIS N GLAUCOMA N FOOT PROBLEM N DIVERTICULITIS N SLEEP APNEA N CHICKENPOX N ALLERGIES/HAYFEVER N INFECTIOUS DISEASE N PROSTATE N HEART ARRHYTHMIA N INSOMNIA Y HIGH CHOLESTEROL / HYPERLIPIDEMIA N HYPERTHYROIDISM N EYE PROBLEMS Y EATING DISORDER N EDEMA N CHRONIC PAIN SYNDROME N HYPOTHYROIDISM Y CONSTIPATION N CAROTID BLOCKAGE N BACK / NECK PROBLEMS N HAVE YOU BEEN HOSPITALIZED OR SEEN IN [facility] IN THE PAST YEAR ? Y ATHEROSCLEROSIS N BREAST PROBLEMS N DIALYSIS N ECZEMA N FIBROMYALGIA N OSTEOPOROSIS N ARTHRITIS N NO SIGNIFICANT PAST MEDICAL HISTORY N APPENDICITIS N DIABETES, TYPE N BAD TEETH N HEARTBURN / REFLUX N ADD/ADHD N AUTISM SPECTRUM DISORDER (ASD) N HEPATITIS / LIVER DISEASE N PULMONARY DISEASE N GOUT N SLEEP DISORDER N ALZHEIMER'S DISEASE N PAIN N HERPES N DEMENTIA N SEIZURES/EPILEPSY Y HEADACHES/MIGRAINES N VASCULAR DISEASE N PACEMAKER N DIZZINESS N KIDNEY DISEASE N HEART DISEASE/HEART PROBLEMS N SCARLET FEVER N MULTIPLE SCLEROSIS N MENTAL DISORDER/ILLNESS N DEVELOPMENTAL OR BEHAVIORAL DISORDERS N CARDIAC ARRHYTHMIA N CANCER: SPECIFY N PNEUMONIA N Gall Stones N ATRIAL FIBRILLATION N PULMONARY EMBOLISM N AUTOIMMUNE DISEASE N Gynecological History Statement/Question Response Abnormal Pap Y Flow Heavy Date of LMP 07/19/2021 Dislike of Light during Menstrual Headac he N Date of Last Pap Duration of Flow (days) 5 Age at Menarche 9 Current Control Method None How many live births 3 Date of Last Colonoscopy Frequency of Cycle (Q days) 28 Menses Monthly Y Obstetrics History GPAL:G 8 P 3 0 5 3 Type Value Full Term 3 Spontaneous 5 Living 3 Total 8 Immunizations Vaccine Type Date Status Note Provider Nam e and Address Organization Details Recorded Time Influenza, split virus, quadrivalent, preservative 2 completed Not Available [facility] 09/01/2022 18:12:00 COVID-19, mRNA, LNP-S, PF, 30 mcg/0.3 mL dose 1 completed Not Available [facility] 09/01/2022 18:12:00 COVID-19, mRNA, LNP-S, PF, 30 mcg/0.3 mL dose 1 completed Not Available [facility] 09/01/2022 18:12:00 COVID-19, mRNA, LNP-S, PF, 30 mcg/0.3 mL dose 1 completed Not Available [facility] 09/01/2022 18:12:00 COVID-19, mRNA, LNP-S, bivalent, PF, 50 mcg/0.5 mL or 25mcg/0.25 mL dose 3 completed Zuleima Johnson RN [facility], [place] - [facility] [employer] [facility] 09/11/2022 15:15:29 Past Encounters Encounter ID Performer Location Encounter Start Date Encounter Closed Date Diagnosis/Indication Diagnosis SNOMED-CT Code Diagnosis ICD10 Code Diagnosis Note [id number] [facility] [address] [place] [address] 07/19/2021 00:00:00 07/19/2021 18:19:23 [id number] [facility] [address] [facility] [address] [place] [address] 08/02/2021 00:00:00 08/02/2021 13:40:24 [id number] [facility] Bautista Alston [address] [place] [address] 08/16/2021 00:00:00 08/16/2021 14:04:01 [id number] _ATHENA_M IGRATION_ DEFAULT_1 _1 , 08/21/2021 00:00:00 08/21/2021 15:09:23 [id number] [facility] [facility] [address] [facility] [address] [facility] [place] [address] 01/08/2022 00:00:00 01/08/2022 18:32:28 Health Concerns Section Related Observation LastModified by Organization Detai ls LastModified Time None Recorded Concern Status LastModified by Organization Details LastModified Time None Recorded Advance Directives Directive N: Payers None recorded. OBGyn Episode No OBEpisode recorded.
== END 2024-03-11 10:41 | disposition home or self-care (01) ==
PROVIDERS: Anesthesiology; PCP Family Medicine; Visit Provider Obstetrics & Gynecology
DX: D25.9 Leiomyoma of uterus, unspecified (principal); Z79.899 Other long term (current) drug therapy; Z01.818 Encounter for other preprocedural examination
CPT/HCPCS: 36415; 80048; 86850; 86900; 86901

== ENCOUNTER 2024-03-18 01:07 | Day surgery (SDC) | payer BC, OTHER, SELFPAY ==
[2024-03-11 09:43] VITALS: BMI 42.0
--- NOTE | 2024-03-11 09:51 | PC.NURSE ---
Addendum entered by Herb Silveira RN 03/11/24 15:38: Told patient to use Advair inhaler morning of surgery and if needed could also use albuterol. Also encouraged to use Hydroxyzine morning of surgery if needed for anxiety. Original Note: Report to the Outpatient Waiting Room, entrance under the green pavilion located off [facility], at time _0600_ on date _[id number]_. Planned Procedure Time: _0730_.? Time changes happen often and if your time is changed the preop area will call you the afternoon before. - You and your visitor will be asked to self-screen and do not enter if you have any COVID symptoms. Please call surgeon if you need to reschedule. - A mask is optional within the hospital at this time. Patients may have clear liquids (water, carbonated beverages, clear teas, apple juice) until 3 hours prior to surgery with a maximum of 20 ounces. - No food from midnight until time of surgery and no smoking. This includes no chewing gum, candy or mints. Take only the following medications with a SIP of water on the morning of surgery: __None____ DO NOT STOP ANY OF YOUR OTHER PRESCRIPTION MEDICATIONS PRIOR TO SURGERY EXCEPT THE FOLLOWING Medications to discontinue per physician ___All vitamins Date to take last kzyb___[id number]___ Please no make-up, nail occitan, hairspray, perfume, deodorant, or body powder the day of surgery.? No jewelry (including any body piercings) or valuables the day of surgery, leave them at home.? Please take a shower or bath the night before, or the morning of, surgery with an antibacterial soap.? Wear comfortable, loose fitting clothing.? - Jewelry must be removed prior to entering the operating room.? Rings and piercings that are not removed may be cut off. - The hospital will not accept responsibility for valuables.? - Please leave all valuables, including medications, at home the day of surgery. If you are going home after surgery, a licensed ro[employer] carrier driver must drive you home.? - NO public transportation without another adult if you receive anesthesia. - We recommend that an adult stay with you for 24 hours following discharge. - We also recommend that you do not drive, make important decision, drink alcoholic beverages, or take any drugs that were not prescribed by your health care provider for at least 24 hours after your discharge time. Follow any additional instructions given to you from your surgeon. Telephone instructions given to __Betsy__and asked if any additional questions and then verbalized understanding. Patient advised to call surgeon office or pre surgery nurse liaison [phone] if any additional questions.
--- NOTE | 2024-03-17 14:50 | P.PNAN_ITS ---
Anes - Initial Pre Proc Eval Procedure: Operation Date: 03/18/24 07:30 Proposed Procedures p Robotic Assisted Vaginal Hysterectomy with Bilateral Salpingo-oophorectomy - Young Kelly MD Date/Time: 03/17/24 14:50 Surgeon: Young Kelly MD Pre Op Diagnosis: fibroids, menorrhagia, right ovarian cyst Patient Data Age: 48 Gender: F Height: 1.68 m Weight: 118.2 kg Allergies Allergy/AdvReac Type Severity Reaction Status Date / Time latex Allergy Mild Skin Verified 03/18/24 06:20 Irritation aloe AdvReac Intermediate DERMATITIS Verified 03/18/24 06:20 chlorine Allergy Intermediate Rash Uncoded 03/18/24 06:20 Home Medications ?Medication ?Instructions ?Recorded ?Confirmed ?Type atorvastatin 80 mg tablet 80 mg PO QHS #90 tabs 03/04/23 03/11/24 Rx inhalational spacing device #1 ea 05/09/23 01/11/24 Rx (Aerochamber MV spacer) vitamin B complex 1 tablet PO DAILY 06/02/23 03/18/24 History famotidine 20 mg tablet See Rx Instructions .Route 06/09/23 03/11/24 Rx .COMPLEX #30 tabs losartan 100 1 tablet PO DAILY #90 tabs 07/29/23 03/11/24 Rx mg-hydrochlorothiazide 25 mg tablet norethindrone (contraceptive) 0.35 0.35 mg PO HS #84 tabs 11/12/23 03/11/24 Rx mg tablet albuterol sulfate 90 mcg/actuation 2 puff inhalation Q4H PRN 11/23/23 03/11/24 Rx aerosol inhaler shortness of breath or wheezing #8.5 grams levothyroxine 25 mcg tablet 25 mcg PO DAILY #90 tabs 11/23/23 03/11/24 Rx ipratropium 0.5 mg-albuterol 3 mg 3 ml inhalation QID PRN SOB 11/25/23 03/11/24 History (2.5 mg base)/3 mL nebulization soln fluticasone propionate 115 2 puff inhalation BID #12 grams 12/01/23 03/18/24 Rx mcg-salmeterol 21 mcg/actuation HFA inhaler (Advair HFA) cholecalciferol (vitamin D3) 25 25 mcg PO DAILY 12/23/23 03/18/24 History mcg (1,000 unit) capsule escitalopram oxalate 20 mg tablet 20 mg PO DAILY #90 tabs 12/23/23 03/11/24 Rx (Lexapro) multivitamin 1 tablet PO DAILY 12/23/23 03/18/24 History hydroxyzine HCl 25 mg tablet 25 mg PO QID #90 tabs 03/02/24 03/18/24 Rx ascorbic acid (vitamin C) 500 mg 500 mg PO DAILY 03/11/24 03/18/24 History tablet,extended release (C-500) Patient hx anesthesia problems: post op nausea/vomiting Family hx anesthesia problems: none Results Review: All pre-operative results and documents have been reviewed as part of the pre- operative evaluation. [facility] Past Medical History Medical History History of miscarriage Sciatica Kidney stones staghorn Umbilical hernia Iron deficiency anemia Major depressive disorder Restless leg syndrome Family history of colon cancer in father Encounter for screening colonoscopy Nausea Jamar's disease Febrile seizures GERD (gastroesophageal reflux disease) Skin cancer Basal cell carcinoma, s/p Moh's, 2003 Arthritis Anxiety Asthma Allergies Hyperlipidemia Hypertension CVA (cerebral vascular accident) Received tPA 11/2022, transferred to [facility], discharged without antiplatelet therapy. Familial Mediterranean fever Surgical History Surgical History Stendal teeth extracted Hx of dilation and curettage H/O colposcopy with cervical biopsy Family History Family History Father Alcoholism Carcinoma of colon Diabetes mellitus Hypertension Malignant neoplasm of prostate Mother Diabetes mellitus Hypertension Depression Thyroid disorder Daughter Asthma Depression Grandparent Alcoholism Cancer Cerebrovascular accident Social History Social History Smoking packs per day: 0.5 Smoking cigarettes per day: 10.0 Years smoked: 7 Smoking pack-years: 3.50 Smoking status: Former smoker Tobacco type: cigarettes Smoking end date: 03/11/18 Alcohol intake: never Substance use: current Substance use type: marijuana Other substance usage details: Daily Do You Feel Safe in your Home?: Yes Lack of Transportation: No Lack of Food: Never True Current Housing: I Have Housing Concerned About Future Housing: No Difficulty Paying Gas/Electric Bills: No Difficulty Paying for Meds: No Currently Unemployed: No Education: High School Diploma/GED Difficulty w/ Childcare or Family Care: No Living arrangements: with family Spiritual care concerns: No Anes - Eval Final PreProcedure Day of Procedure 03/17/24 14:50 Patient weight: normal and morbidly obese Heart: regular rate and rhythm Lungs: clear to auscultation Airway: Mallampati scale class III Neurological: alert and oriented Last oral intake: >/= 8 hours ASA classification: III Emergent: no Anesthetic plan: proceed Anesthesia type and monitoring: general ETT and standard monitoring Results Review: All pre-operative results and documents have been reviewed as part of the pre- operative evaluation. Informed Consent: The patient's anesthetic plan and its attendant risks and benefits were discussed with the patient/family/POA. Questions were solicited and answers provided to the satisfaction of the patient/family/POA.
[2024-03-18] VITALS (9 sets, daily range): BP systolic 103–151; BP diastolic 56–97; PULSE 77–97; RESP 13–18; TEMP 36.3–36.9; O2SAT 93–100
[2024-03-18 06:24] LABS: BEDSIDEPREGUCG Negative (Negative)
--- OUTSIDE RECORDS SUMMARY | 2024-03-18 06:28 | XMS_ITS | Continuity of Care Document ---
Author Name [facility] Organization [facility] Care Team Providers Care Trade Recruiter Name Role Phone [facility] Unavailable Unavailable Problems Combined list of problems from Department of Defense and Veterans Affairs facilities. It does not include entries that were removed or entered in error. Problem Status Onset Date Problem Type Date of Resolution Comments Source pyrexia Inactive Condition [facility] Fever Inactive Condition Pt to walk in for recurrent fevers. [facility] Vaginal Pap Smear Inactive Condition [facility] Cervical Pap Smear Inactive Condition [facility] Gynecologic Services Contraceptive Management Active Condition [facility] visit for: screening exam malignant neoplasm breast Inactive Condition [facility] Pelvic Exam (Internal) Active Condition Mood/Depression : stable, pt has few weeks of Zoloft remaining. Instructed pt to call clinic 4-5 days prior to run out of meds, leave [facility] for med refill...... will provide 90 day supply of Zoloft 100mg daily.Of note: , will no longer have after . [facility] nontoxic solitary thyroid nodule Active Condition Pt notes that a previous FNAB at [employer] was benign, pt advised that the nodule would need to be re-aspirated if the lesion increases in size. [facility] Gynecologic Service Prescrip Of Contracept Agent - Repeat Rx Active Condition Pt overdue for PapSmear; due in . Refill current OCP until can be seen for CPE/well woman exam for breast/pap/pelvi c. Do[facility] esophageal reflux Active Condition Ne w onset, trial of acute management with Zantac and addition of Prilosec fo nursing home therapy. [facility] nontoxic goiter diffuse Active Condition [...] consult neurosurg to discuss management options and half-way prognosis. [facility] visit for: services physical Inactive Condition DoD [...] Known Allergies Drug allergy (disorder) active 7 [facility] Encounters Combined list of: 1) Encounters from Department of Veterans Affairs facilities going back up to thelast 18 months. 2) Encounters from the Department of Defense facilities going back up to 280 months. Location Location Details Encounter Type Encounter Number Reason For Visit Attending Provider ADM Date DC Date Status Disposition Source [facility]) TELE CONSULT [id number] referra GLADYS Mckenzie 10/05 [facility](F am Prac Resourc e Sharing ) [facility]) OUTPATIENT [id number] sore throat & congest GLADYS Low 12/31 Released w/o Limitations [employer](F amily Practic e Contrac t Clinic) [facility]) OUTPATIENT [id number] SHOULDE GLADYS ANGELES M 05/09 Released w/o Limitations [employer] [facility]) [employer]([facility]) TELE CONSULT [id number] Med GLADYS Cheema M 06/03 [employer]) [employer] [facility] [employer]([facility]) TELE CONSULT [id number] Medicat ion refGLADYS Saenz M 07/30 [employer] [facility]) [employer] [facility] [employer]([facility]) OUTPATIENT [id number] OSS GLADYS FLORENCE M 11/27 Released w/o Limitations [employer]([facility] am[facility] Practic e [facility]rac t [facility]) [facility]) OUTPATIENT [id number] WAYNE BLAKE 08/14 Released w/o Limitations [facility]) [facility]) OUTPATIENT [id number] Lumbago HUMAIRA WAKEFIELD 09/03 Released w/o Limitations [facility]) [facility]) OUTPATIENT [id number] mri results WAYNE BLAKE 09/04 Released w/o Limitations [facility]) [facility]) OUTPATIENT [id number] back ALEXANDRA SERNA 09/08 Released w/o Limitations [facility]) [facility]) OUTPATIENT [id number] back GUDELIA MCCORMACK 09/10 Released w/o Limitations [facility]) [facility]) OUTPATIENT [id number] back SCARLETT HART 09/11 Released w/o Limitations [facility]) [facility]) TELE CONSULT [id number] mri results need to be address ed lab results were WAYNE Dodge 09/11 [facility]) OUTPATIENT [id number] back SCARLETT HART 09/16 [facility]ased w/o Limitations [facility](Neurosu rgery [facility]) OUTPATIENT [id number] HERNIAT ED DISC (L5 - S1) ELTON GARCIA 09/22 Released w/o Limitations [facility](Clive rosurge ry [facility]) [facility]) OUTPATIENT [id number] back HUMAIRA WAKEFIELD 09/23 [facility]ased w/o Limitations [facility]) OUTPATIENT [id number] back TRENTON, YOANNA H 09/30 [facility]ased w/o Limitations [facility]) OUTPATIENT [id number] back TRENTON, YOANNA H 10/01 Released w/o Limitations [facility]) OUTPATIENT [id number] back ALEXANDRA SERNA 10/06 [facility]ased w/o Limitations [facility]) [facility] [place] [facility]) OUTPATIENT [id number] back TRENTON, YOANNA H 10/08 [facility]ased w/o Limitations [facility]) [facility] [id number] back ALEXANDRA SERNA 10/13 [facility]ased w/o Limitations [facility] [id number] back ALEXANDRA SERNA 10/15 [facility]ased w/o Limitations [facility]) [facility]) OUTPATIENT [id number] back GUDELIA MCCORMACK 10/29 Released w/o Limitations [facility]) [facility]) OUTPATIENT [id number] LOWER BACK HUMAIRA WAKEFIELD 10/30 Released w/o Limitations [facility]) [id number] [facility] Released w/o Limitations [facility]) [facility]) TELE CONSULT [id number] lab results EYAD HAUSER 12/02 [facility]) [facility]) OUTPATIENT [id number] ongoing fevers WAYNE BLAKE 12/10 Released w/o Limitations [facility]) [facility]) OUTPATIENT [id number] f/u labs WAYNE BLAKE 01/14 Released w/o Limitations [facility]) [facility]) TELE CONSULT [id number] CT results WAYNE BLAKE 02/09 [facility]) [facility]) OUTPATIENT [id number] Pas entered the order WAYNE BLAKE 03/04 Released w/o Limitations [facility]) [facility]) TELE CONSULT [id number] Thyroid US results WAYNE BLAKE 03/25 [facility]) [facility](Infecti ous Disease [facility]) OUTPATIENT [id number] FEVER OF UNKNOWN ORIGIN ADELA VAUGHAN 03/31 Released w/o Limitations [facility](Inf ectious Disease [facility]) [facility](Endocri nology [facility]) OUTPATIENT [id number] GOITER (DIFFUS E NONTOXI C) JEANETTE CHAVEZ 04/22 Released w/o Limitations [facility](End ocrinol ogy [facility]) [facility]) TELE CONSULT [id number] MED REFILL EYAD HAUSER 04/28 [facility]) [facility]) OUTPATIENT [id number] pap WAYNE BLAKE 05/20 Released w/o Limitations [facility]) [facility](Infecti ous Disease [facility]) OUTPATIENT [id number] ADELA VAUGHAN 05/26 Released w/o Limitations [facility](Inf ectious Disease [facility]) [facility]) TELE CONSULT [id number] MED REFILL EYAD HAUSER 06/01 [facility]) [facility](Infecti ous Disease [facility]) TELE CONSULT [id number] MRI [facility] ADELA VAUGHAN 06/03 [facility](Inf ectious Disease [facility]) [facility]) TELE CONSULT [id number] pap WYATT Barboza 06/10 [facility]) [facility](Infecti ous Disease [facility]) TELE CONSULT [id number] retrun call ADELA VAUGHAN 06/15 [facility](Inf ectious Disease [facility]) [facility](Infecti ous Disease [facility]) OUTPATIENT [id number] ADELA VAUGHAN 04/26 /2007 Released w/o Limitations [facility](Inf ectious Disease [facility]) [facility](Infecti ous Disease [facility]) TELE CONSULT [id number] Lab Results ADELA VAUGHAN 06/29 [facility](Inf ectious Disease [facility]) [facility](Infecti ous Disease [facility]) TELE CONSULT [id number] lab results ADELA VAUGHAN 07/07 [facility](Inf ectious Disease [facility]) Procedures Combined list of: 1) Procedures from Department of [facility] Affairs facilities going back up to thelast 18 months, not all [place] non-surgical procedures are included; 2) All procedures from the Department of Defense facilities. Procedure Procedure Type Code Date Perfomer Comments Sourc e INDIVIDUAL PSYCHOTHERAPY, INSIGHT ORIENTED, BEHAVIOR MODIFYING AND/OR SUPPORTIVE, IN AN OFFICE OR OUTPATIENT FACILITY, APPROXIMATELY 20 TO 30 MINUTES [id number] WITH THE PATIENT 11/27/2004 [facility] SCREENING PAPANICOLAOU SMEAR; OBTAINING, PREPARING AND CONVEYANCE OF CERVICAL OR VAGINAL SMEAR TO LABORATORY 05/20/2006 [facility] SELF-CARE/HOME MANAGMENT TRAIN (EG,ACT OF DAILY LIVING (ADL) &COMPENSAT TRAIN,MEAL PREPARATION,SAFETY PROCS,AND INSTRUCT IN USE OF ASST TECHNOLOGY DEV/ADPT EQUIP) DIR ONE-ON-ONE CONT,EA 15 MINUTES 10/30/2005 [facility] THERAPEUTIC PROCEDURE,1 OR MORE AREAS,EACH 15 MINUTES;NEUROMUSCULA R REEDUCATION OF MOVEMENT,BALANCE,KITCHEN HELP HANDYMAN RDINATION,KINESTHETI C SENSE,POSTURE,AND/OR PROPRIOCEPTION FOR SITTING AND/OR STANDING ACTIVITIES 10/29/2005 [facility]D THERAPEUTIC PROCEDURE,1 OR MORE AREAS,EACH 15 MINUTES;NEUROMUSCULA R REEDUCATION OF MOVEMENT,BALANCE,KITCHEN HELP HANDYMAN RDINATION,KINESTHETI C SENSE,POSTURE,AND/OR PROPRIOCEPTION FOR SITTING AND/OR STANDING ACTIVITIES 10/15/2005 [facility] THERAPEUTIC PROCEDURE,1 OR MORE AREAS,EACH 15 MINUTES;NEUROMUSCULA R REEDUCATION OF MOVEMENT,BALANCE,KITCHEN HELP HANDYMAN RDINATION,KINESTHETI C SENSE,POSTURE,AND/OR PROPRIOCEPTION FOR SITTING AND/OR STANDING ACTIVITIES 10/13/2005 [facility] THERAPEUTIC PROCEDURE,1 OR MORE AREAS,EACH 15 MINUTES;NEUROMUSCULA R REEDUCATION OF MOVEMENT,BALANCE,KITCHEN HELP HANDYMAN RDINATION,KINESTHETI C SENSE,POSTURE,AND/OR PROPRIOCEPTION FOR SITTING AND/OR STANDING ACTIVITIES 10/08/2005 [facility] THERAPEUTIC PROCEDURE,1 OR MORE AREAS,EACH 15 MINUTES;NEUROMUSCULA R REEDUCATION OF MOVEMENT,BALANCE,KITCHEN HELP HANDYMAN RDINATION,KINESTHETI C SENSE,POSTURE,AND/OR PROPRIOCEPTION FOR SITTING AND/OR STANDING ACTIVITIES 10/06/2005 [facility] THERAPEUTIC ACTIVITIES, DIRECT (ONE-ON-ONE) PATIENT CONTACT (USE OF DYNAMIC ACTIVITIES TO IMPROVE FUNCTIONAL PERFORMANCE), EACH 15 MINUTES 10/01/2005 [facility] THERAPEUTIC PROCEDURE,1 OR MORE AREAS,EACH 15 MINUTES;NEUROMUSCULA R REEDUCATION OF MOVEMENT,BALANCE,KITCHEN HELP HANDYMAN RDINATION,KINESTHETI C SENSE,POSTURE,AND/OR PROPRIOCEPTION FOR SITTING AND/OR STANDING ACTIVITIES 09/30/2005 [facility] SELF-CARE/HOME MANAGMENT TRAIN (EG,ACT OF DAILY LIVING (ADL) &COMPENSAT TRAIN,MEAL PREPARATION,SAFETY PROCS,AND INSTRUCT IN USE OF ASST TECHNOLOGY DEV/ADPT EQUIP) DIR ONE-ON-ONE CONT,EA 15 MINUTES 09/23/2005 [facility] APPLICATION OF A MODALITY TO 1 OR MORE AREAS; TRACTION, MECHANICAL 09/16/2005 [facility] APPLICATION OF A MODALITY TO 1 OR MORE AREAS; TRACTION, MECHANICAL 09/11/2005 [facility] THERAPEUTIC PROCEDURE,1 OR MORE AREAS,EACH 15 MINUTES;NEUROMUSCULA R REEDUCATION OF MOVEMENT,BALANCE,KITCHEN HELP HANDYMAN RDINATION,KINESTHETI C SENSE,POSTURE,AND/OR PROPRIOCEPTION FOR SITTING AND/OR STANDING ACTIVITIES 09/10/2005 [facility] APPLICATION OF A MODALITY TO 1 OR MORE AREAS; HOT OR COLD PACKS 09/08/2005 [facility] APPLICATION OF A MODALITY TO 1 OR MORE AREAS; HOT OR COLD PACKS 09/03/2005 [facility] INJECTION, DIAZEPAM, UP TO 5 MG 08/07/2005 [facility] CYTOPATHOLOGY, SMEARS, CERVICAL OR VAGINAL, UP TO THREE SMEARS; SCREENING BY COAL CHEMIST UNDER PHYSICIAN SUPERVISION 02/03/2005 [facility] Screening papanicolaou smear; obtaining, preparing and conveyance of cervical or vaginal smear to laboratory 05/20/2006 WAYNE BLAKE [facility] Patient Training And Self-Care Skills Patient Training And Self-Care Skills [id number] 10/30/2005 HUMAIRA WAKEFIELD [facility] Physical Therapy Service Re-Evaluation Physical Therapy Service Re-Evaluation [id number] 10/30/2005 HUMAIRA WAKEFIELD [facility] Physical Therapy Neuromuscular Re-education Physical Therapy Neuromuscular Re-education [id number] 10/29/2005 GUDELIA MCCORMACK Rodriguez [facility] Physical Therapy: ___ Se ion Segments, 15 Minutes Each Physical Therapy: ___ Session Segments, 15 Minutes Each [id number] 10/29/2005 GUDELIA MCCORMACK Rodriguez [facility] Physical Therapy Neuromuscular Re-education Physical Therapy Neuromuscular Re-education [id number] 10/15/2005 ALEXANDRA SERNA [facility] Physical Therapy: ___ Se ion Segments, 15 Minutes Each Physical Therapy: ___ Session Segments, 15 Minutes Each [id number] 10/15/2005 ALEXANDRA SERNA [facility] Physical Therapy Neuromuscular Re-education Physical Therapy Neuromuscular Re-education 58573 10/13/2005 ALEXANDRA SENRA [facility] Physical Therapy: ___ Se ion Segments, 15 Minutes Each Physical Therapy: ___ Session Segments, 15 Minutes Each [id number] 10/13/2005 ALEXANDRA SERNA [facility] Physical Therapy Neuromuscular Re-education Physical Therapy Neuromuscular Re-education [id number] 10/08/2005 TRENTONYOANNA [facility] Physical Therapy: ___ Se ion Segments, 15 Minutes Each Physical Therapy: ___ Session Segments, 15 Minutes Each [id number] 10/08/2005 TRENTON, YOANNA [facility] Physical Therapy Neuromuscular Re-education Physical Therapy Neuromuscular Re-education [id number] 10/06/2005 ALEXANDRA SERNA [facility] Physical Therapy: ___ Se ion Segments, 15 Minutes Each Physical Therapy: ___ Session Segments, 15 Minutes Each [id number] 10/06/2005 ALEXANDRA SERNA [facility] PT A e ment Kinetic Training PT Assessment Kinetic Training [id number] 10/03/2005 TRENTONVANESSAYOANNA Luiza [facility] Physical Therapy: ___ Se ion Segments, 15 Minutes Each Physical Therapy: ___ Session Segments, 15 Minutes Each [id number] 10/03/2005 TRENTON, YOANNA Luiza [facility] Physical Therapy Neuromuscular Re-education Physical Therapy Neuromuscular Re-education 23197 09/30/2005 TRENTON, YOANNA Luiza [facility] Physical Therapy: ___ Se ion Segments, 15 Minutes Each Physical Therapy: ___ Session Segments, 15 Minutes Each [id number] 09/30/2005 RTENTON, YOANNA [facility] Physical Therapy Service Re-Evaluation Physical Therapy Service Re-Evaluation 71208 09/23/2005 HUMAIRA WAKEFIELD [facility] Patient Training And Self-Care Skills Patient Training And Self-Care Skills [id number] 09/23/2005 HUMAIRA WAKEFIELD [facility] Physical Therapy: ___ Se ion Segments, 15 Minutes Each Physical Therapy: ___ Session Segments, 15 Minutes Each [id number] 09/16/2005 JOSE HARTELE Rosey [facility] Physical Therapy Neuromuscular Re-education Physical Therapy Neuromuscular Re-education 93180 09/16/2005 SCARLETT HART [facility] Traction Pelvic Traction Pelvic [id number] 09/16/2005 SCARLETT SANCHEZ [facility] Physical Therapy: ___ Se ion Segments, 15 Minutes Each Physical Therapy: ___ Session Segments, 15 Minutes Each [id number] 09/11/2005 HART, SCARLETT Rosey [facility] Physical Therapy Neuromuscular Re-education Physical Therapy Neuromuscular Re-education 36642 09/11/2005 HARTSCARLETT Rosey [facility] Traction Pelvic Traction Pelvic 57520 09/11/2005 RYLIE CRAMERJOSE MartinezELE Rosey [facility] Physical Therapy: ___ Se ion Segments, 15 Minutes Each Physical Therapy: ___ Session Segments, 15 Minutes Each [id number] 09/08/2005 ALEXANDRA SERNA [facility] Physical Therapy Neuromuscular Re-education Physical Therapy Neuromuscular Re-education 07744 09/08/2005 ALEXANDRA SERNA [facility] Modalities Traction Modalities Traction 62369 006 ALEXANDRA SERNA [facility] Modalities Cryotherapy Cold Packs Modalities Cryotherapy Cold Packs 28481 09/08/2005 ALEXANDRA SERNA [facility] Patient Training And Self-Care Skills Patient Training And Self-Care Skills 52993 09/03/2005 HUMAIRA WAKEFIELD [facility] Physical Therapy: ___ Se ion Segments, 15 Minutes Each Physical Therapy: ___ Session Segments, 15 Minutes Each [id number] 09/03/2005 HUMAIRA WAKEFIELD [facility] Modalities Heat Hot Packs Modalities Heat Hot Packs 59204 09/03/2005 HUMAIRA WAKEFIELD [facility] Physical Therapy Service Evaluation Physical Therapy Service Evaluation 61978 09/03/2005 HUMAIRA WAKEFIELD [facility] Social History Combined list of available smoking, tobacco, and other social history from Department of Defense and Veterans Affairs facilities. Social History Type Response Date Comment [facility] e This section is an empty social history section. DoD
[2024-03-18] MEDS: LACTATED RINGERS 1,000 ML 30 ML IV CONT ×2 (06:55→10:25)
[2024-03-18] MEDS: KETOROLAC 15 MG/ML VIAL (*BKC) IV PUSH (07:00)
[2024-03-18] MEDS: ACETAMINOPHEN 500 MG TABLET 1000 MG PO ×3 (07:00→20:51)
--- NOTE | 2024-03-18 07:13 | WPDHPUPDATE1 ---
History and Physical Update Update Date/Time: 03/18/24 07:13 History and Physical has been reviewed, including an updated exam of the patient. There are NO changes in the patient's condition. Risks, benefits, and alternatives have been discussed and questions answered. Patient agrees to proceed with procedure.
[2024-03-18] MEDS: ceFAZolin 3 GM/D5W 100 ML 100 ML IVPB (07:32)
[2024-03-18] MEDS: BUPivacaine HCL 0.5% 10 ML AMP 20 ML INFILTRATE (08:34)
--- NOTE | 2024-03-18 10:38 | SUR.PHASEI ---
SEIZURE PADS PRESENT ON STRETCHER
--- NOTE | 2024-03-18 10:59 | W.PM.PROC2 ---
Procedure Note - Detailed Date of Procedure 03/18/24 Pre-op Diagnosis fibroids, menorrhagia, right ovarian cyst Post-op Diagnosis Same Procedure Performed Laparoscopic robotic assisted total vaginal hysterectomy with bilateral salpingo-oophorectomy Surgeon Young Kelly MD Call Center Support Representative Maryana Anesthesia General Indications Symptomatic fibroid uterus Findings Enlarged uterus with multiple intramural fibroids, normal fallopian tubes and ovaries Description of Procedure After informed consent was obtained she was taken to the operating room and general endotracheal anesthesia was administered. She was placed in low lithotomy position. An exam under anesthesia was performed. Uterus palpated approximately 14 week size, no adnexal masses palpated. She was and prepped and draped in sterile fashion. Mccabe catheter placed in bladder. Attention was turned to the vagina speculum was inserted. Single-tooth tenaculum placed on anterior lip of the cervix the uterus sounded to 10 cm. The cervix was dilated to a 8 Mace dilator. A size 10 uterine manipulator was inserted and secured. A size 3.0 colp cup was secured in the vagina. Then attention was turned to the abdomen with new sterile gloves. .5% marcaine injected subcutaneously. An incision was made horizontal 2 cm above the umbilicus. A Veress needle was inserted. Confirmation into abdomen obtained with normal flow of saline through port and normal peritoneal pressures. A Pneumoperitoneum of 15 mm per mercury was obtained. No abdominal or pelvic adhesions noted. A small incision was made approximately 6 cm lateral to the port on the left side of the port. A size 8mm robotic port was inserted under laparoscopic visualization into the abdomen on the left side. Medial and superior and incision was made and robotic port inserted. Attention was turned to right side of abdomen and robotic and farm assistant port inserted under laparoscopic visualization. She was placed in trendelenburg position. Attention was turned to uterine manipulator which was not working and it was replaced. Robotic arms attached. Attention was turned to surgery console. The right round ligament was ligated. The anterior leaf of broad ligament was dissected anteriorly. The bladder was dissected from the lower uterine segment and upper cervix. The right infundibularpelvicligament was ligated with the vessel sealer. The a posterior leaf of the broad ligament was further dissected. The ascending uterine vessels on the right were ligated. The uterine artery was ligated. Attention was turned to the left round ligament which was ligated and the anterior leaf of the broad ligament was dissected anteriorly. The rest of the vesicouterine peritoneum was dissected off of the uterus. Once the bladder was dissected below the colp cup then the left infundibularpelvic ligament was ligated. The ascending uterine vessels ligated. The uterine arteries were ligated. The cardinal ligaments were ligated. This was done on both sides. An incision was made anterior colpotomy incision was made and this was carried around to posterior. The uterus was bivalved. The rest of the colpotomy was performed. The uterus, cervix, fallopian tubes and ovaries could not be removed with the bivalve. The uterus was with cautery in three sections and uterus cervix and fallopian tubes and ovaries removed through vagina. Pelvis was irrigated. The vaginal cuff was closed in a running fashion with 0 V lock suture x 2. Hemostasis was noted. The pelvis was irrigated. Hemostasis noted. Hemoderm was applied in the pelvis. The patient was taken out of Trendelenburg position. The pneumoperitoneum was released and the ports were removed. The skin incisions were closed with 4 O Vicryl and skin glue. The patient was extubated in operating room. The sponge count was correct x2. Patient tolerated procedure well and was taken to recovery in stable condition. Estimated Blood Loss 125 Drains No Packing No Pathology Yes (uterus with multiple fibroids and cervix and fallopian tubes and ovaries) Complications No immediate complications Condition Stable Disposition Floor [facility] Billing Surgery - Charge Forward: Surgery Billing
--- NOTE | 2024-03-18 11:30 | PC.NURSE ---
Patient transferred to post room #292 via stretcher.. Support person present. Oriented to unit, room, information board, rooming in, admission packet and security measures. Patient verbalizes understanding.
[2024-03-18] MEDS: DEXTROSE 5%/0.45% SOD CHL 1,000 ML 125 ML IV CONT (13:45)
[2024-03-18] MEDS: SIMETHICONE 80 MG TAB.CHEW PO ×2 (13:46→17:53)
[2024-03-18] MEDS: KETOROLAC 30 MG/ML VIAL (*BKC) 15 MG IV PUSH ×2 (13:46→20:55)
[2024-03-18] MEDS: ceFAZolin 1 GM/NS 50 ML 1 GM/50 ML BAG IVPB ×2 (15:22→23:19)
[2024-03-18] MEDS: ESCITALOPRAM OXALATE 10 MG TABLET 20 MG PO (17:52)
[2024-03-18] MEDS: LOSARTAN POTASSIUM 100 MG TABLET PO (17:52)
[2024-03-18] MEDS: ATORVASTATIN 40 MG TABLET 80 MG PO (17:52)
[2024-03-18] MEDS: SENNA/DOCUSATE SODIUM TABLET 2 TAB PO (17:53)
[2024-03-18] MEDS: hydroCHLOROthiazide 25 MG TABLET PO (17:53)
[2024-03-19] MEDS: ACETAMINOPHEN 500 MG TABLET 1000 MG PO ×2 (03:40→09:29)
[2024-03-19] MEDS: KETOROLAC 30 MG/ML VIAL (*BKC) 15 MG IV PUSH (03:41)
[2024-03-19 03:46] VITALS: BP 146/91; PULSE 78; RESP 18; TEMP 36.4; O2SAT 96
[2024-03-19 07:25] VITALS: BP 145/95; PULSE 69; RESP 16; TEMP 36.7; O2SAT 97
[2024-03-19] MEDS: LEVOTHYROXINE SODIUM 25 MCG TABLET PO (07:25)
[2024-03-19] MEDS: SIMETHICONE 80 MG TAB.CHEW PO (07:25)
[2024-03-19] MEDS: ceFAZolin 1 GM/NS 50 ML 1 GM/50 ML BAG IVPB (07:25)
--- NOTE | 2024-03-19 08:11 | P.PNOB_ITS ---
CUSTOMER ASSISTANCE REPRESENTATIVE - A/P Assessment and plan (1) Status post hysterectomy with oophorectomy: Code(s): Z90.710 - Acquired absence of both cervix and uterus; Z90.721 - Acquired absence of ovaries, unilateral Status: Acute Assessment and Plan: POD1. Doing well. Will discharge home today. Discharge precautions discussed. Postoperative Procedures: Procedures Operation Date: 03/18/24 07:30 Actual Procedure Side Surgeon p Robotic Assisted Vaginal Hysterectomy with Bilateral Salpingo-oophorectomy B ilateral Young Kelly MD Time Spent With Patient Time: Total time spent is greater than 50% in coordination of care (as documented) at patient's floor/unit and/or counseling patient: Time with patient: less than 15 minutes CUSTOMER ASSISTANCE REPRESENTATIVE- PN:Subj Post-Op Subjective Date/time seen: 03/19/24 08:11 Interval history: She has set up in a chair. She reports positive flatus. She has had a good pain control with Tylenol mostly. Has urinated without problems. Subjective: pain is well controlled and patient is tolerating oral intake Review of Systems Review of Systems: All systems reviewed & are unremarkable except as noted in HPI and below Cardiovascular: Cardiovascular: Reports no additional cardiovascular complaints Respiratory: Respiratory: Reports no additional respiratory complaints Gastrointestinal: Gastrointestinal: Reports belching and Denies vomiting Genitourinary: Genitourinary: Reports no additional female genitourinary complaints Musculoskeletal: Musculoskeletal: Reports no additional musculoskeletal complaints Exam Const: General: comfortable and no acute distress Orientation/consciousness: oriented to person, oriented to place and oriented to time Resp: Auscultation: clear to auscultation bilaterally Cardio: Rate: regular rate Rhythm: regular rhythm GI: GI Palp: Yes Soft to palpation and No Tenderness to palpation present (GI) Auscultation: normal bowel sounds Other: incisions intact, +BS, mildly distended Neuro: General: oriented to person, oriented to place and oriented to time Extrem: General: no calf tenderness Psych: Mental Status: mental status grossly normal CUSTOMER ASSISTANCE REPRESENTATIVE - PN: Obj Data Vital Signs Vital Signs: Vital Signs - 24 hr 03/18/24 10:25 03/18/24 10:40 03/18/24 10:55 Temperature 97.6 F Pulse Rate 91 92 97 Respiratory Rate 13 14 14 Blood Pressure 114/60 112/60 111/56 L Pulse Oximetry 100 100 99 Oxygen Delivery Simple Face Mask Simple Face Mask Room Air Oxygen Flow Rate 8 8 03/18/24 11:10 03/18/24 11:40 03/18/24 12:49 Temperature 98.2 F Pulse Rate 95 93 Respiratory Rate 14 16 Blood Pressure 103/60 138/83 Pulse Oximetry 96 95 Oxygen Delivery Room Air Room Air Oxygen Flow Rate 03/18/24 17:15 03/18/24 17:15 03/18/24 20:45 Temperature 98.4 F 98.2 F Pulse Rate 82 87 Respiratory Rate 16 18 Blood Pressure 126/79 122/76 Pulse Oximetry 98 97 Oxygen Delivery Room Air Oxygen Flow Rate 03/18/24 23:45 03/19/24 03:46 Temperature 98.3 F 97.6 F Pulse Rate 77 78 Respiratory Rate 16 18 Blood Pressure 123/69 146/91 H Pulse Oximetry 93 96 Oxygen Delivery Oxygen Flow Rate Intake/Output Intake/Output: Intake & Output 03/16/24 03/17/24 03/18/24 03/19/24 23:59 23:59 23:59 23:59 Intake Total 250 240 Output Total 1500 500 Balance -1250 -260 Meds/Results Medications: Active Medications Generic Name Dose Route Start Last Admin Trade Name Freq PRN Reason Stop Dose Admin Acetaminophen 1,000 mg 03/18/24 12:00 03/19/24 03:40 Acetaminophen 500 Mg Tablet PO 1,000 mg Q6HR NATALIA Administration Albuterol 2 puff 03/18/24 22:09 Albuterol Sulfate (*Sp) Inhaler INHALATION Q4H PRN shortness of breath or wheezin Albuterol/Ipratropium 3 ml 03/18/24 11:14 Ipratropium 0.5 Mg/Albuterol Sulfate 2.5 Mg Ampul.Neb 3 Ml INHALATION QID PRN Shortness Of Breath Atorvastatin Calcium 80 mg 03/18/24 21:00 03/18/24 17:52 Atorvastatin 40 Mg Tablet PO 80 mg QHS NATALIA Administration Escitalopram Oxalate 20 mg 03/18/24 21:00 03/18/24 17:52 Escitalopram Oxalate 10 Mg Tablet PO 20 mg HS NATALIA Administration Famotidine 20 mg 03/19/24 09:00 Famotidine 20 Mg Tablet PO DAILY NATALIA Hydrochlorothiazide 25 mg 03/18/24 21:00 03/18/24 17:53 Hydrochlorothiazide 25 Mg Tablet PO 25 mg HS NATALIA Administration Dextrose/Sodium Chloride 1,000 mls @ 125 mls/hr 03/18/24 11:10 03/19/24 07:12 Dextrose 5% Sodium Chloride 0.45% IV CONT Not Given .Q8H NATALIA Cefazolin Sodium 1 gm in 50 mls @ 100 mls/hr 03/18/24 15:00 03/19/24 07:25 Ancef 1 Gm/Ns 50 Ml IVPB 100 mls/hr Q8H NATALIA Administration Levothyroxine Sodium 25 mcg 03/19/24 06:30 03/19/24 07:25 Levothyroxine Sodium 25 Mcg Tablet PO 25 mcg DAILY@0630 NATALIA Administration Losartan Potassium 100 mg 03/18/24 21:00 03/18/24 17:52 Losartan Potassium 100 Mg Tablet PO 100 mg HS NATALIA Administration Morphine Sulfate 4 mg 03/18/24 11:10 Morphine Sulfate (*Crx) 4 Mg/Ml Inj IV PUSH Q4H PRN Breakthrough Pain Rated 7-10 or NPO Naloxone HCl 0.1 mg 03/18/24 11:10 Naloxone Hcl 0.4 Mg/Ml Vial IV PUSH Q2M PRN Respiratory rate less than 10 Ondansetron HCl 4 mg 03/18/24 11:10 Ondansetron Inj 4 Mg/2 Ml Vial IV PUSH Q6H PRN Nausea And Vomiting Oxycodone HCl 5 mg 03/18/24 11:10 Oxycodone Hcl (*Crx) 5 Mg Tab Ir PO Q4H PRN Pain Rated 4-6 Oxycodone HCl 10 mg 03/18/24 11:10 Oxycodone Hcl (*Crx) 5 Mg Tab Ir PO Q6H PRN Pain Rated 7-10 Fluticasone/Salmeterol 2 puff 03/19/24 08:00 Fluticasone/Salmeterol 115-21 Mcg (*Sp) Inhaler INHALATION Q12HRT NATALIA Senna/Docusate Sodium 2 tab 03/18/24 21:00 03/18/24 17:53 Senna/Docusate Sodium Tablet PO 2 tab HS NATALIA Administration Simethicone 80 mg 03/18/24 12:00 03/19/24 07:25 Simethicone 80 Mg Tab.Chew PO 80 mg TIDWM NATALIA Administration
--- NOTE | 2024-03-19 08:15 | PM.DS ---
DS: Admitting Diagnosis Discharge Date 03/19/24 Admitting Diagnosis Symptomatic fibroid uterus DS: Discharge Diagnosis Discharge Diagnosis (1) Fibroid uterus: Code(s): D25.9 - Leiomyoma of uterus, unspecified Status: Acute (2) Status post hysterectomy with oophorectomy: Code(s): Z90.710 - Acquired absence of both cervix and uterus; Z90.721 - Acquired absence of ovaries, unilateral Status: Acute DS: Summary Hospital Course Reason for hospitalization: Hysterectomy Hospital Course: She was admitted for planned robotic hysterectomy. She had an uncomplicated hysterectomy with salpingo-oophorectomy. She did well post op. On POD1 she had adequate pain control and was tolerating regular diet, positive flatus, ambulating without problems in room. Time Spent with Patient Time attestation: Total time spent providing and/or coordinating discharge services: Exam Const: General: comfortable and no acute distress Orientation/consciousness: oriented to person, oriented to place and oriented to time Resp: Auscultation: clear to auscultation bilaterally Cardio: Rate: regular rate Rhythm: regular rhythm GI: GI Palp: Yes Soft to palpation and No Tenderness to palpation present (GI) Auscultation: normal bowel sounds Other: incisions intact Neuro: General: oriented to person, oriented to place and oriented to time Extrem: General: no calf tenderness Psych: Mental Status: mental status grossly normal DS: Data Data Completed and Pending Pending studies at discharge: Pending at discharge 03/18/24 09:14 Surgical [PTH] Routine Discharge Plan Discharge Patient Disposition: Home, Self-Care Patient Language: Hong Konger Stand Alone Forms: General Discharge Instructions Follow-up/Referrals: Young Kelly MD [Physician] - Keep Reg. Scheduled Appt. Discharge Medications: New oxycodone 5 mg Tablet 5 mg PO Q4H PRN (Reason: Pain Rated 4-6) Qty: 14 0RF No Action vitamin B complex Tablet 1 tablet PO DAILY Patient Comments: Says takes at HS multivitamin Tablet 1 tablet PO DAILY Patient Comments: Says takes at HS cholecalciferol (vitamin D3) 25 mcg (1,000 unit) capsule 25 mcg PO DAILY Patient Comments: Says takes at HS escitalopram oxalate [Lexapro] 20 mg tablet 20 mg PO DAILY Qty: 90 1RF Patient Comments: Takes at HS losartan-hydrochlorothiazide 100-25 mg tablet 1 tablet PO DAILY Qty: 90 1RF Patient Comments: Says takes at HS ascorbic acid (vitamin C) [C-500] 500 mg tablet extended release 500 mg PO DAILY atorvastatin 80 mg tablet 80 mg PO QHS Qty: 90 3RF (DME) Aerochamber MV Spacer See Rx Instructions .Route Qty: 1 0RF Rx Instructions: Use with inhaler famotidine 20 mg tablet See Rx Instructions .ROUTE .COMPLEX Qty: 30 6RF Dose Instruction: Take 1 tablet by mouth once daily Patient Comments: Says takes at HS Rx Instructions: Take 1 tablet by mouth once daily norethindrone (contraceptive) 0.35 mg tablet 0.35 mg PO HS Qty: 84 1RF albuterol sulfate 90 mcg/actuation HFA aerosol inhaler 2 puff inhalation Q4H PRN (Reason: shortness of breath or wheezing) Qty: 8.5 0RF Rx Instructions: Use with spacer levothyroxine 25 mcg tablet 25 mcg PO DAILY Qty: 90 1RF Patient Comments: Says takes at HS ipratropium-albuterol 0.5 mg-3 mg(2.5 mg base)/3 mL solution for nebulization 3 ml inhalation QID PRN (Reason: SOB) fluticasone propion-salmeterol [Advair HFA] 115-21 mcg/actuation HFA aerosol inhaler 2 puff inhalation BID Qty: 12 5RF Rx Instructions: administer with spacer hydroxyzine HCl 25 mg tablet 25 mg PO QID Qty: 90 5RF Patient Comments: Says takes 2 tabs at HS Rx Instructions: Take 1/2 tab at onset of panic attack, Take 1 tablet at bedtime. No more than 4 a day.
[2024-03-19 08:33] VITALS: PULSE 80; RESP 20
[2024-03-19] MEDS: FLUTICASONE/SALMETEROL 115-21 MCG (*SP) INHALER 2 PUFF INHALATION (08:33)
[2024-03-19] MEDS: FAMOTIDINE 20 MG TABLET PO (09:30)
== END 2024-03-19 09:44 | disposition home or self-care (01) ==
LOC: ANHSURGERY 06:01 → ANHOB2 12:37
PROVIDERS: PCP Family Medicine; Visit Provider Obstetrics & Gynecology
PROC: (CPT 58554; principal; 2024-03-18 07:30)
DX: D25.1 Intramural leiomyoma of uterus (principal); D27.1 Benign neoplasm of left ovary; D27.0 Benign neoplasm of right ovary; N83.02 Follicular cyst of left ovary; N84.0 Polyp of corpus uteri; N72 Inflammatory disease of cervix uteri; N88.8 Other specified noninflammatory disorders of cervix uteri; N83.8 Other noninflammatory disorders of ovary, fallopian tube and broad ligament; Z87.891 Personal history of nicotine dependence; E66.01 Morbid (severe) obesity due to excess calories; Z68.41 Body mass index [BMI] 40.0-44.9, adult
CPT/HCPCS: 58554; S2900; 88307; 94640; 99199; A9270; J0360; J0690; J1100; J1171; J1885; J2003; J2250; J2405; J2704; J3010; J7030; J7120

== ENCOUNTER 2024-06-09 07:43 | Outpatient (CLI) | payer OTHER, BC, SELFPAY ==
--- OUTSIDE RECORDS SUMMARY | 2024-06-09 07:47 | XMS_ITS | Patient Health Record ---
Author Organization [facility] [employer] Address [address] [facility] [address] [place] [address] Care Team Providers Care Admitting Supervisor Name Role Phone Osiris West Unavailable [phone] Allergies No Known Allergies Results Component Value Reference Range Notes UDT Reviewed date:09/04/2023 08:03:55 PM Interpretation: Performing Lab: Notes/Report: THC p 0 - 50 ng/ml Cocaine n 0 - 300 ng/ml Amphetamine n 0 - 1000 ng/ml Buprenorphine (BUP) n 0 - 10 ng/ml Secobarbital (Bar) n 0 - 300 ng/ml Oxazepam (BZO) n 0 - 300 ng/ml 5-xmxgzwgmjz-8,1-bcfcsfjm-8,3-diphenylpyrrolidine (KATIE P) n 0 - 300 ng/ml Methamphetamine (MET) n 0 - 1000 ng/ml Morphine (MOP 300/[id number]) n 0 - 300 ng/ml Methadone (MTD) n 0 - 300 ng/ml Phencyclidine (PCP) n 0 - 25 ng/ml Nortriptyline (TCA) n 0 - 1000 ng/ml Oxycodone n 0 - 300 ng/ml x n 0 - 300 ng/ml Reason For Referral No Information Medications Medication SIG (Take, Route, Frequency, Duration) Notes Start Date End Date Status Losartan Potassium-HCTZ 100-25 MG 1 tablet Orally Once a day Active Norethindrone 0.35 MG 1 tablet Orally On ce a day Active Omeprazole 40 MG 1 capsule 30 minutes before morning meal Orally Once a day Active Advair Diskus 100-50 MCG/ACT 1 puff Inhalation Twice a day Active Albuterol Sulfate - as directed Active Atorvastatin Calcium 80 MG 1 tablet Oral ly Once a day Active B Complex - as directed Orally Active Escitalopram Oxalate 20 MG 1 tablet Oral ly Once a day Active Famotidine 20 MG 1 tablet at bedtime as needed Orally Once a day Active hydrOXYzine HCl 25 MG TAKE 1/2 TABLET AT THE ONSET OF PANIC ATTACK, TAKE 1 TABLET AT BEDTIME. NO MORE THAN 4 TABLETS A DAY. Oral Active Levothyroxine Sodium 100 MCG/ML 1 mL Intravenous Once a day Active Social History Tobacco Use: Social History Observation Description Date Details (start date - stop date) Former Smoker NA - NA Sex Assigned At : Social History Observation Description Sex Assigned At Female Tobacco Control (Standard) Question Answer Notes Tobacco use: Former smoker How long has it been since you last smoked? 1-5 years AUDIT-C (Standard) Question Answer Notes Did you have a drink contain ing alcohol in the past year? Yes How often did you have six o r more drinks on one occasion in the past year? Never (0 point) How many drinks did you have on a typical day when you were drinking in the past year? 1 or 2 drinks (0 point) How often did you have a dri nk containing alcohol in the past year? 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) Active confirmed Problem Asperger's syndrome (78808486) Asperger's syndrome (F84.5) Active confirmed Problem 03902669 Post traumatic stress disorder (PTSD) (F43.10) Active confirmed Problem 22010574 Recurrent major depressive disorder, remission status unspecified (F33.9) Active confirmed Problem 77546977 Autism spectrum (F84.0) Active confirmed Vital Signs Heart Rate 92 /min 09/21/2023 Blood pressure diastolic 85 mm Hg 09/21/2023 Weight-kg 111.77 kg 09/21/2023 Blood pressure systolic 117 mm Hg 09/21/2023 Weight 246.4 lbs 09/21/2023 Encounters Encounter Location Date Provider Diagnosis [facility] [address] [facility] [address] [place] [address] 08/31/2023 Thena Brett Asperger's syndrome F84.5 ; Recurrent major depressive disorder, remission status unspecified F33.9 and Post traumatic stress disorder (PTSD) F43.10 [facility] [address] [facility] [address] [place] [address] 09/21/2023 Thena Brett Autism spectrum F84. 0 ; Major depressive disorder, recurrent severe without psychotic features F33.2 and Post traumatic stress disorder (PTSD) F43.10 Assessments Encounter Date Diagnosis (ICD Code) Assessment Notes Treatment Notes Treatment Clinical Notes Section Notes 08/31/2023 Asperger's syndrome (ICD-10 - F84.5) 08/31/2023 Recurrent major depressive disorder, remission status unspecified (ICD-10 - F33.9) 09/21/2023 Major depressive disorder, recurrent severe without psychotic features (ICD-10 - F33.2) 09/21/2023 Autism spectrum (ICD-10 - F84.0) 09/21/2023 Post traumatic stress disorder (PTSD) (ICD-10 - F43.10) 08/31/2023 Post traumatic stress disorder (PTSD) (ICD-10 - F43.10) 08/31/2023 Other Learning About Depression Screening material was printed Plan Of Treatment No Information Insurance Providers Payer Name Payer Address Payer Phone Subscriber Number Group Number Insured Name Patient Relationship to Insured Coverage Start Date Coverage End Date [employer] [address] [place] [address] [id number] Sander Tita Self - patient is the insured [facility] [address] [address] [place] [address] [id number] Tita Boucher Self - patient is the insured Medical (General) History Medical History History ICD Code Past Psychiatric History: Anxiety Disord er,Major Depressive Episode
--- OUTSIDE RECORDS SUMMARY | 2024-06-09 07:47 | XMS_ITS | Encounter Summary ---
Author Organization [facility] Address [address] [place] [address] Care Team Providers Care Timber Framer Helper Name Role Phone Dafne Gomez DO Primary Care Provider + Encounter Details Date Type Department Care Team (Late st Contact Info) Description 06/07/2024 External Device Data [place] ABSTRACTION Provider, Abstract NO ADDRESS ON FILE Social History Tobacco Use Types Packs/Day Years Used Date Smoking Tobacco: Former Cigarettes 1 7 1 - 11/23/2018 Alcohol Use Standard Drinks/Week Comments Not Currently 0 (1 standard drink = 0.6 oz pur e alcohol) Socially Comments Unknown Sex and Gender Information Value Date Recorded Sex Assigned at Not on file Legal Sex Female 11:41 AM CDT Gender Identity Not on file Sexual Orientation Not on file documented as of this encounter Plan of Treatment Upcoming Encounters Date Type Department Care Team (Late st Contact Info) Description 06/28/2024 11:15 AM CDT Office Visit [facility] Oncology and Hematology - [place] [address] [place] [address] [address] Kali Caputo MD [address] [facility] [address] [place] [address] documented as of this encounter Visit Diagnoses Not on filedocumented in this encounter Care Teams Timber Framer Helper Relationship Specialty Start Date End Date Dafne Gomez DO [address] [place] [address] [place] [address] PCP - General Family Practice 08/18/23 documented as of this encounter
--- OUTSIDE RECORDS SUMMARY | 2024-06-09 07:47 | XMS_ITS | Data Portability ---
Author Organization [place] - [facility] [employer], Main Office Address [address] [place] [address] Assessment No assessment recorded. Plan of Treatment [...] (ICA ). Perfo rmed at: - [facility] [address] [facility] [address] [facility], [place] [address] Lab Direc tor: Lupillo aguilar PhD, Phone : [phone] Not Available [facility] (Lab) [address] [place], [address], 07/23/2021 16:10:44 07/20/19 22 07/19/2021 HEMOG LOBIN A1C HA1C 5.5 % 4.0-6. 0 Diabe jaylen Screaaron ogdeng Crite trinh: <5.7% Consi stent with absen ce of diabe jaylen 5.7-6 .4% Consi stent with incre ased risk for diabe jaylen (pred iabet es) >OR=6 .5% Consi stent with diabe jaylen REFER ENCE: Diabe jaylen Care 2016, 39(Andrew ppl.1 ):s13 -s22 Not Available [facility] (Lab) [address] [place], [address], 07/19/2021 19:47:25 07/20/19 22 07/19/2021 SEDIM ENTAT ION RATE erythrocyte sedimentatio n rate 18 mm/HR 0-20 Not Available [facility] (Lab) [address] [place], [address], 07/19/2021 19:32:48 07/20/19 22 07/19/2021 TSH thyroid-stim ulating hormone 1.510 uIU/m L 0.465- 4.680 Not Available [facility] (Lab) [address] [place], [address], 07/19/2021 19:19:56 07/20/19 22 07/19/2021 T3 FREE free T3 3.1 pg/mL 2.77-5 .27 Not Available [facility] (Lab) [address] [place], [address], 07/19/2021 19:06:19 07/20/19 22 07/19/2021 T4 FREE free T4 1.43 NG/dL 0.78-2 .19 Not Available [facility] (Lab) [address] [place], [address], 07/19/2021 19:06:18 07/20/19 22 07/19/2021 CBC W/O DIFFE RENTI AL white blood cells 8.6 x10'3 /uL 4.2-10 .8 Not Available [facility] (Lab) [address] [place], [address], 07/19/2021 19:03:06 07/20/19 22 07/19/2021 CBC W/O DIFFE RENTI AL red blood cells 4.69 x10'6 /uL 3.80-5 .20 Not Available [facility] (Lab) [address] [place], [address], 07/19/2021 19:03:06 07/20/19 22 07/19/2021 CBC W/O DIFFE RENTI AL hemoglobin 8.9 g/dL 12.0-1 5.6 low Not Available [facility] (Lab) [address] [place], [address], 07/19/2021 19:03:06 07/20/19 22 07/19/2021 CBC W/O DIFFE RENTI AL hematocrit 32.5 % 35.7-4 5.7 low Not Available [facility] (Lab) [address] [place], [address], 07/19/2021 19:03:06 07/20/19 22 07/19/2021 CBC W/O DIFFE RENTI AL mean red cell volume 69.3 fL 82.0-9 9.0 low Not Available [facility] (Lab) [address] [place], [address], 07/19/2021 19:03:06 07/20/19 22 07/19/2021 CBC W/O DIFFE RENTI AL mean red cell hemoglobin 19.0 pg 27.0-3 3.0 low Not Available [facility] (Lab) [address] [place], [address], 07/19/2021 19:03:06 07/20/19 22 07/19/2021 CBC W/O DIFFE RENTI AL mean RBC HGB concentratio n 27.4 g/dL 31.0-3 6.0 low Not Available [facility] (Lab) [address] [place], [address], 07/19/2021 19:03:06 07/20/19 22 07/19/2021 CBC W/O DIFFE RENTI AL red cell distribution width 18.3 % 11.8-1 5.5 high Not Available [facility] (Lab) [address] [place], [address], 07/19/2021 19:03:06 07/20/19 22 07/19/2021 CBC W/O DIFFE RENTI AL platelets 471 x10'3 /uL 150-40 0 high Not Available [facility] (Lab) [address] [place], [address], 07/19/2021 19:03:06 07/20/19 22 07/19/2021 CBC W/O DIFFE RENTI AL mean platelet volume 11.4 fL 9.0-12 .4 Not Available [facility] (Lab) [address] [place], [address], 07/19/2021 19:03:06 07/20/19 22 07/19/2021 RHEUM ATOID FACTO R rf <8.6 IU/mL 0.0-11 .9 Not Available [facility] (Lab) [address] [place], [address], 07/19/2021 18:58:57 07/20/19 22 07/19/2021 C REACT VANESSA PROTE IN,UL TRA SENS C-reactive protein 1.33 mg/dL 0.0-0. 5 high Not Available [facility] (Lab) [address] [place], [address], 07/19/2021 18:58:52 07/20/19 22 07/19/2021 LIPID PANEL cholesterol 209 mg/dL 140-19 9 high NIH ADALI NSUS RECOM MENDA TION FOR KYLER STERO L: ADULT CHILD LOW RISK: <200 <170 BORDE RLINE : <200- 239 ----- HIGH RISK: >240 >200 Not Available [facility] (Lab) [address] [place], [address], 07/19/2021 18:58:13 07/20/1907/19/2021 LIPID PANEL triglyceride s 123 mg/dL 0-150 NIH ADALI NSUS REPOR T RECOM MENDA TION FOR TRIGL YCERI RYAN: ADULT CHILD LOW RISK: <150 ----- BODER LINE: 150-1 99 ----- HIGH RISK: >200 ----- Not Available [facility] (Lab) [address] [place], [address], 07/19/2021 18:58:13 07/20/1907/19/2021 LIPID PANEL HDL cholesterol 68 mg/dL 40- Not Available [facility] (Lab) [address] [place], [address], 07/19/2021 18:58:13 07/20/19 22 07/19/2021 LIPID PANEL [...] WILL NOT BE REPOR JANE. Not Available [facility] (Lab) [address] [place], [address], 07/19/2021 18:58:13 07/20/1907/19/2021 COMPR EHENS VANESSA METAB OLIC PANEL sodium 138 mmol/ L 137-14 5 Not Available [facility] (Lab) [address] [place], [address], 07/19/2021 18:58:02 07/20/19 22 07/19/2021 COMPR EHENS VANESSA METAB OLIC PANEL potassium 4.4 mmol/ L 3.5-5. 1 Not Available [facility] (Lab) [address] [place], [address], 07/19/2021 18:58:02 07/20/19 22 07/19/2021 COMPR EHENS VANESSA METAB OLIC PANEL chloride 104 mmol/ L 98-107 Not Available [facility] (Lab) [address] [place], [address], 07/19/2021 18:58:02 07/20/19 22 07/19/2021 COMPR EHENS VANESSA METAB OLIC PANEL carbon dioxide 26 mmol/ L 22-30 Not Available [facility] (Lab) [address] [place], [address], 07/19/2021 18:58:02 07/20/19 22 07/19/2021 COMPR EHENS VANESSA METAB OLIC PANEL anion gap 12.4 mmol/ L 14-22 low Not Available [facility] (Lab) [address] [place], [address], 07/19/2021 18:58:02 07/20/19 22 07/19/2021 COMPR EHENS VANESSA METAB OLIC PANEL glucose 77 mg/dL 70-99 Not Available [facility] (Lab) [address] [place], [address], 07/19/2021 18:58:02 07/20/19 22 07/19/2021 COMPR EHENS VANESSA METAB OLIC PANEL BUN 11 mg/dL 8-19 Not Available [facility] (Lab) [address] [place], [address], 07/19/2021 18:58:02 07/20/19 22 07/19/2021 COMPR EHENS VANESSA METAB OLIC PANEL creatinine 0.62 mg/dL 0.66-1 .25 low Not Available [facility] (Lab) [address] [place], [address], 07/19/2021 18:58:02 07/20/19 22 07/19/2021 COMPR EHENS VANESSA METAB OLIC PANEL GFR >60 Refer ence Range : [place] ge GFR Healt hy Adult : >60 [...] calcu lator is avail able on the [facility] websi te: https :[email or web address] ceja.rich [email or web address] moshe/pr delano champagneal s/kdo qi/gf r_cal culat or Not Available [facility] (Lab) [address] [place], [address], 07/19/2021 18:58:02 07/20/19 22 07/19/2021 COMPR EHENS VANESSA METAB OLIC PANEL alkaline phosphatase 72 U/L 38-126 Not Available [facility] (Lab) [address] [place], [address], 07/19/2021 18:58:02 07/20/19 22 07/19/2021 COMPR EHENS VANESSA METAB OLIC PANEL alanine aminotransfe rase 16 U/L 0-35 Not Available [facility] (Lab) [address] [facility] [place], [address], 07/19/2021 18:58:02 07/20/19 22 07/19/2021 COMPR EHENS VANESSA METAB OLIC PANEL aspartate aminotransfe rase 25 U/L 15-37 Not Available [facility] (Lab) [address] [place], [address], 07/19/2021 18:58:02 07/20/19 22 07/19/2021 COMPR EHENS VANESSA METAB OLIC PANEL bilirubin, total 0.20 mg/dL 0.20-1 .30 Not Available [facility] (Lab) [address] [place], [address], 07/19/2021 18:58:02 07/20/19 22 07/19/2021 COMPR EHENS VANESSA METAB OLIC PANEL calcium 9.3 mg/dL 8.4-10 .2 Not Available [facility] (Lab) [address] [place], [address], 07/19/2021 18:58:02 07/20/19 22 07/19/2021 COMPR EHENS VANESSA METAB OLIC PANEL total protein 7.4 g/dL 6.3-8. 2 Not Available [facility] (Lab) [address] [place], [address], 07/19/2021 18:58:02 07/20/19 22 07/19/2021 COMPR EHENS VANESSA METAB OLIC PANEL albumin 4.3 g/dL 3.4-5. 0 Not Available [facility] (Lab) [address] [place], [address], 07/19/2021 18:58:02 07/20/19 22 07/19/2021 COMPR EHENS VANESSA METAB OLIC PANEL globulin 3.1 g/dL 2.6-4. 2 Not Available [facility] (Lab) [address] [place], [address], 07/19/2021 18:58:02 07/20/19 22 07/19/2021 COMPR EHENS VANESSA METAB OLIC PANEL A/G ratio 1.4 ratio 1.0-2. 0 Not Available [facility] (Lab) [address] [place], [address], 07/19/2021 18:58:02 07/20/19 22 07/19/2021 CPK TOTAL creatine kinase 88 U/L 30-135 Not Available [facility] (Lab) [address] [place], [address], 07/19/2021 18:57:50 01/09/20 22 01/10/2022 FOLAT E, SERUM /PLAS MA folate >20.0 NG/mL 2.76-2 0.0 Not Available [facility] (Lab) [address] [place], [address], 01/10/2022 16:38:20 01/09/20 22 01/10/2022 VITAM IN B12 (KRISH SHARON ) vb12 400 pg/mL 239-93 1 Not Available [facility] (Lab) [address] [place], [address], 01/10/2022 16:38:19 01/09/20 22 01/10/2022 VITAM IN D 25-HY DROXY vd25oh 14.3 NG/mL 30-100 low Vitam in D Statu s: Defic ient: <20 ng/mL Insuf ficie nt: 20-29 ng/mL Suffi cient : 30-10 0 ng/mL Not Available [facility] (Lab) [address] [place], [address], 01/10/2022 15:48:59 01/09/20 22 01/08/2022 IRON/ TIBC PANEL total iron binding capacity 445 mcg/d L 265-47 5 Not Available [facility] (Lab) [address] [place], [address], 01/08/2022 22:09:37 01/09/20 22 01/08/2022 IRON/ TIBC PANEL % transferrin saturation 4 % 20-55 low Not Available [facility] (Lab) [address] [place], [address], 01/08/2022 22:09:37 01/09/20 22 01/08/2022 IRON/ TIBC PANEL unsaturated iron bind capacity 425 mcg/d L 126-38 2 high Not Available [facility] (Lab) [address] [place], [address], 01/08/2022 22:09:37 01/09/20 22 01/08/2022 IRON/ TIBC PANEL iron 20 mcg/d L 42-175 low Not Available [facility] (Lab) [address] [place], [address], 01/08/2022 22:09:37 01/09/20 22 01/08/2022 CBC W/O DIFFE RENTI AL white blood cells 9.6 x10'3 /uL 4.2-10 .8 Not Available [facility] (Lab) [address] [place], [address], 01/08/2022 20:58:54 01/09/20 22 01/08/2022 CBC W/O DIFFE RENTI AL red blood cells 3.62 x10'6 /uL 3.80-5 .20 low Not Available [facility] (Lab) [address] [place], [address], 01/08/2022 20:58:54 01/09/20 22 01/08/2022 CBC W/O DIFFE RENTI AL hemoglobin 9.4 g/dL 12.0-1 5.6 low Not Available [facility] (Lab) [address] [place], [address], 01/08/2022 20:58:54 01/09/20 22 01/08/2022 CBC W/O DIFFE RENTI AL hematocrit 31.4 % 35.7-4 5.7 low Not Available [facility] (Lab) [address] [place], [address], 01/08/2022 20:58:54 01/09/20 22 01/08/2022 CBC W/O DIFFE RENTI AL mean red cell volume 86.7 fL 82.0-9 9.0 Not Available [facility] (Lab) [address] [place], [address], 01/08/2022 20:58:54 01/09/20 22 01/08/2022 CBC W/O DIFFE RENTI AL mean red cell hemoglobin 26.0 pg 27.0-3 3.0 low Not Available [facility] (Lab) [address] [place], [address], 01/08/2022 20:58:54 01/09/20 22 01/08/2022 CBC W/O DIFFE RENTI AL mean RBC HGB concentratio n 29.9 g/dL 31.0-3 6.0 low Not Available [facility] (Lab) [address] [place], [address], 01/08/2022 20:58:54 01/09/20 22 01/08/2022 CBC W/O DIFFE RENTI AL red cell distribution width 15.9 % 11.8-1 5.5 high Not Available [facility] (Lab) [address] [place], [address], 01/08/2022 20:58:54 01/09/20 22 01/08/2022 CBC W/O DIFFE RENTI AL platelets 383 x10'3 /uL 150-40 0 Not Available [facility] (Lab) [address] [place], [address], 01/08/2022 20:58:54 01/09/20 22 01/08/2022 CBC W/O DIFFE YARELIS GARCIA mean platelet volume 11.1 fL 9.0-12 .4 Not Available [facility] (Lab) [address] [place], [address], 01/08/2022 20:58:54 Result Notes None recorded. 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 Not Available [facility] 3 18:11:59 History of pneumonia 242920696 Active 2021 Not Available [facility] 3 18:11:59 Asthma 093021847 Active 2021 Not Available [facility] 3 18:11:59 Irritable bowel syndrome with diarrhea 920108611 Active 2021 Not Available [facility] 3 18:11:59 Jamar thyroiditis 85575921 Active 2021 Not Available [facility] 3 18:11:59 Arthritis 4696627 Active 2021 Not Available [facility] 3 18:11:59 Basal cell carcinoma of face 663296924 Active 2021 Not Available [facility] 3 18:11:59 Obesity 474185133 Active 2021 Not Available [facility] 3 18:11:59 Chronic colitis 59988925 Active 2021 Not Available [facility] 3 18:11:59 Essential hypertension 89215461 Active 2021 Not Available [facility] 3 18:11:59 Optic neuritis 62450649 Active 2021 Not Available [facility] 3 18:11:59 Intervertebra l disc prolapse 47350253 Active 2021 Not Available [facility] 3 18:11:59 Hiatal hernia 05163532 Active 2021 Not Available [facility] 3 18:11:59 Uterine leiomyoma 77258297 Active 05/27/ 2022 Not Available [facility] 3 18:11:59 Notes:Some problems listed i n Document: #[id number] could not be added to this patient's chart. Please review this document and add these problems to the patient's chart manually as needed. Problem Notes None recorded. Medical Equipment None Reported. Medications Name Sig Start Date Stop Date Status Note LastModified by Organization Details LastModified Time losartan 100 mg-hydrochlor othiazide 25 mg tablet active Not Available Not Available No t [...] % 99 % 79 /min 99.5 [degF] 590061. 69 g 166 mm[Hg] 100 mm[Hg] Not Available [facility] 3 17:12:47 Date Recorded Body mass index (BMI) Body height Oxygen saturation Oxygen saturation in Arterial blood by Pulse oximetry Heart rate Body temperature Body weight Systolic blood pressure Diastolic blood pressure Provider Name and Address Organization Details Last Updated DateTime 2 36.8 kg/m2 167.64 cm 98 % 98 % 70 /min 96.8 [degF] 093363. 06 g 145 mm[Hg] 100 mm[Hg] Not Available [facility] 3 17:12:47 Date Recorded Body mass index (BMI) Body height Oxygen saturation Oxygen saturation in Arterial blood by Pulse oximetry Heart rate Body temperature Body weight Systolic blood pressure Diastolic blood pressure Provider Name and Address Organization Details Last Updated DateTime 2 37.2 kg/m2 167.64 cm 97 % 97 % 84 /min 99 [degF] 479803. 4 g 120 mm[Hg] 80 mm[Hg] Not Available [facility] 3 17:12:47 Date Recorded Body mass index (BMI) Body height Oxygen saturation Oxygen saturation in Arterial blood by Pulse oximetry Heart rate Body temperature Body weight Systolic blood pressure Diastolic blood pressure Provider Name and Address Organization Details Last Updated DateTime 2 37.3 kg/m2 167.64 cm 97 % 97 % 98 /min 97.8 [degF] 401051. 84 g 138 mm[Hg] 78 mm[Hg] Not Available [facility] 3 17:12:47 Date Recorded Body mass index (BMI) Body height Oxygen saturation Oxygen saturation in Arterial blood by Pulse oximetry Heart rate Body temperature Body weight Systolic blood pressure Diastolic blood pressure Provider Name and Address Organization Details Last Updated DateTime 2 36.6 kg/m2 167.64 cm 99 % 99 % 88 /min 96.8 [degF] 759325. 47 g 150 mm[Hg] 98 mm[Hg] Not Available [facility] 3 17:12:47 Social History Question Answer Notes LastModified by Organizat ion Details LastModified Time Tobacco Smoking Status Former Smoker Not Available [facility] 04/23/2022 17:12:25 Do You Have An Advance Directive? No MIGRATION.11125 13736 Information not available 04/23/2022 What Is Your Level Of Alcohol Consumption? None MIGRATION.47920 17026 Information not available 04/23/2022 Do You Wear A Helmet When Biking? No MIGRATION.74117 88387 Information not available 04/23/2022 What Is Your Level Of Caffeine Consumption? Heavy MIGRATION.97875 08530 Information not available 04/23/2022 In The 14 Days Before Symptom Onset, Have You Had Close Contact With A Laboratory-oneyda salvadored COVID-19 While That Case Was Ill? No MIGRATION.37955 60470 Information not available 04/23/2022 In The 14 Days Before Symptom Onset, Have You Had Close Contact With A Person Who Is Under Investigation For COVID-19 While That Person Was Ill? No MIGRATION.15139 14701 Information not available 04/23/2022 What Type Of Diet Are You Following? REGULAR MIGRATION.30260 53779 Information not available 04/23/2022 What Is The Highest Grade Or Level Of School You Have Completed Or The Highest Degree You Have Received? [id number] MIGRATION.56472 84093 Information not available 04/23/2022 Have There Been Any Changes To Your Family Or Social Situation? Yes MIGRATION.94818 92621 Information not available 04/23/2022 What Is The Fluoride Status Of Your Home? Unknown MIGRATION.35369 12124 Information not available 04/23/2022 When Did You Quit Smoking? 1-5yearssincelastci torrie MIGRATION.44263 42637 Information not available 04/23/2022 Are There Any Guns Present In Your Home? No MIGRATION.74978 30895 Information not available 04/23/2022 Do You Use Insect Repellent Routinely? Yes MIGRATION.04846 20491 Information not available 04/23/2022 Where Do You Live? [place] MIGRATION.07629 54325 Information not available 04/23/2022 Do You Have A Medical Power Of Fur Joiner? No MIGRATION.24019 07985 Information not available 04/23/2022 What Was The Date Of Your Most Recent Tobacco Screening? 08/21/2021 MIGRATION.69890 91308 Information not available 04/23/2022 Do You Have Any Pets? Yes MIGRATION.69715 16861 Information not available 04/23/2022 What Is Your Relationship Status? MIGRATION.08283 23628 Information not available 04/23/2022 Do You Use Your Seat Belt Or Car Seat Routinely? Yes MIGRATION.06470 10231 Information not available 04/23/2022 Do You Have Smoke And Carbon Monoxide Detectors In Your Home? No MIGRATION.96694 61099 Information not available 04/23/2022 At What Age Did You Start Smoking Tobacco? 16 MIGRATION.31512 07223 Information not available 04/23/2022 Are You Passively Exposed To Smoke? Yes MIGRATION.49586 05461 Information not available 04/23/2022 Are There Any Smokers In Your House? Yes MIGRATION.72759 54656 Information not available 04/23/2022 Do You Participate In Social Media? Yes MIGRATION.87929 26525 Information not available 04/23/2022 Do You Feel Stressed (tense, Restless, Nervous, Or Anxious, Or Unable To Sleep At Night)? [id number] MIGRATION.50594 40435 Information not available 04/23/2022 Do You Use Any Illicit Or Recreational Drugs? No MIGRATION.09653 35581 Information not available 04/23/2022 Do You Use Sunscreen Routinely? No MIGRATION.80230 97378 Information not available 04/23/2022 How Many Years Have You Smoked Tobacco? 15 MIGRATION.06103 13908 Information not available 04/23/2022 Have You Recently Traveled Abroad? No MIGRATION.84066 78429 Information not available 04/23/2022 Are You Currently In School? No MIGRATION.19558 42004 Information not available 04/23/2022 Do You Have Any Dietary Restrictions? No MIGRATION.02067 20961 Information not available 04/23/2022 Do You Or Have You Ever Used Any Other Forms Of Tobacco Or Nicotine? No MIGRATION.84150 62724 Information not available 04/23/2022 Sex: Unknown Functional Status Question Answer Note LastModified by [employer] ion Details LastModified Time What is your exercise level? Occasional MIGRATION.[id number] 26 Information not available 04/23/2022 Mental Status None recorded. Family History Relationship Description Onset Age of this Age Resolved Age Notes LastModified by Organization Details LastModified Time Mother Jamar thyroiditis MIGRATION.890 [id number] Not available 04/23/2022 17:12:31 Mother Diabetes mellitus MIGRATION.235 [id number] Not available 04/23/2022 17:12:31 Mother Glaucoma MIGRATION.443 [id number] Not available 04/23/2022 17:12:31 Mother Diverticulit is MIGRATION.236 3494853 Not available 04/23/2022 17:12:31 Mother Cataract MIGRATION.237 [id number] Not available 04/23/2022 17:12:31 Father Malignant tumor of colon MIGRATION.503 8247032 Not available 04/23/2022 17:12:31 Father Malignant tumor of prostate MIGRATION.440 7543277 Not available 04/23/2022 17:12:31 Father Gallstone MIGRATION.988 [id number] Not available 04/23/2022 17:12:31 Father Kidney stone MIGRATION.0 30 [id number] Not available 04/23/2022 17:12:31 Father Chronic renal failure MIGRATION.750 [id number] Not available 04/23/2022 17:12:31 Father Anemia MIGRATION.112 [id number] Not available 04/23/2022 17:12:31 Medical History Condition Response BLINDNESS N RHEUMATIC FEVER N KIDNEY STONES N BLADDER PROBLEMS N MRSA N OTHER # 1 Y POLIO N LUNG DISEASE/DISORDER Y HISTORY OF DRUG ABUSE N RADIATION / CHEMOTHERAPY N COPD N Other # 2 N BLOOD DISEASES N SURGERY N EAR OR HEARING PROBLEMS N MUMPS N SHINGLES N BOWEL PROBLEMS N FEMALE PROBLEMS / INFECTIONS N DEPRESSION (INCLUDING POST ) Y STROKE/TIA N THYROID DISEASE N ULCERS N BENIGN PROSTATIC HYPERPLASIA N MEASLES N CERVICALGIA N HYPOTENSION N TB SKIN TEST N MYOCARDIAL INFARCTION N PARAPELGIA N OBESITY Y GERD/NAUSEA Y ANEURYSM N URINARY/BLADDER/KIDNEY PROBLEMS N [...] GLAUCOMA N FOOT PROBLEM N DIVERTICULITIS N CHICKENPOX N SLEEP APNEA N ALLERGIES/HAYFEVER N INFECTIOUS DISEASE N HEART ARRHYTHMIA N PROSTATE N INSOMNIA Y HIGH CHOLESTEROL / HYPERLIPIDEMIA N HYPERTHYROIDISM N EYE PROBLEMS Y EATING DISORDER N EDEMA N CHRONIC PAIN SYNDROME N HYPOTHYROIDISM Y CONSTIPATION N CAROTID BLOCKAGE N BACK / NECK PROBLEMS N HAVE YOU BEEN HOSPITALIZED OR SEEN IN [facility] IN THE PAST YEAR ? Y ATHEROSCLEROSIS [...] N PAIN N HERPES N DEMENTIA N HEADACHES/MIGRAINES N SEIZURES/EPILEPSY Y VASCULAR DISEASE N PACEMAKER N DIZZINESS N HEART DISEASE/HEART PROBLEMS N KIDNEY DISEASE N DEVELOPMENTAL OR BEHAVIORAL DISORDERS N MULTIPLE SCLEROSIS N SCARLET FEVER N MENTAL DISORDER/ILLNESS N CARDIAC ARRHYTHMIA N CANCER: SPECIFY N PNEUMONIA N ATRIAL FIBRILLATION N Gall Stones N PULMONARY EMBOLISM N AUTOIMMUNE DISEASE N [...] virus, quadrivalent, preservative 2 completed Not Available [facility] 09/01/2022 18:12:00 COVID-19, mRNA, LNP-S, PF, 30 mcg/0.3 mL dose 1 completed Not Available [facility] 09/01/2022 18:12:00 COVID-19, mRNA, LNP-S, PF, 30 mcg/0.3 mL dose 1 completed Not Available [facility] 09/01/2022 18:12:00 COVID-19, mRNA, LNP-S, PF, 30 mcg/0.3 mL dose 1 completed Not Available [facility] 09/01/2022 18:12:00 COVID-19, mRNA, LNP-S, bivalent, PF, 50 mcg/0.5 mL or 25mcg/0.25 mL dose 3 completed Zuleima Johnson RN null, [place] - [facility] [employer] [facility] 09/11/2022 15:15:29 Past Encounters Encounter ID Performer Location Encounter Start Date Encounter Closed Date Diagnosis/Indication Diagnosis SNOMED-CT Code Diagnosis ICD10 Code Diagnosis Note [id number] [facility] [address] [place] [address] 07/19/2021 00:00:00 07/19/2021 18:19:23 [id number] [facility] [address] [facility] [address] [place] [address] 08/02/2021 00:00:00 08/02/2021 13:40:24 [id number] [facility] [address] [place] [address] 08/16/2021 00:00:00 08/16/2021 14:04:01 [id number] _PORTER_M IGRATION_ DEFAULT_1 _1 , 08/21/2021 00:00:00 08/21/2021 15:09:23 [id number] [facility] [address] [facility] [address] [place] [address] 01/08/2022 00:00:00 01/08/2022 18:32:28 Health Concerns Section Related Observation LastModified by Organization Detai ls LastModified Time None Recorded Concern Status LastModified by Organization Details LastModified Time None Recorded Advance Directives Directive N: Payers None recorded. OBGyn Episode No OBEpisode recorded.
--- OUTSIDE RECORDS SUMMARY | 2024-06-09 07:47 | XMS_ITS | Clinical Summary ---
Author Organization [facility] [employer] Address [address] [address] Care Team Providers Care Engraver Set Up Operator Name Role Phone None, Physician Primary Care Provider Unavailabl e Source Comments [facility],non-owned Affiliates and Associated Physician Practices is amultiple site organization consisting of ambulatory clinics and hospital sitesin [place], [place], [place] and [place]. This disclosure is being madepursuant to the Care Everywhere program and may not contain all information available regarding this patient. Last updated 17.[facility] [employer] Allergies Active Allergy Reactions Criticality Noted Date Comments Lidocaine Itching 01/01/2023 Latex Itching 05/24/2014 Latex sensitivity Medications * Be aware that medications may not be up to date on this document. Alwaysverify current medications with the patient. Progesterone 100 MG capsule Take 1 (one) capsule by mouth once daily Active fluticasone hfa 110 (Flovent HFA 110) 110 MCG/ACT inhaler Inhale 2 (two) puffs by mouth 2 times daily Active atorvastatin (Lipitor) 80 MG tablet Take 1 (one) tablet by mouth at bedtime 90 tablet 3 3 Active aspirin (Aspirin) 81 MG chew tablet Take 1 (one) tablet by mouth once daily 90 tablet 3 3 Active Additional Information Patient taking differently:81 mg Oral DAILY,Only takes on days when she doesn't take mj radha, Reported on 01/01/2023 albuterol HFA (Proventil; Ventolin; Proair) 108 (90 Base) MCG/ACT inhaler Inhale 2 (two) puffs by mouth every 6 hours as needed Active aspirin effervescent (Mj [place]) 325 MG efferv tablet Take 1 (one) tablet by mouth once daily as needed for Pain or Fever Active losartan-hydroCH LOROthiazide (Hyzaar) 100-25 MG tablet Take 1 (one) tablet by mouth once daily Active Active Problems Problem Noted Date Diagnosed Date Weakness 12/02/2022 Received intravenous tissue plasminogen activator (tPA) in emergency department 12/02/2022 Cerebrovascular accident (CVA), unspecified mech anism 12/02/2022 Mediastinal lymphadenopathy 12/02/2022 Hypertension 12/02/2022 Asthma 12/02/2022 Social History Tobacco Use Types Packs/Day Years Used Date Smoking Tobacco: Former Cigarettes Smokeless Tobacco: Never Tobacco Cessation:Counseling Given: Not Answered AUDIT-C Answer Date Recorded Q1: How often do you have a drink containing alcohol? Never 12/02/2022 Q2: How many drinks containi ng alcohol do you have on a typical day when you are drinking? Patient does not drink Q3: How often do you have si x or more drinks on one occasion? Never 12/02/2022 Overall Financial Resource Strain (CARDIA) Answe r Date Recorded How hard is it for you to pa y for the very basics like food, housing, medical care, and heating? Not hard at all 12/02/2022 PHQ-2 Answer Date Recorded Patient Health Questionnaire-2 Score 0 12/04/2022 [facility] - Occupational Stress Questionnaire Answer Date Recorded Do you feel stress - tense, restless, nervous, or anxious, or unable to sleep at night because your mind is troubled all the time - these days? Not at all 12/02/2022 Hunger Vital Sign Answer Date Recorded Within the past 12 months, y ou worried that your food would run out before you got the money to buy more. Never true 12/03/19 23 Within the past 12 months, t he food you bought just didn't last and you didn't have money to get more. Never true 12/02/2022 PRAPARE - Transportation Answer Date Re corded In the past 12 months, has l ack of transportation kept you from medical appointments or from getting medications? No 10/1 In the past 12 months, has l ack of transportation kept you from meetings, work, or from getting things needed for daily living? No 12/02/2022 Housing Stability Vital Sign Answer Ancelmo e Recorded In the last 12 months, was t here a time when you were not able to pay the mortgage or rent on time? No 12/02/2022 In the last 12 months, how many places have you lived? 1 12/02/2022 In the last 12 months, was t here a time when you did not have a steady place to sleep or slept in a nursing home (including now)? No 12/02/2022 Comments No Sex and Gender Information Value Date Recorded Sex Assigned at Not on file Legal Sex Female 6:40 PM CDT Gender Identity Not on file Sexual Orientation Not on file Last Filed Vital Signs Vital Sign Reading Time Taken Comments Blood Pressure 127/86 01/01/2023 9:23 AM SCHEDULING COORDINATOR Pulse 76 01/01/2023 9:23 AM SCHEDULING COORDINATOR Temperature 36.9 C (98.4 F) 12/04/2022 11:36 AM CDT Respiratory Rate 12 01/01/2023 9:23 AM SCHEDULING COORDINATOR Oxygen Saturation 100% 12/04/2022 11:36 AM CDT Inhaled Oxygen Concentration - - Weight 111.1 kg (245 lb) 01/01/2023 9:23 AM SCHEDULING COORDINATOR Height 167.6 cm (5' 6 ) 12/03/2022 9:00 AM CDT Body Mass Index 39.54 12/03/2022 9:00 AM CDT Plan of Treatment Health Maintenance Due Date Last Done Comments COLOGUARD (AGES 45-75) - COLON CA SCREENING 1973 COLON MONITORING 1973 COLONOSCOPY - COLON CA SCREENING 1973 CT COLONOGRAPHY - COLON CA SCREENING 1973 Colorectal Cancer Screening 1973 FIT - COLON CA SCREENING 1973 FLEX SIG - COLON CA SCREENING 1973 MAMMOGRAM 1973 PAP SMEAR 1973 HIV SCREENING 1988 HEPATITIS C SCREENING 11/11/1991 DTAP/TDAP/TD VACCINES (1 - Tdap) 1992 HEPATITIS B VACCINE (1 of 3 - 19+ 3-dose series) 1992 PNEUMOCOCCAL VACCINE 50+ (1 of 2 - PCV) 1992 COVID-19 VACCINE ( season) 2023 06/10/2022, 01/20/2021, 07/20/2020, Additional history exists ZOSTER VACCINE (1 of 2) 11/16/2023 DEPRESSION SCREENING 02/24/2024 12/02/2022 INFLUENZA VACCINE (Season Ended) 2024 01/01/2022 SCREENING FOR DIABETES 12/04/2025 , 12/04/2022, 12/04/2022, Additional history exists HIB VACCINE Aged Out No longer eligi ble based on patient's age to complete this topic HPV VACCINE Aged Out No longer eligi ble based on patient's age to complete this topic MENINGOCOCCAL (Group B) VACCINE SHARED DECISION-MAKING Aged Out No longer eligible based on patient's age to complete this topic MENINGOCOCCAL GROUPS A/C/Y/W VACCINE Aged Out No longer eligible based on patient's age to complete this topic Procedures Procedure Name Priority Date/Time Associated Diagnosis Comments BASIC METABOLIC PANEL (CALCIUM TOTAL) Routine 12/04/2022 2:08 AM CDT from Last 3 Months or Most Recently Relevant to Health Maintenance Results * (ABNORMAL) BASIC METABOLIC PANEL (CALCIUM TOTAL) (12/04/2022 2:08 AM CDT) BUN 17 7 - 26 mg/dL 12/04/2022 3:22 AM [facility] Creatinine 0.68 0.56 - 0.96 mg/dL 12/04/2022 3:22 AM [facility] Sodium 139 136 - 145 mmol/L 12/04/2022 3:22 AM [facility] Potassium 3.3(L) 3.5 - 4.5 mmol/L 12/04/2022 3:22 AM [facility] Chloride 103 98 - 107 mmol/L 12/04/2022 3:22 AM [facility] CO2 24 22 - 29 mmol/L 12/04/2022 3:22 AM [facility] Glucose 105 70 - 115 mg/dL 12/04/2022 3:22 AM [facility] Calcium 9.0 8.4 - 10.2 mg/dL 12/04/2022 3:22 AM CDT [facility] Anion Gap 12 6 - 16 12/04/2022 3:22 AM [facility] BUN/Creatinine Ratio 25(H) 7 - 23 12/04/2022 3:22 AM T [facility] Osmolality Calculated 290 275 - 295 mOsm/kg 12/04/2022 3:22 AM T [facility] eGFR by CKD-EPI >90 >=90 mL/min/1.7 3 m2 12/04/2022 3:22 AM T [facility] Blood BLOOD SPECIMEN / Unknown Lab Venipuncture / Unknown 12/04/2022 2:08 AM CDT 12/04/2022 2:53 AM CDT us Juanita Alvarez MD LAB - CHEMISTRY ORDERABLES Fin al Result [facility] [address] [place] [address], [facility] [phone] from Last 3 Months or Most Recently Relevant to Health Maintenance Insurance [facility] 2] COMMERCIAL GENERIC COMMERCIAL GENERIC [facility] [place] 2] COMMERCIAL GENERIC [facility] [place] 2] COMMERCIAL GENERIC [facility] [place] 2] COMMERCIAL GENERIC [facility] [place] 2] COMMERCIAL GENERIC Advance Directives * Full Code (Latest Code Status on File) Date Activated Date Inactivated Comments 12/02/2022 7:46 PM 12/04/2022 5:26 PM Care Teams Engraver Set Up Operator Relationship Specialty Start Date End Date None, Physician [address] [place] [address] PCP - General 01/01/23
--- OUTSIDE RECORDS SUMMARY | 2024-06-09 07:47 | XMS_ITS | Clinical Summary ---
Author Organization [facility] Address [facility] [place] [address] Care Team Providers Care Crm Functional Analyst Name Role Phone None, Provider MD Primary Care Provider Unavaila ble Allergies Active Allergy Reactions Criticality Noted Date Comments Latex Unknown 05/24/2014 Social History Tobacco Use Types Packs/Day Years Used Date Smoking Tobacco: Former Smokeless Tobacco: Never Alcohol Use Standard Drinks/Week Comments No 0 (1 standard drink = 0.6 oz pur e alcohol) AUDIT-C Answer Date Recorded Frequency of Alcohol Consumption Never 11/14/2018 Average Number of Drinks Not on file 019 Frequency of Binge Drinking Not on file 10/25 Comments Unknown Sex and Gender Information Value Date Recorded Sex Assigned at Not on file Legal Sex Female 7:02 PM CDT Gender Identity Not on file Sexual Orientation Not on file Last Filed Vital Signs Vital Sign Reading Time Taken Comments Blood Pressure 185/105 11/14/2018 4:30 PM CDT Pulse 94 11/14/2018 11:57 AM CDT Temperature 36.9 C (98.5 F) 11/14/2018 11:57 AM CDT Respiratory Rate 18 11/14/2018 11:57 AM CDT Oxygen Saturation 92% 11/14/2018 4:30 PM CDT Inhaled Oxygen Concentration - - Weight 90.7 kg (200 lb) 11/14/2018 11:57 AM CDT Height 170.2 cm (5' 7 ) 11/14/2018 11:57 AM CDT Body Mass Index 31.32 11/14/2018 11:57 AM CDT Plan of Treatment Health Maintenance Due Date Last Done Comments Cervical Cancer Screening Pa p Smear (Age 30 to 64) Every 3 Years 1973 Colorectal Cancer Screening Colonoscopy (10 Years) 1973 Annual Physical 1976 Hepatitis C 11/16/1991 DTaP, Tdap and Td Vaccines ( 1 - Tdap) 1992 Hepatitis B Vaccines (1 of 3 - 19+ 3-dose series) 1992 Mammogram Screening 2013 Cervical Cancer Screening Pa p with HPV Testing (Age 30 to 64) Every 5 Years 02/27/2022 02/27/2017 Cervical Cancer Screening with HPV 02/27/2022 COVID-19 Vaccine (1 - 2023-2 5 season) 2023 Zoster Vaccines (1 of 2) 11/16/2023 Meningococcal B Vaccine Aged Out No l onger eligible based on patient's age to complete this topic Meningococcal Vaccine Aged Out No elisabeth chapo eligible based on patient's age to complete this topic Pneumococcal Vaccine: Pediat rics (0 to 5 Years) and At-Risk Patients (6 to 49 Years) Aged Out No longer eligi ble based on patient's age to complete this topic RSV Immunizations Under 20 Months Aged Out No longer eligible based on patient's age to complete this topic Procedures Procedure Name Priority Date/Time Associated Diagnosis Comments HPV MRNA E6/E7 Routine 02/27/2017 5:04 PM PROFESSIONAL SHOPPER from Last 3 Months or Most Recently Relevant to Health Maintenance Results * HPV MRNA E6/E7 (02/27/2017 5:04 PM PROFESSIONAL SHOPPER) HPV MRNA E6/E7 Not Detected NOT DETECTED 03/04/2017 11:36 PM PROFESSIONAL SHOPPER [facility] Comment: This test was performed using the APTIMA(R) HPV Assay([employer]This assay detects E6/E7 viral messenger RNA (mRNA)from 14 high-risk HPV types (16,18,31,33,35,39,45,51,52,56,58,59,66,68).For additional information please refer to:http://education.[employer]/faq/ZOY870o9(This link is being provided for informational/educational purposes only.)Test Performed by Britta Ervin,[employer] [facility],[address] [place] [id number] Bauer M.D., Ph.D., Director of [phone], [facility] [id number] FLUID SPECIMEN / Unknown 02/27/2017 5:04 PM PROFESSIONAL SHOPPER 02/27/2017 5:04 PM PROFESSIONAL SHOPPER us Generic Conversion Md MOY PATHOLOGY/CYTOLOGY LETTY LY Final Result [facility] [address] [place] [address], from Last 3 Months or Most Recently Relevant to Health Maintenance Insurance Care Teams Crm Functional Analyst Relationship Specialty Start Date End Date None, Provider, PCP - General 11/14/18
--- OUTSIDE RECORDS SUMMARY | 2024-06-09 07:48 | XMS_ITS ---
Author Organization [facility] [employer] Address [facility] [address] Care Team Providers Care Powder Mixer Name Role Phone Osiris Vázquez Unavailable [phone] Social History Sex Assigned At : Social History Observation Description Sex Assigned At Female Encounters Encounter Location Date Provider Diagnosis [facility] [address] [address] 11/19/2023 Osiris Vázquez Plan Of Treatment No Information Progress Notes * Tita BOUCHERDOB:1975 (3 0 yo F)Acc No.[id number]:11/19/2023 Patient: Tita HOSKINS Provider: Pillo VÁZQUEZ MD :1975 A ge:48 Y S ex:Female Date:11/19/2023 Phone: Address:[address] [place], [place] [id number] Subjective: * Chief Complaints: * * Medical History: Objective: * Vitals: Assessment: Plan: * Treatment: * Billing Information: * Visit Code: * Procedure Codes: * Electronic signature of Dariel Vázquez MD on 06/09/2024 at 07:47 AM CDT Sign off status: Pending * Provider: Pillo VÁZQUEZ MD Date: 0 11/19/2023 Generated for Hali dickson/Peyton/eTnoahsmitting on: 06/09/2024 07:47 AM CDT
--- OUTSIDE RECORDS SUMMARY | 2024-06-09 07:49 | XMS_ITS | Clinical Summary ---
Author Organization [facility] Dominique Enrique Address [address] [place] [address] Care Team Providers Care Coordinate Measuring Machine Operator Name Role Phone Dafne Gomez DO Primary Care Provider + Allergies Active Allergy Reactions Criticality Noted Date Comments Latex Itching,Unknown Low 05/24/2014 Latex sensitivity Lidocaine Itching Low 01/01/2023 Medications atorvastatin (LIPITOR) 80 mg tablet Take 80 mg by mouth. 3 Active losartan-hydroC HLOROthiazide (HYZAAR) 100-25 mg tablet Take 1 Tablet by mouth daily. Active levothyroxine 25 mcg tablet Take 25 mcg by mouth daily in the morning. Active famotidine (PEPCID) 20 mg tablet Take 20 mg by mouth 2 times daily. Active omeprazole (PriLOSEC) 40 mg Capsule, Delayed Release(E.C.) Take 20 mg by mouth daily. Active albuterol sulfate HFA 90 mcg/actuation aerosol inhaler Take 2 Puffs by inhalation every 4 hours as needed. Active Advair HFA 115-21 mcg/actuation HFA Aerosol Inhaler Take 2 Puffs by inhalation every 12 hours. 4 Active hydrOXYzine HCL (ATARAX) 25 mg tablet Take 25 mg by mouth. 4 Active escitalopram oxalate (LEXAPRO) 20 mg tablet Take 20 mg by mouth daily. 4 Active B-complex + vitamin C (SUPER B-C) Tablet Take 1 Tablet by mouth daily. Active CALCIUM CITRATE-VITAMIN D3 ORAL Take 1,000 mcg by mouth daily. Active multivitamin (DAILY-ANTONIO) tablet Take 1 Tablet by mouth daily. Active Active Problems Problem Noted Date Diagnosed Date DICK (iron deficiency anemia) 05/11/2023 Encounters Date Type Department Care Team Description 06/07/2024 External Device Data [facility] ABSTRACTION Provider, Abstract 05/11/2024 External Device Data [facility] ABSTRACTION Provider, Abstract 05/03/2024 External Device Data [facility] ABSTRACTION Provider, Abstract 05/03/2024 External Device Data [facility]STRACTION Provider, Abstract 04/30/2024 External Device Data [facility] ABSTRACTION Provider, Abstract 04/29/2024 External Device Data [facility] ABSTRACTION Provider, Abstract 04/27/2024 External Device Data [facility] ABSTRACTION Provider, Abstract 04/21/2024 1:15 PM SUPERVISOR LUMP ROOM Office Visit [facility] Oncology and Hematology [facility] [address] [place] [address] Kali Caputo MD Iron deficiency anemia, unspecified iron deficiency anemia type (Primary Dx) 04/20/2024 Orders Only [facility] Oncology and [facility] [address] [place] [address] Kali Caputo MD 04/13/2024 External Device Data [facility] ABSTRACTION Provider, Abstract from Last 3 Months Family History Medical History Relation Name Comments Colon Cancer Father Diabetes Father Prostate Cancer Father Diabetes Mother Relation Name Status Comments Brother Alive Daughter 1 Alive Daughter 2 Alive Father Mother Alive Son Alive Social History Tobacco Use Types Packs/Day Years Used Date Smoking Tobacco: Former Cigarettes 1 7 1 - 11/23/2018 Tobacco Cessation:Counseling Given: Not Answered Alcohol Use Standard Drinks/Week Comments Not Currently 0 (1 standard drink = 0.6 oz pur e alcohol) Socially Comments Unknown Sex and Gender Information Value Date Recorded Sex Assigned at Not on file Legal Sex Female 11:41 AM CDT Gender Identity Not on file Sexual Orientation Not on file Last Filed Vital Signs Vital Sign Reading Time Taken Comments Blood Pressure 151/122 04/21/2024 1:24 PM SUPERVISOR LUMP ROOM Pulse 92 04/21/2024 1:18 PM SUPERVISOR LUMP ROOM Temperature 36.3 C (97.4 F) 04/21/2024 1:18 PM SUPERVISOR LUMP ROOM Respiratory Rate 15 04/21/2024 1:18 PM SUPERVISOR LUMP ROOM Oxygen Saturation 97% 04/21/2024 1:18 PM SUPERVISOR LUMP ROOM Inhaled Oxygen Concentration - - Weight 124.8 kg (275 lb 3.2 oz) 04/21/2024 1:18 PM SUPERVISOR LUMP ROOM Height 167.6 cm (5' 6 ) 05/11/2023 11:0 5 AM CDT Body Mass Index 44.42 05/11/2023 11:05 AM CDT Plan of Treatment Upcoming Encounters Date Type Department Care Team (Late st Contact Info) Description 06/28/2024 11:15 AM CDT Office Visit [facility] Oncology and Hematology [facility] [address] [facility] [address] [place] [address] Kali Caputo MD [address] [facility] [address] [place] [address] Health Maintenance Due Date Last Done Comments Pre-Diabetes and Diabetes Screening 1973 DTAP/TDAP/TD VACCINES (1 - Tdap) 1992 HEPATITIS B VACCINES (1 of 3 - 19+ 3-dose series) 10/25 HPV/Cotest (21-29) 1994 PAP SMEAR 1994 CERVICAL CANCER SCREENING 11/16/2003 HPV/Cotest (30-65) 11/16/2003 PAP SMEAR 11/16/2003 COLORECTAL SCREENING 2018 Colorectal Cancer Screening 2018 FIT-DNA Q 3 years 2018 FIT/FOBT Q 1 year 2018 Flex Sig/CT Colonography Q 5 years 2018 INFLUENZA VACCINE (#1) 2023 01/01/2022 ZOSTER VACCINE (1 of 2) 11/16/2023 Preventative Visit- Commercial 02/24/2024 BREAST CANCER SCREENING 10/07/2024 10/08/2023 Procedures Procedure Name Priority Date/Time Associated Diagnosis Comments CBC WITH AUTODIFFERENTIAL Routine 2024 11:09 AM SUPERVISOR LUMP ROOM MAMMO SCREENING BILAT Routine 10/08/2023 11:19 AM CDT from Last 3 Months or Most Recently Relevant to Health Maintenance Results * CBC WITH AUTODIFFERENTIAL (04/18/2024 11:09 AM SUPERVISOR LUMP ROOM) Blood Kali Caputo MD HEMATOLOGY ORDERABLES Final Res ult * MAMMO SCREENING BILAT (10/08/2023 11:19 AM CDT) Anatomical Region Laterality Modality Breast Bilateral Mammography Kali Caputo MD MAMMO ORDERABLES Final Result from Last 3 Months or Most Recently Relevant to Health Maintenance Insurance [facility] Care Teams Coordinate Measuring Machine Operator Relationship Specialty Start Date End Date Dafne Gomez DO [address] [facility] [place] [id number] PCP - General Family Practice 08/18/23
--- NOTE | 2024-06-19 18:46 | WPDHOMESLEEP ---
Sleep Study - Home Unattended Date of Study: 06/09/24 Ordering Provider: Dafne Gomez DO Interpreting Provider: Dafne Gomez DO Home Sleep Study Type: Watch PAT Height: 1.68 m Weight: 121.563 kg Body Mass Index: 43.2 Neck Circumference (inches): 16 [place]: 12 Reason for Sleep Study Daytime hypersomnia Sleep History The patient is a 48-year-old female that had a sleep study ordered for evaluation of sleep apnea. The patient admits to excessive daytime sleepiness and trouble maintaining sleep. The patient denies snoring loudly. She denies interruptions in breathing while asleep. She denies choking or gasping at night. She does have trouble breathing on her back. She does have morning headaches. She does have a dry or sore mouth /throat in the morning. She admits to nocturnal heartburn. She denies nocturia. She denies having trouble falling asleep. She denies having trouble remaining asleep. She does have difficulty returning to sleep if she wakes up throughout the night. She does use a hypnotic or sedative. She denies feeling anxious about sleep. She does feel tired or sleepy during the day. She does feel tired in the morning. She does have the urge to fall asleep during the day. She denies feeling drowsy while driving. She denies sleep paralysis, cataplexy and hypnagogic/ hypnopompic hallucinations. She does clench or grind her teeth. She does kick her jerk her legs excessively. She does have a restless feeling in her legs it causes an urge to move her legs. The restless feeling gets worse with rest but better with activity. It is worse in the evening or nighttime. The restless feeling does cause a disturbance in her sleep. She goes to bed at 9:00 p.m. on both weekdays and weekends. It takes her 45 minutes To fall asleep. She gets 7 hours of sleep on work days and 6 hours on her days off. Her sleep is somewhat restorative on her days off. She denies taking any planned naps. She denies dream enactment behavior and sleep walking. She consumes 3-4 cups of caffeinated beverage per day. She denies tobacco and alcohol use. She exercises 3-4 nights per week. FORMERLY [facility], [facility] Past Medical History Medical History History of miscarriage Sciatica Kidney stones staghorn Umbilical hernia Iron deficiency anemia Major depressive disorder Restless leg syndrome Family history of colon cancer in father Encounter for screening colonoscopy Nausea Jamar's disease Febrile seizures GERD (gastroesophageal reflux disease) Skin cancer Basal cell carcinoma, s/p Moh's, 2002 Arthritis Anxiety Asthma Allergies Hyperlipidemia Hypertension CVA (cerebral vascular accident) Received tPA 11/2022, transferred to [facility], discharged without antiplatelet therapy. Familial Mediterranean fever Surgical History Surgical History H/O: hysterectomy [place] teeth extracted Hx of dilation and curettage H/O colposcopy with cervical biopsy Family History Family History Father Alcoholism Carcinoma of colon Diabetes mellitus Hypertension Malignant neoplasm of prostate Mother Diabetes mellitus Hypertension Depression Thyroid disorder Daughter Asthma Depression Grandparent Alcoholism Cancer Cerebrovascular accident Social History Social History Smoking packs per day: 0.5 Smoking cigarettes per day: 10.0 Years smoked: 7 Smoking pack-years: 3.50 Smoking status: Former smoker Tobacco type: cigarettes Smoking end date: 03/11/18 Alcohol intake: never Substance use: current Substance use type: marijuana Other substance usage details: Daily Do You Feel Safe in your Home?: Yes Lack of Transportation: No Lack of Food: Never True Current Housing: I Have Housing Concerned About Future Housing: No Difficulty Paying Gas/Electric Bills: No Difficulty Paying for Meds: No Currently Unemployed: No Education: High School Diploma/GED Difficulty w/ Childcare or Family Care: No Living arrangements: with family Spiritual care concerns: No Medications Home Medications ?Medication ?Instructions ?Recorded ?Confirmed ?Type atorvastatin 80 mg tablet 80 mg PO QHS #90 tabs 03/04/23 05/25/24 Rx inhalational spacing device #1 ea 05/09/23 05/25/24 Rx (Aerochamber MV spacer) vitamin B complex 1 tablet PO DAILY 06/02/23 05/25/24 History albuterol sulfate 90 mcg/actuation 2 puff inhalation Q4H PRN 11/23/23 05/25/24 Rx aerosol inhaler shortness of breath or wheezing #8.5 grams levothyroxine 25 mcg tablet 25 mcg PO DAILY #90 tabs 11/23/23 05/25/24 Rx ipratropium 0.5 mg-albuterol 3 mg 3 ml inhalation QID PRN SOB 11/25/23 05/25/24 History (2.5 mg base)/3 mL nebulization soln cholecalciferol (vitamin D3) 25 25 mcg PO DAILY 12/23/23 05/25/24 History mcg (1,000 unit) capsule escitalopram oxalate 20 mg tablet 20 mg PO DAILY #90 tabs 12/23/23 05/25/24 Rx (Lexapro) multivitamin 1 tablet PO DAILY 12/23/23 05/25/24 History hydroxyzine HCl 25 mg tablet 25 mg PO QID #90 tabs 03/02/24 05/25/24 Rx ascorbic acid (vitamin C) 500 mg 500 mg PO DAILY 03/11/24 05/25/24 History tablet,extended release (C-500) losartan 100 1 tablet PO DAILY #90 tabs 04/20/24 05/25/24 Rx mg-hydrochlorothiazide 25 mg tablet omeprazole 20 mg capsule,delayed 10 mg PO DAILY 05/13/24 05/25/24 History release desvenlafaxine succinate 25 mg 25 mg PO DAILY #90 tabs 05/25/24 05/25/24 Rx tablet,extended release 24 hr fluticasone propionate 115 2 puff inhalation BID #12 grams 06/07/24 Rx mcg-salmeterol 21 mcg/actuation HFA inhaler (Advair HFA) Sleep Procedure The sleep study was completed using [employer] a technically adequate device with seven channels: peripheral arterial tone, actigraphy, body position, snore, respiratory movement, pulse oximetry, sleep staging, and heart rate. Prior to using the device, the patient received verbal and written instructions for its application and was provided with the help desk phone number for additional telephonic instruction with 24-hour availability of qualified personnel to answer questions. The study was scored using CMS guidelines. Sleep Architecture The total recording time is 9 hrs, 59 min. The total sleep time is 9 hrs, 5 min. Sleep latency is 25 minutes. REM latency is 125 minutes. The patient had 8 episodes of waking. Sleep architecture shows 7.0% deep sleep, 76.7% light sleep, and (as % Total Sleep Time) showed NREM (Light 76.7%; Deep 7.0%), and a 16.3% stage REM. The patient spent 12.8% of total sleep time in the supine position. Sleep efficiency was 90.98. Respiratory Analysis The overall AHI (pAHI 4%:) is 46.6. The overall AHI (pAHI 3%:) is 66.2. The central AHI is 2.5. The AHI was 68.1 in NREM and 56.3 in REM sleep. The AHI was 97.0 in Supine and 61.7 in Non-supine sleep. Percent of Wes Brandt respirations is 0.0. Oximetry Data The oxygen desaturation index (NAILA 4%:) is 47.1. The mean saturation is 94%, and the lowest saturation is 84%. Time spent with saturation < 88% is 1.4 minutes. Snoring Profile Snoring average intensity is 53 dB. The patient snored above 45 decibels for 346.0 minutes, 63.4% of sleep time. Cardiac Profile The average pulse rate is 65 beats per minutes. The lowest pulse rate is 49 bpm. The highest pulse rate reported is 102 bpm. Atrial fibrillation was not detected. Premature beats occur <0.1 per minute. Assessment and Plan Assessment and Plan (1) AVIS (obstructive sleep apnea): Code(s): G47.33 - Obstructive sleep apnea (adult) (pediatric) Status: Acute Assessment and Plan: The patient had an overall AHI of 46.6 with desaturation down to 84%. This is consistent with severe sleep apnea. I recommend that the patient have a CPAP Titration study with the use of a hypnotic to ensure we obtain enough sleep data. The patient's sleep history is highly suggestive of Restless Leg Syndrome. Her serum ferritin level on 04/18/2024 was 25.40. She needs to continue taking an iron supplement along with Vitamin C daily. Data The data obtained during this sleep study is adequate for interpretation. Certification This sleep study has been reviewed by a board certified sleep medicine physician.
[2024-06-20 10:14] VITALS: BMI 43.2
== END 2024-06-14 11:26 | disposition home or self-care (01) ==
LOC: ANHCSM 07:44
PROVIDERS: PCP Family Medicine; Visit Provider Family Medicine
DX: G47.19 Other hypersomnia (principal); G47.33 Obstructive sleep apnea (adult) (pediatric)
CPT/HCPCS: 95800

== ENCOUNTER 2024-06-29 09:24 | Emergency (ER) | payer BC, OTHER, SELFPAY ==
[2024-06-29 09:35] VITALS: BP 159/110; PULSE 83; RESP 16; TEMP 37.3; O2SAT 99
--- NOTE | 2024-06-29 09:37 | ED.FEMALEGU ---
HPI - Female Genitourinary General Chief complaint: Urogenital-Female Stated complaint: BLOOD IN URINE/FLANK PAIN/FEVER/NAUSEA Source: patient Mode of arrival: ambulatory Limitations: no limitations History of Present Illness HPI Narrative: Patient is a 48-year-old female who presents to urgent care with complaints of left flank pain, nausea, vomiting, decreased appetite, and blood in her urine x 2 weeks. Currently rating her pain an 8/10. She has not been taking anything [id number]. She has a history of kidney stones and UTI's. She states that she has had fevers at home. When asked how high the fevers have been, she said 99.8 F. Related Data Home Medications ?Medication ?Instructions ?Recorded ?Confirmed ?Last Taken ?Type vitamin B complex 1 tablet PO DAILY 06/02/23 05/25/24 03/14/24 History ipratropium 0.5 mg-albuterol 3 mg 3 ml inhalation QID PRN SOB 11/25/23 05/25/24 Unknown History (2.5 mg base)/3 mL nebulization soln cholecalciferol (vitamin D3) 25 25 mcg PO DAILY 12/23/23 05/25/24 03/14/24 History mcg (1,000 unit) capsule multivitamin 1 tablet PO DAILY 12/23/23 05/25/24 03/14/24 History ascorbic acid (vitamin C) 500 mg 500 mg PO DAILY 03/11/24 05/25/24 03/14/24 History tablet,extended release (C-500) omeprazole 20 mg capsule,delayed 10 mg PO DAILY 05/13/24 05/25/24 Unknown History release Allergies Allergy/AdvReac Type Severity Reaction Status Date / Time latex Allergy Mild Skin Verified 05/25/24 14:06 Irritation aloe AdvReac Intermediate DERMATITIS Verified 05/25/24 14:06 chlorine Allergy Intermediate Rash Uncoded 05/25/24 14:06 Review of Systems Review of Systems: CONSTITUTIONAL: Denies body aches, chills, or sweats. Reports fever. EYES: Denies visual changes, redness, or discharge. ENT: Denies rhinorrhea, congestion, sore throat, or otalgia. CARDIOVASCULAR: Denies chest pain, palpitations, or edema. RESPIRATORY: Denies cough or dyspnea. GASTROINTESTINAL: Denies abdominal pain and diarrhea. Reports nausea and vomiting. GENITOURINARY: Denies dysuria or hematuria. Reports hematuria and left flank pain. SKIN: Denies rash, itching, or wounds. MUSCULOSKELETAL: Reports back pain. Denies joint pain, or myalgia. NEUROLOGIC: Denies headache, numbness, tingling, or weakness. PSYCH: ?Denies depression or anxiety. All systems reviewed & are unremarkable except as noted in HPI and below PMFSH Past Medical History Medical History History of miscarriage Sciatica Kidney stones staghorn Umbilical hernia Iron deficiency anemia Major depressive disorder Restless leg syndrome Family history of colon cancer in father Encounter for screening colonoscopy Nausea Jamar's disease Febrile seizures GERD (gastroesophageal reflux disease) Skin cancer Basal cell carcinoma, s/p Moh's, 2002 Arthritis Anxiety Asthma Allergies Hyperlipidemia Hypertension CVA (cerebral vascular accident) Received tPA 11/2022, transferred to [facility], discharged without antiplatelet therapy. Familial Mediterranean fever Surgical History Surgical History H/O: hysterectomy [place] teeth extracted Hx of dilation and curettage H/O colposcopy with cervical biopsy Family History Family History Father Alcoholism Carcinoma of colon Diabetes mellitus Hypertension Malignant neoplasm of prostate Mother Diabetes mellitus Hypertension Depression Thyroid disorder Daughter Asthma Depression Grandparent Alcoholism Cancer Cerebrovascular accident Social History Social History Smoking packs per day: 0.5 Smoking cigarettes per day: 10.0 Years smoked: 7 Smoking pack-years: 3.50 Smoking status: Former smoker Tobacco type: cigarettes Smoking end date: 03/11/18 Alcohol intake: never Substance use: current Substance use type: marijuana Other substance usage details: Daily Do You Feel Safe in your Home?: Yes Lack of Transportation: No Lack of Food: Never True Current Housing: I Have Housing Concerned About Future Housing: No Difficulty Paying Gas/Electric Bills: No Difficulty Paying for Meds: No Currently Unemployed: No Education: High School Diploma/GED Difficulty w/ Childcare or Family Care: No Living arrangements: with family Spiritual care concerns: No Comments At time of signature, I have reviewed and agree with nursing past medical, surgical, social and family history unless otherwise noted. Please see nursing chart for further information. There is no relevant family history pertinent to the presenting complaint. Exam Narrative: GENERAL: Well-appearing, well-nourished, and in no acute distress. HEAD: Normocephalic, atraumatic. EYES: EOMI. ?No redness or drainage. Conjunctivae normal. ENT: Mucous membranes pink and moist. ?No rhinorrhea. ?TMs normal bilaterally. ?Throat normal. Uvula midline. NECK: Normal AROM. ?Supple. ?No lymphadenopathy. CHEST: ?No respiratory distress. Clear to auscultation. HEART: Regular rate and rhythm. No murmur appreciated. Normal peripheral pulses. ABDOMEN: Soft, nondistended, normal active bowel sounds. Endorsees left CVA tenderness with palpation and percussion. Endorses RUQ and LUQ pain with palpation. MUSCULOSKELETAL: ?No bony tenderness. EXTREMITIES: Normal range of motion. No edema. SKIN: Warm, dry, no rash. Capillary refill normal. ?Normal skin turgor. NEURO: No focal deficits. Alert and oriented x3. Gait steady. PSYCH: ?Normal affect. ?No signs of depression or anxiety. Course Course Level of Care: Express Care Visit Vital Signs Vital signs: Vital Signs Temperature 99.1 F 06/29/24 09:35 Pulse Rate 83 06/29/24 09:35 Respiratory Rate 16 06/29/24 09:35 Blood Pressure 159/110 H 06/29/24 09:35 Pulse Oximetry 99 06/29/24 09:35 Temperature 99.1 F 06/29/24 09:35 Pulse Rate 83 06/29/24 09:35 Respiratory Rate 16 06/29/24 09:35 Blood Pressure 159/110 H 06/29/24 09:35 Pulse Oximetry 99 06/29/24 09:35 Reviewed. Transfer Transfered to: Delia Transfer comments: Pt is agreeable to transfer. Requests transfer to [facility] via private vehicle. Risks of transportation reviewed with pt including injury, worsening of condition and . will be driving pt; Report called to hospital, spoke with RISSA Lindquist , accepting provider. Pt is in stable condition at time of transfer. Advised to remain NPO and go directly to the hospital. MDM - Female Genitourinary MDM Narrative Medical decision making narrative: Discussed physical exam findings. Advised patient to go to the ER for further evaluation of possible kidney stone. Patient agreeable to transfer. Differential Diagnosis Differential diagnosis: Likely urinary tract infection and other (kidney stones) Critical Care Time Critical Care Time Critical Care Time: No Discharge Plan Discharge Clinical Impression: Acute flank pain Patient Disposition: Acute Care Hospital Condition: Stable Patient Language: Welsh Prescriptions: No Action vitamin B complex Tablet 1 tablet PO DAILY Patient Comments: Says takes at HS omeprazole 20 mg capsule,delayed release(DR/EC) 10 mg PO DAILY multivitamin Tablet 1 tablet PO DAILY Patient Comments: Says takes at HS cholecalciferol (vitamin D3) 25 mcg (1,000 unit) capsule 25 mcg PO DAILY Patient Comments: Says takes at HS escitalopram oxalate [Lexapro] 20 mg tablet 20 mg PO DAILY Qty: 90 1RF Patient Comments: Takes at HS desvenlafaxine succinate 25 mg tablet extended release 24 hr 25 mg PO DAILY Qty: 90 0RF ascorbic acid (vitamin C) [C-500] 500 mg tablet extended release 500 mg PO DAILY atorvastatin 80 mg tablet 80 mg PO QHS Qty: 90 3RF (DME) Aerochamber MV Spacer See Rx Instructions .Route Qty: 1 0RF Rx Instructions: Use with inhaler albuterol sulfate 90 mcg/actuation HFA aerosol inhaler 2 puff inhalation Q4H PRN (Reason: shortness of breath or wheezing) Qty: 8.5 0RF Patient Comments: . Rx Instructions: Use with spacer ipratropium-albuterol 0.5 mg-3 mg(2.5 mg base)/3 mL solution for nebulization 3 ml inhalation QID PRN (Reason: SOB) losartan-hydrochlorothiazide 100-25 mg tablet 1 tablet PO DAILY Qty: 90 1RF Patient Comments: Says takes at HS fluticasone propion-salmeterol [Advair HFA] 115-21 mcg/actuation HFA aerosol inhaler 2 puff inhalation BID Qty: 12 5RF Rx Instructions: administer with spacer eszopiclone [Lunesta] 3 mg tablet 3 mg PO QHS Qty: 1 0RF hydroxyzine HCl 25 mg tablet 25 mg PO QID Qty: 90 5RF Patient Comments: Says takes 2 tabs at HS Rx Instructions: Take 1/2 tab at onset of panic attack, Take 1 tablet at bedtime. No more than 4 a day. levothyroxine 25 mcg tablet 25 mcg PO DAILY Qty: 90 1RF Patient Comments: Says takes at HS Follow-up/Referrals: Dafne Gomez DO [Primary Care Provider] -
[2024-06-29 09:57] LABS: EDUAAPPEAR Cloudy; EDUABILI 1+ (Negative); EDUABLOOD 3+ (Negative); EDUACOLOR1 Dark; EDUAGLUCOSE Negative (Negative); EDUAKETONE Negative (Negative); EDUALEUKO Negative (Negative); EDUANITRATE Negative (Negative); EDUAPH 6.5; EDUAPROTEIN 2+ (Negative); EDUASPGRAVITY 1.025; EDUAUROBILI 0.2
== END 2024-06-29 10:00 | disposition short-term general hospital (02) ==
PROVIDERS: Nurse Practitioner Family; PCP Family Medicine
DX: R10.9 Unspecified abdominal pain (principal); Z87.891 Personal history of nicotine dependence; F12.90 Cannabis use, unspecified, uncomplicated; G25.81 Restless legs syndrome; E06.3 Autoimmune thyroiditis; K21.9 Gastro-esophageal reflux disease without esophagitis; M19.90 Unspecified osteoarthritis, unspecified site; J45.909 Unspecified asthma, uncomplicated; I10 Essential (primary) hypertension; Z86.73 Personal history of transient ischemic attack (TIA), and cerebral infarction without residual deficits; Z85.828 Personal history of other malignant neoplasm of skin; F41.9 Anxiety disorder, unspecified; F32.A Depression, unspecified
CPT/HCPCS: 81003; 87086; 99213; G0463

== ENCOUNTER 2024-06-29 10:19 | Emergency (ER) | payer BC, OTHER, SELFPAY ==
--- NOTE | ~2024-06-29 | CT_ITS ---
EXAMINATION: CT abdomen pelvis w con DATE: 06/29/2024 13:13 INDICATION: Flank pain TECHNIQUE: Computed tomography (CT) of the abdomen and pelvis was performed with 100 mL Omnipaque-350 intravenous contrast. Automated exposure control and iterative reconstruction technique were employe d. The dose-length product was 1534.20 mGy-cm. COMPARISON: None FINDINGS: Lung bases are clear. Heart size is normal. No pericardial or pleural effusion. Hepatomegaly with dif fuse hepatic steatosis scattered peripheral focal sparing most prominent at the gallbladder fossa. Ga llbladder, spleen, pancreas and bilateral adrenal glands are normal. Bilateral nonobstructing nephrol ithiasis with single stone measuring 2 mm at the lower pole of the right kidney with couple stones at the upper pole of the left kidney, the larger measuring 1.1 cm. 8 mm cyst at the lower pole the righ t kidney. There are few scattered colonic diverticula without adjacent from trace stranding to sugges t diverticulitis. Small bowel and appendix are normal. Bladder is normal. The uterus is not identifie d and has likely been surgically resected. No free intraperitoneal gas or fluid. No pathologically en larged abdominal or pelvic lymphadenopathy. Severe spondylosis at L5-S1, moderate lower thoracic spon dylosis and mild spondylosis of the intervening lumbar spine. Spondylosis IMPRESSION: 1. Bilateral nonobstructing nephrolithiasis. 2. Hepatomegaly with diffuse hepatic steatosis. 3. Moderate bilateral fat-containing inguinal hernias. Reviewed, dictated and finalized at location A.
[2024-06-29 10:22] VITALS: BP 153/105; PULSE 87; RESP 18; TEMP 36.4; O2SAT 98
[2024-06-29 11:00] LABS: Basophils Absolute Auto 0.1 K/mm3 (0.0-0.1); Basophils Percent Auto 0.9 % (0.2-1.2); Eosinophils Absolute Auto 0.4 K/mm3 (0-0.3); Eosinophils Percent Auto 2.9 % (0-4.4); Hematocrit 41.8 % (37.0-47.0); Hemoglobin 12.8 g/dL (12.0-15.0); Immature Granulocyte Absolute 0.06 K/mm3 (0.00-0.031); Immature Granulocyte Percent A 0.5 % (0-0.5); Lymphocytes Absolute Auto 2.31 K/mm3 (0.9-3.2); Lymphocytes Percent Auto 18.3 % (18.3-44.2); Mean Corpuscular HGB Conc 30.6 g/dl (32-36); Mean Corpuscular Volume 81.8 fl (80-100); Mean Platelet Volume 10.4 fl (7.4-10.4); Monocytes Absolute Auto 0.6 K/mm3 (0.1-0.6); Monocytes Percent Auto 4.6 % (2.6-8.5); Neutrophils Absolute Auto 9.2 K/mm3 (1.3-6.7); Neutrophils Percent Auto 72.8 % (45.5-73.1); Platelet Count Result 283 k/mm3 (150-375); Red Blood Count 5.11 M/mm3 (4.2-5.4); Red Cell Distribution Width 19.1 % (11.5-14.5); White Blood Count 12.6 K/mm3 (4.5-10.0)
--- OUTSIDE RECORDS SUMMARY | 2024-06-29 11:05 | XMS_ITS | Clinical Summary ---
Author Organization [facility] AddressReport Address [address] [place] [address] Care Team Providers Care Tankman Name Role Phone None, Physician Primary Care Provider Unavailabl e Source Comments [facility],non-owned Affiliates and Associated Physician Practices is amultiple site organization consisting of ambulatory clinics and hospital sitesin [place], [place], [place] and [place]. This disclosure is being madepursuant to the Care Everywhere program and may not contain all information available regarding this patient. Last updated 17.[facility] AddressReport Allergies Active Allergy Reactions Criticality Noted Date [...] hours as needed Active aspirin effervescent ([place]) 325 MG efferv tablet Take 1 (one) [...] Recorded Patient Health Questionnaire-2 Score 0 12/04/2022 [facility] - Occupational [...] place to sleep or slept in a group home (including now)? 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 SAW OPERATOR Pulse 76 01/01/2023 9:23 AM STOCK SAW OPERATOR Temperature 36.9 C (98.4 F) 12/04/2022 11:36 AM CDT Respiratory Rate 12 01/01/2023 9:23 AM STOCK SAW OPERATOR Oxygen Saturation 100% 12/04/2022 11:36 AM CDT Inhaled Oxygen Concentration - - Weight 111.1 kg (245 lb) 01/01/2023 9:23 AM STOCK SAW OPERATOR Height 167.6 cm (5' 6 ) 12/03/2022 [...] 7 - 26 mg/dL 12/04/2022 3:22 AM [facility] Creatinine 0.68 0.56 - 0.96 mg/dL 12/04/2022 3:22 AM [facility] Sodium 139 136 - 145 mmol/L 12/04/2022 3:22 AM [facility] Potassium 3.3(L) 3.5 - 4.5 mmol/L 12/04/2022 3:22 AM [facility] Chloride 103 98 - 107 mmol/L 12/04/2022 3:22 AM [facility] CO2 24 22 - 29 mmol/L 12/04/2022 3:22 AM [facility] Glucose 105 70 - 115 mg/dL 12/04/2022 3:22 AM [facility] Calcium 9.0 8.4 - 10.2 mg/dL 12/04/2022 3:22 AM CDT [facility] Anion Gap 12 6 - 16 12/04/2022 3:22 AM T [facility] BUN/Creatinine Ratio 25(H) 7 - 23 12/04/2022 3:22 AM T [facility] Osmolality Calculated 290 275 - 295 mOsm/kg 12/04/2022 3:22 AM T [facility] eGFR by CKD-EPI >90 >=90 mL/min/1.7 3 m2 12/04/2022 3:22 AM T [facility] Blood BLOOD SPECIMEN / Unknown Lab Venipuncture / Unknown 12/04/2022 2:08 AM CDT 12/04/2022 2:53 AM CDT us Juanita Alvarez MD LAB - CHEMISTRY ORDERABLES Fin al Result [facility] [address] [place] [address], [facility] [phone] from Last 3 Months or Most Recently Relevant to Health Maintenance Insurance [facility] COMMERCIAL GENERIC [facility] Advance Directives * Full Code (Latest Code Status on File) Date Activated Date Inactivated Comments 12/02/2022 7:46 PM 12/04/2022 5:26 PM Care Teams Tankman Relationship Specialty Start Date End Date None, Physician [address] [place] [address] PCP - General 01/01/23
--- OUTSIDE RECORDS SUMMARY | 2024-06-29 11:05 | XMS_ITS | Encounter Summary ---
Author Organization [facility] [employer] [facility] Address [address] [place] [address] Care Team Providers Care Fork Truck Driver Name Role Phone Dafne Gomez Primary Care Provider + Reason for Visit * Reason Comments Follow Up Encounter Details Date Type Department Care Team (Late st Contact Info) Description 06/28/2024 11:15 AM CDT Office Visit [facility] Oncology and Hematology - Karlos [address] [facility] [address] [place] [address] Kali Caputo MD [address] [facility] [address] [place] [address] Iron deficiency anemia, unspecified iron deficiency anemia type (Primary Dx) Social History Tobacco Use Types Packs/Day Years [...] on file documented as of this encounter Last Filed Vital Signs Vital Sign Reading Time Taken Comments Blood Pressure 159/96 06/28/2024 10:53 AM CDT Pulse 94 06/28/2024 10:50 AM CDT Temperature 36 C (96.8 F) 06/28/2024 10:50 AM CDT Respiratory Rate 16 06/28/2024 10:50 AM CDT Oxygen Saturation 96% 06/28/2024 10:50 AM CDT Inhaled Oxygen Concentration - - Weight 125.2 kg (276 lb) 06/28/2024 10:50 AM CDT Height - - Body Mass Index 44.55 05/11/2023 11:05 AM CDT documented in this encounter Progress Notes * Kali Caputo MD - 06/28/2024 10:56 AM CDT HEMATOLOGY / ONCOLOGY PROGRESS NOTE Patient Identification: Name: Tita Boucher Age: 48 y.o. Sex: female : 1975 DIAGNOSIS Iron deficiency anemia CURRENT TREATMENT Intolerant to oral iron TREATMENT HISTORY Iron infusion May 2023 in August 2023. Iron infusion on January 18, 2024. Iron infusion May 20, 2024 SUBJECTIVE Patient came to the office for follow-up visit after the iron infusion. She is having some intermittent hematuria with tiredness and fatigue and rash in the upper extremities. She just does not feel very well. No other new complaints. Review of system Constitutional: Patient did not mention fevers, sweats, complain of tiredness and fatigue HEENT: Patient did not mention sinus congestion, hearing or vision problems Respiratory: Patient did not mention cough, dyspnea, wheeze Cardiovascular: Patient did not mention chest pain, exertional chest pressure/discomfort, nausea, syncope, shortness of breath GI: Patient did not mention constipation, diarrhea, dsyphagia, reflux symptoms, vomiting, melena : Patient did not mention dysuria, frequency, incontinence, urgency, complain of intermittent hematuria Integumentary system: no lymphadenopathy, sweats, flushing Musculoskeletal: Patient not mention: myalgia, arthralgia Neurological: Patient did not mention blurry or disturbed vision, numbness/weakness, dizziness Skin: No lumps, bumps or rashes. 12 point review of system was reviewed Objective: Vital signs in last 24 hours: As per nursing note Exam: General appearance: alert, cooperative, no distress, appears stated age Head: normocephalic, without obvious abnormality, atraumatic Eyes: conjunctivae/corneas clear, EOM's intact Ears: normal external ear canals AU Nose: Nares normal. Septum midline. Mucosa normal. No drainage or sinus tenderness Throat: Lips, mucosa, and tongue normal. Teeth and gums normal Neck: supple, symmetrical, trachea midline. Lungs: clear to auscultation bilaterally Heart: regular rate and rhythm, S1, S2 normal, no murmur, click, rub or gallop Abdomen: soft, non-tender. Bowel sounds normal. No masses, No organomegaly Extremities: extremities normal, atraumatic, no cyanosis or edema Skin: Skin color, texture, turgor normal. No rashes or lesions Lymph nodes: No lymphadenopathy Neuro: No obvious focal deficit Exam as above PATH LABS Labs from December 17 showed hemoglobin 9.8 MCV 78 B12 547 iron 37 saturation 9 ferritin 10.6 Labs from April 18 showed hemoglobin 11.2 iron 34 saturation 9 ferritin 25 Labs from June 22 showed hemoglobin 12.6 WBC 11.6 iron 84 saturation 27 ferritin 405 Assessment: Plan: Patient Active Problem List Diagnosis Date Noted DICK (iron deficiency anemia) 05/11/2023 Iron deficiency anemia. Patient is intolerant to oral iron. Patient has history of gastritis based on the EGD. She has been dealing with heavy menstrual bleeding. Patient had hysterectomy done on March 18, 2024. Patient received iron infusion on May 20, 2024. Labs showed improvement in hemoglobin and iron studies. I will repeat labs again in 3 months. Thrombocytosis secondary to iron deficiency. Resolved. Platelet count 298,000. Hypertension. Blood pressure is elevated and she will follow-up with the primary care physician. Gastritis. Patient will continue Prilosec. Hematuria. Could be secondary to UTI. I recommended to follow-up with the primary care physician. 06/28/2024 Kali Caputo MD documented in this encounter Plan of Treatment Upcoming Encounters Date Type Department Care Team (Late st Contact Info) Description 10/11/2024 11:00 AM CDT Office Visit [facility] Oncology and Hematology - Karlos [address] [facility] [address] [place] [address] Kali Caputo MD [address] [facility] [address] [place] [address] Scheduled Orders Name Type Priority Associated Diagnoses Orde r Schedule CBC WITHOUT DIFFERENTIAL Lab Stat Iron deficiency anemia, unspecified iron deficiency anemia type Expected: 09/20/2024, Expires: 06/28/2025 FERRITIN Lab Routine Iron deficiency anemia, unspecified iron deficiency anemia type Expected: 09/20/2024, Expires: 06/28/2025 IRON, TIBC, AND PERCENT SATURATION Lab Routine Iron deficiency anemia, unspecified iron deficiency anemia type Expected: 09/20/2024, Expires: 06/28/2025 documented as of this encounter Visit Diagnoses Diagnosis Iron deficiency anemia, unspecified iron deficiency anemia type- Primary documented in this encounter Care Teams Fork Truck Driver Relationship Specialty Start Date End Date Dafne Gomez DO [facility] [facility] [place] [address] PCP - General Family Practice 08/18/23 documented as of this encounter
--- OUTSIDE RECORDS SUMMARY | 2024-06-29 11:05 | XMS_ITS | Clinical Summary ---
Author Organization [facility] Address [facility] [place] [address] Care Team Providers Care Paste Worker Name Role Phone None, Provider MD Primary [...] Vaccine (1 - 2023-2 5 season) 2023 Pneumococcal Vaccine: 50+ Ye ars (1 of 1 - PCV) 11/16/2023 Zoster Vaccines (1 of 2) 11/16/2023 Meningococcal [...] HPV MRNA E6/E7 Routine 02/27/2017 5:04 PM PRINCIPAL SECURITY ARCHITECT from Last 3 Months or Most Recently Relevant to Health Maintenance Results * HPV MRNA E6/E7 (02/27/2017 5:04 PM PRINCIPAL SECURITY ARCHITECT) HPV MRNA E6/E7 Not Detected NOT DETECTED 03/04/2017 11:36 PM PRINCIPAL SECURITY ARCHITECT [employer] BENOIT BUCKNER Comment: This test was performed using the APTIMA(R) HPV Assay([employer]This assay detects E6/E7 viral messenger RNA (mRNA)from 14 high-risk HPV types (16,18,31,33,35,39,45,51,52,56,58,59,66,68).For additional information please refer to:http://education.[employer]/faq/LRV241r4(This link is being provided for informational/educational purposes only.)Test Performed by [employer] [employer] Seth Hudson Mcbee,[address] [place] [address] [id number] Bauer M.D., Ph.D., Director of [phone], [facility] [phone] FLUID SPECIMEN / Unknown 02/27/2017 5:04 PM PRINCIPAL SECURITY ARCHITECT 02/27/2017 5:04 PM PRINCIPAL SECURITY ARCHITECT us Generic Conversion Md MOY PATHOLOGY/CYTOLOGY LETTY LY Final Result DIOGENES WILSON [address] [place] [address], [place] [phone] from Last 3 Months or Most Recently Relevant to Health Maintenance Insurance Care Teams Paste Worker Relationship Specialty Start Date End Date None, Provider, PCP - General 11/14/18
--- OUTSIDE RECORDS SUMMARY | 2024-06-29 11:05 | XMS_ITS | Patient Health Record ---
Author Organization [facility] [employer] Address [address] [facility] [address] [place] [address] Care Team Providers Care Assistant Sales Manager Name Role Phone Osiris West Unavailable [phone] Allergies No Known Allergies Results Component Value Reference Range Notes UDT Reviewed date:09/04/2023 08:03:55 PM Interpretation: Performing Lab: Notes/Report: THC p 0 - 50 ng/ml Cocaine n 0 - 300 ng/ml Amphetamine n 0 - 1000 ng/ml Buprenorphine (BUP) n 0 - 10 ng/ml Secobarbital (Bar) n 0 - 300 ng/ml Oxazepam (BZO) n 0 - 300 ng/ml 0-wotnwwontv-2,8-iewuxtam-8,3-diphenylpyrrolidine (KATIE P) n 0 - 300 ng/ml Methamphetamine (MET) n 0 - 1000 ng/ml Morphine (MOP 300/DQI9313) n 0 - 300 ng/ml Methadone (MTD) [...] Problem Status W/U Status Risk Notes Problem [id number] Major depressive disorder, recurrent severe without psychotic features (F33.2) Active confirmed Problem Asperger's syndrome (F84.5) Active confirmed Problem 03958550 Post traumatic stress disorder (PTSD) (F43.10) Active confirmed Problem 15568012 Recurrent major depressive disorder, remission status unspecified (F33.9) Active confirmed Problem 27748955 Autism spectrum (F84.0) Active confirmed Vital Signs Heart Rate 92 /min 09/21/2023 Blood pressure diastolic 85 mm Hg 09/21/2023 Weight-kg 111.77 kg 09/21/2023 Blood pressure systolic 117 mm Hg 09/21/2023 Weight 246.4 lbs 09/21/2023 Encounters Encounter Location Date Provider Diagnosis [facility] [address] [place] [address] 08/31/2023 Thena Brett Asperger's syndrome F84.5 ; Recurrent major depressive disorder, remission status unspecified F33.9 and Post traumatic stress disorder (PTSD) F43.10 [facility] [address] [place] [address] 09/21/2023 Thena Brett Autism spectrum F84. 0 [...] Date Coverage End Date [place] [address] [place] [address] [id number] Tita Boucher Self - patient is the insured [address] [address] [place] [address] [id number] Tita Boucher Self - patient is the insured Medical (General) History Medical History History ICD Code Past Psychiatric History: Anxiety Disord er,Major Depressive Episode
--- OUTSIDE RECORDS SUMMARY | 2024-06-29 11:05 | XMS_ITS | Encounter Summary ---
Author Organization [facility] [employer] [facility] Address [address] [place] [address] Care Team Providers Care Director Credit Risk Name Role Phone Dafne Gomez Primary Care Provider + Encounter Details Date Type Department Care Team ([facility] Contact Info) Description 06/22/2024 Orders Only [facility] Oncology and Hematology [facility] [address] [place] [address] Kali Caputo MD [facility] [address] [place] [address] Social History Tobacco Use Types Packs/Day Years [...] Encounters Date Type Department Care Team (Late Contact Info) Description 10/11/2024 11:00 AM CDT Office Visit [facility] Oncology and Hematology - Karlos [address] [place] [address] Kali Caputo MD [facility] [address] [place] [address] documented as of this encounter Procedures Procedure Name Priority Date/Time Associated Diagnosis Comments CBC WITH DIFFERENTIAL Routine 06/22/2024 4:09 PM CDT CBC MIXED CELL DIFFERENTIAL Routine 06/22/2024 3:43 PM CDT documented in this encounter Results * CBC WITH DIFFERENTIAL (06/22/2024 4:09 PM CDT) Blood us Kali Caputo MD HEMATOLOGY ORDERABLES Final Res ult * CBC MIXED CELL DIFFERENTIAL (06/22/2024 3:43 PM CDT) Blood us Kali Caputo MD HEMATOLOGY ORDERABLES Final Res ult documented in this encounter Visit Diagnoses Not on filedocumented in this encounter Care Teams Director Credit Risk Relationship Specialty Start Date End Date Dafne Gomez DO [address] [place] [address] [place] [address] PCP - General Family Practice 08/18/23 documented as of this encounter
--- OUTSIDE RECORDS SUMMARY | 2024-06-29 11:05 | XMS_ITS | Data Portability ---
Author Organization [place] - [facility] ([employer]), Main Office Address [address] [place] [address] Assessment No assessment recorded. Plan of Treatment [...] (ICA ). Perfo rmed at: - [facility] [address], [place] [address] Lab Direc tor: Lupillo aguilar PhD, Phone : [phone] Not Available [facility] (Lab) [address] [place], [address], 07/23/2021 16:10:44 07/20/19 22 07/19/2021 HEMOG LOBIN A1C HA1C 5.5 % 4.0-6. 0 Diabe jaylen Screaaron ogdeng Crite trinh: <5.7% Consi stent with absen ce of diabe jaylen 5.7-6 .4% Consi stent with incre ased risk for diabe jaylen (pred iabet es) >OR=6 .5% Consi stent with diabe jaylen REFER ENCE: Diabe jaylen Care 2016, 39(Andrew ppl.1 ):s13 -s22 Not Available [facility] (Lab) [address] [place], [address], 07/19/2021 19:47:25 07/20/19 22 07/19/2021 SEDIM ENTAT ION RATE erythrocyte sedimentatio n rate 18 mm/HR 0-20 Not Available [facility] (Lab) [address] [place], [address], 07/19/2021 19:32:48 07/20/19 22 07/19/2021 TSH thyroid-stim ulating hormone 1.510 uIU/m L 0.465- 4.680 Not Available [facility] (Lab) [address] [place], [address], 07/19/2021 19:19:56 07/20/19 22 07/19/2021 T3 FREE free T3 3.1 pg/mL 2.77-5 .27 Not Available [facility] (Lab) [address] [place], [address], 07/19/2021 19:06:19 07/20/19 22 07/19/2021 T4 FREE free T4 1.43 NG/dL 0.78-2 .19 Not Available [facility] (Lab) [address] [place], [address], 07/19/2021 19:06:18 07/20/19 22 07/19/2021 CBC W/O DIFFE RENTI AL white blood cells 8.6 x10'3 /uL 4.2-10 .8 Not Available [facility] (Lab) [address] [place], [address], 07/19/2021 19:03:06 07/20/19 22 07/19/2021 CBC W/O DIFFE RENTI AL red blood cells 4.69 x10'6 /uL 3.80-5 .20 Not Available [facility] (Lab) [address] [place], [address], 07/19/2021 19:03:06 07/20/19 22 07/19/2021 CBC W/O DIFFE RENTI AL hemoglobin 8.9 g/dL 12.0-1 5.6 low Not Available [facility] (Lab) [address] [place], [address], 07/19/2021 19:03:06 07/20/19 22 07/19/2021 CBC W/O DIFFE RENTI AL hematocrit 32.5 % 35.7-4 5.7 low Not Available [facility] (Lab) [address] [place], [address], 07/19/2021 19:03:06 07/20/19 22 07/19/2021 CBC W/O DIFFE RENTI AL mean red cell volume 69.3 fL 82.0-9 9.0 low Not Available [facility] (Lab) [address] [place], [address], 07/19/2021 19:03:06 07/20/19 22 07/19/2021 CBC W/O DIFFE RENTI AL mean red cell hemoglobin 19.0 pg 27.0-3 3.0 low Not Available [facility] (Lab) [address] [place], [address], 07/19/2021 19:03:06 07/20/19 22 07/19/2021 CBC W/O DIFFE RENTI AL mean RBC HGB concentratio n 27.4 g/dL 31.0-3 6.0 low Not Available [facility] (Lab) [address] [place], [address], 07/19/2021 19:03:06 07/20/19 22 07/19/2021 CBC W/O DIFFE RENTI AL red cell distribution width 18.3 % 11.8-1 5.5 high Not Available [facility] (Lab) [address] [place], [address], 07/19/2021 19:03:06 07/20/19 22 07/19/2021 CBC W/O DIFFE RENTI AL platelets 471 x10'3 /uL 150-40 0 high Not Available [facility] (Lab) [address] [place], [address], 07/19/2021 19:03:06 07/20/19 22 07/19/2021 CBC W/O DIFFE RENTI AL mean platelet volume 11.4 fL 9.0-12 .4 Not Available [facility] (Lab) [address] [place], [address], 07/19/2021 19:03:06 07/20/19 22 07/19/2021 RHEUM ATOID FACTO R rf <8.6 IU/mL 0.0-11 .9 Not Available [facility] (Lab) [address] [place], [address], 07/19/2021 18:58:57 07/20/19 22 07/19/2021 C REACT VANESSA PROTE IN,UL TRA SENS C-reactive protein 1.33 mg/dL 0.0-0. 5 high Not Available [facility] (Lab) [address] [place], [address], 07/19/2021 18:58:52 07/20/19 22 07/19/2021 LIPID PANEL cholesterol 209 mg/dL 140-19 9 high NIH ADALI NSUS RECOM MENDA TION FOR KYLER STERO L: ADULT CHILD LOW RISK: <200 <170 BORDE RLINE : <200- 239 ----- HIGH RISK: >240 >200 Not Available [facility] (Lab) [address] [place], [address], 07/19/2021 18:58:13 07/20/1907/19/2021 LIPID PANEL triglyceride s 123 mg/dL 0-150 NIH ADALI NSUS REPOR T RECOM MENDA TION FOR TRIGL YCERI RYAN: ADULT CHILD LOW RISK: <150 ----- BODER LINE: 150-1 99 ----- HIGH RISK: >200 ----- Not Available [facility] (Lab) [address] [place], [address], 07/19/2021 18:58:13 07/20/1907/19/2021 LIPID PANEL HDL cholesterol 68 mg/dL 40- Not Available [facility] (Lab) [address] [place], [address], 07/19/2021 18:58:13 07/20/19 22 07/19/2021 LIPID PANEL [...] WILL NOT BE REPOR JANE. Not Available [facility] (Lab) [address] [place], [address], 07/19/2021 18:58:13 07/20/1907/19/2021 COMPR EHENS VANESSA METAB OLIC PANEL sodium 138 mmol/ L 137-14 5 Not Available [facility] (Lab) [address] [place], [address], 07/19/2021 18:58:02 07/20/19 22 07/19/2021 COMPR EHENS VANESSA METAB OLIC PANEL potassium 4.4 mmol/ L 3.5-5. 1 Not Available [facility] (Lab) [address] [place], [address], 07/19/2021 18:58:02 07/20/19 22 07/19/2021 COMPR EHENS VANESSA METAB OLIC PANEL chloride 104 mmol/ L 98-107 Not Available [facility] (Lab) [address] [place], [address], 07/19/2021 18:58:02 07/20/19 22 07/19/2021 COMPR EHENS VANESSA METAB OLIC PANEL carbon dioxide 26 mmol/ L 22-30 Not Available [facility] (Lab) [address] [place], [address], 07/19/2021 18:58:02 07/20/19 22 07/19/2021 COMPR EHENS VANESSA METAB OLIC PANEL anion gap 12.4 mmol/ L 14-22 low Not Available [facility] (Lab) [address] [place], [address], 07/19/2021 18:58:02 07/20/19 22 07/19/2021 COMPR EHENS VANESSA METAB OLIC PANEL glucose 77 mg/dL 70-99 Not Available [facility] (Lab) [address] [place], [address], 07/19/2021 18:58:02 07/20/19 22 07/19/2021 COMPR EHENS VANESSA METAB OLIC PANEL BUN 11 mg/dL 8-19 Not Available [facility] (Lab) [address] [place], [address], 07/19/2021 18:58:02 07/20/19 22 07/19/2021 COMPR EHENS VANESSA METAB OLIC PANEL creatinine 0.62 mg/dL 0.66-1 .25 low Not Available [facility] (Lab) [address] [place], [address], 07/19/2021 18:58:02 07/20/19 22 07/19/2021 COMPR EHENS VANESSA METAB OLIC PANEL GFR >60 Refer ence Range : Lihue ge GFR Healt hy Adult : >60 [...] calcu lator is avail able on the [facility] websi te: https :[email or web address] ceja.rich [email or web address] moshe/pr delano champagneal s/kdo qi/gf r_cal culat or Not Available [facility] (Lab) [address] [place], [address], 07/19/2021 18:58:02 07/20/19 22 07/19/2021 COMPR EHENS VANESSA METAB OLIC PANEL alkaline phosphatase 72 U/L 38-126 Not Available [facility] (Lab) [address] [place], [address], 07/19/2021 18:58:02 07/20/19 22 07/19/2021 COMPR EHENS VANESSA METAB OLIC PANEL alanine aminotransfe rase 16 U/L 0-35 Not Available [facility] (Lab) [address] [facility] [place], [address], 07/19/2021 18:58:02 07/20/19 22 07/19/2021 COMPR EHENS VANESSA METAB OLIC PANEL aspartate aminotransfe rase 25 U/L 15-37 Not Available [facility] (Lab) [address] [place], [address], 07/19/2021 18:58:02 07/20/19 22 07/19/2021 COMPR EHENS VANESSA METAB OLIC PANEL bilirubin, total 0.20 mg/dL 0.20-1 .30 Not Available [facility] (Lab) [address] [place], [address], 07/19/2021 18:58:02 07/20/19 22 07/19/2021 COMPR EHENS VANESSA METAB OLIC PANEL calcium 9.3 mg/dL 8.4-10 .2 Not Available [facility] (Lab) [address] [place], [address], 07/19/2021 18:58:02 07/20/19 22 07/19/2021 COMPR EHENS VANESSA METAB OLIC PANEL total protein 7.4 g/dL 6.3-8. 2 Not Available [facility] (Lab) [address] [place], [address], 07/19/2021 18:58:02 07/20/19 22 07/19/2021 COMPR EHENS VANESSA METAB OLIC PANEL albumin 4.3 g/dL 3.4-5. 0 Not Available [facility] (Lab) [address] [place], [address], 07/19/2021 18:58:02 07/20/19 22 07/19/2021 COMPR EHENS VANESSA METAB OLIC PANEL globulin 3.1 g/dL 2.6-4. 2 Not Available [facility] (Lab) [address] [place], [address], 07/19/2021 18:58:02 07/20/19 22 07/19/2021 COMPR EHENS VANESSA METAB OLIC PANEL A/G ratio 1.4 ratio 1.0-2. 0 Not Available [facility] (Lab) [address] [place], [address], 07/19/2021 18:58:02 07/20/19 22 07/19/2021 CPK TOTAL creatine kinase 88 U/L 30-135 Not Available [facility] (Lab) [address] [place], [address], 07/19/2021 18:57:50 01/09/20 22 01/10/2022 FOLAT E, SERUM /PLAS MA folate >20.0 NG/mL 2.76-2 0.0 Not Available [facility] (Lab) [address] [place], [address], 01/10/2022 16:38:20 01/09/20 22 01/10/2022 VITAM IN B12 (KRISH SHARON ) vb12 400 pg/mL 239-93 1 Not Available [facility] (Lab) [address] [place], [address], 01/10/2022 16:38:19 01/09/20 22 01/10/2022 VITAM IN D 25-HY DROXY vd25oh 14.3 NG/mL 30-100 low Vitam in D Statu s: Defic ient: <20 ng/mL Insuf ficie nt: 20-29 ng/mL Suffi cient : 30-10 0 ng/mL Not Available [facility] (Lab) [address] [place], [address], 01/10/2022 15:48:59 01/09/20 22 01/08/2022 IRON/ TIBC PANEL total iron binding capacity 445 mcg/d L 265-47 5 Not Available [facility] (Lab) [address] [place], [address], 01/08/2022 22:09:37 01/09/20 22 01/08/2022 IRON/ TIBC PANEL % transferrin saturation 4 % 20-55 low Not Available [facility] (Lab) [address] [place], [address], 01/08/2022 22:09:37 01/09/20 22 01/08/2022 IRON/ TIBC PANEL unsaturated iron bind capacity 425 mcg/d L 126-38 2 high Not Available [facility] (Lab) [address] [place], [address], 01/08/2022 22:09:37 01/09/20 22 01/08/2022 IRON/ TIBC PANEL iron 20 mcg/d L 42-175 low Not Available [facility] (Lab) [address] [place], [address], 01/08/2022 22:09:37 01/09/20 22 01/08/2022 CBC W/O DIFFE RENTI AL white blood cells 9.6 x10'3 /uL 4.2-10 .8 Not Available [facility] (Lab) [address] [place], [address], 01/08/2022 20:58:54 01/09/20 22 01/08/2022 CBC W/O DIFFE RENTI AL red blood cells 3.62 x10'6 /uL 3.80-5 .20 low Not Available [facility] (Lab) [address] [place], [address], 01/08/2022 20:58:54 01/09/20 22 01/08/2022 CBC W/O DIFFE RENTI AL hemoglobin 9.4 g/dL 12.0-1 5.6 low Not Available [facility] (Lab) [address] [place], [address], 01/08/2022 20:58:54 01/09/20 22 01/08/2022 CBC W/O DIFFE RENTI AL hematocrit 31.4 % 35.7-4 5.7 low Not Available [facility] (Lab) [address] [place], [address], 01/08/2022 20:58:54 01/09/20 22 01/08/2022 CBC W/O DIFFE RENTI AL mean red cell volume 86.7 fL 82.0-9 9.0 Not Available [facility] (Lab) [address] [place], [address], 01/08/2022 20:58:54 01/09/20 22 01/08/2022 CBC W/O DIFFE RENTI AL mean red cell hemoglobin 26.0 pg 27.0-3 3.0 low Not Available [facility] (Lab) [address] [place], [address], 01/08/2022 20:58:54 01/09/20 22 01/08/2022 CBC W/O DIFFE RENTI AL mean RBC HGB concentratio n 29.9 g/dL 31.0-3 6.0 low Not Available [facility] (Lab) [address] [place], [address], 01/08/2022 20:58:54 01/09/20 22 01/08/2022 CBC W/O DIFFE RENTI AL red cell distribution width 15.9 % 11.8-1 5.5 high Not Available [facility] (Lab) [address] [place], [address], 01/08/2022 20:58:54 01/09/20 22 01/08/2022 CBC W/O DIFFE RENTI AL platelets 383 x10'3 /uL 150-40 0 Not Available [facility] (Lab) [address] [place], [address], 01/08/2022 20:58:54 01/09/20 22 01/08/2022 CBC W/O DIFFE YARELIS GARCIA mean platelet volume 11.1 fL 9.0-12 .4 Not Available [facility] (Lab) [address] [place], [address], 01/08/2022 20:58:54 Result Notes None recorded. 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 3 18:11:59 Jamar thyroiditis 84837297 Active 2021 Not Available [facility] 3 18:11:59 Arthritis 9449103 Active 2021 Not Available [facility] 3 18:11:59 Basal cell carcinoma of face 637485928 Active 2021 Not Available [facility] 3 18:11:59 Obesity 017577927 Active 2021 Not Available [facility] 3 18:11:59 Chronic colitis 37144736 Active 2021 Not Available [facility] 3 18:11:59 Essential hypertension 09283190 Active 2021 Not Available [facility] 3 18:11:59 Optic neuritis 18528204 Active 2021 Not Available [facility] 3 18:11:59 Intervertebra l disc prolapse 16203803 Active 2021 Not Available [facility] 3 18:11:59 Hiatal hernia 49476754 Active 2021 Not Available [facility] 3 18:11:59 Uterine leiomyoma 84760841 Active 05/27/ 2022 Not Available [facility] 3 18:11:59 Notes:Some problems listed i n Document: #[id number] could not be added to this patient's [...] % 99 % 79 /min 99.5 [degF] 757796. 69 g 166 mm[Hg] 100 mm[Hg] Not Available [facility] 3 17:12:47 Date Recorded Body mass index (BMI) Body height Oxygen saturation Oxygen saturation in Arterial blood by Pulse oximetry Heart rate Body temperature Body weight Systolic blood pressure Diastolic blood pressure Provider Name and Address Organization Details Last Updated DateTime 2 36.8 kg/m2 167.64 cm 98 % 98 % 70 /min 96.8 [degF] 198219. 06 g 145 mm[Hg] 100 mm[Hg] Not Available [facility] 3 17:12:47 Date Recorded Body mass index (BMI) Body height Oxygen saturation Oxygen saturation in Arterial blood by Pulse oximetry Heart rate Body temperature Body weight Systolic blood pressure Diastolic blood pressure Provider Name and Address Organization Details Last Updated DateTime 2 37.2 kg/m2 167.64 cm 97 % 97 % 84 /min 99 [degF] 286499. 4 g 120 mm[Hg] 80 mm[Hg] Not Available [facility] 3 17:12:47 Date Recorded Body mass index (BMI) Body height Oxygen saturation Oxygen saturation in Arterial blood by Pulse oximetry Heart rate Body temperature Body weight Systolic blood pressure Diastolic blood pressure Provider Name and Address Organization Details Last Updated DateTime 2 37.3 kg/m2 167.64 cm 97 % 97 % 98 /min 97.8 [degF] 942122. 84 g 138 mm[Hg] 78 mm[Hg] Not Available [facility] 3 17:12:47 Date Recorded Body mass index (BMI) Body height Oxygen saturation Oxygen saturation in Arterial blood by Pulse oximetry Heart rate Body temperature Body weight Systolic blood pressure Diastolic blood pressure Provider Name and Address Organization Details Last Updated DateTime 2 36.6 kg/m2 167.64 cm 99 % 99 % 88 /min 96.8 [degF] 842713. 47 g 150 mm[Hg] 98 mm[Hg] Not Available [facility] 3 17:12:47 Social History Question Answer Notes LastModified by Organizat ion Details LastModified Time Tobacco Smoking Status Former Smoker Not Available [facility] 04/23/2022 17:12:25 Do You Have An Advance Directive? No [id number].68942 [id number] Information not available 04/23/2022 What Is Your Level Of Alcohol Consumption? None MIGRATION.00965 12287 Information not available 04/23/2022 Do You Wear A Helmet When Biking? No MIGRATION.74551 81359 Information not available 04/23/2022 What Is Your Level Of Caffeine Consumption? Heavy MIGRATION.07449 23275 Information not available 04/23/2022 In The 14 Days Before Symptom Onset, Have You Had Close Contact With A Laboratory-oneyda salvadored COVID-19 While That Case Was Ill? No MIGRATION.52371 22899 Information not available 04/23/2022 In The 14 Days Before Symptom Onset, Have You Had Close Contact With A Person Who Is Under Investigation For COVID-19 While That Person Was Ill? No MIGRATION.70764 27523 Information not available 04/23/2022 What Type Of Diet Are You Following? REGULAR MIGRATION.40495 69515 Information not available 04/23/2022 What Is The Highest Grade Or Level Of School You Have Completed Or The Highest Degree You Have Received? [id number] MIGRATION.62179 37161 Information not available 04/23/2022 Have There Been Any Changes To Your Family Or Social Situation? Yes MIGRATION.95401 98455 Information not available 04/23/2022 What Is The Fluoride Status Of Your Home? Unknown MIGRATION.67168 16737 Information not available 04/23/2022 When Did You Quit Smoking? 1-5yearssincelastci torrie MIGRATION.60475 95028 Information not available 04/23/2022 Are There Any Guns Present In Your Home? No MIGRATION.42713 93500 Information not available 04/23/2022 Do You Use Insect Repellent Routinely? Yes MIGRATION.99575 08109 Information not available 04/23/2022 Where Do You Live? [place] MIGRATION.62678 22133 Information not available 04/23/2022 Do You Have A Medical Power Of Diesel Stationary Engineer? No MIGRATION.46142 88240 Information not available 04/23/2022 What Was The Date Of Your Most Recent Tobacco Screening? 08/21/2021 MIGRATION.58506 79715 Information not available 04/23/2022 Do You Have Any Pets? Yes MIGRATION.93140 83222 Information not available 04/23/2022 What Is Your Relationship Status? MIGRATION.80061 46847 Information not available 04/23/2022 Do You Use Your Seat Belt Or Car Seat Routinely? Yes MIGRATION.14628 11027 Information not available 04/23/2022 Do You Have Smoke And Carbon Monoxide Detectors In Your Home? No MIGRATION.97184 55352 Information not available 04/23/2022 At What Age Did You Start Smoking Tobacco? 16 MIGRATION.06706 10208 Information not available 04/23/2022 Are You Passively Exposed To Smoke? Yes MIGRATION.42658 25380 Information not available 04/23/2022 Are There Any Smokers In Your House? Yes MIGRATION.71898 27798 Information not available 04/23/2022 Do You Participate In Social Media? Yes MIGRATION.56132 70787 Information not available 04/23/2022 Do You Feel Stressed (tense, Restless, Nervous, Or Anxious, Or Unable To Sleep At Night)? [id number] MIGRATION.50103 54025 Information not available 04/23/2022 Do You Use Any Illicit Or Recreational Drugs? No MIGRATION.35984 73360 Information not available 04/23/2022 Do You Use Sunscreen Routinely? No MIGRATION.88962 87014 Information not available 04/23/2022 How Many Years Have You Smoked Tobacco? 15 MIGRATION.14290 26469 Information not available 04/23/2022 Have You Recently Traveled Abroad? No MIGRATION.76368 58907 Information not available 04/23/2022 Are You Currently In School? No MIGRATION.16379 45177 Information not available 04/23/2022 Do You Have Any Dietary Restrictions? No MIGRATION.13711 87423 Information not available 04/23/2022 Do You Or Have You Ever Used Any Other Forms Of Tobacco Or Nicotine? No MIGRATION.39971 43706 Information not available 04/23/2022 Sex: Unknown Functional Status Question Answer Note LastModified by [employer] ion Details LastModified Time What is your exercise level? Occasional MIGRATION.[id number] 26 Information not available 04/23/2022 Mental Status None recorded. Family History Relationship Description Onset Age of this Age Resolved Age Notes LastModified by Organization Details LastModified Time Mother Jamar thyroiditis MIGRATION.981 [id number] Not available 04/23/2022 17:12:31 Mother Diabetes mellitus MIGRATION.166 [id number] Not available 04/23/2022 17:12:31 Mother Glaucoma MIGRATION.848 [id number] Not available 04/23/2022 17:12:31 Mother Diverticulit is MIGRATION.356 9602320 Not available 04/23/2022 17:12:31 Mother Cataract MIGRATION.942 [id number] Not available 04/23/2022 17:12:31 Father Malignant tumor of colon MIGRATION.629 0240454 Not available 04/23/2022 17:12:31 Father Malignant neoplasm of prostate MIGRATION.276 [id number] Not available 04/23/2022 17:12:31 Father Gallstone MIGRATION.454 [id number] Not available 04/23/2022 17:12:31 Father Kidney stone MIGRATION.0 30 [id number] Not available 04/23/2022 17:12:31 Father Chronic renal failure MIGRATION.496 [id number] Not available 04/23/2022 17:12:31 Father Anemia MIGRATION.530 [id number] Not available 04/23/2022 17:12:31 Medical History Condition Response BLINDNESS N RHEUMATIC FEVER N BLADDER PROBLEMS N KIDNEY STONES N MRSA N OTHER # 1 Y [...] HAVE YOU BEEN HOSPITALIZED OR SEEN IN [facility] IN THE PAST YEAR ? Y [...] virus, quadrivalent, preservative 2 completed Not Available [facility] 09/01/2022 18:12:00 COVID-19, mRNA, LNP-S, PF, 30 mcg/0.3 mL dose 1 completed Not Available [facility] 09/01/2022 18:12:00 COVID-19, mRNA, LNP-S, PF, 30 mcg/0.3 mL dose 1 completed Not Available [facility] 09/01/2022 18:12:00 COVID-19, mRNA, LNP-S, PF, 30 mcg/0.3 mL dose 1 completed Not Available [facility] 09/01/2022 18:12:00 COVID-19, mRNA, LNP-S, bivalent, PF, 50 mcg/0.5 mL or 25mcg/0.25 mL dose 3 completed Zuleima Johnson RN [facility] [place] [facility] [employer] [facility] 09/11/2022 15:15:29 Past Encounters Encounter ID Performer Location Encounter Start Date Encounter Closed Date Diagnosis/Indication Diagnosis SNOMED-CT Code Diagnosis ICD10 Code Diagnosis Note [id number] REY Singh Michelle[facility] [address] [facility] [address] [place] [address] 07/19/2021 00:00:00 07/19/2021 18:19:23 [id number] REY Singh [facility] [address] [facility] [address] [place] [address] 08/02/2021 00:00:00 08/02/2021 13:40:24 [id number] [facility] Endo Bautista [place] [address] [place] [address] 08/16/2021 00:00:00 08/16/2021 14:04:01 [id number] _ATHN_MIGR ATION_1 _ATHENA_M IGRATION_ DEFAULT_1 _1 , 08/21/2021 00:00:00 08/21/2021 15:09:23 [id number] Roberta Garcia MD [facility] [address] [facility] [address] [place] [address] 01/08/2022 00:00:00 01/08/2022 18:32:28 Health Concerns Section Related Observation LastModified by Organization Detai ls LastModified Time None Recorded Concern Status LastModified by Organization Details LastModified Time None Recorded Advance Directives Directive N: Payers None recorded. OBGyn Episode No OBEpisode recorded.
--- OUTSIDE RECORDS SUMMARY | 2024-06-29 11:05 | XMS_ITS | Encounter Summary ---
Author Organization [facility] [employer]aked [facility] Address [address] [place] [address] Care Team Providers Care Warp Spooler Name Role Phone Dafne Gomez Primary Care Provider + Encounter Details Date Type Department Care Team ([facility] Contact Info) Description 06/23/2024 Orders Only [facility] Oncology and Hematology [facility] [address] [place] [address] Kali Caputo MD [facility] [employer] [address] [place] [address] Social History Tobacco Use Types Packs/Day [...] Description 10/11/2024 11:00 AM CDT Office Visit [facility] Oncology and Hematology - [place] [place] [address] Kali Caputo MD [facility] [employer] [address] [place] [address] documented as of this encounter Procedures Procedure Name Priority Date/Time Associated Diagnosis Comments IRON LEVEL Routine 06/22/2024 8:14 AM CDT documented in this encounter Results * IRON LEVEL (06/22/2024 8:14 AM CDT) Blood us Kali Caputo MD CHEMISTRY ORDERABLES Final Resu lt documented in this encounter Visit Diagnoses Not on filedocumented in this encounter Care Teams Warp Spooler Relationship Specialty Start Date End Date Dafne Gomez DO [facility] [place] [phone] PCP - General Family Practice 08/18/23 documented as of this encounter
--- OUTSIDE RECORDS SUMMARY | 2024-06-29 11:06 | XMS_ITS | Clinical Summary ---
Author Organization [facility] Dominique Enrique Address [address] [place] [address] Care Team Providers Care Gasket Inspector Name Role Phone Dafne Gomez DO Primary [...] 20 mg by mouth daily. 4 Active multivitamin (DAILY-ANTONIO) tablet Take 1 Tablet by mouth daily. Active Active Problems Problem Noted Date Diagnosed Date DICK (iron deficiency anemia) 05/11/2023 Encounters Date Type Department Care Team Description 06/28/2024 11:15 AM CDT Office Visit [facility] Oncology and Hematology - [place] [address] [place] [address] Kali Caputo MD Iron deficiency anemia, unspecified iron deficiency anemia type (Primary Dx) 06/23/2024 Orders Only [facility] Oncology and Hematology - [place] [address] [place] [address] Kali Caputo MD 06/22/2024 Orders Only [facility] Oncology and Hematology [place] [address] [place] [address] Kali Caputo MD 06/07/2024 External Device Data STL ABSTRACTION Provider, Abstract 05/11/2024 External Device Data [facility] ABSTRACTION Provider, Abstract 05/03/2024 External Device Data [facility] ABSTRACTION Provider, Abstract 05/03/2024 External Device Data [place] ABSTRACTION Provider, Abstract 04/30/2024 External Device Data [place] ABSTRACTION Provider, Abstract 04/29/2024 External Device Data ST[place] ABSTRACTION Provider, Abstract 04/27/2024 External Device Data STL ABSTRACTION Provider, Abstract 04/21/2024 1:15 PM KRAFT DIGESTER OPERATOR Office Visit [facility] Oncology and Hematology [facility] [address] [place] [address] Kali Caputo MD Iron deficiency anemia, unspecified iron deficiency anemia type (Primary Dx) 04/20/2024 Orders Only [facility] Oncology and Hematology [place] [address] [place] [address] Kali Caputo MD 04/13/2024 External Device Data [...] (276 lb) 06/28/2024 10:50 AM CDT Height 167.6 cm (5' 6 ) 05/11/2023 11:05 AM CDT Body Mass Index 44.55 05/11/2023 11:05 AM CDT Plan of Treatment Upcoming Encounters Date Type Department Care Team (Late st Contact Info) Description 10/11/2024 11:00 AM CDT Office Visit [facility] Oncology and Hematology - [place] [address] [place] [address] [facility] [address] [place] [address] Kali Caputo MD [address] [facility] [address] [place] [address] Health Maintenance Due Date Last Done Comments Pre-Diabetes and Diabetes Screening 1975 DTAP/TDAP/TD VACCINES (1 - Tdap) 1992 HEPATITIS B VACCINES (1 of 3 - 19+ 3-dose series) 10/25 HPV/Cotest (21-29) 1994 CERVICAL CANCER SCREENING 11/16/2003 HPV/Cotest (30-65) [...] PM CDT CBC MIXED CELL DIFFERENTIAL Routine 05/26 3:43 PM CDT IRON LEVEL Routine 06/22/2024 8:14 AM CDT CBC WITH AUTODIFFERENTIAL Routine 2024 11:09 AM KRAFT DIGESTER OPERATOR MAMMO SCREENING BILAT Routine 10/08/2023 11:19 AM CDT from Last 3 Months or Most Recently Relevant to Health Maintenance Results * CBC WITH DIFFERENTIAL (06/22/2024 4:09 PM CDT) Blood us Kali Caputo MD HEMATOLOGY ORDERABLES Final Res ult * CBC MIXED CELL DIFFERENTIAL (06/22/2024 3:43 PM CDT) Blood us Kali Caputo MD HEMATOLOGY ORDERABLES Final Res ult * IRON LEVEL (06/22/2024 8:14 AM CDT) Blood us Kali Caputo MD CHEMISTRY ORDERABLES Final Resu lt * CBC WITH AUTODIFFERENTIAL (04/18/2024 11:09 AM KRAFT DIGESTER OPERATOR) Blood us Kali Caputo MD HEMATOLOGY ORDERABLES Final Res ult * MAMMO SCREENING BILAT (10/08/2023 11:19 AM CDT) Anatomical Region Laterality Modality Breast Bilateral Mammography us Kali Caputo MD MAMMO ORDERABLES Final Result from Last 3 Months or Most Recently Relevant to Health Maintenance Insurance [facility] Care Teams Gasket Inspector Relationship Specialty Start Date End Date Dafne Gomez DO [facility] [address] [place] [phone] PCP - General Family Practice 08/18/23
--- OUTSIDE RECORDS SUMMARY | 2024-06-29 11:06 | XMS_ITS ---
Author Organization [facility] [employer] Address [facility] [address] Care Team Providers Care Loop Tender Name Role Phone Osiris Vázquez Unavailable [phone] Social History Sex Assigned At : Social History Observation Description Sex Assigned At Female Encounters Encounter Location Date Provider Diagnosis [facility] Lydia [facility] [address] 11/19/2023 Osiris Vázquez Plan Of Treatment No Information Progress Notes * Tita BOUCHERDOB:1975 (3 0 yo F)Acc No.[id number]:11/19/2023 Patient: Tita HOSKINS Provider: Pillo VÁZQUEZ MD :1975 A ge:48 Y S ex:Female Date:11/19/2023 Phone: Address:[address] [place], [place] [phone] Subjective: * Chief Complaints: * * Medical History: Objective: * Vitals: Assessment: Plan: * Treatment: * Billing Information: * Visit Code: * Procedure Codes: * Electronic signature of Dariel Vázquez MD on 06/29/2024 at 11:05 AM CDT Sign off status: Pending * Provider: Pillo VÁZQUEZ MD Date: 0 11/19/2023 Generated for Hali dickson/Peyton/Eriksmitting on: 0 06/29/2024 11:05 AM CDT
[2024-06-29 11:08] VITALS: BP 126/80; PULSE 80; RESP 16; TEMP 36.6; O2SAT 95
[2024-06-29 11:09] LABS: Alanine Aminotransferase 83 U/L (6-35); Albumin Level 4.5 g/dL (3.5-5.1); Alkaline Phosphatase 103 U/L (38-126); Anion Gap 10 mmol/L (4-12); Aspartate Amino Transferase 59 U/L (14-36); Bilirubin,Total 0.5 mg/dL (0.2-1.3); Blood Urea Nitrogen 19 mg/dL (7-17); Calcium 9.4 mg/dL (8.4-10.2); Carbon Dioxide 28 mmol/L (22-30); Chloride 102 mmol/L (98-107); Estimated CRCL calculation 121 ml/min; Estimated Glomerular Filt Rate > 60; Glucose 165 mg/dL (65-110); Sodium 140 mmol/L (137-145)
[2024-06-29 11:30] VITALS: BP 136/88; PULSE 88; RESP 16; TEMP 36.6; O2SAT 96
[2024-06-29] MEDS: SODIUM CHLORIDE 0.9% IV 1,000 ML 999 ML (11:48)
--- NOTE | 2024-06-29 11:58 | ED_ITS ---
HPI - Abdominal Pain General Chief Complaint: Urogenital-Female Stated Complaint: nausea fever hematuria rash Time Seen by Provider: 06/29/24 11:12 Source: patient Mode of arrival: ambulatory Limitations: no limitations History of Present Illness HPI narrative: This is a 48-year-old female that presents to the emergency department for flank pain. Reports associated hematuria. Also reports she has had a petechial rash the last couple of weeks. Denies fever, vomiting, dysuria. Related Data Home Medications ?Medication ?Instructions ?Recorded ?Confirmed ?Last Taken ?Type vitamin B complex 1 tablet PO DAILY 06/02/23 05/25/24 03/14/24 History ipratropium 0.5 mg-albuterol 3 mg 3 ml inhalation QID PRN SOB 11/25/23 05/25/24 Unknown History (2.5 mg base)/3 mL nebulization soln cholecalciferol (vitamin D3) 25 25 mcg PO DAILY 12/23/23 05/25/24 03/14/24 History mcg (1,000 unit) capsule multivitamin 1 tablet PO DAILY 12/23/23 05/25/24 03/14/24 History ascorbic acid (vitamin C) 500 mg 500 mg PO DAILY 03/11/24 05/25/24 03/14/24 History tablet,extended release (C-500) omeprazole 20 mg capsule,delayed 10 mg PO DAILY 05/13/24 05/25/24 Unknown History release Allergies Allergy/AdvReac Type Severity Reaction Status Date / Time latex Allergy Mild Skin Verified 05/25/24 14:06 Irritation aloe AdvReac Intermediate DERMATITIS Verified 05/25/24 14:06 chlorine Allergy Intermediate Rash Uncoded 05/25/24 14:06 Review of Systems 2 Review of Systems: CONSTITUTIONAL: Denies fever GASTROINTESTINAL: Reports abdominal pain. Denies nausea, vomiting, or diarrhea. GENITOURINARY: Reports hematuria. Denies dysuria All systems reviewed & are unremarkable except as noted in HPI and below PMFSH Past Medical History Medical History History of miscarriage Sciatica Kidney stones staghorn Umbilical hernia Iron deficiency anemia Major depressive disorder Restless leg syndrome Family history of colon cancer in father Encounter for screening colonoscopy Nausea Jamar's disease Febrile seizures GERD (gastroesophageal reflux disease) Skin cancer Basal cell carcinoma, s/p Moh's, 2002 Arthritis Anxiety Asthma Allergies Hyperlipidemia Hypertension CVA (cerebral vascular accident) Received tPA 11/2022, transferred to [facility], discharged without antiplatelet therapy. Familial Mediterranean fever Surgical History Surgical History H/O: hysterectomy [place] teeth extracted Hx of dilation and curettage H/O colposcopy with cervical biopsy Family History Family History Father Alcoholism Carcinoma of colon Diabetes mellitus Hypertension Malignant neoplasm of prostate Mother Diabetes mellitus Hypertension Depression Thyroid disorder Daughter Asthma Depression Grandparent Alcoholism Cancer Cerebrovascular accident Social History Social History Smoking packs per day: 0.5 Smoking cigarettes per day: 10.0 Years smoked: 7 Smoking pack-years: 3.50 Smoking status: Former smoker Tobacco type: cigarettes Smoking end date: 03/11/18 Alcohol intake: never Substance use: current Substance use type: marijuana Other substance usage details: Daily Do You Feel Safe in your Home?: Yes Lack of Transportation: No Lack of Food: Never True Current Housing: I Have Housing Concerned About Future Housing: No Difficulty Paying Gas/Electric Bills: No Difficulty Paying for Meds: No Currently Unemployed: No Education: High School Diploma/GED Difficulty w/ Childcare or Family Care: No Living arrangements: with family Spiritual care concerns: No Exam 2 Narrative: GENERAL: Well-appearing, well-nourished, and in no acute distress. HEAD: Normocephalic, atraumatic. EYES: EOMI. CHEST: Clear to auscultation. No respiratory distress. No wheezes rales or rhonchi HEART: Regular rate and rhythm. No murmur heard. Normal peripheral pulses. ABDOMEN: Soft, nontender, nondistended, normal active bowel sounds. EXTREMITIES: Normal range of motion. No edema. SKIN: Warm, dry. Petechial rash noted on the arms, chest and back NEURO: No focal deficits. Alert and oriented x3. PSYCH: Normal mood and affect Course Course Emergency Course: Patient updated on her workup and agrees with plan of care Vital Signs Vital signs: Vital Signs Temperature 97.6 F 06/29/24 10:22 Pulse Rate 87 05/07/25 10:22 Respiratory Rate 18 06/29/24 10:22 Blood Pressure 153/105 H 06/29/24 10:22 Pulse Oximetry 98 06/29/24 10:22 Oxygen Delivery Room Air 06/29/24 10:22 Temperature 97.9 F 06/29/24 13:30 Pulse Rate 89 06/29/24 13:30 Respiratory Rate 18 06/29/24 13:30 Blood Pressure 148/90 H 06/29/24 13:30 Pulse Oximetry 100 06/29/24 13:30 Oxygen Delivery Room Air 06/29/24 10:22 MDM - Abdominal Pain MDM Narrative Medical decision making narrative: Patient presents to the emergency department for flank pain and hematuria. She is afebrile and nontoxic appearing. Her vitals are stable. CBC with mild leukocytosis to 12.6. Metabolic panel with normal appearing kidney function. Urine with red blood cells, no evidence of infection. CT abdomen and pelvis shows nonobstructing kidney stones. Patient additionally endorsing a petechial rash that has been present over the last couple of weeks. Her platelets are normal. PT, INR, PTT are also normal. Patient instructed to have further follow-up with dermatology for this. She was given warnings to return to the ER Differential Diagnosis Differential diagnosis: Likely calculus of kidney and other (UTI, vasculitis, ) Lab Data Attestation: I reviewed the patient's lab results. 06/29/24 10:53 06/29/24 10:53 Labs: Lab Results 06/29/24 06/29/24 Range/Units 10:53 11:55 WBC 12.6 H (4.5-10.0) K/mm3 RBC 5.11 (4.2-5.4) M/mm3 Hgb 12.8 (12.0-15.0) g/dL Hct 41.8 (37.0-47.0) % MCV 81.8 (80-100) fl MCH 25.0 L (26-34) pg MCHC 30.6 L (32-36) g/dl RDW 19.1 H (11.5-14.5) % Plt Count 283 (150-375) k/mm3 MPV 10.4 (7.4-10.4) fl Immature Gran % (Auto) 0.5 (0-0.5) % Neut % (Auto) 72.8 (45.5-73.1) % Lymph % (Auto) 18.3 (18.3-44.2) % [place] % (Auto) 4.6 (2.6-8.5) % Eos % (Auto) 2.9 (0-4.4) % Baso % (Auto) 0.9 (0.2-1.2) % Lymph # (Auto) 2.31 (0.9-3.2) K/mm3 [place] # (Auto) 0.6 (0.1-0.6) K/mm3 Eos # (Auto) 0.4 H (0-0.3) K/mm3 Baso # (Auto) 0.1 (0.0-0.1) K/mm3 Abs Immat Gran (auto) 0.06 H (0.00-0.031) K/mm3 Absolute Neuts (auto) 9.2 H (1.3-6.7) K/mm3 Absolute Nucleated RBC 0.000 (0.0-0.012) K/mm3 Nucleated RBC % 0.0 (0.0-0.2) % PT 13.7 (11.1-14.7) Seconds INR 1.0 APTT 28.1 (22.3-36.8) Seconds Sodium 140 (137-145) mmol/L Potassium 4.0 (3.4-5.0) mmol/L Chloride 102 (98-107) mmol/L Carbon Dioxide 28 (22-30) mmol/L Anion Gap 10 (4-12) mmol/L BUN 19 H (7-17) mg/dL Creatinine 0.64 L (0.7-1.0) mg/dL Estim Creat Clear Calc 121 ml/min Estimated GFR > 60 (59 - ) Glucose 165 H (65-110) mg/dL Calcium 9.4 (8.4-10.2) mg/dL Total Bilirubin 0.5 (0.2-1.3) mg/dL AST 59 H (14-36) U/L ALT 83 H (6-35) U/L Alkaline Phosphatase 103 (38-126) U/L Total Protein 8.0 (6.3-8.2) g/dL Albumin 4.5 (3.5-5.1) g/dL Urine Color Yellow (Yellow) Urine Appearance Clear (Clear) Urine pH 6.5 (5.0-9.0) Ur Specific [place] 1.021 (1.001-1.035) Urine Protein Trace (Negative) mg/dL Urine Glucose (UA) Negative (Negative) mg/dL Urine Ketones Negative (Negative) mg/dL Ur Blood (Man) 3+ H (Negative) Urine Nitrate Negative (Negative) Urine Bilirubin Negative (Negative) Urine Urobilinogen 0.2 (<2.0) mg/dL Leukocyte Esterase Rfl Negative (Negative) ALISHA/UL Urine RBC >100 H (0-2) /hpf Urine WBC 0-5 (0-3) /hpf Ur Squamous Epith Cells None seen (Few) /hpf Urine Bacteria None seen /hpf Urine Casts 0-2 Imaging Data Radiologist's impression: ITS Impressions Abdomen/Pelvis CT 06/29/24 13:32 IMPRESSION: 1. Bilateral nonobstructing nephrolithiasis. 2. Hepatomegaly with diffuse hepatic steatosis. 3. Moderate bilateral fat-containing inguinal hernias. Critical Care Time Critical Care Time Critical Care Time: No Discharge Plan Discharge Clinical Impression: Petechial rash Hematuria Qualifiers: Hematuria type: gross Qualified Code(s): R31.0 - Gross hematuria Patient Disposition: Home Condition: Stable Instructions: Hematuria (ED) Additional Instructions: Return to the ER if you experience fever, abdominal pain with nausea and vomiting, you are unable to keep down liquids or solids, pain or burning with urination, or any other symptoms that are concerning to you Remain well hydrated. Avoid anti-inflammatories Follow up with urology and dermatology ([facility] if needed) Patient Language: Khmer Prescriptions: No Action vitamin B complex Tablet 1 tablet PO DAILY Patient Comments: Says takes at HS omeprazole 20 mg capsule,delayed release(DR/EC) 10 mg PO DAILY multivitamin Tablet 1 tablet PO DAILY Patient Comments: Says takes at HS cholecalciferol (vitamin D3) 25 mcg (1,000 unit) capsule 25 mcg PO DAILY Patient Comments: Says takes at HS escitalopram oxalate [Lexapro] 20 mg tablet 20 mg PO DAILY Qty: 90 1RF Patient Comments: Takes at HS desvenlafaxine succinate 25 mg tablet extended release 24 hr 25 mg PO DAILY Qty: 90 0RF ascorbic acid (vitamin C) [C-500] 500 mg tablet extended release 500 mg PO DAILY atorvastatin 80 mg tablet 80 mg PO QHS Qty: 90 3RF (DME) Aerochamber MV Spacer See Rx Instructions .Route Qty: 1 0RF Rx Instructions: Use with inhaler albuterol sulfate 90 mcg/actuation HFA aerosol inhaler 2 puff inhalation Q4H PRN (Reason: shortness of breath or wheezing) Qty: 8.5 0RF Patient Comments: . Rx Instructions: Use with spacer ipratropium-albuterol 0.5 mg-3 mg(2.5 mg base)/3 mL solution for nebulization 3 ml inhalation QID PRN (Reason: SOB) losartan-hydrochlorothiazide 100-25 mg tablet 1 tablet PO DAILY Qty: 90 1RF Patient Comments: Says takes at HS fluticasone propion-salmeterol [Advair HFA] 115-21 mcg/actuation HFA aerosol inhaler 2 puff inhalation BID Qty: 12 5RF Rx Instructions: administer with spacer eszopiclone [Lunesta] 3 mg tablet 3 mg PO QHS Qty: 1 0RF hydroxyzine HCl 25 mg tablet 25 mg PO QID Qty: 90 5RF Patient Comments: Says takes 2 tabs at HS Rx Instructions: Take 1/2 tab at onset of panic attack, Take 1 tablet at bedtime. No more than 4 a day. levothyroxine 25 mcg tablet 25 mcg PO DAILY Qty: 90 1RF Patient Comments: Says takes at HS Follow-up/Referrals: Dafne Gomez DO [Primary Care Provider] -
--- OUTSIDE RECORDS SUMMARY | 2024-06-29 12:12 | XMS_ITS | Continuity of Care Document ---
Author Organization [facility] Address [address] [place] [address] Phone Care Team Providers Care Customs Guard Name Role Phone Shanae Malcolm MD, Maddison Doyle Unavailable Brinda vailable Allergies, Adverse Reactions, Alerts Substance Reaction Status Criticality No Known allergies Medications Medication Instructions Dosage Effective Dates (start - stop) Status Comments levothyroxine 88 mcg Cap take 1 capsule (88MCG) by oral route every day 88 MCG - Active Procedures Procedure Date ROUTINE VENIPUNCTURE OFFICE/OUTPATIENT VISIT, EST OFFICE/OUTPATIENT VISIT, EST ROUTINE VENIPUNCTURE OFFICE/OUTPATIENT VISIT, EST OFFICE/OUTPATIENT VISIT, EST No Charge OFFICE/OUTPATIENT VISIT, EST X-RAY EXAM OF FOOT OFFICE/OUTPATIENT VISIT, EST WELL EXAM, EST, AGE 18-39 URINALYSIS NONAUTO W/O SCOPE OFFICE/OUTPATIENT VISIT, EST STREP A ASSAY W/OPTIC OFFICE/OUTPATIENT VISIT, EST PREV VISIT, EST, AGE 18-39 SPECIMEN HANDLING PCN Credit Transfers Advance Directives Directive Yes / No Effective Date File Name No Information Encounters Encounter Description Practice Location Reason(s) For Visit Diagnoses Date Provider Providers Copied on Encounter [facility], [address], [place], [place], [id number] , [place] tel:[phone] [facility] No Information 4 Shanae Doyle. [address] , [place], [place], [address], [place]. tel:[phone] OFFICE/OUTPA TIENT VISIT, EST [facility], [address], [place], [place], [id number] , [place] tel:[phone] [facility] Medicine f/u meds (chief complaint) HypothyroidismNeopla sm of uncertain behavior of skinAsthma Oct- 2 Shanae Doyle. [address] [facility], [place], [place], [id number], [place]. tel:[phone] OFFICE/OUTPA TIENT VISIT, EST [facility], [address], [place], [place], [id number] , [place] tel:[phone] [facility] No Information 1 Shanae Doyle. [address] , [place], [place], [address], [place]. tel:[phone] OFFICE/OUTPA TIENT VISIT, EST [facility], [address], [place], [place], [id number] , [place] tel:[phone] [facility] No Information 0 Shanae Doyle. [address] [facility], [place], [place], [address], [place]. tel:[phone] OFFICE/OUTPA TIENT VISIT, EST [facility], [address], [place], [place], [address] , [place] tel:[phone] [facility] No Information 0 Shanae Doyle. [address] [facility], [place], [place], [address], [place]. tel:[phone] [facility], [address], [place], [place], [id number] , [place] tel:[phone] [facility] No Information [address] Shanae Doyle. [address] [facility], [place], [place], [address], [place]. tel:[phone] OFFICE/OUTPA TIENT VISIT, EST [facility], [address], [place], [place], [id number] , [place] [phone] [facility] No Information 9 Shanae Doyle. [address] [facility], [place], [place], [address], [place]. tel:[phone] [facility], [address], [place], [place], [id number] , [place] tel:[phone] [facility] No Information 9 Billy Montanez. [address], [place], [place], [address], [place]. tel:[phone] Referring Provider: Samantha Lopez, [address], [place], [address] . tel:[phone] OFFICE/OUTPA TIENT VISIT, EST [facility], [address], [place], [place], [id number] , [place] tel:[phone] [facility] No Information 9 Neil Singh. [address], [place], [place], [address], [place]. tel:[phone] Referring Provider: Ryan Amador, [address] [facility], [place], [address] . tel:[phone] WELL EXAM, EST, AGE 18-39 [facility], [address], [place], [place], [address] , [place] tel:[phone] [facility] No Information 9 Brea Dennison. [address], [address], [place], [place], [id number], [place]. tel:[phone] OFFICE/OUTPA TIENT VISIT, EST [facility], [address], [place], [place], [id number] , [place] tel:[phone] [facility] No Information 9 Neil Singh. [address], [place], [place], [address], [place]. tel:[phone] Referring Provider: Ryan Amador, [address], [place], [address] . tel:[phone] OFFICE/OUTPA TIENT VISIT, EST [facility], [address], [place], [place], [address] , [place] [phone] [facility] No Information [address] Shanae Doyle. [address], [place], [place], [address], [place]. tel:[phone] PREV VISIT, EST, AGE 18-39 [facility], [address], [place], [place], [id number] , [place] [phone] [facility] No Information 8 Shanae Doyle. [address], [place], [place], [address], [place]. tel:[phone] [facility], [address], [place], [place], [address] , [place] [phone] [facility] No Information 8 Brea Dennison. [address], [address], [place], [place], [address], [place]. tel:[phone] Family History Family Member Type Diagnosis Age At Onset No Information Payers Payer name Insurance type Covered libertarian ID Delphine rosas(s) [employer] [id number] Social History Type Description Quantity Date Captured Comments Sex Female Smoking Status No Information Chief Complaint And Reason For Visit No Information Reason For Referral Reason For Referral No Information Plan Of Treatment Date Type Action Status Referral Ordered: Referral: Dermatology. Appointment date/timeframe: 11/11/2011 ordered History Of Present Illness Encounter Date Complaint History Of Prese nt Illness No Information Functional Status Date Functional Assessmen t No Information Instructions Date Instruction Additional Infor mation No Information Assessments Type Assessment Date No Information Patient Care Teams Name Effective Dates (start - stop) Status Members No Information
--- OUTSIDE RECORDS SUMMARY | 2024-06-29 12:12 | XMS_ITS | Clinical Summary ---
Author Organization [facility] Address [facility] [place] [address] Care Team Providers Care Blow Mold Technician Name Role Phone None, Provider MD Primary [...] HPV MRNA E6/E7 Routine 02/27/2017 5:04 PM VOICE DATA COMMUNICATIONS ENGINEER from Last 3 Months or Most Recently Relevant to Health Maintenance Results * HPV MRNA E6/E7 (02/27/2017 5:04 PM VOICE DATA COMMUNICATIONS ENGINEER) HPV MRNA E6/E7 Not Detected NOT DETECTED 03/04/2017 11:36 PM VOICE DATA COMMUNICATIONS ENGINEER Glassful BENOIT BUCKNER Comment: This test was performed using the APTIMA(R) HPV Assay([employer] - [employer]This assay detects E6/E7 viral messenger RNA (mRNA)from 14 high-risk HPV types (16,18,31,33,35,39,45,51,52,56,58,59,66,68).For additional information please refer to:http://education.Jike Xueyuan.[employer]/faq/SUX102a2(This link is being provided for informational/educational purposes only.)Test Performed by Britta ErvinAmigo [employer] Seth Hudson [place],[address] [place] [address] [id number] Bauer M.D., Ph.D., Director of [phone], [facility] [id number] FLUID SPECIMEN / Unknown 02/27/2017 5:04 PM VOICE DATA COMMUNICATIONS ENGINEER 02/27/2017 5:04 PM VOICE DATA COMMUNICATIONS ENGINEER us Generic Conversion Md MOY PATHOLOGY/CYTOLOGY LETTY YL Final Result [facility]IOGEN[facility] WILSON [address] [place] [address], [place] [phone] from Last 3 Months or Most Recently Relevant to Health Maintenance Insurance Care Teams Blow Mold Technician Relationship Specialty Start Date End Date None, Provider, PCP - General 11/14/18
--- OUTSIDE RECORDS SUMMARY | 2024-06-29 12:12 | XMS_ITS | Encounter Summary ---
Author Organization [facility] [employer] [facility] Address [address] [place] [address] Care Team Providers Care Field Sales Manager Name Role Phone Dafne Gomez Primary Care Provider + Encounter Details Date Type Department Care Team ([facility] Contact Info) Description 06/23/2024 Orders Only [facility] Oncology and Hematology [facility] [address] [place] [address] Kali Caputo MD [facility] [address] [place] [address] Social History Tobacco Use Types Packs/Day [...] Description 10/11/2024 11:00 AM CDT Office Visit [facility] Oncology and Hematology - [address] [place] [address] Kali Caputo MD [facility] [address] [place] [address] documented as of this encounter Procedures Procedure Name Priority Date/Time Associated Diagnosis Comments IRON LEVEL Routine 06/22/2024 8:14 AM CDT documented in this encounter Results * IRON LEVEL (06/22/2024 8:14 AM CDT) Blood us Kali Caputo MD CHEMISTRY ORDERABLES Final Resu lt documented in this encounter Visit Diagnoses Not on filedocumented in this encounter Care Teams Field Sales Manager Relationship Specialty Start Date End Date Dafne Gomez DO [facility] [phone] PCP - General Family Practice 08/18/23 documented as of this encounter
--- OUTSIDE RECORDS SUMMARY | 2024-06-29 12:12 | XMS_ITS | Encounter Summary ---
Author Organization [facility] Address [address] [place] [address] Care Team Providers Care Aircraft Electronics Technical Officer Name Role Phone Dafne Gomez Primary Care Provider + Encounter Details Date Type Department Care Team ([facility] Contact Info) Description 06/22/2024 Orders Only [facility] Oncology and Hematology [facility] [address] [place] [address] Kali Caputo MD [facility] [address] [employer] [address] [place] [phone] Social History Tobacco Use Types Packs/Day [...] Description 10/11/2024 11:00 AM CDT Office Visit [facility] Oncology and Hematology - [address] [place] [address] Kali Caputo MD [facility] [employer] [address] [place] [phone] documented as of this encounter Procedures [...] on filedocumented in this encounter Care Teams Aircraft Electronics Technical Officer Relationship Specialty Start Date End Date Dafne Gomez DO [address] [place] [address] [place] [address] PCP - General Family Practice 08/18/23 documented as of this encounter
--- OUTSIDE RECORDS SUMMARY | 2024-06-29 12:12 | XMS_ITS | Clinical Summary ---
Author Organization [facility] Address [address] [place] [address] Care Team Providers Care Sr. Social Media & Mobile Manager Name Role Phone None, Physician Primary Care Provider Unavailabl e Source Comments [facility],non-owned Affiliates and Associated Physician Practices is amultiple site organization consisting of ambulatory clinics and hospital sitesin [place], [place], [place] and [place]. This disclosure is being madepursuant to the Care Everywhere program and may not contain all information available regarding this patient. Last updated 17.[facility] Allergies Active Allergy Reactions Criticality Noted Date [...] hours as needed Active aspirin effervescent (Mj [place]) 325 MG efferv tablet Take 1 (one) [...] Recorded Patient Health Questionnaire-2 Score 0 12/04/2022 [facility] - Occupational [...] place to sleep or slept in a residential (including now)? No 12/02/2022 Comments No Sex and Gender Information Value Date Recorded Sex Assigned at Not on file Legal Sex Female 6:40 PM CDT Gender Identity Not on file Sexual Orientation Not on file Last Filed Vital Signs Vital Sign Reading Time Taken Comments Blood Pressure 127/86 01/01/2023 9:23 AM STUDENT SUPPORT COUNSELOR Pulse 76 01/01/2023 9:23 AM STUDENT SUPPORT COUNSELOR Temperature 36.9 C (98.4 F) 12/04/2022 11:36 AM CDT Respiratory Rate 12 01/01/2023 9:23 AM STUDENT SUPPORT COUNSELOR Oxygen Saturation 100% 12/04/2022 11:36 AM CDT Inhaled Oxygen Concentration - - Weight 111.1 kg (245 lb) 01/01/2023 9:23 AM STUDENT SUPPORT COUNSELOR Height 167.6 cm (5' 6 ) 12/03/2022 [...] 7 - 26 mg/dL 12/04/2022 3:22 AM [facility] Creatinine 0.68 0.56 - 0.96 mg/dL 12/04/2022 3:22 AM [facility] Sodium 139 136 - 145 mmol/L 12/04/2022 3:22 AM [facility] Potassium 3.3(L) 3.5 - 4.5 mmol/L 12/04/2022 3:22 AM [facility] Chloride 103 98 - 107 mmol/L 12/04/2022 3:22 AM [facility] CO2 24 22 - 29 mmol/L 12/04/2022 3:22 AM [facility] Glucose 105 70 - 115 mg/dL 12/04/2022 3:22 AM [facility] Calcium 9.0 8.4 - 10.2 mg/dL 12/04/2022 3:22 AM CDT [facility] Anion Gap 12 6 - 16 12/04/2022 3:22 AM [facility] BUN/Creatinine Ratio 25(H) 7 - 23 12/04/2022 3:22 AM [facility] Osmolality Calculated 290 275 - 295 mOsm/kg 12/04/2022 3:22 AM [facility] eGFR by CKD-EPI >90 >=90 mL/min/1.7 3 m2 12/04/2022 3:22 AM [facility] Blood BLOOD SPECIMEN / Unknown Lab Venipuncture / Unknown 12/04/2022 2:08 AM CDT 12/04/2022 2:53 AM CDT us Juanita Alvarez MD LAB - CHEMISTRY ORDERABLES Fin al Result [facility] [address] [place] [address], [facility] [phone] from Last 3 Months or Most Recently Relevant to Health Maintenance Insurance [facility] COMMERCIAL GENERIC COMMERCIAL GENERIC [facility] GENER[facility] COMMERCIAL GENERIC [facility] COMMERCIAL GENERIC [facility] GENERIC Advance Directives * Full Code (Latest Code Status on File) Date Activated Date Inactivated Comments 12/02/2022 7:46 PM 12/04/2022 5:26 PM Care Teams Sr. Social Media & Mobile Manager Relationship Specialty Start Date End Date None, Physician [address] [place] [address] PCP - General 01/01/23
--- OUTSIDE RECORDS SUMMARY | 2024-06-29 12:12 | XMS_ITS | Encounter Summary ---
Author Organization [facility] Address [address] [place] [address] Care Team Providers Care Community Organizer Name Role Phone Dafne Gomez Primary Care Provider + Reason for Visit * Reason Comments Follow Up Encounter Details Date Type Department Care Team (Late st Contact Info) Description 06/28/2024 11:15 AM CDT Office Visit [facility] Oncology and Hematology - [address] [facility] [address] [place] [address] Kali Caputo MD [address] [facility] [address] [place] [address] Iron deficiency anemia, unspecified iron [...] Description 10/11/2024 11:00 AM CDT Office Visit [facility] Oncology and Hematology - [place] [facility] [address] [place] [address] Kali Caputo MD [address] [facility] [address] [place] [address] Scheduled Orders Name Type Priority [...] Primary documented in this encounter Care Teams Community Organizer Relationship Specialty Start Date End Date Dafne Gomez DO [facility] [place] [phone] PCP - General Family Practice 08/18/23 documented as of this encounter
--- OUTSIDE RECORDS SUMMARY | 2024-06-29 12:13 | XMS_ITS | Clinical Summary ---
Author Organization [facility] Dominique Enrique Address [address] [place] [address] Care Team Providers Care Instrument Mechanic Name Role Phone Dafne Gomez DO [facility] - [place] [address] [place] [address] Kali Caputo MD Iron deficiency anemia, unspecified iron deficiency anemia type (Primary Dx) 06/23/2024 Orders Only [facility] Oncology and Hematology - [place] [place] [address] Kali Caputo MD 06/22/2024 Orders Only [facility] Oncology and Hematology [address] [place] [address] Kali Caputo MD 06/07/2024 External Device Data STL ABSTRACTION Provider, Abstract 05/11/2024 External Device Data ST[place] ABSTRACTION Provider, Abstract 05/03/2024 External Device Data ST[place] ABSTRACTION Provider, Abstract 05/03/2024 External Device Data ST[place] ABSTRACTION Provider, Abstract 04/30/2024 External Device Data ST[place] ABSTRACTION Provider, Abstract 04/29/2024 External Device Data ST[place] ABSTRACTION Provider, Abstract 04/27/2024 External Device Data STL ABSTRACTION Provider, Abstract 04/21/2024 1:15 PM COMPUTER SCIENCES PROFESSOR Office Visit [facility] Oncology and Hematology [facility] [address] [place] [address] Kali Caputo MD Iron deficiency anemia, unspecified iron deficiency anemia type (Primary Dx) 04/20/2024 Orders Only [facility] Oncology and Hematology [address] [place] [address] Kali Caputo MD 04/13/2024 External Device Data [...] [facility] - [place] [address] [place] [address] [address] [place] [address] Kali Caputo MD [address] [facility] [address] [place] [address] Health Maintenance Due Date Last [...] CBC WITH AUTODIFFERENTIAL Routine 2024 11:09 AM COMPUTER SCIENCES PROFESSOR MAMMO SCREENING BILAT Routine 10/08/2023 11:19 AM [...] * CBC WITH AUTODIFFERENTIAL (04/18/2024 11:09 AM COMPUTER SCIENCES PROFESSOR) Blood us Kali Caputo MD HEMATOLOGY ORDERABLES Final Res ult * MAMMO SCREENING BILAT (10/08/2023 11:19 AM CDT) Anatomical Region Laterality Modality Breast Bilateral Mammography us Kali Caputo MD MAMMO ORDERABLES Final Result from Last 3 Months or Most Recently Relevant to Health Maintenance Insurance [facility] Care Teams Instrument Mechanic Relationship Specialty Start Date End Date Dafne Gomez DO [facility] [place] [phone] PCP - General Family Practice 08/18/23
--- OUTSIDE RECORDS SUMMARY | 2024-06-29 12:13 | XMS_ITS | Continuity of Care Document ---
Author Name [facility] Organization [facility] Care Team Providers Care Byproduct Engineer Name Role Phone [facility] Unavailable Unavailable Problems Combined list of problems from Department of Defense and Veterans Affairs facilities. It does not include entries that were removed or entered in error. Problem Status Onset Date Problem Type Date of Resolution Comments Source PYREXIA Inactive Condition [facility] Fever Inactive Condition Pt to walk in for recurrent fevers. [facility] Vaginal Pap Smear Inactive Condition [facility] Cervical Pap Smear Inactive Condition [facility] Gynecologic [facility] Contraceptive Management Active Condition [facility] visit for: screening exam malignant neoplasm breast Inactive Condition [facility] Pelvic Exam (Internal) Active Condition Mood/Depression : stable, pt has few weeks of Zoloft remaining. Instructed pt to call clinic 4-5 days prior to run out of meds, leave [facility] for med refill...... will provide 90 day supply of Zoloft 100mg daily.Of note: , will no longer have after . [facility] THYROID NODULE, SOLITARY Active Condition Pt notes that a previous FNAB at [employer] was benign, pt advised that the nodule would need to be re-aspirated if the lesion increases in size. [facility] Gynecologic Service Prescrip Of Contracept Agent - Repeat Rx Active Condition Pt overdue for PapSmear; due in . Refill current OCP until can be seen for CPE/well woman exam for breast/pap/pelvi c. [facility] ESOPHAGEAL REFLUX Active Condition Ne w onset, trial of acute management with Zantac and addition of Prilosec fo terminal gauger supervisor therapy. [facility] GOITER (DIFFUSE NONTOXIC) Active Condition Thyroid US foun d mass [...] visit for: administrative purpose Inactive Condition [facility] FEVER OF UNKNOWN ORIGIN Inactive Condition [facility] LUMBAGO Active Condition [facility] Other Physical Therapy Inactive [...] HEP. Pt verbalized understanding and appreciation. [facility] INTERVERTEBRAL DISC DEGENERATION - LUMBAR Active Condition [facility] muscle weakness Active Condition [facility] HERNIATED DISC (L5 - S1) Active Condition Improving with physical therapy. Reviewed MRI findings-- slight disc protrusion at L5-S1, will consult neurosurg to discuss management options and fpc prognosis. [facility] visit for: services physical Inactive Condition [facility] HYPOTHYROIDISM Active Condition [facility] DYSTHYMIC DISORDER (DEPRESSIVE NEUROSIS) Active Condition Reviewed result s only. Sub optimal control. Increase Zoloft to 150mg daily. (Dose not increased at last visit). F/u 1 mo. [facility] joint pain, localized in the shoulder Active Condition [facility] DEPRESSION Active Condition [facility] ANXIETY DISORDER NOS Active Condition [facility] UPPER RESPIRATORY INFECTION Inactive Condition [facility] Allergies, Adverse Reactions, Alerts Combined list of allergies from Department of Defense and Veterans Affairs facilities. It does not include entries that were removed or entered in error. Substance Category Reaction Severity Reaction type Status Date Reported Comments Source No Known Allergies Drug allergy (disorder) active [facility] Encounters Combined list of: 1) Encounters from Department of Veterans Affairs facilities going backup to the last 18 months, not all VA inpatient encounters are included; 2) Encounters from the Department of Defense facilities going backup to 280 months. Location Location Details Encounter Type Encounter Number Reason For Visit Attending Provider ADM Date DC Date Status Disposition Source [facility] Pr[facility] Resource [facility]) TELE CONSULT [id number] aleara GLADYS Mckenzie 10/05 [facility]( am Prac Resourc e Sharing ) [facility]) OUTPATIENT [id number] sore throat and congest GLADYS Low 12/31 Released w/o Limitations [facility](F amily Practic e Contrac t Clinic) [facility]) OUTPATIENT [id number] SHOULDE GLADYS ANGELES M 05/09 Released w/o Limitations [facility] Practic e [facility]rac t [facility]) [facility]) TELE CONSULT [id number] Med refGLADYS Saenz M 06/03 [facility](F [facility] Practic e [facility]rac t Clinic) [address] [place] [address]([facility]) TELE CONSULT [id number] Medicat ion refill GLADYS FLORENCE M 07/30 [facility](F am[facility] Practic e Contrac t Clinic) [facility]) OUTPATIENT [id number] OSS GLADYS FLORENCE M 11/27 Released w/o Limitations [facility](F amily Practic e Contrac t Clinic) [facility]) OUTPATIENT [id number] WAYNE BLAKE 08/14 Released w/o Limitations [facility]) [facility](Phy Ther FE) OUTPATIENT [id number] Lumbago HUMAIRA WAKEFIELD 09/03 Released w/o Limitations [facility]) [facility]) OUTPATIENT [id number] mri results WAYNE BLAKE 09/04 Released w/o Limitations [facility]) [facility]) OUTPATIENT [id number] back ALEXANDRA SERNA 09/08 Released w/o Limitations [facility]) [facility]) OUTPATIENT [id number] back GUDELIA MCCORMACK 09/10 Released w/o Limitations [facility]) [facility]) OUTPATIENT [id number] back SCARLETT HART 09/11 Released w/o Limitations [facility]) [facility]) TELE CONSULT [id number] mri results need to be address ed lab results were negWAYNE Lobato 09/11 [facility]) [facility](Phy Ther FE) OUTPATIENT [id number] back SCARLETT HART 09/16 Released w/o Limitations [facility]) [facility](Neurosu rgery [facility]) OUTPATIENT [id number] HERNIAT ED DISC (L5 - S1) ELTON GARCIA 09/22 Released w/o Limitations [facility](Clive rosurge ry [facility]) [facility]hy [facility]) OUTPATIENT [id number] back HUMAIRA WAKEFIELD 09/23 Released w/o Limitations [facility]) [facility]hy [facility]) OUTPATIENT [id number] back TRENTON, YOANNA H 09/30 Released w/o Limitations [facility]) [facility]) OUTPATIENT [id number] back TRENTON, YOANNA H 10/01 Released w/o Limitations [facility]) [facility]hy [facility]) OUTPATIENT [id number] back ALEXANDRA SERNA 10/06 Released w/o Limitations [facility]) [facility](Phy Ther FE) OUTPATIENT [id number] back TRENTON, YOANNA H 10/08 Released w/o Limitations [facility]) [facility](Phy Ther FE) OUTPATIENT [id number] back ALEXANDRA SERNA 10/13 Released w/o Limitations [facility]) [facility](Phy Ther FE) OUTPATIENT [id number] back ALEXANDRA SERNA 10/15 Released w/o Limitations [facility]) [facility]) OUTPATIENT [id number] back GUDELIA MCCORMACK 10/29 Released w/o Limitations [facility]) [facility](Phy Ther FE) OUTPATIENT [id number] LOWER BACK HUMAIRA WAKEFIELD 10/30 Released w/o Limitations [facility](Phy [facility]) [facility]) OUTPATIENT [id number] [facility] 11[facility]19 Released w/o Limitations [facility]) [facility]) TELE CONSULT [id number] lab results MURTAZAEYAD 12/02 [facility]) [facility]) OUTPATIENT [id number] ongoing fevers WAYNE BLAKE 12/10 Released w/o Limitations [facility]) [facility]) OUTPATIENT [id number] f/u labs WAYNE BLAKE 01/14 Released w/o Limitations [facility]) [facility]) TELE CONSULT [id number] CT results WAYNE BLAKE 02/09 [facility]) [facility]) OUTPATIENT [id number] Pas entered the order WAYNE BLAKE 03/04 Released w/o Limitations [facility]) [facility]) TELE CONSULT [id number] Thyroid US results WAYNE BLAKE 03/25 [facility]) [facility](Infecti ous Disease [facility]) OUTPATIENT [id number] FEVER OF UNKNOWN ORIGIN ADELA VAUGHAN 03/31 Released w/o Limitations [facility](Inf ectious Disease [facility]) [facility](Endocri nology [facility]) OUTPATIENT [id number] GOITER (DIFFUS E NONTOXI C) JEANETTE CHAVEZ 04/22 Released w/o Limitations [facility](End ocrinol ogy [facility]) [facility]) TELE CONSULT [id number] MED REFILL EYAD HAUSER 04/28 [facility]) [facility]) OUTPATIENT [id number] WAYNE Brower 05/20 Released w/o Limitations [facility]) [facility](Infecti ous Disease [facility]) OUTPATIENT [id number] ADELA VAUGHAN 05/26 Released w/o Limitations [facility](Inf ectious Disease [facility]) [facility]) TELE CONSULT [id number] MED REFILL EYAD HAUSER 06/01 [facility]) [facility](Infecti ous Disease [facility]) TELE CONSULT [id number] MRI [facility] ADELA VAUGHAN 06/03 [facility](Inf ectious Disease [facility]) [facility]) TELE CONSULT [id number] pap WYATT Barboza 06/10 [facility]) [facility](Infecti ous Disease [facility]) TELE CONSULT [id number] retrun call ADELA VAUGHAN 06/15 [facility](Inf ectious Disease [facility]) [facility](Infecti ous Disease [facility]) OUTPATIENT [id number] ADELA VAUGHAN 06/18 Released w/o Limitations [facility]Inf [facility]ious Disease [facility]) [facility]fect[facility]us Disease [facility]) TELE CONSULT [id number] Lab Results ADELA VAUGHAN 06/29 [facility]Inf ectious Disease [facility]) [facility](Infecti ous Disease [facility]) TELE CONSULT [id number] lab results ADELA VAUGHAN 07/07 [facility](Inf ectious Disease [facility]) Procedures Combined list of: 1) Procedures from Department of Veterans Affairs facilities going back up to thelast 18 months, not all [place] non-surgical procedures are included; 2) All procedures from the Department of Defense facilities. Procedure Procedure Type Code Date Perfomer Comments Sourc e No data is provided for this section because a DoD internal system error occurred when retrieving data. A future request for this document may succe fully include data for this section if the system i ue has been resolved. DoD Social History Combined list of available smoking, tobacco, and other social history from Department of Defense and Veterans Affairs facilities. Social History Type Response Date Comment Sourc e This section is an empty social history section. DoD
[2024-06-29 12:14] LABS: Add Urine Microscopic? YES; Appearance Urine Clear (Clear); Bacteria Urine None Seen /hpf; Bilirubin Urine Negative (Negative); Blood Urine 3+ (Negative); Color Urine Yellow (Yellow); Glucose Urine UA Negative (Negative); Ketones Urine Negative (Negative); Leukocyte Esterase Ur Negative LEU/UL (Negative); Nitrate Urine Negative (Negative); Non Pathogenic Casts 0-2; Protein Urine Trace mg/dL (Negative); RBC Urine >100 /hpf (0-2); Specific Grav Ur 1.021 (1.001-1.035); Squamous Epithelial Cell Urine None Seen /hpf (Few); Urobilinogen Urine 0.2 mg/dL (<2.0); WBC Urine 0-5 /hpf (0-3); pH Urine 6.5 (5.0-9.0)
[2024-06-29 12:30] VITALS: BP 146/90; PULSE 86; RESP 16; TEMP 36.6; O2SAT 100
[2024-06-29 12:45] LABS: Prothrombin Time 13.7 Seconds (11.1-14.7)
[2024-06-29 12:46] LABS: Partial Thromboplastin Time 28.1 Seconds (22.3-36.8)
[2024-06-29 13:30] VITALS: BP 148/90; PULSE 89; RESP 18; TEMP 36.6; O2SAT 100
[2024-06-29 14:30] VITALS: BP 147/102; PULSE 88; RESP 16; O2SAT 98
== END 2024-06-29 14:32 | disposition home or self-care (01) ==
PROVIDERS: Student in an Organized Health Care Education/Training Program; Emergency Provider Physician Assistant; PCP Family Medicine
DX: R31.0 Gross hematuria (principal); R23.3 Spontaneous ecchymoses; I10 Essential (primary) hypertension; E06.3 Autoimmune thyroiditis; E78.5 Hyperlipidemia, unspecified; J45.909 Unspecified asthma, uncomplicated; D50.9 Iron deficiency anemia, unspecified; K21.9 Gastro-esophageal reflux disease without esophagitis; M19.90 Unspecified osteoarthritis, unspecified site; G25.81 Restless legs syndrome; F41.9 Anxiety disorder, unspecified; Z85.828 Personal history of other malignant neoplasm of skin; Z86.73 Personal history of transient ischemic attack (TIA), and cerebral infarction without residual deficits; Z87.442 Personal history of urinary calculi; Z87.891 Personal history of nicotine dependence; Z90.710 Acquired absence of both cervix and uterus; K40.20 Bilateral inguinal hernia, without obstruction or gangrene, not specified as recurrent; R16.0 Hepatomegaly, not elsewhere classified; K76.0 Fatty (change of) liver, not elsewhere classified
CPT/HCPCS: 36415; 74177; 80053; 81001; 85025; 85610; 85730; 99284; J7030; Q9967

== ENCOUNTER 2024-07-28 13:23 | Outpatient (CLI) | payer BC, OTHER, SELFPAY ==
--- NOTE | ~2024-07-28 | XR_ITS ---
XR abdomen/kub 1V 07/28/2024 13:49 Indication: Kidney stone Procedure: KUB Comparison: CT dated 06/29/2024 Findings: There is a left renal stone at the lower pole measuring 12 mm. Bowel gas pattern nonobstruc tive. Moderate colonic fecal loading. No acute osseous abnormality. Impression: 1: Left nephrolithiasis. Reviewed, dictated and finalized at location A. Impression: 1: Left nephrolithiasis.
--- OUTSIDE RECORDS SUMMARY | 2024-07-28 14:06 | XMS_ITS | Clinical Summary ---
Author Organization [facility] [employer] Address [address] [place] [address] Care Team Providers Care Psychology Technician Name Role Phone None, Physician Primary Care Provider Unavailabl e Source Comments [facility],non-owned Affiliates and Associated Physician Practices is amultiple site organization consisting of ambulatory clinics and hospital sitesin [place], [place], [place] and [place]. This disclosure is being madepursuant to the Care Everywhere program and may not contain all information available regarding this patient. Last updated 17.[facility] [employer] Allergies Active Allergy Reactions Criticality Noted Date [...] hours as needed Active aspirin effervescent ([place]) 325 MG efferv tablet Take 1 (one) [...] Recorded Patient Health Questionnaire-2 Score 0 12/04/2022 [facility] - Occupational [...] place to sleep or slept in a fci (including now)? No 12/02/2022 Comments No Sex and Gender Information Value Date Recorded Sex Assigned at Not on file Legal Sex Female 6:40 PM CDT Gender Identity Not on file Sexual Orientation Not on file Last Filed Vital Signs Vital Sign Reading Time Taken Comments Blood Pressure 127/86 01/01/2023 9:23 AM CALL CENTER TEAM LEADER Pulse 76 01/01/2023 9:23 AM CALL CENTER TEAM LEADER Temperature 36.9 C (98.4 F) 12/04/2022 11:36 AM CDT Respiratory Rate 12 01/01/2023 9:23 AM CALL CENTER TEAM LEADER Oxygen Saturation 100% 12/04/2022 11:36 AM CDT Inhaled Oxygen Concentration - - Weight 111.1 kg (245 lb) 01/01/2023 9:23 AM CALL CENTER TEAM LEADER Height 167.6 cm (5' 6) 12/03/2022 9:00 AM CDT Body Mass Index [...] 7 - 26 mg/dL 12/04/2022 3:22 AM [facility] Creatinine 0.68 0.56 - 0.96 mg/dL 12/04/2022 3:22 AM [facility] Sodium 139 136 - 145 mmol/L 12/04/2022 3:22 AM [facility] Potassium 3.3(L) 3.5 - 4.5 mmol/L 12/04/2022 3:22 AM [facility] Chloride 103 98 - 107 mmol/L 12/04/2022 3:22 AM [facility] CO2 24 22 - 29 mmol/L 12/04/2022 3:22 AM [facility] Glucose 105 70 - 115 mg/dL 12/04/2022 3:22 AM [facility] Calcium 9.0 8.4 - 10.2 mg/dL 12/04/2022 3:22 AM CDT [facility] Anion Gap 12 6 - 16 12/04/2022 3:22 AM T [facility] BUN/Creatinine Ratio 25(H) 7 - 23 12/04/2022 3:22 AM T [facility] Osmolality Calculated 290 275 - 295 mOsm/kg 12/04/2022 3:22 AM T [facility] eGFR by CKD-EPI >90 >=90 mL/min/1.7 3 m2 12/04/2022 3:22 AM T [facility] Blood BLOOD SPECIMEN / Unknown Lab Venipuncture / Unknown 12/04/2022 2:08 AM CDT 12/04/2022 2:53 AM CDT us Juanita Alvarez MD LAB - CHEMISTRY ORDERABLES Fin al Result [facility] [address] [place] [address], [facility] [phone] from Last 3 Months or Most Recently Relevant to Health Maintenance Insurance [facility] COMMERCIAL GENERIC [facility] COMM[facility]CIAL GENERIC COMMERCIAL GENERIC COMMERCIAL GENERIC COMMERCIAL GENERIC COMMERCIAL GENERIC Advance Directives * Full Code (Latest Code Status on File) Date Activated Date Inactivated Comments 12/02/2022 7:46 PM 12/04/2022 5:26 PM Care Teams Psychology Technician Relationship Specialty Start Date End Date None, Physician [address] [place] [address] PCP - General 01/01/23
--- OUTSIDE RECORDS SUMMARY | 2024-07-28 14:06 | XMS_ITS | Data Portability ---
Author Organization [place] - [facility], Main Office Address [address] [place] [address] Assessment No assessment recorded. Plan of Treatment [...] (ICA ). Perfo rmed at: - [facility] [address] [facility], [place] [address] 1689 Lab Direc tor: Lupillo aguilar PhD, Phone : [phone] Not Available [facility] (Lab) [address] [place], [address], 07/23/2021 16:10:44 07/20/19 22 07/19/2021 HEMOG LOBIN A1C HA1C 5.5 % 4.0-6. 0 Diabe jaylen Screaaron ogdeng Crite trinh: <5.7% Consi stent with absen ce of diabe jaylen 5.7-6 .4% Consi stent with incre ased risk for diabe jaylen (pred iabet es) >OR=6 .5% Consi stent with diabe jaylen REFER ENCE: Diabe jaylen Care 2016, 39(Andrew ppl.1 ):s13 -s22 Not Available [facility] (Lab) [address] [place], [address], 07/19/2021 19:47:25 07/20/19 22 07/19/2021 SEDIM ENTAT ION RATE erythrocyte sedimentatio n rate 18 mm/HR 0-20 Not Available [facility] (Lab) [address] [place], [address], 07/19/2021 19:32:48 07/20/19 22 07/19/2021 TSH thyroid-stim ulating hormone 1.510 uIU/m L 0.465- 4.680 Not Available [facility] (Lab) [address] [place], [address], 07/19/2021 19:19:56 07/20/19 22 07/19/2021 T3 FREE free T3 3.1 pg/mL 2.77-5 .27 Not Available [facility] (Lab) [address] [place], [address], 07/19/2021 19:06:19 07/20/19 22 07/19/2021 T4 FREE free T4 1.43 NG/dL 0.78-2 .19 Not Available [facility] (Lab) [address] [place], [address], 07/19/2021 19:06:18 07/20/19 22 07/19/2021 CBC W/O DIFFE RENTI AL white blood cells 8.6 x10'3 /uL 4.2-10 .8 Not Available [facility] (Lab) [address] [place], [address], 07/19/2021 19:03:06 07/20/19 22 07/19/2021 CBC W/O DIFFE RENTI AL red blood cells 4.69 x10'6 /uL 3.80-5 .20 Not Available [facility] (Lab) [address] [place], [address], 07/19/2021 19:03:06 07/20/19 22 07/19/2021 CBC W/O DIFFE RENTI AL hemoglobin 8.9 g/dL 12.0-1 5.6 low Not Available [facility] (Lab) [address] [place], [address], 07/19/2021 19:03:06 07/20/19 22 07/19/2021 CBC W/O DIFFE RENTI AL hematocrit 32.5 % 35.7-4 5.7 low Not Available [facility] (Lab) [address] [place], [address], 07/19/2021 19:03:06 07/20/19 22 07/19/2021 CBC W/O DIFFE RENTI AL mean red cell volume 69.3 fL 82.0-9 9.0 low Not Available [facility] (Lab) [address] [place], [address], 07/19/2021 19:03:06 07/20/19 22 07/19/2021 CBC W/O DIFFE RENTI AL mean red cell hemoglobin 19.0 pg 27.0-3 3.0 low Not Available [facility] (Lab) [address] [place], [address], 07/19/2021 19:03:06 07/20/19 22 07/19/2021 CBC W/O DIFFE RENTI AL mean RBC HGB concentratio n 27.4 g/dL 31.0-3 6.0 low Not Available [facility] (Lab) [address] [place], [address], 07/19/2021 19:03:06 07/20/19 22 07/19/2021 CBC W/O DIFFE RENTI AL red cell distribution width 18.3 % 11.8-1 5.5 high Not Available [facility] (Lab) [address] [place], [address], 07/19/2021 19:03:06 07/20/19 22 07/19/2021 CBC W/O DIFFE RENTI AL platelets 471 x10'3 /uL 150-40 0 high Not Available [facility] (Lab) [address] [place], [address], 07/19/2021 19:03:06 07/20/19 22 07/19/2021 CBC W/O DIFFE RENTI AL mean platelet volume 11.4 fL 9.0-12 .4 Not Available [facility] (Lab) [address] [place], [address], 07/19/2021 19:03:06 07/20/19 22 07/19/2021 RHEUM ATOID FACTO R rf <8.6 IU/mL 0.0-11 .9 Not Available [facility] (Lab) [address] [place], [address], 07/19/2021 18:58:57 07/20/19 22 07/19/2021 C REACT VANESSA PROTE IN,UL TRA SENS C-reactive protein 1.33 mg/dL 0.0-0. 5 high Not Available [facility] (Lab) [address] [place], [address], 07/19/2021 18:58:52 07/20/19 22 07/19/2021 LIPID PANEL cholesterol 209 mg/dL 140-19 9 high NIH ADALI NSUS RECOM MENDA TION FOR KYLER STERO L: ADULT CHILD LOW RISK: <200 <170 BORDE RLINE : <200- 239 ----- HIGH RISK: >240 >200 Not Available [facility] (Lab) [address] [place], [address], 07/19/2021 18:58:13 07/20/1907/19/2021 LIPID PANEL triglyceride s 123 mg/dL 0-150 NIH ADALI NSUS REPOR T RECOM MENDA TION FOR TRIGL YCERI RYAN: ADULT CHILD LOW RISK: <150 ----- BODER LINE: 150-1 99 ----- HIGH RISK: >200 ----- Not Available [facility] (Lab) [address] [place], [address], 07/19/2021 18:58:13 07/20/1907/19/2021 LIPID PANEL HDL cholesterol 68 mg/dL 40- Not Available [facility] (Lab) [address] [place], [address], 07/19/2021 18:58:13 07/20/19 22 07/19/2021 LIPID PANEL [...] WILL NOT BE REPOR JANE. Not Available [facility] (Lab) [address] [place], [address], 07/19/2021 18:58:13 07/20/1907/19/2021 COMPR EHENS VANESSA METAB OLIC PANEL sodium 138 mmol/ L 137-14 5 Not Available [facility] (Lab) [address] [place], [address], 07/19/2021 18:58:02 07/20/19 22 07/19/2021 COMPR EHENS VANESSA METAB OLIC PANEL potassium 4.4 mmol/ L 3.5-5. 1 Not Available [facility] (Lab) [address] [place], [address], 07/19/2021 18:58:02 07/20/19 22 07/19/2021 COMPR EHENS VANESSA METAB OLIC PANEL chloride 104 mmol/ L 98-107 Not Available [facility] (Lab) [address] [place], [address], 07/19/2021 18:58:02 07/20/19 22 07/19/2021 COMPR EHENS VANESSA METAB OLIC PANEL carbon dioxide 26 mmol/ L 22-30 Not Available [facility] (Lab) [address] [place], [address], 07/19/2021 18:58:02 07/20/19 22 07/19/2021 COMPR EHENS VANESSA METAB OLIC PANEL anion gap 12.4 mmol/ L 14-22 low Not Available [facility] (Lab) [address] [place], [address], 07/19/2021 18:58:02 07/20/19 22 07/19/2021 COMPR EHENS VANESSA METAB OLIC PANEL glucose 77 mg/dL 70-99 Not Available [facility] (Lab) [address] [place], [address], 07/19/2021 18:58:02 07/20/19 22 07/19/2021 COMPR EHENS VANESSA METAB OLIC PANEL BUN 11 mg/dL 8-19 Not Available [facility] (Lab) [address] [place], [address], 07/19/2021 18:58:02 07/20/19 22 07/19/2021 COMPR EHENS VANESSA METAB OLIC PANEL creatinine 0.62 mg/dL 0.66-1 .25 low Not Available [facility] (Lab) [address] [place], [address], 07/19/2021 18:58:02 07/20/19 22 07/19/2021 COMPR EHENS VANESSA METAB OLIC PANEL GFR >60 Refer ence Range : Mitchell ge GFR Healt hy Adult : >60 [...] calcu lator is avail able on the [facility] websi te: https :[email or web address] ceja.rich [email or web address] moshe/pr delano champagneal s/kdo qi/gf r_cal culat or Not Available [facility] (Lab) [address] [place], [address], 07/19/2021 18:58:02 07/20/19 22 07/19/2021 COMPR EHENS VANESSA METAB OLIC PANEL alkaline phosphatase 72 U/L 38-126 Not Available [facility] (Lab) [address] [place], [address], 07/19/2021 18:58:02 07/20/19 22 07/19/2021 COMPR EHENS VANESSA METAB OLIC PANEL alanine aminotransfe rase 16 U/L 0-35 Not Available [facility] (Lab) [address] [place], [address], 07/19/2021 18:58:02 07/20/19 22 07/19/2021 COMPR EHENS VANESSA METAB OLIC PANEL aspartate aminotransfe rase 25 U/L 15-37 Not Available [facility] (Lab) [address] [place], [address], 07/19/2021 18:58:02 07/20/19 22 07/19/2021 COMPR EHENS VANESSA METAB OLIC PANEL bilirubin, total 0.20 mg/dL 0.20-1 .30 Not Available [facility] (Lab) [address] [place], [address], 07/19/2021 18:58:02 07/20/19 22 07/19/2021 COMPR EHENS VANESSA METAB OLIC PANEL calcium 9.3 mg/dL 8.4-10 .2 Not Available [facility] (Lab) [address] [place], [address], 07/19/2021 18:58:02 07/20/19 22 07/19/2021 COMPR EHENS VANESSA METAB OLIC PANEL total protein 7.4 g/dL 6.3-8. 2 Not Available [facility] (Lab) [address] [place], [address], 07/19/2021 18:58:02 07/20/19 22 07/19/2021 COMPR EHENS VANESSA METAB OLIC PANEL albumin 4.3 g/dL 3.4-5. 0 Not Available [facility] (Lab) [address] [place], [address], 07/19/2021 18:58:02 07/20/19 22 07/19/2021 COMPR EHENS VANESSA METAB OLIC PANEL globulin 3.1 g/dL 2.6-4. 2 Not Available [facility] (Lab) [address] [place], [address], 07/19/2021 18:58:02 07/20/19 22 07/19/2021 COMPR EHENS VANESSA METAB OLIC PANEL A/G ratio 1.4 ratio 1.0-2. 0 Not Available [facility] (Lab) [address] [place], [address], 07/19/2021 18:58:02 07/20/19 22 07/19/2021 CPK TOTAL creatine kinase 88 U/L 30-135 Not Available [facility] (Lab) [address] [place], [address], 07/19/2021 18:57:50 01/09/20 22 01/10/2022 FOLAT E, SERUM /PLAS MA folate >20.0 NG/mL 2.76-2 0.0 Not Available [facility] (Lab) [address] [place], [address], 01/10/2022 16:38:20 01/09/20 22 01/10/2022 VITAM IN B12 (KRISH SHARON ) vb12 400 pg/mL 239-93 1 Not Available [facility] (Lab) [address] [place], [address], 01/10/2022 16:38:19 01/09/20 22 01/10/2022 VITAM IN D 25-HY DROXY vd25oh 14.3 NG/mL 30-100 low Vitam in D Statu s: Defic ient: <20 ng/mL Insuf ficie nt: 20-29 ng/mL Suffi cient : 30-10 0 ng/mL Not Available [facility] (Lab) [address] [place], [address], 01/10/2022 15:48:59 01/09/20 22 01/08/2022 IRON/ TIBC PANEL total iron binding capacity 445 mcg/d L 265-47 5 Not Available [facility] (Lab) [address] [place], [address], 01/08/2022 22:09:37 01/09/20 22 01/08/2022 IRON/ TIBC PANEL % transferrin saturation 4 % 20-55 low Not Available [facility] (Lab) [address] [place], [address], 01/08/2022 22:09:37 01/09/20 22 01/08/2022 IRON/ TIBC PANEL unsaturated iron bind capacity 425 mcg/d L 126-38 2 high Not Available [facility] (Lab) [address] [place], [address], 01/08/2022 22:09:37 01/09/20 22 01/08/2022 IRON/ TIBC PANEL iron 20 mcg/d L 42-175 low Not Available [facility] (Lab) [address] [place], [address], 01/08/2022 22:09:37 01/09/20 22 01/08/2022 CBC W/O DIFFE RENTI AL white blood cells 9.6 x10'3 /uL 4.2-10 .8 Not Available [facility] (Lab) [address] [place], [address], 01/08/2022 20:58:54 01/09/20 22 01/08/2022 CBC W/O DIFFE RENTI AL red blood cells 3.62 x10'6 /uL 3.80-5 .20 low Not Available [facility] (Lab) [address] [place], [address], 01/08/2022 20:58:54 01/09/20 22 01/08/2022 CBC W/O DIFFE RENTI AL hemoglobin 9.4 g/dL 12.0-1 5.6 low Not Available [facility] (Lab) [address] [place], [address], 01/08/2022 20:58:54 01/09/20 22 01/08/2022 CBC W/O DIFFE RENTI AL hematocrit 31.4 % 35.7-4 5.7 low Not Available [facility] (Lab) [address] [place], [address], 01/08/2022 20:58:54 01/09/20 22 01/08/2022 CBC W/O DIFFE RENTI AL mean red cell volume 86.7 fL 82.0-9 9.0 Not Available [facility] (Lab) [address] [place], [address], 01/08/2022 20:58:54 01/09/20 22 01/08/2022 CBC W/O DIFFE RENTI AL mean red cell hemoglobin 26.0 pg 27.0-3 3.0 low Not Available [facility] (Lab) [address] [place], [address], 01/08/2022 20:58:54 01/09/20 22 01/08/2022 CBC W/O DIFFE RENTI AL mean RBC HGB concentratio n 29.9 g/dL 31.0-3 6.0 low Not Available [facility] (Lab) [address] [place], [address], 01/08/2022 20:58:54 01/09/20 22 01/08/2022 CBC W/O DIFFE RENTI AL red cell distribution width 15.9 % 11.8-1 5.5 high Not Available [facility] (Lab) [address] [place], [address], 01/08/2022 20:58:54 01/09/20 22 01/08/2022 CBC W/O DIFFE RENTI AL platelets 383 x10'3 /uL 150-40 0 Not Available [facility] (Lab) [address] [place], [address], 01/08/2022 20:58:54 01/09/20 22 01/08/2022 CBC W/O DIFFE YARELIS GARCIA mean platelet volume 11.1 fL 9.0-12 .4 Not Available [facility] (Lab) [address] [place], [address], 01/08/2022 20:58:54 Result Notes None recorded. 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 Not Available [facility] 3 18:11:59 History of pneumonia 987975226 Active 2021 Not Available [facility] 3 18:11:59 Asthma 680680812 Active 2021 Not Available [facility] 3 18:11:59 Irritable bowel syndrome with diarrhea 114338056 Active 2021 Not Available [facility] 3 18:11:59 Jamar thyroiditis 58290067 Active 2021 Not Available [facility] 3 18:11:59 Arthritis 7974780 Active 2021 Not Available [facility] 3 18:11:59 Basal cell carcinoma of face 588784003 Active 2021 Not Available [facility] 3 18:11:59 Obesity 411331051 Active 2021 Not Available [facility] 3 18:11:59 Chronic colitis 21287922 Active 2021 Not Available [facility] 3 18:11:59 Essential hypertension 15295395 Active 2021 Not Available [facility] 3 18:11:59 Optic neuritis 16743367 Active 2021 Not Available [facility] 3 18:11:59 Intervertebra l disc prolapse 21391379 Active 2021 Not Available [facility] 3 18:11:59 Hiatal hernia 86685313 Active 2021 Not Available [facility] 3 18:11:59 Uterine leiomyoma 80145455 Active 05/27/ 2022 Not Available [facility] 3 18:11:59 Notes:Some problems listed i n Document: #[id number] could not be added to this patient's [...] % 99 % 79 /min 99.5 [degF] 103440. 69 g 166 mm[Hg] 100 mm[Hg] Not Available [facility] 3 17:12:47 Date Recorded Body mass index (BMI) Body height Oxygen saturation Oxygen saturation in Arterial blood by Pulse oximetry Heart rate Body temperature Body weight Systolic blood pressure Diastolic blood pressure Provider Name and Address Organization Details Last Updated DateTime 2 36.8 kg/m2 167.64 cm 98 % 98 % 70 /min 96.8 [degF] 943223. 06 g 145 mm[Hg] 100 mm[Hg] Not Available [facility] 3 17:12:47 Date Recorded Body mass index (BMI) Body height Oxygen saturation Oxygen saturation in Arterial blood by Pulse oximetry Heart rate Body temperature Body weight Systolic blood pressure Diastolic blood pressure Provider Name and Address Organization Details Last Updated DateTime 2 37.2 kg/m2 167.64 cm 97 % 97 % 84 /min 99 [degF] 850473. 4 g 120 mm[Hg] 80 mm[Hg] Not Available [facility] 3 17:12:47 Date Recorded Body mass index (BMI) Body height Oxygen saturation Oxygen saturation in Arterial blood by Pulse oximetry Heart rate Body temperature Body weight Systolic blood pressure Diastolic blood pressure Provider Name and Address Organization Details Last Updated DateTime 2 37.3 kg/m2 167.64 cm 97 % 97 % 98 /min 97.8 [degF] 290927. 84 g 138 mm[Hg] 78 mm[Hg] Not Available [facility] 3 17:12:47 Date Recorded Body mass index (BMI) Body height Oxygen saturation Oxygen saturation in Arterial blood by Pulse oximetry Heart rate Body temperature Body weight Systolic blood pressure Diastolic blood pressure Provider Name and Address Organization Details Last Updated DateTime 2 36.6 kg/m2 167.64 cm 99 % 99 % 88 /min 96.8 [degF] 923246. 47 g 150 mm[Hg] 98 mm[Hg] Not Available [facility] 3 17:12:47 Social History Question Answer Notes LastModified by Organizat ion Details LastModified Time Tobacco Smoking Status Former Smoker Not Available [facility] 04/23/2022 17:12:25 Do You Have An Advance Directive? No MIGRATION.56921 70702 Information not available 04/23/2022 Do You Wear A Helmet When Biking? No MIGRATION.86985 43844 Information not available 04/23/2022 What Is Your Level Of Caffeine Consumption? Heavy MIGRATION.00179 81482 Information not available 04/23/2022 In The 14 Days Before Symptom Onset, Have You Had Close Contact With A Laboratory-confi rmed COVID-19 While That Case Was Ill? No MIGRATION.68245 41680 Information not available 04/23/2022 In The 14 Days Before Symptom Onset, Have You Had Close Contact With A Person Who Is Under Investigation For COVID-19 While That Person Was Ill? No MIGRATION.17799 72220 Information not available 04/23/2022 What Type Of Diet Are You Following? REGULAR MIGRATION.98316 78503 Information not available 04/23/2022 What Is The Highest Grade Or Level Of School You Have Completed Or The Highest Degree You Have Received? [id number] MIGRATION.12227 33017 Information not available 04/23/2022 Have There Been Any Changes To Your Family Or Social Situation? Yes MIGRATION.95166 88341 Information not available 04/23/2022 What Is The Fluoride Status Of Your Home? Unknown MIGRATION.29936 42765 Information not available 04/23/2022 When Did You Quit Smoking? 1-5yearssincelastci enedinaette MIGRATION.50420 11252 Information not available 04/23/2022 Are There Any Guns Present In Your Home? No MIGRATION.29788 41252 Information not available 04/23/2022 Do You Use Insect Repellent Routinely? Yes MIGRATION.98728 21484 Information not available 04/23/2022 Where Do You Live? [place]House MIGRATION.13616 58477 Information not available 04/23/2022 Do You Have A Medical Power Of Cdl Truck Driver? No MIGRATION.53605 33367 Information not available 04/23/2022 What Was The Date Of Your Most Recent Tobacco Screening? 08/21/2021 MIGRATION.86717 78230 Information not available 04/23/2022 Do You Have Any Pets? Yes MIGRATION.84208 13626 Information not available 04/23/2022 What Is Your Relationship Status? MIGRATION.14818 09835 Information not available 04/23/2022 Do You Use Your Seat Belt Or Car Seat Routinely? Yes MIGRATION.50051 11417 Information not available 04/23/2022 Do You Have Smoke And Carbon Monoxide Detectors In Your Home? No MIGRATION.33216 93270 Information not available 04/23/2022 At What Age Did You Start Smoking Tobacco? 16 MIGRATION.95086 43143 Information not available 04/23/2022 Are You Passively Exposed To Smoke? Yes MIGRATION.99630 15241 Information not available 04/23/2022 Are There Any Smokers In Your House? Yes MIGRATION.97211 85762 Information not available 04/23/2022 Do You Participate In Social Media? Yes MIGRATION.79687 01829 Information not available 04/23/2022 Do You Use Sunscreen Routinely? No MIGRATION.37833 37626 Information not available 04/23/2022 How Many Years Have You Smoked Tobacco? 15 MIGRATION.25905 13638 Information not available 04/23/2022 Have You Recently Traveled Abroad? No MIGRATION.05603 53808 Information not available 04/23/2022 Are You Currently In School? No MIGRATION.37122 45752 Information not available 04/23/2022 Do You Have Any Dietary Restrictions? No MIGRATION.31533 42881 Information not available 04/23/2022 Sex: Unknown Functional Status Question Answer Note LastModified by Organizat ion Details LastModified Time Do you use any illicit or recreational drugs? No MIGRATION.7137915 026 Information not available 04/23/2022 Do you or have you ever used any other forms of tobacco or nicotine? No MIGRATION.9461449 026 Information not available 04/23/2022 What is your level of alcohol consumption? None MIGRATION.7288032 026 Information not available 04/23/2022 What is your exercise level? Occasional MIGRATION.6441816 026 Information not available 04/23/2022 Mental Status Question Answer Note LastModified by Organizat ion Details LastModified Time Do you feel stressed (tense, restless, nervous, or anxious, or unable to sleep at night)? [id number] MIGRATION.[id number] 6 Information not available 04/23/2022 Family History Relationship Description Onset Age of this Age Resolved Age Notes LastModified by Organization Details LastModified Time Mother Jamar thyroiditis MIGRATION.735 [id number] Not available 04/23/2022 17:12:31 Mother Diabetes mellitus MIGRATION.674 9783944 Not available 04/23/2022 17:12:31 Mother Glaucoma MIGRATION.448 [id number] Not available 04/23/2022 17:12:31 Mother Diverticulit is MIGRATION.961 [id number] Not available 04/23/2022 17:12:31 Mother Cataract MIGRATION.938 [id number] Not available 04/23/2022 17:12:31 Father Malignant tumor of colon MIGRATION.327 9157598 Not available 04/23/2022 17:12:31 Father Malignant neoplasm of prostate MIGRATION.962 [id number] Not available 04/23/2022 17:12:31 Father Gallstone MIGRATION.917 8781240 Not available 04/23/2022 17:12:31 Father Kidney stone MIGRATION.0 30 [id number] Not available 04/23/2022 17:12:31 Father Chronic renal failure MIGRATION.376 5374825 Not available 04/23/2022 17:12:31 Father Anemia MIGRATION.208 9731029 Not available 04/23/2022 17:12:31 Medical History Condition [...] HAVE YOU BEEN HOSPITALIZED OR SEEN IN [facility] IN THE PAST YEAR ? Y ATHEROSCLEROSIS [...] virus, quadrivalent, preservative 2 completed Not Available [facility] 09/01/2022 18:12:00 COVID-19, mRNA, LNP-S, PF, 30 mcg/0.3 mL dose 1 completed Not Available [facility] 09/01/2022 18:12:00 COVID-19, mRNA, LNP-S, PF, 30 mcg/0.3 mL dose 1 completed Not Available [facility] 09/01/2022 18:12:00 COVID-19, mRNA, LNP-S, PF, 30 mcg/0.3 mL dose 1 completed Not Available [facility] 09/01/2022 18:12:00 COVID-19, mRNA, LNP-S, bivalent, PF, 50 mcg/0.5 mL or 25mcg/0.25 mL dose 3 completed Zuleima Johnson RN [facility], [place] - [facility] [employer] [facility] 09/11/2022 15:15:29 Past Encounters Encounter ID Performer Location Encounter Start Date Encounter Closed Date Diagnosis/Indication Diagnosis SNOMED-CT Code Diagnosis ICD10 Code Diagnosis Note [id number] REY Singh [address] [facility] [place] [address] 07/19/2021 00:00:00 07/19/2021 18:19:23 [id number] REY Singh Michelle_[address] [place] [address] 08/02/2021 00:00:00 08/02/2021 13:40:24 [id number] S_Histor ic_Gateway S_GMG Endo Bautista Alston [address] [place] [address] 08/16/2021 00:00:00 08/16/2021 14:04:01 [id number] _ATHN_MIGR ATION_1 _ATHENA_M IGRATION_ DEFAULT_1 _1 , 08/21/2021 00:00:00 08/21/2021 15:09:23 [id number] Roberta Garcia MD [facility] Primary Care [facility] [address] [facility] [address] [place] [address] 01/08/2022 00:00:00 01/08/2022 18:32:28 Health Concerns Section Related Observation LastModified by Organization Detai ls LastModified Time None Recorded Concern Status LastModified by Organization Details LastModified Time None Recorded Advance Directives Directive N: Payers None recorded. OBGyn Episode No OBEpisode recorded.
--- OUTSIDE RECORDS SUMMARY | 2024-07-28 14:07 | XMS_ITS | Encounter Summary ---
Author Organization [facility] Address [address] [place] [address] Care Team Providers Care Recycling Or Rubbish Collector Name Role Phone Dafne Gomez DO Primary Care Provider + Encounter Details Date Type Department Care Team (Late st Contact Info) Description 07/26/2024 External Device Data STL ABSTRACTION Provider, Abstract [...] Description 10/11/2024 11:00 AM CDT Office Visit [facility] Oncology and Hematology - [place] [address] [place] [address] [address] Kali Caputo MD [address] [facility] [address] [place] [address] documented as of this encounter Visit Diagnoses Not on filedocumented in this encounter Care Teams Recycling Or Rubbish Collector Relationship Specialty Start Date End Date Dafne Gomez DO [address] [place] [address] [place] [address] PCP - General Family Practice 08/18/23 documented as of this encounter
--- OUTSIDE RECORDS SUMMARY | 2024-07-28 14:08 | XMS_ITS | Continuity of Care Document ---
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 It does not include entries that were removed or entered in error. Problem Status Onset Date Problem Type Date of Resolution Comments Source P[facility] Inactive Condition [facility] Fever Inactive Condition Pt to walk in for recurrent fevers. [facility] Vaginal Pap Smear Inactive Condition [facility] Cervical Pap Smear Inactive Condition [facility] Contraceptive Management Active Condition [facility] visit for: screening exam malignant neoplasm breast Inactive Condition [facility] Pelvic Exam (Internal) Active Condition Mood/Depression : stable, pt has few weeks of Zoloft remaining. Instructed pt to call clinic 4-5 days prior to run out of meds, leave [facility] for med refill...... will provide 90 day supply of Zoloft 100mg daily.Of note: , will no longer have after . [facility] THYROID NODULE, SOLITARY Active Condition Pt notes that a previous FNAB at [employer] was benign, pt advised that the nodule would need to be re-aspirated if the lesion increases in size. [facility] Gynecologic Service Prescrip Of Contracept Agent - Repeat Rx Active Condition Pt overdue for PapSmear; due in . Refill current OCP until can be seen for CPE/well woman exam for breast/pap/pelvi c. [facility] ESOPHAGEAL REFLUX Active Condition Ne w onset, trial of acute management with Zantac and addition of Prilosec fo alf therapy. [facility] GOITER (DIFFUSE NONTOXIC) Active Condition [...] consult neurosurg to discuss management options and retirement prognosis. [facility] visit for: services physical Inactive [...] Known Allergies Drug allergy (disorder) active 7 [facility] Encounters Combined list of: 1) Encounters from Department of Veterans Affairs facilities going backup to the last 18 months, not all VA inpatient encounters are included; 2) Encounters from the Department of Defense facilities going backup to 280 months. Location Location Details Encounter Type Encounter Number Reason For Visit Attending Provider ADM Date DC Date Status Disposition Source [facility] Pr[facility] Resource [facility]aring) TELE CONSULT [id number] aleara GLADYS Mckenzie 10/05 [facility]( am Prac Resourc e Sharing ) [facility]) OUTPATIENT [id number] sore throat and congest GLADYS Low 12/31 Released w/o Limitations [facility]) [facility]) OUTPATIENT [id number] SHOULDE GLADYS ANGELES M 05/09 Released w/o Limitations [facility]) [facility]) TELE CONSULT [id number] Med refGLADYS Saenz M 06/03 [facility]) [address] [place] [address]([facility]) TELE CONSULT [id number] Medicat ion refill GLADYS FLORENCE M 07/30 [facility] Practic e [facility]rac t [facility]) [facility]) OUTPATIENT [id number] OSS GLADYS FLORENCE M 11/27 Released w/o Limitations [facility](F amily Practic e Contrac t Clinic) [facility]) OUTPATIENT [id number] WAYNE BLAKE 08/14 Released w/o Limitations [facility]) [facility](Phy Ther FE) OUTPATIENT [id number] Lumbago HUMAIRA WAKEFIELD 09/03 Released w/o Limitations [facility]) [facility]) OUTPATIENT [id number] mri results WAYNE BLAKE 09/04 Released w/o Limitations [facility]) [facility]) OUTPATIENT [id number] back ALEXANDRA SERNA 09/08 Released w/o Limitations [facility]) [facility]) OUTPATIENT [id number] back GUDELIA MCCORMACK 09/10 Released w/o Limitations [facility]) [facility]) OUTPATIENT [id number] back SCARLETT HART 09/11 Released w/o Limitations [facility]) [facility]) TELE CONSULT [id number] mri results need to be address ed lab results were negWAYNE Lobato 09/11 [facility]) [facility](Phy [facility]) OUTPATIENT [id number] back SCARLETT HART 09/16 Released w/o Limitations [facility]) [facility](Neurosu rgery [facility]) OUTPATIENT [id number] HERNIAT ED DISC (L5 - S1) ELTON GARCIA 09/22 Released w/o Limitations [facility](Clive rosurge ry [facility]) [facility]) OUTPATIENT [id number] back HUMAIRA WAKEFIELD 09/23 Released w/o Limitations [facility]) [facility]) OUTPATIENT [id number] back TRENTON, YOANNA H 09/30 Released w/o Limitations [facility]) [facility]) OUTPATIENT [id number] back TRENTON, YOANNA H 10/01 Released w/o Limitations [facility]) [facility](Phy [facility]) OUTPATIENT [id number] back ALEXANDRA SERNA 10/06 Released w/o Limitations [facility]) [facility](Phy [facility]) OUTPATIENT [id number] back TRENTON, YOANNA H 10/08 Released w/o Limitations [facility]) [facility](Phy Ther [facility]) OUTPATIENT [id number] back ALEXANDRA SERNA 10/13 Released w/o Limitations [facility]) [facility](Phy [facility]) OUTPATIENT [id number] back ALEXANDRA SERNA 10/15 Released w/o Limitations [facility]) [facility]) OUTPATIENT [id number] back GUDELIA MCCORMACK 10/29 Released w/o Limitations [facility]) [facility]) OUTPATIENT [id number] LOWER BACK HUMAIRA WAKEFIELD 10/30 Released w/o Limitations [facility]) [facility] [id number] [facility]/19 Released w/o Limitations [facility]) [facility]) TELE CONSULT [id number] lab results MURTAZAEYAD 12/02 [facility]) [facility]) OUTPATIENT [id number] ongoing fevers WAYNE BLAKE 12/10 Released w/o Limitations [facility]) [facility]) OUTPATIENT [id number] f/u labs WAYNE BLAKE 01/14 Released w/o Limitations [facility]) [facility]) TELE CONSULT [id number] CT results WAYNE BLAKE 02/09 [facility]) [facility]) OUTPATIENT [id number] Pas entered the order WAYNE BLAKE 03/04 Released w/o Limitations [facility]) [facility]) TELE CONSULT [id number] Thyroid US results WAYNE BLAKE 03/25 [facility]) [facility](Infecti ous Disease [facility]) OUTPATIENT [id number] FEVER OF UNKNOWN ORIGIN ADELA VAUGHAN 03/31 Released w/o Limitations [facility](Inf ectious Disease [facility]) [facility](Endocri nology [facility]) OUTPATIENT [id number] GOITER (DIFFUS E NONTOXI C) JEANETTE CHAVEZ 04/22 Released w/o Limitations [facility](End ocrinol ogy [facility]) [facility]) TELE CONSULT [id number] MED REFILL EYAD HAUSER 04/28 [facility]) [facility]) OUTPATIENT [id number] WAYNE Brower 05/20 Released w/o Limitations [facility]) [facility](Infecti ous Disease [facility]) OUTPATIENT [id number] ADELA VAUGHAN 05/26 Released w/o Limitations [facility](Inf ectious Disease [facility]) [facility]) TELE CONSULT [id number] MED REFILL EYAD HAUSER 06/01 [facility]) [facility](Infecti ous Disease [facility]) TELE CONSULT [id number] MRI [facility] ADELA VAUGHAN 06/03 [facility](Inf ectious Disease [facility]) [facility]) TELE CONSULT [id number] pap WYATT Barboza 06/10 [facility]) [facility](Infecti ous Disease [facility]) TELE CONSULT [id number] retrun call ADELA VAUGHAN 06/15 [facility](Inf ectious Disease [facility]) [facility](Infecti ous Disease [facility]) OUTPATIENT [id number] ADELA VAUGHAN 06/18 Released w/o Limitations [facility](Inf ectious Disease [facility]) [facility](Infecti ous Disease [facility]) TELE CONSULT [id number] Lab Results ADELA VAUGHAN 06/29 [facility](Inf ectious Disease [facility]) [facility](Infecti ous Disease [facility]) TELE CONSULT [id number] lab results ADELA VAUGHAN 07/07 [facility](Inf ectious Disease [facility]) Procedures Combined list of: 1) Procedures from Department of [facility] Affairs facilities going back up to thelast 18 months, not all [place] non-surgical procedures are included; 2) All procedures from the Department of Defense facilities. Procedure Procedure Type Code Date Perfomer Comments Sourc e INDIVIDUAL PSYCHOTHERAPY, INSIGHT ORIENTED, BEHAVIOR MODIFYING AND/OR SUPPORTIVE, IN AN OFFICE OR OUTPATIENT FACILITY, APPROXIMATELY 20 TO 30 MINUTES [id number] WITH THE PATIENT 11/27/2004 [facility] DOPPLER ECHOCARDIOGRAPHY, , PULSED WAVE AND/OR CONTINUOUS WAVE WITH SPECTRAL DISPLAY; COMPLETE 07/28/2001 [facility] DOPPLER ECHOCARDIOGRAPHY, , PULSED WAVE AND/OR CONTINUOUS WAVE WITH SPECTRAL DISPLAY; COMPLETE 07/01/2001 [facility] HANDLING AND/OR CONVEYANCE OF SPECIMEN FOR TRANSFER FROM THE OFFICE TO A LABORATORY 05/31/2001 [facility] HANDLING AND/OR CONVEYANCE OF SPECIMEN FOR TRANSFER FROM THE OFFICE TO A LABORATORY 05/28/2001 [facility] PHYS/OTH QUALIFIED HEALTH YOUTH SERVICES SPECIALIST QUALIFIED,EDUCATION, TRAIN,LICENSURE/REGU LATION (WHEN APPLICABLE) EDUC SER RENDERED TO PATS IN A GRP SETTING (EG,,OBESITY ,OR DIABETIC INSTRUCT) 05/27/2001 [facility] NASAL/SINUS ENDOSCOPY, SURGICAL, WITH FRONTAL SINUS EXPLORATION, INCLUDING REMOVAL OF TISSUE FROM FRONTAL SINUS, WHEN PERFORMED 12/03/1999 [facility] REPAIR OF OTHER CURRENT OBSTETRIC LACERATION 07/27/1997 [facility] MONITORING, NOT OTHERWISE SPECIFIED 07/27/1997 [facility] EKG (SCALP) 07/27/1997 [facility] EPISIOTOMY 07/27/1997 [facility] MEDICAL INDUCTION OF LABOR 07/27/1997 [facility] OTHER ARTIFICIAL RUPTURE OF MEMBRANES 07/27/1997 [facility] INJECTION OF ANTIBIOTIC 07/27/1997 [facility] SCREENING PAPANICOLAOU SMEAR; OBTAINING, PREPARING AND CONVEYANCE OF CERVICAL OR VAGINAL SMEAR TO LABORATORY 05/20/2006 [facility] SELF-CARE/HOME MANAGMENT TRAIN (EG,ACT OF DAILY LIVING (ADL) &COMPENSAT TRAIN,MEAL PREPARATION,SAFETY PROCS,AND INSTRUCT IN USE OF ASST TECHNOLOGY DEV/ADPT EQUIP) DIR ONE-ON-ONE CONT,EA 15 MINUTES 10/30/2005 [facility] THERAPEUTIC PROCEDURE,1 OR MORE AREAS,EACH 15 MINUTES;NEUROMUSCULA R REEDUCATION OF MOVEMENT,BALANCE,JOB ANALYSIS MANAGER RDINATION,KINESTHETI C SENSE,POSTURE,AND/OR PROPRIOCEPTION FOR SITTING AND/OR STANDING ACTIVITIES 10/29/2005 [facility] THERAPEUTIC PROCEDURE,1 OR MORE AREAS,EACH 15 MINUTES;NEUROMUSCULA R REEDUCATION OF MOVEMENT,BALANCE,JOB ANALYSIS MANAGER RDINATION,KINESTHETI C SENSE,POSTURE,AND/OR PROPRIOCEPTION FOR SITTING AND/OR STANDING ACTIVITIES 10/15/2005 [facility] THERAPEUTIC PROCEDURE,1 OR MORE AREAS,EACH 15 MINUTES;NEUROMUSCULA R REEDUCATION OF MOVEMENT,BALANCE,JOB ANALYSIS MANAGER RDINATION,KINESTHETI C SENSE,POSTURE,AND/OR PROPRIOCEPTION FOR SITTING AND/OR STANDING ACTIVITIES 10/13/2005 [facility] THERAPEUTIC PROCEDURE,1 OR MORE AREAS,EACH 15 MINUTES;NEUROMUSCULA R REEDUCATION OF MOVEMENT,BALANCE,JOB ANALYSIS MANAGER RDINATION,KINESTHETI C SENSE,POSTURE,AND/OR PROPRIOCEPTION FOR SITTING AND/OR STANDING ACTIVITIES 10/08/2005 [facility] THERAPEUTIC PROCEDURE,1 OR MORE AREAS,EACH 15 MINUTES;NEUROMUSCULA R REEDUCATION OF MOVEMENT,BALANCE,JOB ANALYSIS MANAGER RDINATION,KINESTHETI C SENSE,POSTURE,AND/OR PROPRIOCEPTION FOR SITTING AND/OR STANDING ACTIVITIES 10/06/2005 [facility] THERAPEUTIC ACTIVITIES, DIRECT (ONE-ON-ONE) PATIENT CONTACT (USE OF DYNAMIC ACTIVITIES TO IMPROVE FUNCTIONAL PERFORMANCE), EACH 15 MINUTES 10/01/2005 [facility] THERAPEUTIC PROCEDURE,1 OR MORE AREAS,EACH 15 MINUTES;NEUROMUSCULA R REEDUCATION OF MOVEMENT,BALANCE,JOB ANALYSIS MANAGER RDINATION,KINESTHETI C SENSE,POSTURE,AND/OR PROPRIOCEPTION FOR SITTING AND/OR STANDING ACTIVITIES 09/30/2005 [facility] SELF-CARE/HOME MANAGMENT TRAIN (EG,ACT OF DAILY LIVING (ADL) &COMPENSAT TRAIN,MEAL PREPARATION,SAFETY PROCS,AND INSTRUCT IN USE OF ASST TECHNOLOGY DEV/ADPT EQUIP) DIR ONE-ON-ONE CONT,EA 15 MINUTES 09/23/2005 [facility] APPLICATION OF A MODALITY TO 1 OR MORE AREAS; TRACTION, MECHANICAL 09/16/2005 [facility] APPLICATION OF A MODALITY TO 1 OR MORE AREAS; TRACTION, MECHANICAL 09/11/2005 [facility] THERAPEUTIC PROCEDURE,1 OR MORE AREAS,EACH 15 MINUTES;NEUROMUSCULA R REEDUCATION OF MOVEMENT,BALANCE,JOB ANALYSIS MANAGER RDINATION,KINESTHETI C SENSE,POSTURE,AND/OR PROPRIOCEPTION FOR SITTING AND/OR STANDING ACTIVITIES 09/10/2005 [facility] APPLICATION OF A MODALITY TO 1 OR MORE AREAS; HOT OR COLD PACKS 09/08/2005 [facility] APPLICATION OF A MODALITY TO 1 OR MORE AREAS; HOT OR COLD PACKS 09/03/2005 [facility] INJECTION, DIAZEPAM, UP TO 5 MG 08/07/2005 [facility] CYTOPATHOLOGY, SMEARS, CERVICAL OR VAGINAL, UP TO THREE SMEARS; SCREENING BY AUTOMATIC MOUNTER UNDER PHYSICIAN SUPERVISION 02/03/2005 [facility] Screening papanicolaou smear; obtaining, preparing and conveyance of cervical or vaginal smear to laboratory 05/20/[address] [facility] Training And Self-Care Skills Training And Self-Care Skills [id number] 10/30/[address] [facility] Physical Medicine Physical Therapy Re-Evaluation Physical Medicine Physical Therapy Re-Evaluation 35823 10/30/[address] [facility] Physical Therapy Neuromuscular Re-education Physical Therapy Neuromuscular Re-education 24378 10/29/[address] [facility] Physical Therapy: ___ Se ion Segments, 15 Minutes Each Physical Therapy: ___ Session Segments, 15 Minutes Each [id number] 10/29/[address] [facility] Physical Therapy Neuromuscular Re-education Physical Therapy Neuromuscular Re-education 30118 10/15/[address] [facility] Physical Therapy: ___ Se ion Segments, 15 Minutes Each Physical Therapy: ___ Session Segments, 15 Minutes Each [id number] 10/15/[address] [facility] Physical Therapy Neuromuscular Re-education Physical Therapy Neuromuscular Re-education 96958 10/13/[address] [facility] Physical Therapy: ___ Se ion Segments, 15 Minutes Each Physical Therapy: ___ Session Segments, 15 Minutes Each [id number] 10/13/[address] [facility] Physical Therapy Neuromuscular Re-education Physical Therapy Neuromuscular Re-education 37667 10/08/[address] [facility] Physical Therapy: ___ Se ion Segments, 15 Minutes Each Physical Therapy: ___ Session Segments, 15 Minutes Each [id number] 10/08/[address] [facility] Physical Therapy Neuromuscular Re-education Physical Therapy Neuromuscular Re-education 78888 10/06/[address] [facility] Physical Therapy: ___ Se ion Segments, 15 Minutes Each Physical Therapy: ___ Session Segments, 15 Minutes Each [id number] 10/06/[address] [facility] PT A e ment Kinetic Training PT Assessment Kinetic Training 27782 10/03/[address] [facility] Physical Therapy: ___ Se ion Segments, 15 Minutes Each Physical Therapy: ___ Session Segments, 15 Minutes Each [id number] 10/03/[address] [facility] Physical Therapy Neuromuscular Re-education Physical Therapy Neuromuscular Re-education 84934 09/30/[address] [facility] Physical Therapy: ___ Se ion Segments, 15 Minutes Each Physical Therapy: ___ Session Segments, 15 Minutes Each 35015 09/30/[address] [facility] Physical Medicine Physical Therapy Re-Evaluation Physical Medicine Physical Therapy Re-Evaluation 35311 09/23/[address] [facility] Training And Self-Care Skills Training And Self-Care Skills 42005 09/23/[address] [facility] Physical Therapy: ___ Se ion Segments, 15 Minutes Each Physical Therapy: ___ Session Segments, 15 Minutes Each [id number] 09/16/[address] [facility] Physical Therapy Neuromuscular Re-education Physical Therapy Neuromuscular Re-education 73705 09/16/[address] [facility] Traction Pelvic Traction Pelvic 90832 09/16/[address] [facility] Physical Therapy: ___ Se ion Segments, 15 Minutes Each Physical Therapy: ___ Session Segments, 15 Minutes Each 76505 09/11/[address] [facility] Physical Therapy Neuromuscular Re-education Physical Therapy Neuromuscular Re-education 43295 09/11/[address] [facility] Traction Pelvic Traction Pelvic 30956 09/11/[address] [facility] Physical Therapy: ___ Se ion Segments, 15 Minutes Each Physical Therapy: ___ Session Segments, 15 Minutes Each 04117 09/08/[address] [facility] Physical Therapy Neuromuscular Re-education Physical Therapy Neuromuscular Re-education 60123 09/08/[address] [facility] Modalities Traction Modalities Traction 41884 [address] [facility] Modalities Cryotherapy Cold Packs Modalities Cryotherapy Cold Packs 47783 09/08/[address] [facility] Training And Self-Care Skills Training And Self-Care Skills 22219 09/03/[address] [facility] Physical Therapy: ___ Se ion Segments, 15 Minutes Each Physical Therapy: ___ Session Segments, 15 Minutes Each 00953 09/03/[address] [facility] Modalities Heat Hot Packs Modalities Heat Hot Packs 50220 09/03/[address] [facility] Physical Medicine Physical Therapy Evaluation Physical Medicine Physical Therapy Evaluation 36686 09/03/[address] [facility] Social History Combined list of available smoking, tobacco, and other social history from Department of Defense and Veterans Affairs facilities. Social History Type Response Date Comment [facility] e This section is an empty social history section. DoD
--- OUTSIDE RECORDS SUMMARY | 2024-07-28 14:08 | XMS_ITS | Clinical Summary ---
Author Organization [facility] Dominique Enrique Address [address] [place] [address] Care Team Providers Care Flower Buncher Or Picker Name Role Phone Dafne Gomez DO Primary [...] Encounters Date Type Department Care Team Description 07/26/2024 External Device Data [facility] ABSTRACTION Provider, Abstract 07/14/2024 External Device Data [facility] ABSTRACTION Provider, Abstract 07/13/2024 External Device Data [facility] ABSTRACTION Provider, Abstract 07/12/2024 External Device Data [facility] ABSTRACTION Provider, Abstract 06/28/2024 11:15 AM CDT Office Visit [facility] [place] [address] [place] [address] Kali Caputo MD Iron deficiency anemia, unspecified iron deficiency anemia type (Primary Dx) 06/23/2024 Orders Only [facility] - [place] [address] [place] [address] Kali Caputo MD 06/22/2024 Orders Only [facility] - [place] [address] [place] [address] Kali Caputo MD 06/07/2024 External Device Data [...] 10:50 AM CDT Height 167.6 cm (5' 6) 05/11/2023 11:05 AM CDT Body Mass Index 44.55 05/11/2023 11:05 AM CDT Plan of Treatment Upcoming Encounters Date Type Department Care Team (Late st Contact Info) Description 10/11/2024 11:00 AM CDT Office Visit [facility] - [place] [address] [facility] [address] [place] [address] Kali Caputo MD [address] [place] [address] Health Maintenance Due Date Last [...] 01/01/2022 ZOSTER VACCINE (1 of 2) 11/16/2023 BREAST CANCER SCREENING 10/07/2024 10/08/2023 Procedures Procedure Name Priority Date/Time Associated Diagnosis Comments CBC WITH DIFFERENTIAL Routine 06/22/2024 4:09 PM CDT CBC MIXED CELL DIFFERENTIAL Routine 06/22/2024 3:43 PM CDT IRON LEVEL Routine 06/22/2024 8:14 AM CDT MAMMO SCREENING BILAT Routine 10/08/2023 11:19 AM [...] MD CHEMISTRY ORDERABLES Final Resu lt * MAMMO SCREENING BILAT (10/08/2023 11:19 AM CDT) Anatomical Region Laterality Modality Breast Bilateral Mammography us Kali Caputo MD MAMMO ORDERABLES Final Result from Last 3 Months or Most Recently Relevant to Health Maintenance Insurance [facility] Care Teams Flower Buncher Or Picker Relationship Specialty Start Date End Date Dafne Gomez DO [facility] [place] [address] PCP - General Family Practice 08/18/23
--- OUTSIDE RECORDS SUMMARY | 2024-07-28 14:08 | XMS_ITS | Patient Health Record ---
Author Organization [facility] [employer] Address [address] [facility] [address] [place] [address] Care Team Providers Care Development Architect Name Role Phone Osiris West Unavailable [phone] Allergies No Known Allergies Results Component Value Reference Range Notes UDT Reviewed date:09/04/2023 08:03:55 PM Interpretation: Performing Lab: Notes/Report: THC p 0 - 50 ng/ml Cocaine n 0 - 300 ng/ml Amphetamine n 0 - 1000 ng/ml Buprenorphine (BUP) n 0 - 10 ng/ml Secobarbital (Bar) n 0 - 300 ng/ml Oxazepam (BZO) n 0 - 300 ng/ml 0-rsfdagiwvf-4,9-bowunypp-9,3-diphenylpyrrolidine (KATIE P) n 0 - 300 ng/ml Methamphetamine (MET) n 0 - 1000 ng/ml Morphine (MOP 300/[id number]) n 0 - 300 ng/ml Methadone (MTD) [...] Problem Status W/U Status Risk Notes Problem 80933210 Major depressive disorder, recurrent severe without psychotic features (F33.2) Active confirmed Problem Asperger's syndrome (F84.5) Active confirmed Problem 80295523 Post traumatic stress disorder (PTSD) (F43.10) Active confirmed Problem 73138976 Recurrent major depressive disorder, remission status unspecified (F33.9) Active confirmed Problem 97973627 Autism spectrum (F84.0) Active confirmed Vital Signs Heart Rate 92 /min 09/21/2023 Blood pressure diastolic 85 mm Hg 09/21/2023 Weight-kg 111.77 kg 09/21/2023 Blood pressure systolic 117 mm Hg 09/21/2023 Weight 246.4 lbs 09/21/2023 Encounters Encounter Location Date Provider Diagnosis [facility] [address] [facility] [address] [place] [address] 08/31/2023 Thena Brett Asperger's syndrome F84.5 ; Recurrent major depressive disorder, remission status unspecified F33.9 and Post traumatic stress disorder (PTSD) F43.10 [facility] [address] [facility] [address] [place] [address] 09/21/2023 Thena Brett Autism spectrum F84. 0 [...] Date Coverage End Date [employer] [address] [place] [address] [id number] Tita Boucher Self - patient is the insured [address] [address] [place] [address] [id number] Tita Boucher Self - patient is the insured Medical (General) History Medical History History ICD Code Past Psychiatric History: Anxiety Disord er,Major Depressive Episode
--- OUTSIDE RECORDS SUMMARY | 2024-07-28 14:08 | XMS_ITS ---
Author Organization [facility] Address [facility] [address] Care Team Providers Care Faucet Polisher Name Role Phone Osiris Vázquez Unavailable [phone] Social History Sex Assigned At : Social History Observation Description Sex Assigned At Female Encounters Encounter Location Date Provider Diagnosis [facility] [employer] [facility] [address] 11/19/2023 Osiris Vázquez Plan Of Treatment No Information Progress Notes * Tita BOUCHERDOB:1975 (3 0 yo F)Acc No.[id number]:11/19/2023 Patient: Tita HOSKINS Provider: Pillo VÁZQUEZ MD :1975 A ge:48 Y S ex:Female Date:11/19/2023 Phone: Address:[address] [place], [place] [phone] Subjective: * Chief Complaints: * * Medical History: Objective: * Vitals: Assessment: Plan: * Treatment: * Billing Information: * Visit Code: * Procedure Codes: * Electronic signature of Dariel Vázquez MD on 07/28/2024 at 02:08 PM CDT Sign off status: Pending * Provider: Pillo VÁZQUEZ MD Date: 0 11/19/2023 Generated for Hali dickson/Peyton/eTnoahsmitting on: 07/28/2024 02:08 PM CDT
== END 2024-07-28 13:24 | disposition home or self-care (01) ==
LOC: ANHIMG 13:28
PROVIDERS: PCP Family Medicine; Visit Provider Physician Assistant
DX: N20.0 Calculus of kidney (principal)
CPT/HCPCS: 74018

== ENCOUNTER 2024-08-09 12:45 | Outpatient (CLI) | payer BC, OTHER, SELFPAY ==
--- NOTE | 2024-08-09 13:12 | ECG_ITS ---
Test Date: 2024-08-09 13:32:51 Measurements Intervals Tyler Rate: 83 P: 48 CT: 165 QRS: -23 QRSD: 115 T: 44 QT: 370 QTc: 435 Interpretive Statements SINUS RHYTHM LOW QRS VOLTAGE IN PRECORDIAL LEADS INCOMPLETE RIGHT BUNDLE BRANCH BLOCK MINIMAL Q WAVES- HIGH LATERAL LEADS BORDERLINE ECG No previous ECG available for comparison Electronically Signed On 08-09-2024 14:13:28 CDT by Iggy Xavier D.O.
--- OUTSIDE RECORDS SUMMARY | 2024-08-09 13:28 | XMS_ITS | Data Portability ---
Author Organization [place] - [facility] [employer], Main Office Address [address] [place] [address] Assessment No assessment recorded. Plan of Treatment [...] (ICA ). Perfo rmed at: - [facility] [address], [place] [address] Lab Direc tor: Lupillo aguilar PhD, Phone : [phone] Not Available [facility] (Lab) [address] [place], [address], 07/23/2021 16:10:44 07/20/19 22 07/19/2021 HEMOG LOBIN A1C HA1C 5.5 % 4.0-6. 0 Diabe jaylen Screaaron ogdeng Crite trinh: <5.7% Consi stent with absen ce of diabe jaylen 5.7-6 .4% Consi stent with incre ased risk for diabe jaylen (pred iabet es) >OR=6 .5% Consi stent with diabe jaylen REFER ENCE: Diabe jaylen Care 2016, 39(Andrew ppl.1 ):s13 -s22 Not Available [facility] (Lab) [address] [place], [address], 07/19/2021 19:47:25 07/20/19 22 07/19/2021 SEDIM ENTAT ION RATE erythrocyte sedimentatio n rate 18 mm/HR 0-20 Not Available [facility] (Lab) [address] [place], [address], 07/19/2021 19:32:48 07/20/19 22 07/19/2021 TSH thyroid-stim ulating hormone 1.510 uIU/m L 0.465- 4.680 Not Available [facility] (Lab) [address] [place], [address], 07/19/2021 19:19:56 07/20/19 22 07/19/2021 T3 FREE free T3 3.1 pg/mL 2.77-5 .27 Not Available [facility] (Lab) [address] [place], [address], 07/19/2021 19:06:19 07/20/19 22 07/19/2021 T4 FREE free T4 1.43 NG/dL 0.78-2 .19 Not Available [facility] (Lab) [address] [place], [address], 07/19/2021 19:06:18 07/20/19 22 07/19/2021 CBC W/O DIFFE RENTI AL white blood cells 8.6 x10'3 /uL 4.2-10 .8 Not Available [facility] (Lab) [address] [place], [address], 07/19/2021 19:03:06 07/20/19 22 07/19/2021 CBC W/O DIFFE RENTI AL red blood cells 4.69 x10'6 /uL 3.80-5 .20 Not Available [facility] (Lab) [address] [place], [address], 07/19/2021 19:03:06 07/20/19 22 07/19/2021 CBC W/O DIFFE RENTI AL hemoglobin 8.9 g/dL 12.0-1 5.6 low Not Available [facility] (Lab) [address] [place], [address], 07/19/2021 19:03:06 07/20/19 22 07/19/2021 CBC W/O DIFFE RENTI AL hematocrit 32.5 % 35.7-4 5.7 low Not Available [facility] (Lab) [address] [place], [address], 07/19/2021 19:03:06 07/20/19 22 07/19/2021 CBC W/O DIFFE RENTI AL mean red cell volume 69.3 fL 82.0-9 9.0 low Not Available [facility] (Lab) [address] [place], [address], 07/19/2021 19:03:06 07/20/19 22 07/19/2021 CBC W/O DIFFE RENTI AL mean red cell hemoglobin 19.0 pg 27.0-3 3.0 low Not Available [facility] (Lab) [address] [place], [address], 07/19/2021 19:03:06 07/20/19 22 07/19/2021 CBC W/O DIFFE RENTI AL mean RBC HGB concentratio n 27.4 g/dL 31.0-3 6.0 low Not Available [facility] (Lab) [address] [place], [address], 07/19/2021 19:03:06 07/20/19 22 07/19/2021 CBC W/O DIFFE RENTI AL red cell distribution width 18.3 % 11.8-1 5.5 high Not Available [facility] (Lab) [address] [place], [address], 07/19/2021 19:03:06 07/20/19 22 07/19/2021 CBC W/O DIFFE RENTI AL platelets 471 x10'3 /uL 150-40 0 high Not Available [facility] (Lab) [address] [place], [address], 07/19/2021 19:03:06 07/20/19 22 07/19/2021 CBC W/O DIFFE RENTI AL mean platelet volume 11.4 fL 9.0-12 .4 Not Available [facility] (Lab) [address] [place], [address], 07/19/2021 19:03:06 07/20/19 22 07/19/2021 RHEUM ATOID FACTO R rf <8.6 IU/mL 0.0-11 .9 Not Available [facility] (Lab) [address] [place], [address], 07/19/2021 18:58:57 07/20/19 22 07/19/2021 C REACT VANESSA PROTE IN,UL TRA SENS C-reactive protein 1.33 mg/dL 0.0-0. 5 high Not Available [facility] (Lab) [address] [place], [address], 07/19/2021 18:58:52 07/20/19 22 07/19/2021 LIPID PANEL cholesterol 209 mg/dL 140-19 9 high NIH ADALI NSUS RECOM MENDA TION FOR KYLER STERO L: ADULT CHILD LOW RISK: <200 <170 BORDE RLINE : <200- 239 ----- HIGH RISK: >240 >200 Not Available [facility] (Lab) [address] [place], [address], 07/19/2021 18:58:13 07/20/1907/19/2021 LIPID PANEL triglyceride s 123 mg/dL 0-150 NIH ADALI NSUS REPOR T RECOM MENDA TION FOR TRIGL YCERI RYAN: ADULT CHILD LOW RISK: <150 ----- BODER LINE: 150-1 99 ----- HIGH RISK: >200 ----- Not Available [facility] (Lab) [address] [place], [address], 07/19/2021 18:58:13 07/20/1907/19/2021 LIPID PANEL HDL cholesterol 68 mg/dL 40- Not Available [facility] (Lab) [address] [place], [address], 07/19/2021 18:58:13 07/20/19 22 07/19/2021 LIPID PANEL [...] WILL NOT BE REPOR JANE. Not Available [facility] (Lab) [address] [place], [address], 07/19/2021 18:58:13 07/20/1907/19/2021 COMPR EHENS VANESSA METAB OLIC PANEL sodium 138 mmol/ L 137-14 5 Not Available [facility] (Lab) [address] [place], [address], 07/19/2021 18:58:02 07/20/19 22 07/19/2021 COMPR EHENS VANESSA METAB OLIC PANEL potassium 4.4 mmol/ L 3.5-5. 1 Not Available [facility] (Lab) [address] [place], [address], 07/19/2021 18:58:02 07/20/19 22 07/19/2021 COMPR EHENS VANESSA METAB OLIC PANEL chloride 104 mmol/ L 98-107 Not Available [facility] (Lab) [address] [place], [address], 07/19/2021 18:58:02 07/20/19 22 07/19/2021 COMPR EHENS VANESSA METAB OLIC PANEL carbon dioxide 26 mmol/ L 22-30 Not Available [facility] (Lab) [address] [place], [address], 07/19/2021 18:58:02 07/20/19 22 07/19/2021 COMPR EHENS VANESSA METAB OLIC PANEL anion gap 12.4 mmol/ L 14-22 low Not Available [facility] (Lab) [address] [place], [address], 07/19/2021 18:58:02 07/20/19 22 07/19/2021 COMPR EHENS VANESSA METAB OLIC PANEL glucose 77 mg/dL 70-99 Not Available [facility] (Lab) [address] [place], [address], 07/19/2021 18:58:02 07/20/19 22 07/19/2021 COMPR EHENS VANESSA METAB OLIC PANEL BUN 11 mg/dL 8-19 Not Available [facility] (Lab) [address] [place], [address], 07/19/2021 18:58:02 07/20/19 22 07/19/2021 COMPR EHENS VANESSA METAB OLIC PANEL creatinine 0.62 mg/dL 0.66-1 .25 low Not Available [facility] (Lab) [address] [place], [address], 07/19/2021 18:58:02 07/20/19 22 07/19/2021 COMPR EHENS VANESSA METAB OLIC PANEL GFR >60 Refer ence Range : [place] ge GFR Healt hy Adult : >60 [...] calcu lator is avail able on the [facility] websi te: https :[email or web address] ceja.rich [email or web address] moshe/pr delano champagneal s/kdo qi/gf r_cal culat or Not Available [facility] (Lab) [address] [place], [address], 07/19/2021 18:58:02 07/20/19 22 07/19/2021 COMPR EHENS VANESSA METAB OLIC PANEL alkaline phosphatase 72 U/L 38-126 Not Available [facility] (Lab) [address] [place], [address], 07/19/2021 18:58:02 07/20/19 22 07/19/2021 COMPR EHENS VANESSA METAB OLIC PANEL alanine aminotransfe rase 16 U/L 0-35 Not Available [facility] (Lab) [address] [place], [address], 07/19/2021 18:58:02 07/20/19 22 07/19/2021 COMPR EHENS VANESSA METAB OLIC PANEL aspartate aminotransfe rase 25 U/L 15-37 Not Available [facility] (Lab) [address] [place], [address], 07/19/2021 18:58:02 07/20/19 22 07/19/2021 COMPR EHENS VANESSA METAB OLIC PANEL bilirubin, total 0.20 mg/dL 0.20-1 .30 Not Available [facility] (Lab) [address] [place], [address], 07/19/2021 18:58:02 07/20/19 22 07/19/2021 COMPR EHENS VANESSA METAB OLIC PANEL calcium 9.3 mg/dL 8.4-10 .2 Not Available [facility] (Lab) [address] [place], [address], 07/19/2021 18:58:02 07/20/19 22 07/19/2021 COMPR EHENS VANESSA METAB OLIC PANEL total protein 7.4 g/dL 6.3-8. 2 Not Available [facility] (Lab) [address] [place], [address], 07/19/2021 18:58:02 07/20/19 22 07/19/2021 COMPR EHENS VANESSA METAB OLIC PANEL albumin 4.3 g/dL 3.4-5. 0 Not Available [facility] (Lab) [address] [place], [address], 07/19/2021 18:58:02 07/20/19 22 07/19/2021 COMPR EHENS VANESSA METAB OLIC PANEL globulin 3.1 g/dL 2.6-4. 2 Not Available [facility] (Lab) [address] [place], [address], 07/19/2021 18:58:02 07/20/19 22 07/19/2021 COMPR EHENS VANESSA METAB OLIC PANEL A/G ratio 1.4 ratio 1.0-2. 0 Not Available [facility] (Lab) [address] [place], [address], 07/19/2021 18:58:02 07/20/19 22 07/19/2021 CPK TOTAL creatine kinase 88 U/L 30-135 Not Available [facility] (Lab) [address] [place], [address], 07/19/2021 18:57:50 01/09/20 22 01/10/2022 FOLAT E, SERUM /PLAS MA folate >20.0 NG/mL 2.76-2 0.0 Not Available [facility] (Lab) [address] [place], [address], 01/10/2022 16:38:20 01/09/20 22 01/10/2022 VITAM IN B12 (KRISH SHARON ) vb12 400 pg/mL 239-93 1 Not Available [facility] (Lab) [address] [place], [address], 01/10/2022 16:38:19 01/09/20 22 01/10/2022 VITAM IN D 25-HY DROXY vd25oh 14.3 NG/mL 30-100 low Vitam in D Statu s: Defic ient: <20 ng/mL Insuf ficie nt: 20-29 ng/mL Suffi cient : 30-10 0 ng/mL Not Available [facility] (Lab) [address] [place], [address], 01/10/2022 15:48:59 01/09/20 22 01/08/2022 IRON/ TIBC PANEL total iron binding capacity 445 mcg/d L 265-47 5 Not Available [facility] (Lab) [address] [place], [address], 01/08/2022 22:09:37 01/09/20 22 01/08/2022 IRON/ TIBC PANEL % transferrin saturation 4 % 20-55 low Not Available [facility] (Lab) [address] [place], [address], 01/08/2022 22:09:37 01/09/20 22 01/08/2022 IRON/ TIBC PANEL unsaturated iron bind capacity 425 mcg/d L 126-38 2 high Not Available [facility] (Lab) [address] [place], [address], 01/08/2022 22:09:37 01/09/20 22 01/08/2022 IRON/ TIBC PANEL iron 20 mcg/d L 42-175 low Not Available [facility] (Lab) [address] [place], [address], 01/08/2022 22:09:37 01/09/20 22 01/08/2022 CBC W/O DIFFE RENTI AL white blood cells 9.6 x10'3 /uL 4.2-10 .8 Not Available [facility] (Lab) [address] [place], [address], 01/08/2022 20:58:54 01/09/20 22 01/08/2022 CBC W/O DIFFE RENTI AL red blood cells 3.62 x10'6 /uL 3.80-5 .20 low Not Available [facility] (Lab) [address] [place], [address], 01/08/2022 20:58:54 01/09/20 22 01/08/2022 CBC W/O DIFFE RENTI AL hemoglobin 9.4 g/dL 12.0-1 5.6 low Not Available [facility] (Lab) [address] [place], [address], 01/08/2022 20:58:54 01/09/20 22 01/08/2022 CBC W/O DIFFE RENTI AL hematocrit 31.4 % 35.7-4 5.7 low Not Available [facility] (Lab) [address] [place], [address], 01/08/2022 20:58:54 01/09/20 22 01/08/2022 CBC W/O DIFFE RENTI AL mean red cell volume 86.7 fL 82.0-9 9.0 Not Available [facility] (Lab) [address] [place], [address], 01/08/2022 20:58:54 01/09/20 22 01/08/2022 CBC W/O DIFFE RENTI AL mean red cell hemoglobin 26.0 pg 27.0-3 3.0 low Not Available [facility] (Lab) [address] [place], [address], 01/08/2022 20:58:54 01/09/20 22 01/08/2022 CBC W/O DIFFE RENTI AL mean RBC HGB concentratio n 29.9 g/dL 31.0-3 6.0 low Not Available [facility] (Lab) [address] [place], [address], 01/08/2022 20:58:54 01/09/20 22 01/08/2022 CBC W/O DIFFE RENTI AL red cell distribution width 15.9 % 11.8-1 5.5 high Not Available [facility] (Lab) [address] [place], [address], 01/08/2022 20:58:54 01/09/20 22 01/08/2022 CBC W/O DIFFE RENTI AL platelets 383 x10'3 /uL 150-40 0 Not Available [facility] (Lab) [address] [place], [address], 01/08/2022 20:58:54 01/09/20 22 01/08/2022 CBC W/O DIFFE YARELIS GARCIA mean platelet volume 11.1 fL 9.0-12 .4 Not Available [facility] (Lab) [address] [place], [address], 01/08/2022 20:58:54 Result Notes None recorded. 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 Not Available [facility] 3 18:11:59 History of pneumonia 526639418 Active 2021 Not Available [facility] 3 18:11:59 Asthma 174322023 Active 2021 Not Available [facility] 3 18:11:59 Irritable bowel syndrome with diarrhea 008858709 Active 2021 Not Available [facility] 3 18:11:59 Jamar thyroiditis 89010275 Active 2021 Not Available [facility] 3 18:11:59 Arthritis 8155859 Active 2021 Not Available [facility] 3 18:11:59 Basal cell carcinoma of face 900288114 Active 2021 Not Available [facility] 3 18:11:59 Obesity 569168049 Active 2021 Not Available [facility] 3 18:11:59 Chronic colitis 10160164 Active 2021 Not Available [facility] 3 18:11:59 Essential hypertension 26957581 Active 2021 Not Available [facility] 3 18:11:59 Optic neuritis 90188520 Active 2021 Not Available [facility] 3 18:11:59 Intervertebra l disc prolapse 23078085 Active 2021 Not Available [facility] 3 18:11:59 Hiatal hernia 01810508 Active 2021 Not Available [facility] 3 18:11:59 Uterine leiomyoma 43921510 Active 05/27/ 2022 Not Available [facility] 3 18:11:59 Notes:Some problems listed i n Document: #[id number] could not be added to this patient's [...] % 99 % 79 /min 99.5 [degF] 399650. 69 g 166 mm[Hg] 100 mm[Hg] Not Available [facility] 3 17:12:47 Date Recorded Body mass index (BMI) Body height Oxygen saturation Oxygen saturation in Arterial blood by Pulse oximetry Heart rate Body temperature Body weight Systolic blood pressure Diastolic blood pressure Provider Name and Address Organization Details Last Updated DateTime 2 36.8 kg/m2 167.64 cm 98 % 98 % 70 /min 96.8 [degF] 757760. 06 g 145 mm[Hg] 100 mm[Hg] Not Available [facility] 3 17:12:47 Date Recorded Body mass index (BMI) Body height Oxygen saturation Oxygen saturation in Arterial blood by Pulse oximetry Heart rate Body temperature Body weight Systolic blood pressure Diastolic blood pressure Provider Name and Address Organization Details Last Updated DateTime 2 37.2 kg/m2 167.64 cm 97 % 97 % 84 /min 99 [degF] 603184. 4 g 120 mm[Hg] 80 mm[Hg] Not Available [facility] 3 17:12:47 Date Recorded Body mass index (BMI) Body height Oxygen saturation Oxygen saturation in Arterial blood by Pulse oximetry Heart rate Body temperature Body weight Systolic blood pressure Diastolic blood pressure Provider Name and Address Organization Details Last Updated DateTime 2 37.3 kg/m2 167.64 cm 97 % 97 % 98 /min 97.8 [degF] 323967. 84 g 138 mm[Hg] 78 mm[Hg] Not Available [facility] 3 17:12:47 Date Recorded Body mass index (BMI) Body height Oxygen saturation Oxygen saturation in Arterial blood by Pulse oximetry Heart rate Body temperature Body weight Systolic blood pressure Diastolic blood pressure Provider Name and Address Organization Details Last Updated DateTime 2 36.6 kg/m2 167.64 cm 99 % 99 % 88 /min 96.8 [degF] 354993. 47 g 150 mm[Hg] 98 mm[Hg] Not Available [facility] 3 17:12:47 Social History Question Answer Notes LastModified by Organizat ion Details LastModified Time Tobacco Smoking Status Former Smoker Not Available [facility] 04/23/2022 17:12:25 Do You Have An Advance Directive? No [id number].84020 [id number] Information not available 04/23/2022 Do You Wear A Helmet When Biking? No MIGRATION.18423 98329 Information not available 04/23/2022 What Is Your Level Of Caffeine Consumption? Heavy MIGRATION.67043 77054 Information not available 04/23/2022 In The 14 Days Before Symptom Onset, Have You Had Close Contact With A Laboratory-confi rmed COVID-19 While That Case Was Ill? No MIGRATION.61765 29207 Information not available 04/23/2022 In The 14 Days Before Symptom Onset, Have You Had Close Contact With A Person Who Is Under Investigation For COVID-19 While That Person Was Ill? No MIGRATION.88095 12359 Information not available 04/23/2022 What Type Of Diet Are You Following? REGULAR MIGRATION.16900 47577 Information not available 04/23/2022 What Is The Highest Grade Or Level Of School You Have Completed Or The Highest Degree You Have Received? [id number] MIGRATION.99725 55138 Information not available 04/23/2022 Have There Been Any Changes To Your Family Or Social Situation? Yes MIGRATION.43918 45134 Information not available 04/23/2022 What Is The Fluoride Status Of Your Home? Unknown MIGRATION.10615 65801 Information not available 04/23/2022 When Did You Quit Smoking? 1-5yearssincelastci enedinaette MIGRATION.44853 14186 Information not available 04/23/2022 Are There Any Guns Present In Your Home? No MIGRATION.45933 41472 Information not available 04/23/2022 Do You Use Insect Repellent Routinely? Yes MIGRATION.24735 07862 Information not available 04/23/2022 Where Do You Live? [place]House MIGRATION.04434 96636 Information not available 04/23/2022 Do You Have A Medical Power Of Machinery Mover? No MIGRATION.33473 80486 Information not available 04/23/2022 What Was The Date Of Your Most Recent Tobacco Screening? 08/21/2021 MIGRATION.73859 63024 Information not available 04/23/2022 Do You Have Any Pets? Yes MIGRATION.12430 64784 Information not available 04/23/2022 What Is Your Relationship Status? MIGRATION.25921 22486 Information not available 04/23/2022 Do You Use Your Seat Belt Or Car Seat Routinely? Yes MIGRATION.77959 66291 Information not available 04/23/2022 Do You Have Smoke And Carbon Monoxide Detectors In Your Home? No MIGRATION.10194 87039 Information not available 04/23/2022 At What Age Did You Start Smoking Tobacco? 16 MIGRATION.20130 83001 Information not available 04/23/2022 Are You Passively Exposed To Smoke? Yes MIGRATION.03356 29078 Information not available 04/23/2022 Are There Any Smokers In Your House? Yes MIGRATION.33985 51532 Information not available 04/23/2022 Do You Participate In Social Media? Yes MIGRATION.53084 10883 Information not available 04/23/2022 Do You Use Sunscreen Routinely? No MIGRATION.70726 08962 Information not available 04/23/2022 How Many Years Have You Smoked Tobacco? 15 MIGRATION.80071 30043 Information not available 04/23/2022 Have You Recently Traveled Abroad? No MIGRATION.55936 81140 Information not available 04/23/2022 Are You Currently In School? No MIGRATION.60804 06501 Information not available 04/23/2022 Do You Have Any Dietary Restrictions? No MIGRATION.40655 51820 Information not available 04/23/2022 Sex: Unknown Functional Status Question Answer Note LastModified by Organizat ion Details LastModified Time Do you use any illicit or recreational drugs? No MIGRATION.[id number] 026 Information not available 04/23/2022 Do you or have you ever used any other forms of tobacco or nicotine? No MIGRATION.3541169 026 Information not available 04/23/2022 What is your level of alcohol consumption? None MIGRATION.2161100 026 Information not available 04/23/2022 What is your exercise level? Occasional MIGRATION.8203165 026 Information not available 04/23/2022 Mental Status Question Answer Note LastModified by Organizat ion Details LastModified Time Do you feel stressed (tense, restless, nervous, or anxious, or unable to sleep at night)? [id number] MIGRATION.[id number] 6 Information not available 04/23/2022 Family History Relationship Description Onset Age of this Age Resolved Age Notes LastModified by Organization Details LastModified Time Mother Jamar thyroiditis MIGRATION.223 [id number] Not available 04/23/2022 17:12:31 Mother Diabetes mellitus MIGRATION.749 [id number] Not available 04/23/2022 17:12:31 Mother Glaucoma MIGRATION.639 [id number] Not available 04/23/2022 17:12:31 Mother Diverticulit is MIGRATION.427 [id number] Not available 04/23/2022 17:12:31 Mother Cataract MIGRATION.545 [id number] Not available 04/23/2022 17:12:31 Father Malignant tumor of colon MIGRATION.176 [id number] Not available 04/23/2022 17:12:31 Father Malignant neoplasm of prostate MIGRATION.794 [id number] Not available 04/23/2022 17:12:31 Father Gallstone MIGRATION.830 [id number] Not available 04/23/2022 17:12:31 Father Kidney stone MIGRATION.0 30 [id number] Not available 04/23/2022 17:12:31 Father Chronic renal failure MIGRATION.268 [id number] Not available 04/23/2022 17:12:31 Father Anemia MIGRATION.346 [id number] Not available 04/23/2022 17:12:31 Medical History Condition [...] HAVE YOU BEEN HOSPITALIZED OR SEEN IN [facility] IN THE PAST YEAR ? Y [...] virus, quadrivalent, preservative 2 completed Not Available [facility] 09/01/2022 18:12:00 COVID-19, mRNA, LNP-S, PF, 30 mcg/0.3 mL dose 1 completed Not Available [facility] 09/01/2022 18:12:00 COVID-19, mRNA, LNP-S, PF, 30 mcg/0.3 mL dose 1 completed Not Available [facility] 09/01/2022 18:12:00 COVID-19, mRNA, LNP-S, PF, 30 mcg/0.3 mL dose 1 completed Not Available [facility] 09/01/2022 18:12:00 COVID-19, mRNA, LNP-S, bivalent, PF, 50 mcg/0.5 mL or 25mcg/0.25 mL dose 3 completed Zuleima Johnson RN [facility], [place] [facility] 09/11/2022 15:15:29 Past Encounters Encounter ID Performer Location Encounter Start Date Encounter Closed Date Diagnosis/Indication Diagnosis SNOMED-CT Code Diagnosis ICD10 Code Diagnosis Note [id number] REY Singh Michelle[address] [place] [address] 07/19/2021 00:00:00 07/19/2021 18:19:23 [id number] REY Singh Michelle_[address] [place] [address] 08/02/2021 00:00:00 08/02/2021 13:40:24 [id number] S_Histor ic_Gateway S_GMG Endo Bautista Alston [address] [place] [address] 08/16/2021 00:00:00 08/16/2021 14:04:01 [id number] _ATHN_MIGR ATION_1 _ATHENA_M IGRATION_ DEFAULT_1 _1 , 08/21/2021 00:00:00 08/21/2021 15:09:23 [id number] Roberta Garcia MD [facility] Primary Care [facility] [address] [place] [address] 01/08/2022 00:00:00 01/08/2022 18:32:28 Health Concerns Section Related Observation LastModified by Organization Detai ls LastModified Time None Recorded Concern Status LastModified by Organization Details LastModified Time None Recorded Advance Directives Directive N: Payers Insurance Date Sequence Insurance Name Policy Number Policy Aguirre Covered Member ID Aguirre Member ID Guarantor Name 12/10/2022 1 [place] 112 Tarik Boucher [id number] Tita Boucher OBGyn Episode No OBEpisode recorded.
--- OUTSIDE RECORDS SUMMARY | 2024-08-09 13:28 | XMS_ITS | Clinical Summary ---
Author Organization [facility] First Aid Shot Therapy Address [address] [place] [address] Care Team Providers Care Music Theory Teacher Name Role Phone None, Physician Primary Care Provider Unavailabl e Source Comments [facility],non-owned Affiliates and Associated Physician Practices is amultiple site organization consisting of ambulatory clinics and hospital sitesin [place], [place], [place] and [place]. This disclosure is being madepursuant to the Care Everywhere program and may not contain all information available regarding this patient. Last updated 17.[facility] Allergies Active Allergy Reactions Criticality Noted Date [...] hours as needed Active aspirin effervescent (Mj Lud[place]) 325 MG efferv tablet Take 1 (one) [...] Recorded Patient Health Questionnaire-2 Score 0 12/04/2022 [facility] - Occupational [...] place to sleep or slept in a fpc (including now)? No 12/02/2022 Comments No Sex and Gender Information Value Date Recorded Sex Assigned at Not on file Legal Sex Female 6:40 PM CDT Gender Identity Not on file Sexual Orientation Not on file Last Filed Vital Signs Vital Sign Reading Time Taken Comments Blood Pressure 127/86 01/01/2023 9:23 AM CUT TO LENGTH OPERATOR Pulse 76 01/01/2023 9:23 AM CUT TO LENGTH OPERATOR Temperature 36.9 C (98.4 F) 12/04/2022 11:36 AM CDT Respiratory Rate 12 01/01/2023 9:23 AM CUT TO LENGTH OPERATOR Oxygen Saturation 100% 12/04/2022 11:36 AM CDT Inhaled Oxygen Concentration - - Weight 111.1 kg (245 lb) 01/01/2023 9:23 AM CUT TO LENGTH OPERATOR Height 167.6 cm (5' 6) 12/03/2022 9:00 [...] 7 - 26 mg/dL 12/04/2022 3:22 AM [facility] Creatinine 0.68 0.56 - 0.96 mg/dL 12/04/2022 3:22 AM [facility] Sodium 139 136 - 145 mmol/L 12/04/2022 3:22 AM [facility] Potassium 3.3(L) 3.5 - 4.5 mmol/L 12/04/2022 3:22 AM [facility] Chloride 103 98 - 107 mmol/L 12/04/2022 3:22 AM [facility] CO2 24 22 - 29 mmol/L 12/04/2022 3:22 AM [facility] Glucose 105 70 - 115 mg/dL 12/04/2022 3:22 AM [facility] Calcium 9.0 8.4 - 10.2 mg/dL 12/04/2022 3:22 AM CDT [facility] Anion Gap 12 6 - 16 12/04/2022 3:22 AM T [facility] BUN/Creatinine Ratio 25(H) 7 - 23 12/04/2022 3:22 AM T [facility] Osmolality Calculated 290 275 - 295 mOsm/kg 12/04/2022 3:22 AM T [facility] eGFR by CKD-EPI >90 >=90 mL/min/1.7 3 m2 12/04/2022 3:22 AM T [facility] Blood BLOOD SPECIMEN / Unknown Lab Venipuncture / Unknown 12/04/2022 2:08 AM CDT 12/04/2022 2:53 AM CDT us Juanita Alvarez MD LAB - CHEMISTRY ORDERABLES Fin al Result [facility] [address] [place] [address], [facility] [phone] from Last 3 Months or Most Recently Relevant to Health Maintenance Insurance [facility] COMMERCIAL GENERIC [facility] COMMERCIAL GENERIC COMMERCIAL GENERIC COMMERCIAL GENERIC COMMERCIAL GENERIC COMMERCIAL GENERIC Advance Directives * Full Code (Latest Code Status on File) Date Activated Date Inactivated Comments 12/02/2022 7:46 PM 12/04/2022 5:26 PM Care Teams Music Theory Teacher Relationship Specialty Start Date End Date None, Physician [address] [place] [address] PCP - General 01/01/23
--- OUTSIDE RECORDS SUMMARY | 2024-08-09 13:29 | XMS_ITS | Continuity of Care Document ---
Author Name [facility] Organization [facility] Care Team Providers Care News Anchor Name Role Phone [facility] Unavailable Unavailable Problems Combined list of problems from Department of Defense and Veterans Affairs facilities. It does not include entries that were removed or entered in error. Problem Status Onset Date Problem Type Date of Resolution Comments Source PYREXIA Inactive Condition [facility] Fever Inactive Condition Pt to walk in for recurrent fevers. [facility] Vaginal Pap Smear Inactive Condition [facility] Cervical Pap Smear Inactive Condition [facility] Contraceptive Management Active Condition [facility] visit for: screening exam malignant neoplasm breast Inactive Condition [facility] Pelvic Exam (Internal) Active Condition Mood/Depression : stable, pt has few weeks of Zoloft remaining. Instructed pt to call clinic 4-5 days prior to run out of meds, leave [facility] for med refill...... will provide 90 day supply of Zoloft 100mg daily.Of note: , will no longer have after . [facility] THYROID NODULE, SOLITARY Active Condition Pt notes that a previous FNAB at [employer] was benign, pt advised that the nodule would need to be re-aspirated if the lesion increases in size. [facility] Gynecologic Service Prescrip Of Contracept Agent - Repeat Rx Active Condition Pt overdue for PapSmear; due in . Refill current OCP until can be seen for CPE/well woman exam for breast/pap/pelvi c. [facility] ESOPHAGEAL REFLUX Active Condition Ne w onset, trial of acute management with Zantac and addition of Prilosec fo group home therapy. [facility] GOITER (DIFFUSE NONTOXIC) Active Condition [...] consult neurosurg to discuss management options and group home prognosis. [facility] visit for: services physical Inactive [...] Allergies Drug allergy (disorder) active 7 [facility] Encounters Combined list of: 1) Encounters from Department of Veterans Affairs facilities going backup to the last 18 months, not all VA inpatient encounters are included; 2) Encounters from the Department of Defense facilities going backup to 280 months. Location Location Details Encounter Type Encounter Number Reason For Visit Attending Provider ADM Date DC Date Status Disposition Source [facility] Prac Resource Sharing) TELE CONSULT [id number] aleara GLADYS Mckenzie 10/05 [facility]( am Prac Resourc e Sharing ) [facility]) OUTPATIENT [id number] sore throat and congest GLADYS Low 12/31 Released w/o Limitations [facility](F amily Practic e Contrac t Clinic) [facility]) OUTPATIENT [id number] SHOULDE GLADYS ANGELES M 05/09 Released w/o Limitations [facility](F amily Practic e Contrac t Clinic) [facility]) TELE CONSULT [id number] Med refGLADYS Saenz M 06/03 [facility](F amily Practic e Contrac t Clinic) [address] [place] [address]([facility]) TELE CONSULT [id number] Medicat ion refill GLADYS FLORENCE M 07/30 [facility](F amily Practic e Contrac t Clinic) [facility] Medical [facility]) OUTPATIENT [id number] OSS GLADYS FLORENCE M 11/27 Released w/o Limitations [facility] Medical [facility](F amily Practic e Contrac t Clinic) [facility]) OUTPATIENT [id number] WAYNE BLAKE 08/14 Released w/o Limitations [facility]) [facility](Phy Ther FE) OUTPATIENT [id number] Lumbago HUMAIRA WAKEFIELD 09/03 Released w/o Limitations [facility]) [facility]) OUTPATIENT [id number] mri results WAYNE BLAKE 09/04 Released w/o Limitations [facility]) [facility]) OUTPATIENT [id number] back ALEXANDRA SERNA 09/08 Released w/o Limitations [facility]) [facility]) OUTPATIENT [id number] back GUDELIA MCCORMACK 09/10 Released w/o Limitations [facility]) [facility]) OUTPATIENT [id number] back SCARLETT HART 09/11 Released w/o Limitations [facility]) [facility]) TELE CONSULT [id number] mri results need to be address ed lab results were negWAYNE Lobato 09/11 [facility]) [facility](Phy Ther [facility]) OUTPATIENT [id number] back SCARLETT HART 09/16 Released w/o Limitations [facility]) [facility](Neurosu rgery [facility]) OUTPATIENT [id number] HERNIAT ED DISC (L5 - S1) ELTON GARCIA 09/22 Released w/o Limitations [facility](Clive rosurge ry [facility]) [facility]) OUTPATIENT [id number] back HUMAIRA WAKEFIELD 09/23 Released w/o Limitations [facility]) [facility](Phy [facility]) OUTPATIENT [id number] back TRENTON, YOANNA H 09/30 Released w/o Limitations [facility]) [facility]) OUTPATIENT [id number] back TRENTON, YOANNA H 10/01 Released w/o Limitations [facility]) [facility]) OUTPATIENT [id number] back ALEXANDRA SERNA 10/06 Released w/o Limitations [facility]) [facility]) OUTPATIENT [id number] back TRENTON, YOANNA H 10/08 Released w/o Limitations [facility](Phy Ther FE) [facility]hy [facility]) OUTPATIENT [id number] back ALEXANDRA SERNA 10/13 Released w/o Limitations [facility]) [facility](Phy [facility]) OUTPATIENT [id number] back ALEXANDRA SERNA 10/15 Released w/o Limitations [facility]) [facility]) OUTPATIENT [id number] back GUDELIA MCCORMACK 10/29 Released w/o Limitations [facility]) [facility](Phy Ther [facility]) OUTPATIENT [id number] LOWER BACK HUMAIRA WAKEFIELD 10/30 Released w/o Limitations [facility](Phy [facility]) [facility] [id number] [facility] Released w/o Limitations [facility]) [facility]) TELE CONSULT [id number] lab results MURTAZAEYAD 12/02 [facility]) [facility]) OUTPATIENT [id number] ongoing fevers WAYNE BLAKE 12/10 Released w/o Limitations [facility]) [facility]) OUTPATIENT [id number] f/u labs WAYNE BLAKE 01/14 Released w/o Limitations [facility]) [facility]) TELE CONSULT [id number] CT results WAYNE BLAKE 02/09 [facility]) [facility]) OUTPATIENT [id number] Pas entered the order WAYNE BLAKE 03/04 Released w/o Limitations [facility]) [facility]) TELE CONSULT [id number] Thyroid US results WAYNE BLAKE 03/25 [facility]) [facility](Infecti ous Disease [facility]) OUTPATIENT [id number] FEVER OF UNKNOWN ORIGIN ADELA VAUGHAN 03/31 Released w/o Limitations [facility](Inf ectious Disease [facility]) [facility](Endocri nology [facility]) OUTPATIENT [id number] GOITER (DIFFUS E NONTOXI C) JEANETTE CHAVEZ 04/22 Released w/o Limitations [facility](End ocrinol ogy [facility]) [facility]) TELE CONSULT [id number] MED REFILL EYAD HAUSER 04/28 [facility]) [facility]) OUTPATIENT [id number] WAYNE Brower 05/20 Released w/o Limitations [facility]) [facility](Infecti ous Disease [facility]) OUTPATIENT [id number] ADELA VAUGHAN 05/26 Released w/o Limitations [facility](Inf ectious Disease [facility]) [facility]) TELE CONSULT [id number] MED REFILL EYAD HAUSER 06/01 [facility]) [facility](Infecti ous Disease [facility]) TELE CONSULT [id number] MRI [facility] ADELA VAUGHAN 06/03 [facility](Inf ectious Disease [facility]) [facility]) TELE CONSULT [id number] pap WYATT Barboza 06/10 [facility]) [facility](Infecti ous Disease [facility]) TELE CONSULT [id number] retrun call ADELA VAUGHAN 06/15 [facility](Inf ectious Disease [facility]) [facility](Infecti ous Disease [facility]) OUTPATIENT [id number] ADELA VAUGHAN 06/18 Released w/o Limitations [facility](Inf ectious Disease [facility]) [facility](Infecti ous Disease [facility]) TELE CONSULT [id number] Lab Results ADELA VAUGHAN 06/29 [facility](Inf ectious Disease [facility]) [facility](Infecti ous Disease [facility]) TELE CONSULT [id number] lab results ADELA VAUGHAN 07/07 [facility](Inf ectious Disease [facility]) Procedures Combined list of: 1) Procedures from Department of [facility] Affairs facilities going back up to thelast 18 months, not all [place] non-surgical procedures are included; 2) All procedures from the Department of Defense facilities. Procedure Procedure Type Code Date Perfomer Comments Sourc e INDIVIDUAL PSYCHOTHERAPY, INSIGHT ORIENTED, BEHAVIOR MODIFYING AND/OR SUPPORTIVE, IN AN OFFICE OR OUTPATIENT FACILITY, APPROXIMATELY 20 TO 30 MINUTES [id number] WITH THE PATIENT 11/27/2004 [facility] DOPPLER ECHOCARDIOGRAPHY, , PULSED WAVE AND/OR CONTINUOUS WAVE WITH SPECTRAL DISPLAY; COMPLETE 07/28/2001 [facility] DOPPLER ECHOCARDIOGRAPHY, , PULSED WAVE AND/OR CONTINUOUS WAVE WITH SPECTRAL DISPLAY; COMPLETE 07/01/2001 [facility] HANDLING AND/OR CONVEYANCE OF SPECIMEN FOR TRANSFER FROM THE OFFICE TO A LABORATORY 05/31/2001 [facility] HANDLING AND/OR CONVEYANCE OF SPECIMEN FOR TRANSFER FROM THE OFFICE TO A LABORATORY 05/28/2001 [facility] PHYS/OTH QUALIFIED HEALTH MANAGER MARKET INTELLIGENCE QUALIFIED,EDUCATION, TRAIN,LICENSURE/REGU LATION (WHEN APPLICABLE) EDUC SER RENDERED TO PATS IN A GRP SETTING (EG,,OBESITY ,OR DIABETIC INSTRUCT) 05/27/2001 [facility] NASAL/SINUS ENDOSCOPY, SURGICAL, WITH FRONTAL SINUS EXPLORATION, INCLUDING REMOVAL OF TISSUE FROM FRONTAL SINUS, WHEN PERFORMED 12/03/1999 [facility] REPAIR OF OTHER CURRENT OBSTETRIC LACERATION 07/27/1997 [facility] MONITORING, NOT OTHERWISE SPECIFIED 07/27/1997 [facility] EKG (SCALP) 07/27/1997 [facility] EPISIOTOMY 07/27/1997 [facility] MEDICAL INDUCTION OF LABOR 07/27/1997 [facility] OTHER ARTIFICIAL RUPTURE OF MEMBRANES 07/27/1997 [facility] INJECTION OF ANTIBIOTIC 07/27/1997 [facility] SCREENING PAPANICOLAOU SMEAR; OBTAINING, PREPARING AND CONVEYANCE OF CERVICAL OR VAGINAL SMEAR TO LABORATORY 05/20/2006 [facility] SELF-CARE/HOME MANAGMENT TRAIN (EG,ACT OF DAILY LIVING (ADL) &COMPENSAT TRAIN,MEAL PREPARATION,SAFETY PROCS,AND INSTRUCT IN USE OF ASST TECHNOLOGY DEV/ADPT EQUIP) DIR ONE-ON-ONE CONT,EA 15 MINUTES 10/30/2005 [facility] THERAPEUTIC PROCEDURE,1 OR MORE AREAS,EACH 15 MINUTES;NEUROMUSCULA R REEDUCATION OF MOVEMENT,BALANCE,BORDER GUARD RDINATION,KINESTHETI C SENSE,POSTURE,AND/OR PROPRIOCEPTION FOR SITTING AND/OR STANDING ACTIVITIES 10/29/2005 [facility] THERAPEUTIC PROCEDURE,1 OR MORE AREAS,EACH 15 MINUTES;NEUROMUSCULA R REEDUCATION OF MOVEMENT,BALANCE,BORDER GUARD RDINATION,KINESTHETI C SENSE,POSTURE,AND/OR PROPRIOCEPTION FOR SITTING AND/OR STANDING ACTIVITIES 10/15/2005 [facility] THERAPEUTIC PROCEDURE,1 OR MORE AREAS,EACH 15 MINUTES;NEUROMUSCULA R REEDUCATION OF MOVEMENT,BALANCE,BORDER GUARD RDINATION,KINESTHETI C SENSE,POSTURE,AND/OR PROPRIOCEPTION FOR SITTING AND/OR STANDING ACTIVITIES 10/13/2005 [facility] THERAPEUTIC PROCEDURE,1 OR MORE AREAS,EACH 15 MINUTES;NEUROMUSCULA R REEDUCATION OF MOVEMENT,BALANCE,BORDER GUARD RDINATION,KINESTHETI C SENSE,POSTURE,AND/OR PROPRIOCEPTION FOR SITTING AND/OR STANDING ACTIVITIES 10/08/2005 [facility] THERAPEUTIC PROCEDURE,1 OR MORE AREAS,EACH 15 MINUTES;NEUROMUSCULA R REEDUCATION OF MOVEMENT,BALANCE,BORDER GUARD RDINATION,KINESTHETI C SENSE,POSTURE,AND/OR PROPRIOCEPTION FOR SITTING AND/OR STANDING ACTIVITIES 10/06/2005 [facility] THERAPEUTIC ACTIVITIES, DIRECT (ONE-ON-ONE) PATIENT CONTACT (USE OF DYNAMIC ACTIVITIES TO IMPROVE FUNCTIONAL PERFORMANCE), EACH 15 MINUTES 10/01/2005 [facility] THERAPEUTIC PROCEDURE,1 OR MORE AREAS,EACH 15 MINUTES;NEUROMUSCULA R REEDUCATION OF MOVEMENT,BALANCE,BORDER GUARD RDINATION,KINESTHETI C SENSE,POSTURE,AND/OR PROPRIOCEPTION FOR SITTING AND/OR STANDING ACTIVITIES 09/30/2005 [facility] SELF-CARE/HOME MANAGMENT TRAIN (EG,ACT OF DAILY LIVING (ADL) &COMPENSAT TRAIN,MEAL PREPARATION,SAFETY PROCS,AND INSTRUCT IN USE OF ASST TECHNOLOGY DEV/ADPT EQUIP) DIR ONE-ON-ONE CONT,EA 15 MINUTES 09/23/2005 [facility] APPLICATION OF A MODALITY TO 1 OR MORE AREAS; TRACTION, MECHANICAL 09/16/2005 [facility] APPLICATION OF A MODALITY TO 1 OR MORE AREAS; TRACTION, MECHANICAL 09/11/2005 [facility] THERAPEUTIC PROCEDURE,1 OR MORE AREAS,EACH 15 MINUTES;NEUROMUSCULA R REEDUCATION OF MOVEMENT,BALANCE,BORDER GUARD RDINATION,KINESTHETI C SENSE,POSTURE,AND/OR PROPRIOCEPTION FOR SITTING AND/OR STANDING ACTIVITIES 09/10/2005 [facility] APPLICATION OF A MODALITY TO 1 OR MORE AREAS; HOT OR COLD PACKS 09/08/2005 [facility] APPLICATION OF A MODALITY TO 1 OR MORE AREAS; HOT OR COLD PACKS 09/03/2005 [facility] INJECTION, DIAZEPAM, UP TO 5 MG 08/07/2005 [facility] CYTOPATHOLOGY, SMEARS, CERVICAL OR VAGINAL, UP TO THREE SMEARS; SCREENING BY HEAVY COIL WINDER UNDER PHYSICIAN SUPERVISION 02/03/2005 [facility] Screening papanicolaou smear; obtaining, preparing and conveyance of cervical or vaginal smear to laboratory 05/20/2006 WAYNE BLAKE [facility] Training And Self-Care Skills Training And Self-Care Skills [id number] 10/30/2005 HUMAIRA WAKEFIELD [facility] Physical Medicine Physical Therapy Re-Evaluation Physical Medicine Physical Therapy Re-Evaluation [id number] 10/30/2005 HUMAIRA WAKEFIELD [facility] Physical Therapy Neuromuscular Re-education Physical Therapy Neuromuscular Re-education [id number] 10/29/2005 GUDELIA MCCORMACK [facility] Physical Therapy: ___ Se ion Segments, 15 Minutes Each Physical Therapy: ___ Session Segments, 15 Minutes Each [id number] 10/29/2005 GUDELIA MCCORMACK [facility] Physical Therapy Neuromuscular Re-education Physical Therapy Neuromuscular Re-education 98133 10/15/2005 ALEXANDRA SERNA [facility] Physical Therapy: ___ Se ion Segments, 15 Minutes Each Physical Therapy: ___ Session Segments, 15 Minutes Each [id number] 10/15/2005 ALEXANDRA SERNA [facility] Physical Therapy Neuromuscular Re-education Physical Therapy Neuromuscular Re-education [id number] 10/13/2005 ALEXANDRA SERNA [facility] Physical Therapy: ___ Se ion Segments, 15 Minutes Each Physical Therapy: ___ Session Segments, 15 Minutes Each [id number] 10/13/2005 ALEXANDRA SERNA [facility] Physical Therapy Neuromuscular Re-education Physical Therapy Neuromuscular Re-education [id number] 10/08/2005 YOANNA CHOWDHURY [facility] Physical Therapy: ___ Se ion Segments, 15 Minutes Each Physical Therapy: ___ Session Segments, 15 Minutes Each [id number] 10/08/2005 YOANNA CHOWDHURY [facility] Physical Therapy Neuromuscular Re-education Physical Therapy Neuromuscular Re-education [id number] 10/06/2005 ALEXANDRA SERNA [facility] Physical Therapy: ___ Se ion Segments, 15 Minutes Each Physical Therapy: ___ Session Segments, 15 Minutes Each [id number] 10/06/2005 ALEXANDRA SERNA [facility] PT A e ment Kinetic Training PT Assessment Kinetic Training [id number] 10/03/2005 YOANNA CHOWDHURY [facility] Physical Therapy: ___ Se ion Segments, 15 Minutes Each Physical Therapy: ___ Session Segments, 15 Minutes Each [id number] 10/03/2005 YOANNA CHOWDHURY [facility] Physical Therapy Neuromuscular Re-education Physical Therapy Neuromuscular Re-education [id number] 09/30/2005 YOANNA CHOWDHURY [facility] Physical Therapy: ___ Se ion Segments, 15 Minutes Each Physical Therapy: ___ Session Segments, 15 Minutes Each [id number] 09/30/2005 YOANNA CHOWDHURY [facility] Physical Medicine Physical Therapy Re-Evaluation Physical Medicine Physical Therapy Re-Evaluation [id number] 09/23/2005 HUMAIRA WAKEFIELD [facility] Training And Self-Care Skills Training And Self-Care Skills [id number] 09/23/2005 HUMAIRA WAKEFIELD [facility] Physical Therapy: ___ Se ion Segments, 15 Minutes Each Physical Therapy: ___ Session Segments, 15 Minutes Each [id number] 09/16/2005 SCARLETT HART [facility] Physical Therapy Neuromuscular Re-education Physical Therapy Neuromuscular Re-education [id number] 09/16/2005 SCARLETT HART [facility] Traction Pelvic Traction Pelvic 93599 09/16/2005 SCARLETT SANCHEZ [facility] Physical Therapy: ___ Se ion Segments, 15 Minutes Each Physical Therapy: ___ Session Segments, 15 Minutes Each [id number] 09/11/2005 SCARLETT HART [facility] Physical Therapy Neuromuscular Re-education Physical Therapy Neuromuscular Re-education [id number] 09/11/2005 SCARLETT HART [facility] Traction Pelvic Traction Pelvic [id number] 09/11/2005 SCARLETT SANCHEZ [facility] Physical Therapy: ___ Se ion Segments, 15 Minutes Each Physical Therapy: ___ Session Segments, 15 Minutes Each [id number] 09/08/2005 ALEXANDRA SERNA [facility] Physical Therapy Neuromuscular Re-education Physical Therapy Neuromuscular Re-education 98110 09/08/2005 ALEXANDRA SERNA [facility] Modalities Traction Modalities Traction 64945 006 ALEXANDRA SERNA [facility] Modalities Cryotherapy Cold Packs Modalities Cryotherapy Cold Packs 87118 09/08/2005 ALEXANDRA SERNA [facility] Training And Self-Care Skills Training And Self-Care Skills 40929 09/03/2005 HUMAIRA WAKEFIELD [facility] Physical Therapy: ___ Se ion Segments, 15 Minutes Each Physical Therapy: ___ Session Segments, 15 Minutes Each [id number] 09/03/2005 HUMAIRA WAKEFIELD [facility] Modalities Heat Hot Packs Modalities Heat Hot Packs 70946 09/03/2005 HUMAIRA WAKEFIELD [facility] Physical Medicine Physical Therapy Evaluation Physical Medicine Physical Therapy Evaluation 23276 09/03/2005 HUMAIRA WAKEFIELD [facility] Social History Combined list of available smoking, tobacco, and other social history from Department of Defense and Veterans Affairs facilities. Social History Type Response Date Comment [facility] e This section is an empty social history section. [facility]
--- OUTSIDE RECORDS SUMMARY | 2024-08-09 13:31 | XMS_ITS | Patient Health Record ---
Author Organization [facility] [employer] Address [address] [facility] [address] [place] [address] Care Team Providers Care Supervisor Hydrochloric Area Name Role Phone Osiris West Unavailable [phone] Allergies No Known Allergies Results Component Value Reference Range Notes UDT Reviewed date:09/04/2023 08:03:55 PM Interpretation: Performing Lab: Notes/Report: THC p 0 - 50 ng/ml Cocaine n 0 - 300 ng/ml Amphetamine n 0 - 1000 ng/ml Buprenorphine (BUP) n 0 - 10 ng/ml Secobarbital (Bar) n 0 - 300 ng/ml Oxazepam (BZO) n 0 - 300 ng/ml 4-znoiuriftf-5,1-wbcdunzv-0,3-diphenylpyrrolidine (KATIE P) n 0 - 300 ng/ml Methamphetamine (MET) n 0 - 1000 ng/ml Morphine (MOP 300/ZKV1370) n 0 - 300 ng/ml Methadone (MTD) [...] Problem Status W/U Status Risk Notes Problem 50956694 Major depressive disorder, recurrent severe without psychotic features (F33.2) Active confirmed Problem Asperger's syndrome (97042026) Asperger's syndrome (F84.5) Active confirmed Problem 46544090 Post traumatic stress disorder (PTSD) (F43.10) Active confirmed Problem 88099163 Recurrent major depressive disorder, remission status unspecified (F33.9) Active confirmed Problem 46122479 Autism spectrum (F84.0) Active confirmed Vital Signs Heart Rate 92 /min 09/21/2023 Blood pressure diastolic 85 mm Hg 09/21/2023 Weight-kg 111.77 kg 09/21/2023 Blood pressure systolic 117 mm Hg 09/21/2023 Weight 246.4 lbs 09/21/2023 Encounters Encounter Location Date Provider Diagnosis [facility] [address] [facility] [address] [place] [address] 08/31/2023 Thena Brett Asperger's syndrome F84.5 ; Recurrent major depressive disorder, remission status unspecified F33.9 and Post traumatic stress disorder (PTSD) F43.10 [facility] [address] [facility] [address] [place] [address] 09/21/2023 Thena Brett Autism spectrum F84. 0 [...] Date Coverage End Date [employer] [address] [place] [address] [id number] Sander Tita Self - patient is the insured [facility] [address] [address] [place] [address] [id number] Tita Boucher Self - patient is the insured Medical (General) History Medical History History ICD Code Past Psychiatric History: Anxiety Disord er,Major Depressive Episode
--- OUTSIDE RECORDS SUMMARY | 2024-08-09 13:32 | XMS_ITS | Clinical Summary ---
Author Organization [facility] Domin[employer] En[employer] Address [address] [place] [address] Care Team Providers Care Processor Helper Name Role Phone Dafne Gomez DO [...] Abstract 06/28/2024 11:15 AM CDT Office Visit [facility] [address] [place] [address] Kali Caputo MD Iron deficiency anemia, unspecified iron deficiency anemia type (Primary Dx) 06/23/2024 Orders Only [facility] - [address] [place] [address] Kali Caputo MD 06/22/2024 Orders Only [facility] - [address] [place] [address] Kali Caputo MD 06/07/2024 External Device Data [...] [facility] - [address] [facility] [address] [place] [address] Kali Caputo MD [address] [facility] [address] [place] [address] Health Maintenance Due Date Last [...] CELL DIFFERENTIAL (06/22/2024 3:43 PM CDT) Blood Kali Caputo MD HEMATOLOGY ORDERABLES Final Res ult * IRON LEVEL (06/22/2024 8:14 AM CDT) Blood Kali Caputo MD CHEMISTRY ORDERABLES Final Resu lt * MAMMO SCREENING BILAT (10/08/2023 11:19 AM CDT) Anatomical Region Laterality Modality Breast Bilateral Mammography Kali Caputo MD MAMMO ORDERABLES Final Result from Last 3 Months or Most Recently Relevant to Health Maintenance Insurance [facility] Care Teams Processor Helper Relationship Specialty Start Date End Date Dafne Gomez DO [address] [facility] [place] [address] PCP - General Family Practice 08/18/23
--- OUTSIDE RECORDS SUMMARY | 2024-08-09 13:32 | XMS_ITS ---
Author Organization [facility] [employer] Address [facility] [address] Care Team Providers Care Certified Diabetes Educator Name Role Phone Osiris Vázquez Unavailable [phone] Social History Sex Assigned At : Social History Observation Description Sex Assigned At Female Encounters Encounter Location Date Provider Diagnosis [facility] [address] 11/19/2023 Osiris Vázquez Plan Of Treatment No Information Progress Notes * Tita BOUCHERDOB:1975 (3 0 yo F)Acc No.[id number]:11/19/2023 Patient: Tita HOSKINS Provider: Pillo VÁZQUEZ MD :1975 A ge:48 Y S ex:Female Date:11/19/2023 Phone: Address:[address] [place] [id number] Subjective: * Chief Complaints: * * Medical History: Objective: * Vitals: Assessment: Plan: * Treatment: * Billing Information: * Visit Code: * Procedure Codes: * Electronic signature of Dariel Vázquez MD on 08/09/2024 at 01:31 PM CDT Sign off status: Pending * Provider: Pillo VÁZQUEZ MD Date: 0 11/19/2023 Generated for Hali dickson/Peyton/eTnoahsmitting on: 08/09/2024 01:31 PM CDT
[2024-08-09 14:20] LABS: Prothrombin Time 13.3 Seconds (11.1-14.7)
[2024-08-09 14:21] LABS: Partial Thromboplastin Time 28.4 Seconds (22.3-36.8)
== END 2024-08-09 12:46 | disposition home or self-care (01) ==
PROVIDERS: PCP Family Medicine; Visit Provider Urology
DX: N20.0 Calculus of kidney (principal); I10 Essential (primary) hypertension; I45.10 Unspecified right bundle-branch block; Z01.818 Encounter for other preprocedural examination
CPT/HCPCS: 36415; 85610; 85730; 87086; 93005

== ENCOUNTER 2024-08-12 00:23 | Day surgery (SDC) | payer BC, OTHER, SELFPAY ==
[2024-08-09 10:01] VITALS: BMI 43.3
--- NOTE | 2024-08-09 10:03 | PC.NURSE ---
Report to the Outpatient Waiting Room, entrance under the green pavilion located off [facility], at time _1000_ on date _[id number]_. Planned Procedure Time: _1200_.? Time changes happen often and if your time is changed the preop area will call you the afternoon before. - You and your visitor will be asked to self-screen and do not enter if you have any COVID symptoms. Please call surgeon if you need to reschedule. - A mask is optional within the hospital at this time. Patients may have clear liquids (water, carbonated beverages, clear teas, apple juice) until 3 hours prior to surgery with a maximum of 20 ounces. - No food from midnight until time of surgery and no smoking, or chewing tobacco (or any form of nicotine). No chewing gum, candy or mints. Take only the following medications with a SIP of water on the morning of surgery: ____Advair DO NOT STOP ANY OF YOUR OTHER PRESCRIPTION MEDICATIONS PRIOR TO SURGERY EXCEPT THE FOLLOWING Hold all vitamins and supplements for 3 days per anesthesiologist. Medications to discontinue per physician Date to take last dose__Stop now. Please no make-up, nail welsh, hairspray, perfume, deodorant, or body powder the day of surgery.? No jewelry (including any body piercings) or valuables the day of surgery, leave them at home.? Please take a shower or bath the night before, or the morning of, surgery with an antibacterial soap.? Wear comfortable, loose fitting clothing.? - Jewelry must be removed prior to entering the operating room.? Rings and piercings that are not removed may be cut off. - The hospital will not accept responsibility for valuables.? - Please leave all valuables, including medications, at home the day of surgery. If you are going home after surgery, a licensed dray driver must drive you home.? - NO public transportation without another adult if you receive anesthesia. - We recommend that an adult stay with you for 24 hours following discharge. - We also recommend that you do not drive, make important decision, drink alcoholic beverages, or take any drugs that were not prescribed by your health care provider for at least 24 hours after your discharge time. Follow any additional instructions given to you from your surgeon. Telephone instructions given to ___Betsy__and asked if any additional questions and then verbalized understanding. Patient advised to call surgeon office or pre surgery nurse liaison [phone] if any additional questions.
[2024-08-12] VITALS (8 sets, daily range): BP systolic 132–160; BP diastolic 80–104; PULSE 74–84; RESP 12–20; TEMP 36.2–36.8; O2SAT 93–100; BMI 44.1
--- NOTE | ~2024-08-12 | XR_ITS ---
Supine and upright views of the abdomen Clinical history: Lithotripsy COMPARISON: 07/28/2024 Findings: Bowel gas pattern is nonspecific. No evidence for obstruction or free air. Stable 14 mm lef t lower pole renal stone present. Osseous structures are intact. Impression: Stable 14 mm left lower pole renal stone. Reviewed, dictated and finalized at [facility]. Impression: Stable 14 mm left lower pole renal stone.
--- OUTSIDE RECORDS SUMMARY | 2024-08-12 00:26 | XMS_ITS | Continuity of Care Document ---
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 [address] , [place], [place], [address], [place]. tel:[phone] OFFICE/OUTPA TIENT VISIT, EST [facility], [address], [place], [place], [address] , [place] tel:[phone] Psychiatric Medicine f/u meds (chief complaint) HypothyroidismNeopla sm of uncertain behavior of skinAsthma Oct- 2 Shanae Doyle. [address] [facility], [place], [place], [address], [place]. tel:[phone] OFFICE/OUTPA TIENT VISIT, EST [facility], [address], [place], [place], [address] , [place] tel:[phone] [facility] No Information 1 Shanae Doyle. [address] , [place], [place], [address], [place]. tel:[phone] OFFICE/OUTPA TIENT VISIT, EST [facility], [address], [place], [place], [address] , [place] tel:[phone] [facility] No Information 0 Shanae Doyle. [address] [facility], [place], [place], [address], [place]. tel:[phone] OFFICE/OUTPA TIENT VISIT, EST [facility], [address], [place], [place], [address] , [place] tel:[phone] [facility] No Information 0 Shanae Doyle. [address] [facility], [place], [place], [address], [place]. tel:[phone] [facility], [address], [place], [place], [address] , [place] tel:[phone] [facility] No Information [address] Shanae Doyle. [address] [facility], [place], [place], [address], [place]. tel:[phone] OFFICE/OUTPA TIENT VISIT, EST [facility], [address], [place], [place], [address] , [place] [phone] [facility] No Information 9 Shanae Doyle. [address] [facility], [place], [place], [address], [place]. tel:[phone] [facility], [address], [place], [place], [address] , [place] tel:[phone] [facility] No Information 9 Billy Montanez. [address], [place], [place], [address], [place]. tel:[phone] Referring Provider: Samantha Lopez, [address], [place], [address] . tel:[phone] OFFICE/OUTPA TIENT VISIT, EST [facility], [address], [place], [place], [address] , [place] tel:[phone] [facility] No Information 9 Neil Singh. [address], [place], [place], [address], [place]. tel:[phone] Referring Provider: Ryan Amador, [address] [facility], [place], [address] . tel:[phone] WELL EXAM, EST, AGE 18-39 [facility], [address], [place], [place], [address] , [place] tel:[phone] [facility] No Information 9 Brea Dennison. [address], [address], [place], [place], [address], [place]. tel:[phone] OFFICE/OUTPA TIENT VISIT, EST [facility], [address], [place], [place], [address] , [place] tel:[phone] [facility] No Information 9 Neil Singh. [address], [place], [place], [address], [place]. tel:[phone] Referring Provider: Ryan Amador, [address], [place], [address] . tel:[phone] OFFICE/OUTPA TIENT VISIT, EST [facility], [address], [place], [place], [address] , [place] [phone] [facility] No Information [address] Shanae Doyle. [address], [place], [place], [address], [place]. tel:[phone] PREV VISIT, EST, AGE 18-39 [facility], [address], [place], [place], [address] , [place] [phone] [facility] No Information 8 Shanae Doyle. [address], [place], [place], [address], [place]. tel:[phone] [facility], [address], [place], [place], [address] , [place] [phone] [facility] No Information 8 Brea Dennison. [address], [address], [place], [place], [address], [place]. tel:[phone] Family History Family Member Type Diagnosis Age At Onset No Information Payers Payer name Insurance type Covered green party ID Delphine rosas(s) [employer] [id number] Social History Type Description Quantity Date Captured [...]
--- OUTSIDE RECORDS SUMMARY | 2024-08-12 00:26 | XMS_ITS | Data Portability ---
Author Organization [place] - [facility] [employer], Main Office [place] [address] [place] [address] Assessment No assessment recorded. Plan of Treatment [...] (ICA ). Perfo rmed at: - [facility] [address], [place] [address] Lab Direc tor: Lupillo aguilar PhD, Phone : [phone] Not Available [facility] (Lab) [address] [place], [address], 07/23/2021 16:10:44 07/20/19 22 07/19/2021 HEMOG LOBIN A1C HA1C 5.5 % 4.0-6. 0 Diabe jaylen Screaaron ogdeng Crite trinh: <5.7% Consi stent with absen ce of diabe jaylen 5.7-6 .4% Consi stent with incre ased risk for diabe jaylen (pred iabet es) >OR=6 .5% Consi stent with diabe jaylen REFER ENCE: Diabe jaylen Care 2016, 39(Andrew ppl.1 ):s13 -s22 Not Available [facility] (Lab) [address] [place], [address], 07/19/2021 19:47:25 07/20/19 22 07/19/2021 SEDIM ENTAT ION RATE erythrocyte sedimentatio n rate 18 mm/HR 0-20 Not Available [facility] (Lab) [address] [place], [address], 07/19/2021 19:32:48 07/20/19 22 07/19/2021 TSH thyroid-stim ulating hormone 1.510 uIU/m L 0.465- 4.680 Not Available [facility] (Lab) [address] [place], [address], 07/19/2021 19:19:56 07/20/19 22 07/19/2021 T3 FREE free T3 3.1 pg/mL 2.77-5 .27 Not Available [facility] (Lab) [address] [place], [address], 07/19/2021 19:06:19 07/20/19 22 07/19/2021 T4 FREE free T4 1.43 NG/dL 0.78-2 .19 Not Available [facility] (Lab) [address] [place], [address], 07/19/2021 19:06:18 07/20/19 22 07/19/2021 CBC W/O DIFFE RENTI AL white blood cells 8.6 x10'3 /uL 4.2-10 .8 Not Available [facility] (Lab) [address] [place], [address], 07/19/2021 19:03:06 07/20/19 22 07/19/2021 CBC W/O DIFFE RENTI AL red blood cells 4.69 x10'6 /uL 3.80-5 .20 Not Available [facility] (Lab) [address] [place], [address], 07/19/2021 19:03:06 07/20/19 22 07/19/2021 CBC W/O DIFFE RENTI AL hemoglobin 8.9 g/dL 12.0-1 5.6 low Not Available [facility] (Lab) [address] [place], [address], 07/19/2021 19:03:06 07/20/19 22 07/19/2021 CBC W/O DIFFE RENTI AL hematocrit 32.5 % 35.7-4 5.7 low Not Available [facility] (Lab) [address] [place], [address], 07/19/2021 19:03:06 07/20/19 22 07/19/2021 CBC W/O DIFFE RENTI AL mean red cell volume 69.3 fL 82.0-9 9.0 low Not Available [facility] (Lab) [address] [place], [address], 07/19/2021 19:03:06 07/20/19 22 07/19/2021 CBC W/O DIFFE RENTI AL mean red cell hemoglobin 19.0 pg 27.0-3 3.0 low Not Available [facility] (Lab) [address] [place], [address], 07/19/2021 19:03:06 07/20/19 22 07/19/2021 CBC W/O DIFFE RENTI AL mean RBC HGB concentratio n 27.4 g/dL 31.0-3 6.0 low Not Available [facility] (Lab) [address] [place], [address], 07/19/2021 19:03:06 07/20/19 22 07/19/2021 CBC W/O DIFFE RENTI AL red cell distribution width 18.3 % 11.8-1 5.5 high Not Available [facility] (Lab) [address] [place], [address], 07/19/2021 19:03:06 07/20/19 22 07/19/2021 CBC W/O DIFFE RENTI AL platelets 471 x10'3 /uL 150-40 0 high Not Available [facility] (Lab) [address] [place], [address], 07/19/2021 19:03:06 07/20/19 22 07/19/2021 CBC W/O DIFFE RENTI AL mean platelet volume 11.4 fL 9.0-12 .4 Not Available [facility] (Lab) [address] [place], [address], 07/19/2021 19:03:06 07/20/19 22 07/19/2021 RHEUM ATOID FACTO R rf <8.6 IU/mL 0.0-11 .9 Not Available [facility] (Lab) [address] [place], [address], 07/19/2021 18:58:57 07/20/19 22 07/19/2021 C REACT VANESSA PROTE IN,UL TRA SENS C-reactive protein 1.33 mg/dL 0.0-0. 5 high Not Available [facility] (Lab) [address] [place], [address], 07/19/2021 18:58:52 07/20/19 22 07/19/2021 LIPID PANEL cholesterol 209 mg/dL 140-19 9 high NIH ADALI NSUS RECOM MENDA TION FOR KYLER STERO L: ADULT CHILD LOW RISK: <200 <170 BORDE RLINE : <200- 239 ----- HIGH RISK: >240 >200 Not Available [facility] (Lab) [address] [place], [address], 07/19/2021 18:58:13 07/20/1907/19/2021 LIPID PANEL triglyceride s 123 mg/dL 0-150 NIH ADALI NSUS REPOR T RECOM MENDA TION FOR TRIGL YCERI RYAN: ADULT CHILD LOW RISK: <150 ----- BODER LINE: 150-1 99 ----- HIGH RISK: >200 ----- Not Available [facility] (Lab) [address] [place], [address], 07/19/2021 18:58:13 07/20/1907/19/2021 LIPID PANEL HDL cholesterol 68 mg/dL 40- Not Available [facility] (Lab) [address] [place], [address], 07/19/2021 18:58:13 07/20/19 22 07/19/2021 LIPID PANEL [...] WILL NOT BE REPOR JANE. Not Available [facility] (Lab) [address] [place], [address], 07/19/2021 18:58:13 07/20/1907/19/2021 COMPR EHENS VANESSA METAB OLIC PANEL sodium 138 mmol/ L 137-14 5 Not Available [facility] (Lab) [address] [place], [address], 07/19/2021 18:58:02 07/20/19 22 07/19/2021 COMPR EHENS VANESSA METAB OLIC PANEL potassium 4.4 mmol/ L 3.5-5. 1 Not Available [facility] (Lab) [address] [place], [address], 07/19/2021 18:58:02 07/20/19 22 07/19/2021 COMPR EHENS VANESSA METAB OLIC PANEL chloride 104 mmol/ L 98-107 Not Available [facility] (Lab) [address] [place], [address], 07/19/2021 18:58:02 07/20/19 22 07/19/2021 COMPR EHENS VANESSA METAB OLIC PANEL carbon dioxide 26 mmol/ L 22-30 Not Available [facility] (Lab) [address] [place], [address], 07/19/2021 18:58:02 07/20/19 22 07/19/2021 COMPR EHENS VANESSA METAB OLIC PANEL anion gap 12.4 mmol/ L 14-22 low Not Available [facility] (Lab) [address] [place], [address], 07/19/2021 18:58:02 07/20/19 22 07/19/2021 COMPR EHENS VANESSA METAB OLIC PANEL glucose 77 mg/dL 70-99 Not Available [facility] (Lab) [address] [place], [address], 07/19/2021 18:58:02 07/20/19 22 07/19/2021 COMPR EHENS VANESSA METAB OLIC PANEL BUN 11 mg/dL 8-19 Not Available [facility] (Lab) [address] [place], [address], 07/19/2021 18:58:02 07/20/19 22 07/19/2021 COMPR EHENS VANESSA METAB OLIC PANEL creatinine 0.62 mg/dL 0.66-1 .25 low Not Available [facility] (Lab) [address] [place], [address], 07/19/2021 18:58:02 07/20/19 22 07/19/2021 COMPR EHENS VANESSA METAB OLIC PANEL GFR >60 Refer ence Range : [place] ge GFR Healt hy Adult : >60 [...] calcu lator is avail able on the [facility] websi te: [email or web address] :[email or web address] [email or web address] delano champagneal s/kdo qi/gf r_cal culat or Not Available [facility] (Lab) [address] [place], [address], 07/19/2021 18:58:02 07/20/19 22 07/19/2021 COMPR EHENS VANESSA METAB OLIC PANEL alkaline phosphatase 72 U/L 38-126 Not Available [facility] (Lab) [address] [place], [address], 07/19/2021 18:58:02 07/20/19 22 07/19/2021 COMPR EHENS VANESSA METAB OLIC PANEL alanine aminotransfe rase 16 U/L 0-35 Not Available [facility] (Lab) [address] [place], [address], 07/19/2021 18:58:02 07/20/19 22 07/19/2021 COMPR EHENS VANESSA METAB OLIC PANEL aspartate aminotransfe rase 25 U/L 15-37 Not Available [facility] (Lab) [address] [place], [address], 07/19/2021 18:58:02 07/20/19 22 07/19/2021 COMPR EHENS VANESSA METAB OLIC PANEL bilirubin, total 0.20 mg/dL 0.20-1 .30 Not Available [facility] (Lab) [address] [place], [address], 07/19/2021 18:58:02 07/20/19 22 07/19/2021 COMPR EHENS VANESSA METAB OLIC PANEL calcium 9.3 mg/dL 8.4-10 .2 Not Available [facility] (Lab) [address] [place], [address], 07/19/2021 18:58:02 07/20/19 22 07/19/2021 COMPR EHENS VANESSA METAB OLIC PANEL total protein 7.4 g/dL 6.3-8. 2 Not Available [facility] (Lab) [address] [place], [address], 07/19/2021 18:58:02 07/20/19 22 07/19/2021 COMPR EHENS VANESSA METAB OLIC PANEL albumin 4.3 g/dL 3.4-5. 0 Not Available [facility] (Lab) [address] [place], [address], 07/19/2021 18:58:02 07/20/19 22 07/19/2021 COMPR EHENS VANESSA METAB OLIC PANEL globulin 3.1 g/dL 2.6-4. 2 Not Available [facility] (Lab) [address] [place], [address], 07/19/2021 18:58:02 07/20/19 22 07/19/2021 COMPR EHENS VANESSA METAB OLIC PANEL A/G ratio 1.4 ratio 1.0-2. 0 Not Available [facility] (Lab) [address] [place], [address], 07/19/2021 18:58:02 07/20/19 22 07/19/2021 CPK TOTAL creatine kinase 88 U/L 30-135 Not Available [facility] (Lab) [address] [place], [address], 07/19/2021 18:57:50 01/09/20 22 01/10/2022 FOLAT E, SERUM /PLAS MA folate >20.0 NG/mL 2.76-2 0.0 Not Available [facility] (Lab) [address] [place], [address], 01/10/2022 16:38:20 01/09/20 22 01/10/2022 VITAM IN B12 (KRISH SHARON ) vb12 400 pg/mL 239-93 1 Not Available [facility] (Lab) [address] [place], [address], 01/10/2022 16:38:19 01/09/20 22 01/10/2022 VITAM IN D 25-HY DROXY vd25oh 14.3 NG/mL 30-100 low Vitam in D Statu s: Defic ient: <20 ng/mL Insuf ficie nt: 20-29 ng/mL Suffi cient : 30-10 0 ng/mL Not Available [facility] (Lab) [address] [place], [address], 01/10/2022 15:48:59 01/09/20 22 01/08/2022 IRON/ TIBC PANEL total iron binding capacity 445 mcg/d L 265-47 5 Not Available [facility] (Lab) [address] [place], [address], 01/08/2022 22:09:37 01/09/20 22 01/08/2022 IRON/ TIBC PANEL % transferrin saturation 4 % 20-55 low Not Available [facility] (Lab) [address] [place], [address], 01/08/2022 22:09:37 01/09/20 22 01/08/2022 IRON/ TIBC PANEL unsaturated iron bind capacity 425 mcg/d L 126-38 2 high Not Available [facility] (Lab) [address] [place], [address], 01/08/2022 22:09:37 01/09/20 22 01/08/2022 IRON/ TIBC PANEL iron 20 mcg/d L 42-175 low Not Available [facility] (Lab) [address] [place], [address], 01/08/2022 22:09:37 01/09/20 22 01/08/2022 CBC W/O DIFFE RENTI AL white blood cells 9.6 x10'3 /uL 4.2-10 .8 Not Available [facility] (Lab) [address] [place], [address], 01/08/2022 20:58:54 01/09/20 22 01/08/2022 CBC W/O DIFFE RENTI AL red blood cells 3.62 x10'6 /uL 3.80-5 .20 low Not Available [facility] (Lab) [address] [place], [address], 01/08/2022 20:58:54 01/09/20 22 01/08/2022 CBC W/O DIFFE RENTI AL hemoglobin 9.4 g/dL 12.0-1 5.6 low Not Available [facility] (Lab) [address] [place], [address], 01/08/2022 20:58:54 01/09/20 22 01/08/2022 CBC W/O DIFFE RENTI AL hematocrit 31.4 % 35.7-4 5.7 low Not Available [facility] (Lab) [address] [place], [address], 01/08/2022 20:58:54 01/09/20 22 01/08/2022 CBC W/O DIFFE RENTI AL mean red cell volume 86.7 fL 82.0-9 9.0 Not Available [facility] (Lab) [address] [place], [address], 01/08/2022 20:58:54 01/09/20 22 01/08/2022 CBC W/O DIFFE RENTI AL mean red cell hemoglobin 26.0 pg 27.0-3 3.0 low Not Available [facility] (Lab) [address] [place], [address], 01/08/2022 20:58:54 01/09/20 22 01/08/2022 CBC W/O DIFFE RENTI AL mean RBC HGB concentratio n 29.9 g/dL 31.0-3 6.0 low Not Available [facility] (Lab) [address] [place], [address], 01/08/2022 20:58:54 01/09/20 22 01/08/2022 CBC W/O DIFFE RENTI AL red cell distribution width 15.9 % 11.8-1 5.5 high Not Available [facility] (Lab) [address] [place], [address], 01/08/2022 20:58:54 01/09/20 22 01/08/2022 CBC W/O DIFFE RENTI AL platelets 383 x10'3 /uL 150-40 0 Not Available [facility] (Lab) [address] [place], [address], 01/08/2022 20:58:54 01/09/20 22 01/08/2022 CBC W/O DIFFE YARELIS GARCIA mean platelet volume 11.1 fL 9.0-12 .4 Not Available [facility] (Lab) [address] [place], [address], 01/08/2022 20:58:54 Result Notes None recorded. 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 Not Available [facility] 3 18:11:59 History of pneumonia 939768896 Active 2021 Not Available [facility] 3 18:11:59 Asthma 936167012 Active 2021 Not Available [facility] 3 18:11:59 Irritable bowel syndrome with diarrhea 468053739 Active 2021 Not Available [facility] 3 18:11:59 Jamar thyroiditis 69368757 Active 2021 Not Available [facility] 3 18:11:59 Arthritis 2748004 Active 2021 Not Available [facility] 3 18:11:59 Basal cell carcinoma of face 021149935 Active 2021 Not Available [facility] 3 18:11:59 Obesity 466281392 Active 2021 Not Available [facility] 3 18:11:59 Chronic colitis 78221598 Active 2021 Not Available [facility] 3 18:11:59 Essential hypertension 92434487 Active 2021 Not Available [facility] 3 18:11:59 Optic neuritis 12105922 Active 2021 Not Available [facility] 3 18:11:59 Intervertebra l disc prolapse 40456618 Active 2021 Not Available [facility] 3 18:11:59 Hiatal hernia 70618778 Active 2021 Not Available [facility] 3 18:11:59 Uterine leiomyoma 23634981 Active 05/27/ 2022 Not Available [facility] 3 18:11:59 Notes:Some problems listed i n Document: #[id number] could not be added to this patient's [...] % 99 % 79 /min 99.5 [degF] 255994. 69 g 166 mm[Hg] 100 mm[Hg] Not Available [facility] 3 17:12:47 Date Recorded Body mass index (BMI) Body height Oxygen saturation Oxygen saturation in Arterial blood by Pulse oximetry Heart rate Body temperature Body weight Systolic blood pressure Diastolic blood pressure Provider Name and Address Organization Details Last Updated DateTime 2 36.8 kg/m2 167.64 cm 98 % 98 % 70 /min 96.8 [degF] 846854. 06 g 145 mm[Hg] 100 mm[Hg] Not Available [facility] 3 17:12:47 Date Recorded Body mass index (BMI) Body height Oxygen saturation Oxygen saturation in Arterial blood by Pulse oximetry Heart rate Body temperature Body weight Systolic blood pressure Diastolic blood pressure Provider Name and Address Organization Details Last Updated DateTime 2 37.2 kg/m2 167.64 cm 97 % 97 % 84 /min 99 [degF] 943951. 4 g 120 mm[Hg] 80 mm[Hg] Not Available [facility] 3 17:12:47 Date Recorded Body mass index (BMI) Body height Oxygen saturation Oxygen saturation in Arterial blood by Pulse oximetry Heart rate Body temperature Body weight Systolic blood pressure Diastolic blood pressure Provider Name and Address Organization Details Last Updated DateTime 2 37.3 kg/m2 167.64 cm 97 % 97 % 98 /min 97.8 [degF] 674961. 84 g 138 mm[Hg] 78 mm[Hg] Not Available [facility] 3 17:12:47 Date Recorded Body mass index (BMI) Body height Oxygen saturation Oxygen saturation in Arterial blood by Pulse oximetry Heart rate Body temperature Body weight Systolic blood pressure Diastolic blood pressure Provider Name and Address Organization Details Last Updated DateTime 2 36.6 kg/m2 167.64 cm 99 % 99 % 88 /min 96.8 [degF] 185238. 47 g 150 mm[Hg] 98 mm[Hg] Not Available [facility] 3 17:12:47 Social History Question Answer Notes LastModified by Organizat ion Details LastModified Time Tobacco Smoking Status Former Smoker Not Available [facility] 04/23/2022 17:12:25 Do You Have An Advance Directive? No MIGRATION.20155 [id number] Information not available 04/23/2022 Do You Wear A Helmet When Biking? No MIGRATION.22455 68070 Information not available 04/23/2022 What Is Your Level Of Caffeine Consumption? Heavy MIGRATION.84874 67174 Information not available 04/23/2022 In The 14 Days Before Symptom Onset, Have You Had Close Contact With A Laboratory-confi rmed COVID-19 While That Case Was Ill? No MIGRATION.59517 38772 Information not available 04/23/2022 In The 14 Days Before Symptom Onset, Have You Had Close Contact With A Person Who Is Under Investigation For COVID-19 While That Person Was Ill? No MIGRATION.30069 54890 Information not available 04/23/2022 What Type Of Diet Are You Following? REGULAR MIGRATION.96579 12964 Information not available 04/23/2022 What Is The Highest Grade Or Level Of School You Have Completed Or The Highest Degree You Have Received? [id number] MIGRATION.87090 86603 Information not available 04/23/2022 Have There Been Any Changes To Your Family Or Social Situation? Yes MIGRATION.39818 37810 Information not available 04/23/2022 What Is The Fluoride Status Of Your Home? Unknown MIGRATION.97548 81502 Information not available 04/23/2022 When Did You Quit Smoking? 1-5yearssincelastci enedinaette MIGRATION.46033 43029 Information not available 04/23/2022 Are There Any Guns Present In Your Home? No MIGRATION.95190 49634 Information not available 04/23/2022 Do You Use Insect Repellent Routinely? Yes MIGRATION.20177 23627 Information not available 04/23/2022 Where Do You Live? [place]House MIGRATION.81560 46409 Information not available 04/23/2022 Do You Have A Medical Power Of Supervisor [employer]ing [employer]? No MIGRATION.18256 11913 Information not available 04/23/2022 What Was The Date Of Your Most Recent Tobacco Screening? 08/21/2021 MIGRATION.36509 79068 Information not available 04/23/2022 Do You Have Any Pets? Yes MIGRATION.96761 86778 Information not available 04/23/2022 What Is Your Relationship Status? MIGRATION.79361 80454 Information not available 04/23/2022 Do You Use Your Seat Belt Or Car Seat Routinely? Yes MIGRATION.40170 97347 Information not available 04/23/2022 Do You Have Smoke And Carbon Monoxide Detectors In Your Home? No MIGRATION.02720 01548 Information not available 04/23/2022 At What Age Did You Start Smoking Tobacco? 16 MIGRATION.45279 93052 Information not available 04/23/2022 Are You Passively Exposed To Smoke? Yes MIGRATION.02122 44414 Information not available 04/23/2022 Are There Any Smokers In Your House? Yes MIGRATION.70114 26142 Information not available 04/23/2022 Do You Participate In Social Media? Yes MIGRATION.63515 26952 Information not available 04/23/2022 Do You Use Sunscreen Routinely? No MIGRATION.68332 91932 Information not available 04/23/2022 How Many Years Have You Smoked Tobacco? 15 MIGRATION.19609 17719 Information not available 04/23/2022 Have You Recently Traveled Abroad? No MIGRATION.60524 31754 Information not available 04/23/2022 Are You Currently In School? No MIGRATION.81020 36668 Information not available 04/23/2022 Do You Have Any Dietary Restrictions? No MIGRATION.01824 27299 Information not available 04/23/2022 Sex: Unknown Functional Status Question Answer Note LastModified by Organizat ion Details LastModified Time Do you use any illicit or recreational drugs? No MIGRATION.[id number] 026 Information not available 04/23/2022 Do you or have you ever used any other forms of tobacco or nicotine? No MIGRATION.5949776 026 Information not available 04/23/2022 What is your level of alcohol consumption? None MIGRATION.3388948 026 Information not available 04/23/2022 What is your exercise level? Occasional MIGRATION.5109571 026 Information not available 04/23/2022 Mental Status Question Answer Note LastModified by Organizat ion Details LastModified Time Do you feel stressed (tense, restless, nervous, or anxious, or unable to sleep at night)? [id number] MIGRATION.[id number] 6 Information not available 04/23/2022 Family History Relationship Description Onset Age of this Age Resolved Age Notes LastModified by Organization Details LastModified Time Mother Jamar thyroiditis MIGRATION.841 [id number] Not available 04/23/2022 17:12:31 Mother Diabetes mellitus MIGRATION.880 [id number] Not available 04/23/2022 17:12:31 Mother Glaucoma MIGRATION.523 [id number] Not available 04/23/2022 17:12:31 Mother Diverticulit is MIGRATION.175 [id number] Not available 04/23/2022 17:12:31 Mother Cataract MIGRATION.654 [id number] Not available 04/23/2022 17:12:31 Father Malignant tumor of colon MIGRATION.983 [id number] Not available 04/23/2022 17:12:31 Father Malignant neoplasm of prostate MIGRATION.912 [id number] Not available 04/23/2022 17:12:31 Father Gallstone MIGRATION.356 [id number] Not available 04/23/2022 17:12:31 Father Kidney stone MIGRATION.0 30 [id number] Not available 04/23/2022 17:12:31 Father Chronic renal failure MIGRATION.799 [id number] Not available 04/23/2022 17:12:31 Father Anemia MIGRATION.425 [id number] Not available 04/23/2022 17:12:31 Medical History Condition [...] SHINGLES N FEMALE PROBLEMS / INFECTIONS N BOWEL PROBLEMS N DEPRESSION (INCLUDING POST ) Y STROKE/TIA N THYROID DISEASE N ULCERS N BENIGN PROSTATIC HYPERPLASIA N MEASLES N CERVICALGIA N TB SKIN TEST N HYPOTENSION N MYOCARDIAL INFARCTION N PARAPELGIA N OBESITY [...] INSOMNIA Y HIGH CHOLESTEROL / HYPERLIPIDEMIA N EYE PROBLEMS Y HYPERTHYROIDISM N EATING DISORDER N EDEMA N CHRONIC PAIN SYNDROME N HYPOTHYROIDISM Y CONSTIPATION N CAROTID BLOCKAGE N BACK / NECK PROBLEMS N HAVE YOU BEEN HOSPITALIZED OR SEEN IN [facility] IN THE PAST YEAR ? [...] DISORDER N ALZHEIMER'S DISEASE N PAIN N DEMENTIA N HERPES N SEIZURES/EPILEPSY Y HEADACHES/MIGRAINES N VASCULAR DISEASE N PACEMAKER N DIZZINESS N HEART DISEASE/HEART PROBLEMS N KIDNEY DISEASE N SCARLET FEVER N MULTIPLE SCLEROSIS N DEVELOPMENTAL OR BEHAVIORAL DISORDERS N MENTAL DISORDER/ILLNESS N CANCER: SPECIFY N CARDIAC ARRHYTHMIA N PNEUMONIA N ATRIAL FIBRILLATION N Gall [...] 2 completed Not Available [facility] 09/01/2022 18:12:00 COVID-19, mRNA, LNP-S, PF, 30 mcg/0.3 mL dose 1 completed Not Available [facility] 09/01/2022 18:12:00 COVID-19, mRNA, LNP-S, PF, 30 mcg/0.3 mL dose 1 completed Not Available [facility] 09/01/2022 18:12:00 COVID-19, mRNA, LNP-S, PF, 30 mcg/0.3 mL dose 1 completed Not Available [facility] 09/01/2022 18:12:00 COVID-19, mRNA, LNP-S, bivalent, PF, 50 mcg/0.5 mL or 25mcg/0.25 mL dose 3 completed Zuleima Johnson RN [facility], [place] - [facility] [place] [facility] 09/11/2022 15:15:29 Past Encounters Encounter ID Performer Location Encounter Start Date Encounter Closed Date Diagnosis/Indication Diagnosis SNOMED-CT Code Diagnosis ICD10 Code Diagnosis Note [id number] REY Singh Michelle[address] [place] [address] 07/19/2021 00:00:00 07/19/2021 18:19:23 [id number] REY Singh Michelle_[address] [place] [address] 08/02/2021 00:00:00 08/02/2021 13:40:24 [id number] S_Histor ic_Gateway S_GMG Endo Bautista Alston [address] [place] [address] 08/16/2021 00:00:00 08/16/2021 14:04:01 [id number] _ATHN_MIGR ATION_1 _ATHENA_M IGRATION_ DEFAULT_1 _1 , 08/21/2021 00:00:00 08/21/2021 15:09:[id number] MD [facility] [place] Primary [facility] [address] [facility] [facility] [place] [address] 01/08/2022 00:00:00 01/08/2022 18:32:28 Health Concerns Section Related Observation LastModified by Organization Detai ls LastModified Time None Recorded Concern Status LastModified by Organization Details LastModified Time None Recorded Advance Directives Directive N: Payers Insurance Date Sequence Insurance Name Policy Number Policy Aguirre Covered Member ID Aguirre Member ID Guarantor Name 12/10/2022 1 [place] 112 Tarik Boucher [id number] Tita Boucher OBGyn Episode No OBEpisode recorded.
--- OUTSIDE RECORDS SUMMARY | 2024-08-12 00:26 | XMS_ITS | Encounter Summary ---
Author Organization [facility] Address [address] [place] [address] Care Team Providers Care Blasting Clay Miner Name Role Phone Dafne Gomez DO Primary Care Provider + Encounter Details Date Type Department Care Team (Late st Contact Info) Description 08/09/2024 External Device Data [facility] ABSTRACTION Provider, Abstract [...] Description 10/11/2024 11:00 AM CDT Office Visit [facility] Oncology and Hematology - [place] [address] [place] [address] [address] Kali Caputo MD [address] [facility] [address] [place] [address] documented as of this encounter Visit Diagnoses Not on filedocumented in this encounter Care Teams Blasting Clay Miner Relationship Specialty Start Date End Date Dafne Gomez DO [address] [place] [address] [place] [address] PCP - General Family Practice 08/18/23 documented as of this encounter
--- OUTSIDE RECORDS SUMMARY | 2024-08-12 00:26 | XMS_ITS | Clinical Summary ---
Author Organization [facility] Address [address] [facility] 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 This disclosure is being madepursuant to the Care Everywhere program and may not contain all information available regarding this patient. Last updated 17.[facility] Allergies Active Allergy Reactions Criticality Noted Date [...] hours as needed Active aspirin effervescent ([place]j [place]alou) 325 MG efferv tablet Take 1 (one) [...] Recorded Patient Health Questionnaire-2 Score 0 12/04/2022 [facility] - Occupational Stress [...] place to sleep or slept in a usp (including now)? No 12/02/2022 Comments No Sex and Gender Information Value Date Recorded Sex Assigned at Not on file Legal Sex Female 6:40 PM CDT Gender Identity Not on file Sexual Orientation Not on file Last Filed Vital Signs Vital Sign Reading Time Taken Comments Blood Pressure 127/86 01/01/2023 9:23 AM [facility] DEL[employer]ERY PROFESSIONAL Pulse 76 01/01/2023 9:23 AM [facility] DELIVERY PROFESSIONAL Temperature 36.9 C (98.4 F) 12/04/2022 11:36 AM CDT Respiratory Rate 12 01/01/2023 9:23 AM [facility] DELIVERY PROFESSIONAL Oxygen Saturation 100% 12/04/2022 11:36 AM CDT Inhaled Oxygen Concentration - - Weight 111.1 kg (245 lb) 01/01/2023 9:23 AM [facility] DELIVERY PROFESSIONAL Height 167.6 cm (5' 6) 12/03/2022 9:00 [...] 7 - 26 mg/dL 12/04/2022 3:22 AM [facility] Creatinine 0.68 0.56 - 0.96 mg/dL 12/04/2022 3:22 AM [facility] Sodium 139 136 - 145 mmol/L 12/04/2022 3:22 AM [facility] Potassium 3.3(L) 3.5 - 4.5 mmol/L 12/04/2022 3:22 AM [facility] Chloride 103 98 - 107 mmol/L 12/04/2022 3:22 AM [facility] CO2 24 22 - 29 mmol/L 12/04/2022 3:22 AM [facility] Glucose 105 70 - 115 mg/dL 12/04/2022 3:22 AM [facility] Calcium 9.0 8.4 - 10.2 mg/dL 12/04/2022 3:22 AM CDT [facility] Anion Gap 12 6 - 16 12/04/2022 3:22 AM [facility] BUN/Creatinine Ratio 25(H) 7 - 23 12/04/2022 3:22 AM [facility] Osmolality Calculated 290 275 - 295 mOsm/kg 12/04/2022 3:22 AM [facility] eGFR by CKD-EPI >90 >=90 mL/min/1.7 3 m2 12/04/2022 3:22 AM [facility] Blood BLOOD SPECIMEN / Unknown Lab Venipuncture / Unknown 12/04/2022 2:08 AM CDT 12/04/2022 2:53 AM CDT us Juanita Alvarez MD LAB - CHEMISTRY ORDERABLES Fin al Result [facility] [address] [place] [address], [facility] [phone] from Last 3 Months or Most Recently Relevant to Health Maintenance Insurance [facility] COMM[facility]CIAL GENERIC [facility] COMMERCIAL GENERIC COMMERCIAL GENERIC COMMERCIAL GENERIC COMMERCIAL GENERIC COMMERCIAL GENERIC Advance Directives * Full Code (Latest Code Status on File) Date Activated Date Inactivated Comments 12/02/2022 7:46 PM 12/04/2022 5:26 PM Care Teams Box Truck Owner Operator Relationship Specialty Start Date End Date None, Physician [address] [place] [address] PCP - General 01/01/23
--- OUTSIDE RECORDS SUMMARY | 2024-08-12 00:27 | XMS_ITS | Clinical Summary ---
Author Organization [facility] Dominique Enrique Address [address] [place] [address] Care Team Providers Care Pre K Special Education Teacher Name Role Phone Dafne Gomez DO Primary [...] Encounters Date Type Department Care Team Description 08/09/2024 External Device Data [facility] ABSTRACTION Provider, Abstract 07/26/2024 External Device Data [facility] ABSTRACTION Provider, Abstract 07/14/2024 External Device Data [facility] ABSTRACTION Provider, Abstract 07/13/2024 External Device Data [facility] ABSTRACTION Provider, Abstract 07/12/2024 External Device Data [facility] ABSTRACTION Provider, Abstract 06/28/2024 11:15 AM CDT Office Visit [facility] Oncology and Hematology [place] [address] [place] [address] Kali Caputo MD Iron deficiency anemia, unspecified iron deficiency anemia type (Primary Dx) 06/23/2024 Orders Only [facility] Oncology and Hematology - [place] [address] [place] [address] Kali Caputo MD 06/22/2024 Orders Only [facility] Oncology and Hematology - [place] [address] [place] [address] Kali Caputo MD 06/07/2024 External Device Data [...] Description 10/11/2024 11:00 AM CDT Office Visit [facility] Oncology and Hematology - [place] [address] [facility] [address] [place] [address] Kali Caputo MD [address] [facility] [address] [place] [address] Health Maintenance Due Date Last [...] Most Recently Relevant to Health Maintenance Insurance [facility] Care Teams Pre K Special Education Teacher Relationship Specialty Start Date End Date Dafne Gomez DO [address] [facility] [place] [place] [address] PCP - General Family Practice 08/18/23
--- OUTSIDE RECORDS SUMMARY | 2024-08-12 00:27 | XMS_ITS | Continuity of Care Document ---
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 It does not include entries that were removed or entered in error. Problem Status Onset Date Problem Type Date of Resolution Comments Source [facility] Inactive Condition [facility] Fever Inactive Condition Pt to walk in for recurrent fevers. [facility] Vaginal Pap Smear Inactive Condition [facility] Cervical Pap Smear Inactive Condition [facility] Contraceptive Management Active Condition [facility] visit for: screening exam malignant neoplasm breast Inactive Condition [facility] Pelvic Exam (Internal) Active Condition Mood/Depression : stable, pt has few weeks of Zoloft remaining. Instructed pt to call clinic 4-5 days prior to run out of meds, leave [facility] for med refill...... will provide 90 day supply of Zoloft 100mg daily.Of note: , will no longer have after . [facility] THYROID NODULE, SOLITARY Active Condition Pt notes that a previous FNAB at [employer] was benign, pt advised that the nodule would need to be re-aspirated if the lesion increases in size. [facility] Gynecologic Service Prescrip Of Contracept Agent - Repeat Rx Active Condition Pt overdue for PapSmear; due in . Refill current OCP until can be seen for CPE/well woman exam for breast/pap/pelvi c. [facility] ESOPHAGEAL REFLUX Active Condition Ne w onset, trial of acute management with Zantac and addition of Prilosec fo jail therapy. [facility] GOITER (DIFFUSE NONTOXIC) Active Condition [...] consult neurosurg to discuss management options and long term prognosis. [facility] visit for: services physical Inactive [...] Known Allergies Drug allergy (disorder) active 7 [facility] Encounters Combined list of: 1) Encounters from Department of Veterans Affairs facilities going backup to the last 18 months, not all VA inpatient encounters are included; 2) Encounters from the Department of Defense facilities going backup to 280 months. Location Location Details Encounter Type Encounter Number Reason For Visit Attending Provider ADM Date DC Date Status Disposition Source [facility] Prac Resource Sharing) TELE CONSULT [id number] aleara GLADYS Mckenzie 10/05 [facility]( am Prac Resourc e Sharing ) [facility]) OUTPATIENT [id number] sore throat and congest GLADYS Low 12/31 Released w/o Limitations [facility](F amily Practic e Contrac t Clinic) [facility]) OUTPATIENT [id number] SHOULDE GLADYS ANGELES M 05/09 Released w/o Limitations [facility] Pract[facility] e [facility]rac t [facility]) [facility]) TELE CONSULT [id number] Med refGLADYS Saenz M 06/03 [facility] Pract[facility]rac t [facility]) [address] [place] [address]([facility]) TELE CONSULT [id number] Medicat ion refill GLADYS FLORENCE M 07/30 [facility](F am[facility] Practic e Contrac t Clinic) [facility] Medical [facility] OUTPATIENT [id number] OSS GLADYS FLORENCE M 11/27 Released w/o Limitations [facility] Medical [facility](F amily Practic e Contrac t Clinic) [facility]) OUTPATIENT [id number] WAYNE BLAKE 08/14 Released w/o Limitations [facility]) [facility]) OUTPATIENT [id number] Lumbago HUMAIRA WAKEFIELD 09/03 Released w/o Limitations [facility]) [facility]) OUTPATIENT [id number] mri results WAYNE BLAKE 09/04 Released w/o Limitations [facility]) [facility]) OUTPATIENT [id number] back ALEXANDRA SERNA 09/08 Released w/o Limitations [facility]) [facility]) OUTPATIENT [id number] back GUDELIA MCCORMACK 09/10 Released w/o Limitations [facility]) [facility]) OUTPATIENT [id number] back SCARLETT HART 09/11 Released w/o Limitations [facility]) [facility]) TELE CONSULT [id number] mri results need to be address ed lab results were negWAYNE Lobato 09/11 [facility]) [facility]) OUTPATIENT [id number] back SCARLETT HART 09/16 Released w/o Limitations [facility]) [facility](Neurosu rgery [facility]) OUTPATIENT [id number] HERNIAT ED DISC (L5 - S1) ELTON GARCIA 09/22 Released w/o Limitations [facility](Clive rosurge ry [facility]) [facility]) OUTPATIENT [id number] back HUMAIRA WAKEFIELD 09/23 Released w/o Limitations [facility]) [facility]) OUTPATIENT [id number] back TRENTON, YOANNA H 09/30 Released w/o Limitations [facility]) [facility]) OUTPATIENT [id number] back TRENTON, YOANNA H 10/01 Released w/o Limitations [facility]) [facility]) OUTPATIENT [id number] back ALEXANDRA SERNA 10/06 Released w/o Limitations [facility]) [facility]) OUTPATIENT [id number] back TRENTON, YOANNA H 10/08 Released w/o Limitations [facility]) [facility]) OUTPATIENT [id number] back ALEXANDRA SERNA 10/13 Released w/o Limitations [facility]) [facility]) OUTPATIENT [id number] back ALEXANDRA SERNA 10/15 Released w/o Limitations [facility]) [facility]) OUTPATIENT [id number] back GUDELIA MCCORMACK 10/29 Released w/o Limitations [facility]) [facility]) OUTPATIENT [id number] LOWER BACK HUMAIRA WAKEFIELD 10/30 Released w/o Limitations [id number] [facility] Released w/o Limitations [facility]) TELE CONSULT [id number] lab results MURTAZAEYAD 12/02 [facility]) OUTPATIENT [id number] ongoing fevers WAYNE BLAKE 12/10 Released w/o Limitations [facility]) OUTPATIENT [id number] f/u labs WAYNE BLAKE 01/14 Released w/o Limitations [facility]) TELE CONSULT [id number] CT results WAYNE BLAKE 02/09 [facility]) [facility]) OUTPATIENT [id number] Pas entered the order WAYNE BLAKE 03/04 Released w/o Limitations [facility]) [facility]) TELE CONSULT [id number] Thyroid US results WAYNE BLAKE 03/25 [facility](Infecti ous Disease [facility]) OUTPATIENT [id number] FEVER OF UNKNOWN ORIGIN ADELA VAUGHAN 03/31 Released w/o Limitations [facility](Inf ectious Disease [facility]) [facility](Endocri nology [facility]) OUTPATIENT [id number] GOITER (DIFFUS E NONTOXI C) JEANETTE CHAVEZ 04/22 Released w/o Limitations [facility](End ocrinol ogy [facility]) [facility]) TELE CONSULT [id number] MED REFILL EYAD HAUSER 04/28 [facility]) OUTPATIENT [id number] WAYNE Brower 05/20 Released w/o Limitations [facility]) [facility](Infecti ous Disease [facility]) OUTPATIENT [id number] ADELA VAUGHAN 05/26 Released w/o Limitations [facility](Inf ectious Disease [facility]) [facility]) TELE CONSULT [id number] MED REFILL EYAD HAUSER 06/01 [facility](Infecti ous Disease [facility]) TELE CONSULT [id number] MRI [facility] ADELA VAUGHAN 06/03 [facility](Inf ectious Disease [facility]) [facility]) TELE CONSULT [id number] pap WYATT Barboza 06/10 [facility](Infecti ous Disease [facility]) TELE CONSULT [id number] retrun call DAELA VAUGHAN 06/15 [facility](Inf ectious Disease [facility]) [facility](Infecti ous Disease [facility]) OUTPATIENT [id number] ADELA VAUGHAN 06/18 Released w/o Limitations [facility](Inf ectious Disease [facility]) [facility](Infecti ous Disease [facility]) TELE CONSULT [id number] Lab Results ADELA VAUGHAN Grover 06/29 [facility](Inf ectious Disease [facility]) [facility](Infecti ous Disease [facility]) TELE CONSULT [id number] lab results ADELA VAUGHAN Grover 07/07 [facility](Inf ectious Disease [facility]) Procedures Combined list of: 1) Procedures from Department of [facility] Affairs facilities going back up to thelast 18 months, not all [place] non-surgical procedures are included; 2) All procedures from the Department of [place] facilities. Procedure Procedure Type Code Date Perfomer Comments [facility] e DOPPLER ECHOCARDIOGRAPHY, , PULSED WAVE AND/OR CONTINUOUS WAVE WITH SPECTRAL DISPLAY; COMPLETE 07/28/2001 [facility] DOPPLER ECHOCARDIOGRAPHY, , PULSED WAVE AND/OR CONTINUOUS WAVE WITH SPECTRAL DISPLAY; COMPLETE 07/01/2001 [facility] HANDLING AND/OR CONVEYANCE OF SPECIMEN FOR TRANSFER FROM THE OFFICE TO A LABORATORY 05/31/2001 [facility] HANDLING AND/OR CONVEYANCE OF SPECIMEN FOR TRANSFER FROM THE OFFICE TO A LABORATORY 05/28/2001 [facility] PHYS/OTH QUALIFIED HE[facility]ANGE RIDER QUALIFIED,EDUCATION, TRAIN,LICENSURE/REGU LATION (WHEN APPLICABLE) EDUC SER RENDERED TO PATS IN A GRP SETTING (EG,,OBESITY ,OR DIABETIC INSTRUCT) 05/27/2001 [facility] NASAL/SINUS ENDOSCOPY, SURGICAL, WITH FRONTAL SINUS EXPLORATION, INCLUDING REMOVAL OF TISSUE FROM FRONTAL SINUS, WHEN PERFORMED 12/03/1999 [facility] REPAIR OF OTHER CURRENT OBSTETRIC LACERATION 07/27/1997 [facility] MONITORING, NOT OTHERWISE SPECIFIED 07/27/1997 [facility] EKG (SCALP) 07/27/1997 [facility] EPISIOTOMY 07/27/1997 [facility] MEDICAL INDUCTION OF LABOR 07/27/1997 [facility] OTHER ARTIFICIAL RUPTURE OF MEMBRANES 07/27/1997 [facility] INJECTION OF ANTIBIOTIC 07/27/1997 [facility] SCREENING PAPANICOLAOU SMEAR; OBTAINING, PREPARING AND CONVEYANCE OF CERVICAL OR VAGINAL SMEAR TO LABORATORY 05/20/2006 [facility] SELF-CARE/HOME MANAGMENT TRAIN (EG,ACT OF DAILY LIVING (ADL) &COMPENSAT TRAIN,MEAL PREPARATION,SAFETY PROCS,AND INSTRUCT IN USE OF ASST TECHNOLOGY DEV/ADPT EQUIP) DIR ONE-ON-ONE CONT,EA 15 MINUTES 10/30/2005 [facility]D THERAPEUTIC PROCEDURE,1 OR MORE AREAS,EACH 15 MINUTES;NEUROMUSCULA R REEDUCATION OF MOVEMENT,BALANCE,SHOE COBBLER RDINATION,KINESTHETI C SENSE,POSTURE,AND/OR PROPRIOCEPTION FOR SITTING AND/OR STANDING ACTIVITIES 10/29/2005 [facility] THERAPEUTIC PROCEDURE,1 OR MORE AREAS,EACH 15 MINUTES;NEUROMUSCULA R REEDUCATION OF MOVEMENT,BALANCE,SHOE COBBLER RDINATION,KINESTHETI C SENSE,POSTURE,AND/OR PROPRIOCEPTION FOR SITTING AND/OR STANDING ACTIVITIES 10/15/2005 [facility] THERAPEUTIC PROCEDURE,1 OR MORE AREAS,EACH 15 MINUTES;NEUROMUSCULA R REEDUCATION OF MOVEMENT,BALANCE,SHOE COBBLER RDINATION,KINESTHETI C SENSE,POSTURE,AND/OR PROPRIOCEPTION FOR SITTING AND/OR STANDING ACTIVITIES 10/13/2005 [facility] THERAPEUTIC PROCEDURE,1 OR MORE AREAS,EACH 15 MINUTES;NEUROMUSCULA R REEDUCATION OF MOVEMENT,BALANCE,SHOE COBBLER RDINATION,KINESTHETI C SENSE,POSTURE,AND/OR PROPRIOCEPTION FOR SITTING AND/OR STANDING ACTIVITIES 10/08/2005 [facility] THERAPEUTIC PROCEDURE,1 OR MORE AREAS,EACH 15 MINUTES;NEUROMUSCULA R REEDUCATION OF MOVEMENT,BALANCE,SHOE COBBLER RDINATION,KINESTHETI C SENSE,POSTURE,AND/OR PROPRIOCEPTION FOR SITTING AND/OR STANDING ACTIVITIES 10/06/2005 [facility] THERAPEUTIC ACTIVITIES, DIRECT (ONE-ON-ONE) PATIENT CONTACT (USE OF DYNAMIC ACTIVITIES TO IMPROVE FUNCTIONAL PERFORMANCE), EACH 15 MINUTES 10/01/2005 [facility] THERAPEUTIC PROCEDURE,1 OR MORE AREAS,EACH 15 MINUTES;NEUROMUSCULA R REEDUCATION OF MOVEMENT,BALANCE,SHOE COBBLER RDINATION,KINESTHETI C SENSE,POSTURE,AND/OR PROPRIOCEPTION FOR SITTING AND/OR STANDING ACTIVITIES 09/30/2005 [facility] SELF-CARE/HOME MANAGMENT TRAIN (EG,ACT OF DAILY LIVING (ADL) &COMPENSAT TRAIN,MEAL PREPARATION,SAFETY PROCS,AND INSTRUCT IN USE OF ASST TECHNOLOGY DEV/ADPT EQUIP) DIR ONE-ON-ONE CONT,EA 15 MINUTES 09/23/2005 [facility] APPLICATION OF A MODALITY TO 1 OR MORE AREAS; TRACTION, MECHANICAL 09/16/2005 [facility] APPLICATION OF A MODALITY TO 1 OR MORE AREAS; TRACTION, MECHANICAL 09/11/2005 [facility] THERAPEUTIC PROCEDURE,1 OR MORE AREAS,EACH 15 MINUTES;NEUROMUSCULA R REEDUCATION OF MOVEMENT,BALANCE,SHOE COBBLER RDINATION,KINESTHETI C SENSE,POSTURE,AND/OR PROPRIOCEPTION FOR SITTING AND/OR [...] VAGINAL, UP TO THREE SMEARS; SCREENING BY SAFETY FIRE BOSS UNDER PHYSICIAN SUPERVISION 02/03/2005 [facility] INDIVIDUAL PSYCHOTHERAPY, INSIGHT ORIENTED, BEHAVIOR MODIFYING AND/OR SUPPORTIVE, IN AN OFFICE OR OUTPATIENT FACILITY, APPROXIMATELY 20 TO 30 MINUTES [id number] WITH THE PATIENT 11/27/2004 [facility] Screening papanicolaou smear; obtaining, preparing and conveyance of cervical or vaginal smear to laboratory 05/20/2006 WAYNE BLAKE [facility] Training And Self-Care Skills Training And Self-Care Skills [id number] 10/30/2005 HUMAIRA WAKEFIELD [facility] Physical Medicine Physical Therapy Re-Evaluation Physical Medicine Physical Therapy Re-Evaluation [id number] 10/30/2005 HUMAIRA WAKEFIELD [facility] Physical Therapy Neuromuscular Re-education Physical Therapy Neuromuscular Re-education 31728 10/29/2005 GUDELIA MCCORMACK [facility] Physical Therapy: ___ Se ion Segments, 15 Minutes Each Physical Therapy: ___ Session Segments, 15 Minutes Each [id number] 10/29/2005 GUDELIA MCCORMACK [facility] Physical Therapy Neuromuscular Re-education Physical Therapy Neuromuscular Re-education 15244 10/15/2005 ALEXANDRA SERNA [facility] Physical Therapy: ___ Se ion Segments, 15 Minutes Each Physical Therapy: ___ Session Segments, 15 Minutes Each [id number] 10/15/2005 ALEXANDRA SERNA [facility] Physical Therapy Neuromuscular Re-education Physical Therapy Neuromuscular Re-education 22811 10/13/2005 ALEXANDRA SERNA [facility] Physical Therapy: ___ Se ion Segments, 15 Minutes Each Physical Therapy: ___ Session Segments, 15 Minutes Each [id number] 10/13/2005 ALEXANDRA SERNA [facility] Physical Therapy Neuromuscular Re-education Physical Therapy Neuromuscular Re-education 24494 10/08/2005 YOANNA CHOWDHURY [facility] Physical Therapy: ___ Se ion Segments, 15 Minutes Each Physical Therapy: ___ Session Segments, 15 Minutes Each [id number] 10/08/2005 YOANNA CHOWDHURY [facility] Physical Therapy Neuromuscular Re-education Physical Therapy Neuromuscular Re-education 01667 10/06/2005 ALEXANDRA SERNA [facility] Physical Therapy: ___ Se ion Segments, 15 Minutes Each Physical Therapy: ___ Session Segments, 15 Minutes Each [id number] 10/06/2005 ALEXANDRA SERNA [facility] PT A e ment Kinetic Training PT Assessment Kinetic Training 29058 10/03/2005 YOANNA CHOWDHURY [facility] Physical Therapy: ___ Se ion Segments, 15 Minutes Each Physical Therapy: ___ Session Segments, 15 Minutes Each [id number] 10/03/2005 YOANNA CHOWDHURY [facility] Physical Therapy Neuromuscular Re-education Physical Therapy Neuromuscular Re-education 20448 09/30/2005 YOANNA CHOWDHURY [facility] Physical Therapy: ___ Se ion Segments, 15 Minutes Each Physical Therapy: ___ Session Segments, 15 Minutes Each [id number] 09/30/2005 YOANAN CHOWDHURY [facility] Physical Medicine Physical Therapy Re-Evaluation Physical Medicine Physical Therapy Re-Evaluation 74031 09/23/2005 HUMAIRA WAKEFIELD [facility] Training And Self-Care Skills Training And Self-Care Skills 84835 09/23/2005 HUMAIRA WAKEFIELD [facility] Physical Therapy: ___ Se ion Segments, 15 Minutes Each Physical Therapy: ___ Session Segments, 15 Minutes Each [id number] 09/16/2005 SCARLETT HART [facility] Physical Therapy Neuromuscular Re-education Physical Therapy Neuromuscular Re-education 88011 09/16/2005 SCARLETT HART [facility] Traction Pelvic Traction Pelvic 81296 09/16/2005 SCARLETT SANCHEZ [facility] Physical Therapy: ___ Se ion Segments, 15 Minutes Each Physical Therapy: ___ Session Segments, 15 Minutes Each [id number] 09/11/2005 SCARLETT HART [facility] Physical Therapy Neuromuscular Re-education Physical Therapy Neuromuscular Re-education 18978 09/11/2005 SCARLETT HART [facility] Traction Pelvic Traction Pelvic 74080 09/11/2005 SCARLETT SANCHEZ [facility] Physical Therapy: ___ Se ion Segments, 15 Minutes Each Physical Therapy: ___ Session Segments, 15 Minutes Each [id number] 09/08/2005 ALEXANDRA SERNA [facility] Physical Therapy Neuromuscular Re-education Physical Therapy Neuromuscular Re-education 62713 09/08/2005 ALEXANDRA SERNA [facility] Modalities Traction Modalities Traction 75017 006 ALEXANDRA SERNA [facility] Modalities Cryotherapy Cold Packs Modalities Cryotherapy Cold Packs 84200 09/08/2005 ALEXANDRA SERNA [facility] Training And Self-Care Skills Training And Self-Care Skills 49951 09/03/2005 HUMAIRA WAKEFIELD [facility] Physical Therapy: ___ Se ion Segments, 15 Minutes Each Physical Therapy: ___ Session Segments, 15 Minutes Each 53508 09/03/2005 HUMAIRA WAKEFIELD [facility] Modalities Heat Hot Packs Modalities Heat Hot Packs 90589 09/03/2005 HUMAIRA WAKEFIELD [facility] Physical Medicine Physical Therapy Evaluation Physical Medicine Physical Therapy Evaluation 75242 09/03/2005 HUMAIRA WAKEFIELD [facility] Social History Combined list of available smoking, tobacco, and other social history from Department of Defense and Veterans Affairs facilities. Social History Type Response Date Comment [facility] e This section is an empty social history section. DoD
--- NOTE | 2024-08-12 07:13 | WPDHPUPDATE1 ---
History and Physical Update Update Date/Time: 08/12/24 07:13 History and Physical has been reviewed, including an updated exam of the patient. There are NO changes in the patient's condition. Risks, benefits, and alternatives have been discussed and questions answered. Patient agrees to proceed with procedure. Proceed with left renal eswl.
[2024-08-12] MEDS: LACTATED RINGERS 1,000 ML 30 ML IV CONT (07:40)
--- NOTE | 2024-08-12 08:02 | WPDANESEPPF ---
Anes - Initial Pre Proc Eval Procedure: Operation Date: 08/12/24 09:00 Proposed Procedures p Left Extracorporeal Shock Wave Lithotripsy - Robel Boss MD s Flexible Cystoscopy - Robel Boss MD Date/Time: 08/12/24 08:02 Surgeon: Robel Boss MD Pre Op Diagnosis: Lt Kidney Stone, Gross Hematuria Patient Data Age: 48 Gender: F Height: 1.68 m Weight: 124.1 kg Last Vital Signs Temp 36.8 C 08/12/24 07:30 Pulse 84 08/12/24 07:30 Resp 16 08/12/24 07:30 BP 137/90 08/12/24 07:30 Pulse Ox 99 08/12/24 07:30 Allergies Allergy/AdvReac Type Severity Reaction Status Date / Time latex Allergy Mild Skin Verified 08/12/24 07:45 Irritation aloe AdvReac Intermediate DERMATITIS Verified 08/12/24 07:45 chlorine Allergy Intermediate Rash Uncoded 08/09/24 09:51 Home Medications ?Medication ?Instructions ?Recorded ?Confirmed ?Type inhalational spacing device #1 ea 05/09/23 08/09/24 Rx (Aerochamber MV spacer) albuterol sulfate 90 mcg/actuation 2 puff inhalation Q4H PRN 11/23/23 08/09/24 Rx aerosol inhaler shortness of breath or wheezing #8.5 grams ipratropium 0.5 mg-albuterol 3 mg 3 ml inhalation QID PRN SOB 11/25/23 08/09/24 History (2.5 mg base)/3 mL nebulization soln escitalopram oxalate 20 mg tablet 20 mg PO DAILY #90 tabs 12/23/23 08/09/24 Rx (Lexapro) multivitamin 1 tablet PO DAILY 12/23/23 08/09/24 History losartan 100 1 tablet PO DAILY #90 tabs 04/20/24 08/09/24 Rx mg-hydrochlorothiazide 25 mg tablet desvenlafaxine succinate 25 mg 25 mg PO DAILY #90 tabs 05/25/24 08/09/24 Rx tablet,extended release 24 hr fluticasone propionate 115 2 puff inhalation BID #12 grams 06/07/24 08/12/24 Rx mcg-salmeterol 21 mcg/actuation HFA inhaler (Advair HFA) eszopiclone 3 mg tablet (Lunesta) 3 mg PO QHS #1 tablet 06/21/24 08/09/24 Rx hydroxyzine HCl 25 mg tablet 25 mg PO QID #90 tabs 06/27/24 08/09/24 Rx levothyroxine 25 mcg tablet 25 mcg PO DAILY #90 tabs 06/28/24 08/09/24 Rx atorvastatin 80 mg tablet 80 mg PO QHS #90 tabs 07/19/24 08/09/24 Rx omeprazole 10 mg capsule,delayed 10 mg PO HS 08/09/24 08/09/24 History release Patient hx anesthesia problems: none Family hx anesthesia problems: none Results Review: All pre-operative results and documents have been reviewed as part of the pre-operative evaluation. [facility] Past Medical History Medical History History of miscarriage Sciatica Kidney stones [place] Umbilical hernia Iron deficiency anemia Major depressive disorder Restless leg syndrome Family history of colon cancer in father Encounter for screening colonoscopy Nausea Jamar's disease Febrile seizures GERD (gastroesophageal reflux disease) Skin cancer Basal cell carcinoma, s/p Moh's, 2002 Arthritis Anxiety Asthma Allergies Hyperlipidemia Hypertension CVA (cerebral vascular accident) Received tPA 11/2022, transferred to [facility], discharged without antiplatelet therapy. Familial Mediterranean fever Surgical History Surgical History H/O: hysterectomy [place] teeth extracted Hx of dilation and curettage H/O colposcopy with cervical biopsy Family History Family History Father Alcoholism Carcinoma of colon Diabetes mellitus Hypertension Malignant neoplasm of prostate Mother Diabetes mellitus Hypertension Depression Thyroid disorder Daughter Asthma Depression Grandparent Alcoholism Cancer Cerebrovascular accident Social History Social History Smoking packs per day: 0.5 Smoking cigarettes per day: 10.0 Years smoked: 7 Smoking pack-years: 3.50 Smoking status: Former smoker Tobacco type: cigarettes Smoking end date: 03/11/18 Alcohol intake: never Substance use: current Substance use type: marijuana Other substance usage details: Daily Do You Feel Safe in your Home?: Yes Lack of Transportation: No Lack of Food: Never True Current Housing: I Have Housing Concerned About Future Housing: No Difficulty Paying Gas/Electric Bills: No Difficulty Paying for Meds: No Currently Unemployed: No Education: High School Diploma/GED Difficulty w/ Childcare or Family Care: No Living arrangements: with family Spiritual care concerns: No Anes - Eval Final PreProcedure Day of Procedure 08/12/24 08:02 Patient weight: morbidly obese Heart: regular rate and rhythm Lungs: clear to auscultation Airway: Mallampati scale class II Neurological: alert and oriented Last oral intake: >/= 8 hours ASA classification: III Emergent: no Anesthetic plan: proceed Anesthesia type and monitoring: general LMA and standard monitoring Results Review: All pre-operative results and documents have been reviewed as part of the pre-operative evaluation. Informed Consent: The patient's anesthetic plan and its attendant risks and benefits were discussed with the patient/family/POA. Questions were solicited and answers provided to the satisfaction of the patient/family/POA.
[2024-08-12] MEDS: ceFAZolin 2 GM/D5W 50 ML 2 GM/50 ML BAG IVPB (08:36)
[2024-08-12] MEDS: ceFAZolin SODIUM 1 GM VIAL IV PUSH (08:46)
[2024-08-12] MEDS: LIDOCAINE 2% GEL UROJET 10 ML PKG MUCOUS MEM (08:47)
--- NOTE | 2024-08-12 09:06 | P.OP_ITS ---
Procedure Note - Detailed Date of Procedure 08/12/24 Pre-op Diagnosis Lt renal Stone, Gross Hematuria Post-op Diagnosis Same Procedure Performed Flexible cystoscopy, lithotripsy of left renal calculus -12-14 mm Surgeon Robel Boss MD Anesthesia General Description of Procedure Patient was taken to the operative suite correctly identified. Once anesthesia was obtained she was frog-legged. She was prepped and draped usual sterile fashion. Sixteen Frisian flexible scope was inserted into the urethra. The bladder was inspected in its entirety. There were no tumors noted. Both ureteral orifices in the normal anatomic position. She was then reposition with the stone located in both planes. Three thousand shocks were given to the stone. There appeared to be excellent fragmentation. Patient is taken to recovery stable condition. She will follow-up in 10-14 days with [facility]. This completes dictation. Please send a copy of op note to my office Estimated Blood Loss 0 Drains No Packing No Pathology None sent Complications No immediate complications Condition Stable Disposition PACU
[2024-08-12] MEDS: oxyCODONE HCL (*CRX) 5 MG TAB IR PO (10:40)
== END 2024-08-12 11:10 | disposition home or self-care (01) ==
PROVIDERS: PCP Family Medicine; Visit Provider Urology
PROC: (CPT 50590; principal; 2024-08-12 09:00)
PROC: 0TJB8ZZ Inspection of Bladder, Via Natural or Artificial Opening Endoscopic (ICD-10-PCS; CPT 52000; 2024-08-12 09:00)
DX: N20.0 Calculus of kidney (principal); I10 Essential (primary) hypertension; K21.9 Gastro-esophageal reflux disease without esophagitis; F41.9 Anxiety disorder, unspecified; E78.5 Hyperlipidemia, unspecified; J45.909 Unspecified asthma, uncomplicated; D50.9 Iron deficiency anemia, unspecified; R31.0 Gross hematuria; G47.30 Sleep apnea, unspecified; F32.9 Major depressive disorder, single episode, unspecified; G25.81 Restless legs syndrome; E06.3 Autoimmune thyroiditis; R56.00 Simple febrile convulsions; M19.90 Unspecified osteoarthritis, unspecified site; M04.1 Periodic fever syndromes; F12.90 Cannabis use, unspecified, uncomplicated; E66.01 Morbid (severe) obesity due to excess calories; Z68.41 Body mass index [BMI] 40.0-44.9, adult; Z79.51 Long term (current) use of inhaled steroids; Z98.890 Other specified postprocedural states; Z87.891 Personal history of nicotine dependence; Z87.19 Personal history of other diseases of the digestive system; Z85.828 Personal history of other malignant neoplasm of skin; Z86.73 Personal history of transient ischemic attack (TIA), and cerebral infarction without residual deficits; Z80.42 Family history of malignant neoplasm of prostate; Z80.0 Family history of malignant neoplasm of digestive organs; Z82.49 Family history of ischemic heart disease and other diseases of the circulatory system
CPT/HCPCS: 52353; 74018; A9270; J0690; J7120

== ENCOUNTER 2024-09-13 08:18 | Outpatient (CLI) | payer BC, OTHER, SELFPAY ==
--- OUTSIDE RECORDS SUMMARY | 2024-09-13 08:21 | XMS_ITS | Clinical Summary ---
Author Organization [facility] [employer] Address [address] [place] [address] Care Team Providers Care Sales Receptionist Name Role Phone None, Physician Primary Care Provider Unavailabl e Source Comments [facility],non-owned Affiliates and Associated Physician Practices is amultiple site organization consisting of ambulatory clinics and hospital sitesin [place], [place], [place] and [place]. This disclosure is being madepursuant to the Care Everywhere program and may not contain all information available regarding this patient. Last updated 17.[facility] [employer] Allergies Active Allergy Reactions Criticality Noted Date [...] hours as needed Active aspirin effervescent (Mj [place]) 325 MG efferv tablet Take 1 (one) [...] Recorded Patient Health Questionnaire-2 Score 0 12/04/2022 [facility] - Occupational [...] place to sleep or slept in a custodial (including now)? No 12/02/2022 Comments No Sex and Gender Information Value Date Recorded Sex Assigned at Not on file Legal Sex Female 6:40 PM CDT Gender Identity Not on file Sexual Orientation Not on file Last Filed Vital Signs Vital Sign Reading Time Taken Comments Blood Pressure 127/86 01/01/2023 9:23 AM [employer] Pulse 76 01/01/2023 9:23 AM [employer] Temperature 36.9 C (98.4 F) 12/04/2022 11:36 AM CDT Respiratory Rate 12 01/01/2023 9:23 AM [employer] Oxygen Saturation 100% 12/04/2022 11:36 AM CDT Inhaled Oxygen Concentration - - Weight 111.1 kg (245 lb) 01/01/2023 9:23 AM [employer] Height 167.6 cm (5' 6) 12/03/2022 9:00 [...] - COLON CA SCREENING 1973 MAMMOGRAM 1973 HIV SCREENING 1988 HEPATITIS C SCREENING 11/11/1991 DTAP/TDAP/TD VACCINES (1 - Tdap) 1992 HEPATITIS B VACCINE (1 of 3 - 19+ 3-dose series) 1992 PNEUMOCOCCAL VACCINE 50+ (1 of 2 - PCV) 1992 PAP SMEAR 1994 COVID-19 VACCINE ( season) 2023 06/10/2022, 01/20/2021, 07/20/2020, Additional history exists ZOSTER VACCINE (1 of 2) 11/16/2023 DEPRESSION SCREENING 02/24/2024 12/02/2022 INFLUENZA VACCINE (#1) 2024 01/01/2022 SCREENING FOR DIABETES 12/04/2025 , [...] 7 - 26 mg/dL 12/04/2022 3:22 AM [facility] Creatinine 0.68 0.56 - 0.96 mg/dL 12/04/2022 3:22 AM [facility] Sodium 139 136 - 145 mmol/L 12/04/2022 3:22 AM [facility] Potassium 3.3(L) 3.5 - 4.5 mmol/L 12/04/2022 3:22 AM [facility] Chloride 103 98 - 107 mmol/L 12/04/2022 3:22 AM [facility] CO2 24 22 - 29 mmol/L 12/04/2022 3:22 AM [facility] Glucose 105 70 - 115 mg/dL 12/04/2022 3:22 AM [facility] Calcium 9.0 8.4 - 10.2 mg/dL 12/04/2022 3:22 AM CDT [facility] Anion Gap 12 6 - 16 12/04/2022 3:22 AM [facility] BUN/Creatinine Ratio 25(H) 7 - 23 12/04/2022 3:22 AM [facility] Osmolality Calculated 290 275 - 295 mOsm/kg 12/04/2022 3:22 AM [facility] eGFR by CKD-EPI >90 >=90 mL/min/1.7 3 m2 12/04/2022 3:22 AM [facility] Blood BLOOD SPECIMEN / Unknown Lab Venipuncture / Unknown 12/04/2022 2:08 AM CDT 12/04/2022 2:53 AM CDT us Juanita Alvarez MD LAB - CHEMISTRY ORDERABLES Fin al Result [facility] [address] [place] [address], [facility] [phone] from Last 3 Months or Most Recently Relevant to Health Maintenance Insurance [facility] [place] [facility] Address: [address] [address] [place] [address] [facility] Address[facility] [address] [address] [place] [address] [facility] [place] [facility] Address: [address] [address] [place] [address] [facility] * Guarantor: [employer] Account Type Relation to Patient Date of Phone Billing Address Personal/Family Spouse Advance Directives * Full Code (Latest Code Status on File) Date Activated Date Inactivated Comments 12/02/2022 7:46 PM 12/04/2022 5:26 PM Care Teams Sales Receptionist Relationship Specialty Start Date End Date None, Physician [address] [place] [address] PCP - General 01/01/23
--- OUTSIDE RECORDS SUMMARY | 2024-09-13 08:22 | XMS_ITS | Data Portability ---
Author Organization [facility] [employer], Main Office Address [address] [place] [address] Assessment No assessment recorded. Plan of Treatment [...] <1:80 Borde rline 1:80 Posit vanessa >1:80 ICA nomen clatu re: AC-0 For more infor roosevelt andrews about Hep-2 cell patte rns use ANApa ttern s.org , the offic ial humberto te for the Inter natio nal Conse nsus on Antin uclea r Antib amaya (PRISCILLA) Patte rns (ICA ). Perfo rmed at: - [facility] n [address] [facility], [place] [address] 1583 Lab Direc tor: Lupillo aguilar PhD, Phone : [phone] Not Available [facility] (Lab) [address] [place], [address], 07/23/2021 16:10:44 07/20/19 22 07/19/2021 HEMOG LOBIN A1C HA1C 5.5 % 4.0-6. 0 Diabe jaylen Jillian morgan Crite trinh: <5.7% Consi stent with absen ce of diabe jaylen 5.7-6 .4% Consi stent with incre ased risk for diabe jaylen (pred iabet es) >OR=6 .5% Consi stent with diabe jaylen REFER ENCE: Diabe jaylen Care 2016, 39(Andrew ppl.1 ):s13 -s22 Not Available [facility] (Lab) [address] [place], [address], 07/19/2021 19:47:25 07/20/19 22 07/19/2021 SEDIM ENTAT ION RATE erythrocyte sedimentatio n rate 18 mm/HR 0-20 Not Available [facility] (Lab) [address] [place], [address], 07/19/2021 19:32:48 07/20/19 22 07/19/2021 TSH thyroid-stim ulating hormone 1.510 uIU/m L 0.465- 4.680 Not Available [facility] (Lab) [address] [place], [address], 07/19/2021 19:19:56 07/20/19 22 07/19/2021 T3 FREE free T3 3.1 pg/mL 2.77-5 .27 Not Available [facility] (Lab) [address] [place], [address], 07/19/2021 19:06:19 07/20/19 22 07/19/2021 T4 FREE free T4 1.43 NG/dL 0.78-2 .19 Not Available [facility] (Lab) [address] [place], [address], 07/19/2021 19:06:18 07/20/19 22 07/19/2021 CBC W/O DIFFE RENTI AL white blood cells 8.6 x10'3 /uL 4.2-10 .8 Not Available [facility] (Lab) [address] [place], [address], 07/19/2021 19:03:06 07/20/19 22 07/19/2021 CBC W/O DIFFE RENTI AL red blood cells 4.69 x10'6 /uL 3.80-5 .20 Not Available [facility] (Lab) [address] [place], [address], 07/19/2021 19:03:06 07/20/19 22 07/19/2021 CBC W/O DIFFE RENTI AL hemoglobin 8.9 g/dL 12.0-1 5.6 low Not Available [facility] (Lab) [address] [place], [address], 07/19/2021 19:03:06 07/20/19 22 07/19/2021 CBC W/O DIFFE RENTI AL hematocrit 32.5 % 35.7-4 5.7 low Not Available [facility] (Lab) [address] [place], [address], 07/19/2021 19:03:06 07/20/19 22 07/19/2021 CBC W/O DIFFE RENTI AL mean red cell volume 69.3 fL 82.0-9 9.0 low Not Available [facility] (Lab) [address] [place], [address], 07/19/2021 19:03:06 07/20/19 22 07/19/2021 CBC W/O DIFFE RENTI AL mean red cell hemoglobin 19.0 pg 27.0-3 3.0 low Not Available [facility] (Lab) [address] [place], [address], 07/19/2021 19:03:06 07/20/19 22 07/19/2021 CBC W/O DIFFE RENTI AL mean RBC HGB concentratio n 27.4 g/dL 31.0-3 6.0 low Not Available [facility] (Lab) [address] [place], [address], 07/19/2021 19:03:06 07/20/19 22 07/19/2021 CBC W/O DIFFE RENTI AL red cell distribution width 18.3 % 11.8-1 5.5 high Not Available [facility] (Lab) [address] [place], [address], 07/19/2021 19:03:06 07/20/19 22 07/19/2021 CBC W/O DIFFE RENTI AL platelets 471 x10'3 /uL 150-40 0 high Not Available [facility] (Lab) [address] [place], [address], 07/19/2021 19:03:06 07/20/19 22 07/19/2021 CBC W/O DIFFE RENTI AL mean platelet volume 11.4 fL 9.0-12 .4 Not Available [facility] (Lab) [address] [place], [address], 07/19/2021 19:03:06 07/20/19 22 07/19/2021 RHEUM ATOID FACTO R rf <8.6 IU/mL 0.0-11 .9 Not Available [facility] (Lab) [address] [place], [address], 07/19/2021 18:58:57 07/20/1907/19/2021 C REACT VANESSA PROTE IN,UL TRA SENS C-reactive protein 1.33 mg/dL 0.0-0. 5 high Not Available [facility] (Lab) [address] [place], [address], 07/19/2021 18:58:52 07/20/1907/19/2021 LIPID PANEL cholesterol 209 mg/dL 140-19 9 high NIH ADALI NSUS RECOM MENDA TION FOR KYLER STERO L: ADULT CHILD LOW RISK: <200 <170 BORDE RLINE : <200- 239 ----- HIGH RISK: >240 >200 Not Available [facility] (Lab) [address] [place], [address], 07/19/2021 18:58:13 07/20/19 22 07/19/2021 LIPID PANEL triglyceride s 123 mg/dL 0-150 NIH ADALI NSUS REPOR T RECOM MENDA TION FOR TRIGL YCERI RYAN: ADULT CHILD LOW RISK: <150 ----- BODER LINE: 150-1 99 ----- HIGH RISK: >200 ----- Not Available [facility] (Lab) [address] [place], [address], 07/19/2021 18:58:13 07/20/19 22 07/19/2021 LIPID PANEL HDL cholesterol 68 mg/dL 40- Not Available [facility] (Lab) [address] [place], [address], 07/19/2021 18:58:13 07/20/19 22 07/19/2021 LIPID PANEL [...] BE REPOR JANE. Not Available [facility] (Lab) [address] [place], [address], 07/19/2021 18:58:13 07/20/19 22 07/19/2021 COMPR EHENS VANESSA METAB OLIC PANEL sodium 138 mmol/ L 137-14 5 Not Available [facility] (Lab) [address] [place], [address], 07/19/2021 18:58:02 07/20/19 22 07/19/2021 COMPR EHENS VANESSA METAB OLIC PANEL potassium 4.4 mmol/ L 3.5-5. 1 Not Available [facility] (Lab) [address] [place], [address], 07/19/2021 18:58:02 07/20/19 22 07/19/2021 COMPR EHENS VANESSA METAB OLIC PANEL chloride 104 mmol/ L 98-107 Not Available [facility] (Lab) [address] [place], [address], 07/19/2021 18:58:02 07/20/19 22 07/19/2021 COMPR EHENS VANESSA METAB OLIC PANEL carbon dioxide 26 mmol/ L 22-30 Not Available [facility] (Lab) [address] [place], [address], 07/19/2021 18:58:02 07/20/19 22 07/19/2021 COMPR EHENS VANESSA METAB OLIC PANEL anion gap 12.4 mmol/ L 14-22 low Not Available [facility] (Lab) [address] [place], [address], 07/19/2021 18:58:02 07/20/19 22 07/19/2021 COMPR EHENS VANESSA METAB OLIC PANEL glucose 77 mg/dL 70-99 Not Available [facility] (Lab) [address] [place], [address], 07/19/2021 18:58:02 07/20/19 22 07/19/2021 COMPR EHENS VANESSA METAB OLIC PANEL BUN 11 mg/dL 8-19 Not Available [facility] (Lab) [address] [place], [address], 07/19/2021 18:58:02 07/20/19 22 07/19/2021 COMPR EHENS VANESSA METAB OLIC PANEL creatinine 0.62 mg/dL 0.66-1 .25 low Not Available [facility] (Lab) [address] [place], [address], 07/19/2021 18:58:02 07/20/19 22 07/19/2021 COMPR EHENS VANESSA METAB OLIC PANEL GFR >60 Refer ence Range : [place] ge GFR Healt hy Adult : >60 [...] calcu lator is avail able on the [facility] websi te: [email or web address] :[email or web address] ceja.rich ornelas.o rg/pr ofess ional s/kdo qi/gf r_cal culat or Not Available [facility] (Lab) [address] [place], [address], 07/19/2021 18:58:02 07/20/19 22 07/19/2021 COMPR EHENS VANESSA METAB OLIC PANEL alkaline phosphatase 72 U/L 38-126 Not Available [facility] (Lab) [address] [place], [address], 07/19/2021 18:58:02 07/20/19 22 07/19/2021 COMPR EHENS VANESSA METAB OLIC PANEL alanine aminotransfe rase 16 U/L 0-35 Not Available [facility] (Lab) [address] [place], [address], 07/19/2021 18:58:02 07/20/19 22 07/19/2021 COMPR EHENS VANESSA METAB OLIC PANEL aspartate aminotransfe rase 25 U/L 15-37 Not Available [facility] (Lab) [address] [place], [address], 07/19/2021 18:58:02 07/20/19 22 07/19/2021 COMPR EHENS VANESSA METAB OLIC PANEL bilirubin, total 0.20 mg/dL 0.20-1 .30 Not Available [facility] (Lab) [address] [place], [address], 07/19/2021 18:58:02 07/20/19 22 07/19/2021 COMPR EHENS VANESSA METAB OLIC PANEL calcium 9.3 mg/dL 8.4-10 .2 Not Available [facility] (Lab) [address] [place], [address], 07/19/2021 18:58:02 07/20/19 22 07/19/2021 COMPR EHENS VANESSA METAB OLIC PANEL total protein 7.4 g/dL 6.3-8. 2 Not Available [facility] (Lab) [address] [place], [address], 07/19/2021 18:58:02 07/20/19 22 07/19/2021 COMPR EHENS VANESSA METAB OLIC PANEL albumin 4.3 g/dL 3.4-5. 0 Not Available [facility] (Lab) [address] [place], [address], 07/19/2021 18:58:02 07/20/19 22 07/19/2021 COMPR EHENS VANESSA METAB OLIC PANEL globulin 3.1 g/dL 2.6-4. 2 Not Available [facility] (Lab) [address] [place], [address], 07/19/2021 18:58:02 07/20/19 22 07/19/2021 COMPR EHENS VANESSA METAB OLIC PANEL A/G ratio 1.4 ratio 1.0-2. 0 Not Available [facility] (Lab) [address] [place], [address], 07/19/2021 18:58:02 07/20/19 22 07/19/2021 CPK TOTAL creatine kinase 88 U/L 30-135 Not Available [facility] (Lab) [address] [place], [address], 07/19/2021 18:57:50 01/09/20 22 01/10/2022 FOLAT E, SERUM /PLAS MA folate >20.0 NG/mL 2.76-2 0.0 Not Available [facility] (Lab) [address] [place], [address], 01/10/2022 16:38:20 01/09/20 22 01/10/2022 VITAM IN B12 (KRISH SHARON ) vb12 400 pg/mL 239-93 1 Not Available [facility] (Lab) [address] [place], [address], 01/10/2022 16:38:19 01/09/20 22 01/10/2022 VITAM IN D 25-HY DROXY vd25oh 14.3 NG/mL 30-100 low Vitam in D Statu s: Defic ient: <20 ng/mL Insuf ficie nt: 20-29 ng/mL Suffi cient : 30-10 0 ng/mL Not Available [facility] (Lab) [address] [place], [address], 01/10/2022 15:48:59 01/09/20 22 01/08/2022 IRON/ TIBC PANEL total iron binding capacity 445 mcg/d L 265-47 5 Not Available [facility] (Lab) [address] [place], [address], 01/08/2022 22:09:37 01/09/20 22 01/08/2022 IRON/ TIBC PANEL % transferrin saturation 4 % 20-55 low Not Available [facility] (Lab) [address] [place], [address], 01/08/2022 22:09:37 01/09/20 22 01/08/2022 IRON/ TIBC PANEL unsaturated iron bind capacity 425 mcg/d L 126-38 2 high Not Available [facility] (Lab) [address] [place], [address], 01/08/2022 22:09:37 01/09/20 22 01/08/2022 IRON/ TIBC PANEL iron 20 mcg/d L 42-175 low Not Available [facility] (Lab) [address] [place], [address], 01/08/2022 22:09:37 01/09/20 22 01/08/2022 CBC W/O DIFFE RENTI AL white blood cells 9.6 x10'3 /uL 4.2-10 .8 Not Available [facility] (Lab) [address] [place], [address], 01/08/2022 20:58:54 01/09/20 22 01/08/2022 CBC W/O DIFFE RENTI AL red blood cells 3.62 x10'6 /uL 3.80-5 .20 low Not Available [facility] (Lab) [address] [place], [address], 01/08/2022 20:58:54 01/09/20 22 01/08/2022 CBC W/O DIFFE RENTI AL hemoglobin 9.4 g/dL 12.0-1 5.6 low Not Available [facility] (Lab) [address] [place], [address], 01/08/2022 20:58:54 01/09/20 22 01/08/2022 CBC W/O DIFFE RENTI AL hematocrit 31.4 % 35.7-4 5.7 low Not Available [facility] (Lab) [address] [place], [address], 01/08/2022 20:58:54 01/09/20 22 01/08/2022 CBC W/O DIFFE RENTI AL mean red cell volume 86.7 fL 82.0-9 9.0 Not Available [facility] (Lab) [address] [place], [address], 01/08/2022 20:58:54 01/09/20 22 01/08/2022 CBC W/O DIFFE RENTI AL mean red cell hemoglobin 26.0 pg 27.0-3 3.0 low Not Available [facility] (Lab) [address] [place], [address], 01/08/2022 20:58:54 01/09/20 22 01/08/2022 CBC W/O DIFFE RENTI AL mean RBC HGB concentratio n 29.9 g/dL 31.0-3 6.0 low Not Available [facility] (Lab) [address] [place], [address], 01/08/2022 20:58:54 01/09/20 22 01/08/2022 CBC W/O DIFFE RENTI AL red cell distribution width 15.9 % 11.8-1 5.5 high Not Available [facility] (Lab) [address] [place], [address], 01/08/2022 20:58:54 01/09/20 22 01/08/2022 CBC W/O DIFFE RENTI AL platelets 383 x10'3 /uL 150-40 0 Not Available [facility] (Lab) [address] [place], [address], 01/08/2022 20:58:54 01/09/20 22 01/08/2022 CBC W/O DIFFE YARELIS AL mean platelet volume 11.1 fL 9.0-12 .4 Not Available [facility] (Lab) [address] [place], [address], 01/08/2022 20:58:54 Result Notes None recorded. 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 Not Available [facility] 3 18:11:59 History of pneumonia 172656860 Active 2021 Not Available [facility] 3 18:11:59 Asthma 299175440 Active 2021 Not Available [facility] 3 18:11:59 Jamar thyroiditis 64591723 Active 2021 Not Available [facility] 3 18:11:59 Arthritis 3271397 Active 2021 Not Available [facility] 3 18:11:59 Basal cell carcinoma of face 797320380 Active 2021 Not Available [facility] 3 18:11:59 Obesity 272899663 Active 2021 Not Available [facility] 3 18:11:59 Chronic colitis 45369263 Active 2021 Not Available [facility] 3 18:11:59 Essential hypertension 13240368 Active 2021 Not Available [facility] 3 18:11:59 Optic neuritis 54532904 Active 2021 Not Available [facility] 3 18:11:59 Intervertebra l disc prolapse 14504400 Active 2021 Not Available [employer] 3 18:11:59 Hiatal hernia 85632424 Active 2021 Not Available [facility] 3 18:11:59 Uterine leiomyoma 31671653 Active 2021 Not Available [facility] 3 18:11:59 Irritable bowel syndrome with diarrhea 807367286 Active 2021 Not Available [facility] 3 18:11:59 Notes:Some problems listed i n Document: #[id number] could not be added to this patient's [...] Heart rate Body temperature Body weight Systolic And Diastolic Provider Name and Address Organization Details Last Updated DateTime 2 36.2 kg/m2 167.64 cm 99 % 99 % 79 /min 99.5 [degF] 815911. 69 g 166/100 mm[Hg] Not Available [facility] 3 17:12:47 Date Recorded Body mass index (BMI) Body height Oxygen saturation Oxygen saturation in Arterial blood by Pulse oximetry Heart rate Body temperature Body weight Systolic And Diastolic Provider Name and Address Organization Details Last Updated DateTime 2 36.8 kg/m2 167.64 cm 98 % 98 % 70 /min 96.8 [degF] 118574. 06 g 145/100 mm[Hg] Not Available [facility] 3 17:12:47 Date Recorded Body mass index (BMI) Body height Oxygen saturation Oxygen saturation in Arterial blood by Pulse oximetry Heart rate Body temperature Body weight Systolic And Diastolic Provider Name and Address Organization Details Last Updated DateTime 2 37.2 kg/m2 167.64 cm 97 % 97 % 84 /min 99 [degF] 565184. 4 g 120/80 mm[Hg] Not Available [facility] 3 17:12:47 Date Recorded Body mass index (BMI) Body height Oxygen saturation Oxygen saturation in Arterial blood by Pulse oximetry Heart rate Body temperature Body weight Systolic And Diastolic Provider Name and Address Organization Details Last Updated DateTime 2 37.3 kg/m2 167.64 cm 97 % 97 % 98 /min 97.8 [degF] 322050. 84 g 138/78 mm[Hg] Not Available [facility] 3 17:12:47 Date Recorded Body mass index (BMI) Body height Oxygen saturation Oxygen saturation in Arterial blood by Pulse oximetry Heart rate Body temperature Body weight Systolic And Diastolic Provider Name and Address Organization Details Last Updated DateTime 2 36.6 kg/m2 167.64 cm 99 % 99 % 88 /min 96.8 [degF] 972388. 47 g 150/98 mm[Hg] Not Available [facility] 3 17:12:47 Social History Question Answer Notes LastModified by Organizat ion Details LastModified Time Tobacco Smoking Status Former Smoker Not Available [facility] 04/23/2022 17:12:25 Do You Have An Advance Directive? No [id number].30242 [id number] Information not available 04/23/2022 Do You Wear A Helmet When Biking? No MIGRATION.73910 98570 Information not available 04/23/2022 What Is Your Level Of Caffeine Consumption? Heavy MIGRATION.24566 29386 Information not available 04/23/2022 In The 14 Days Before Symptom Onset, Have You Had Close Contact With A Laboratory-confi rmed COVID-19 While That Case Was Ill? No MIGRATION.67040 82628 Information not available 04/23/2022 In The 14 Days Before Symptom Onset, Have You Had Close Contact With A Person Who Is Under Investigation For COVID-19 While That Person Was Ill? No MIGRATION.15467 53745 Information not available 04/23/2022 What Type Of Diet Are You Following? REGULAR MIGRATION.86594 41807 Information not available 04/23/2022 What Is The Highest Grade Or Level Of School You Have Completed Or The Highest Degree You Have Received? [id number] MIGRATION.85807 86904 Information not available 04/23/2022 Have There Been Any Changes To Your Family Or Social Situation? Yes MIGRATION.02680 79071 Information not available 04/23/2022 What Is The Fluoride Status Of Your Home? Unknown MIGRATION.96127 75257 Information not available 04/23/2022 When Did You Quit Smoking? 1-5yearssincelastci torrie MIGRATION.71454 54860 Information not available 04/23/2022 Are There Any Guns Present In Your Home? No MIGRATION.19861 07748 Information not available 04/23/2022 Do You Use Insect Repellent Routinely? Yes MIGRATION.60808 71330 Information not available 04/23/2022 Where Do You Live? [place]House MIGRATION.23951 83787 Information not available 04/23/2022 Do You Have A Medical Power Of Microbiological Analyst? No MIGRATION.05236 37690 Information not available 04/23/2022 What Was The Date Of Your Most Recent Tobacco Screening? 08/21/2021 MIGRATION.61860 13914 Information not available 04/23/2022 Do You Have Any Pets? Yes MIGRATION.23487 22215 Information not available 04/23/2022 What Is Your Relationship Status? MIGRATION.85188 19996 Information not available 04/23/2022 Do You Use Your Seat Belt Or Car Seat Routinely? Yes MIGRATION.27742 15521 Information not available 04/23/2022 Do You Have Smoke And Carbon Monoxide Detectors In Your Home? No MIGRATION.56071 39034 Information not available 04/23/2022 At What Age Did You Start Smoking Tobacco? 16 MIGRATION.33220 72783 Information not available 04/23/2022 Are You Passively Exposed To Smoke? Yes MIGRATION.38168 23513 Information not available 04/23/2022 Are There Any Smokers In Your House? Yes MIGRATION.86954 54576 Information not available 04/23/2022 Do You Participate In Social Media? Yes MIGRATION.86003 78176 Information not available 04/23/2022 Do You Use Sunscreen Routinely? No MIGRATION.58905 23718 Information not available 04/23/2022 How Many Years Have You Smoked Tobacco? 15 MIGRATION.49487 09600 Information not available 04/23/2022 Have You Recently Traveled Abroad? No MIGRATION.45154 03597 Information not available 04/23/2022 Are You Currently In School? No MIGRATION.51538 99724 Information not available 04/23/2022 Do You Have Any Dietary Restrictions? No MIGRATION.49062 66618 Information not available 04/23/2022 Sex: Unknown Functional Status Question Answer Note LastModified by [facility] Details LastModified Time Do you use any illicit or recreational drugs? No MIGRATION.3788330 026 Information not available 04/23/2022 Do you or have you ever used any other forms of tobacco or nicotine? No MIGRATION.8535382 026 Information not available 04/23/2022 What is your level of alcohol consumption? None MIGRATION.8103549 026 Information not available 04/23/2022 What is your exercise level? Occasional MIGRATION.1633232 026 Information not available 04/23/2022 Mental Status Question Answer Note LastModified by [facility] Details LastModified Time Do you feel stressed (tense, restless, nervous, or anxious, or unable to sleep at night)? [id number] MIGRATION.[id number] 6 Information not available 04/23/2022 Family History Relationship Description Onset Age of this Age Resolved Age Notes LastModified by Organization Details LastModified Time Mother Jamar thyroiditis MIGRATION.256 [id number] Not available 04/23/2022 17:12:31 Mother Diabetes mellitus MIGRATION.373 [id number] Not available 04/23/2022 17:12:31 Mother Glaucoma MIGRATION.817 [id number] Not available 04/23/2022 17:12:31 Mother Diverticulit is MIGRATION.565 [id number] Not available 04/23/2022 17:12:31 Mother Cataract MIGRATION.177 1292646 Not available 04/23/2022 17:12:31 Father Malignant tumor of colon MIGRATION.777 9248449 Not available 04/23/2022 17:12:31 Father Malignant neoplasm of prostate MIGRATION.719 [id number] Not available 04/23/2022 17:12:31 Father Gallstone MIGRATION.000 [id number] Not available 04/23/2022 17:12:31 Father Kidney stone MIGRATION.0 30 [id number] Not available 04/23/2022 17:12:31 Father Chronic renal failure MIGRATION.784 [id number] Not available 04/23/2022 17:12:31 Father Anemia MIGRATION.891 [id number] Not available 04/23/2022 17:12:31 Medical History Condition [...] HAVE YOU BEEN HOSPITALIZED OR SEEN IN [facility] IN THE PAST YEAR ? [...] preservative 2 completed Not Available [facility] 09/01/2022 18:12:00 COVID-19, mRNA, LNP-S, PF, 30 mcg/0.3 mL dose 1 completed Not Available [facility] 09/01/2022 18:12:00 COVID-19, mRNA, LNP-S, PF, 30 mcg/0.3 mL dose 1 completed Not Available [facility] 09/01/2022 18:12:00 COVID-19, mRNA, LNP-S, PF, 30 mcg/0.3 mL dose 1 completed Not Available [facility] 09/01/2022 18:12:00 COVID-19, mRNA, LNP-S, bivalent, PF, 50 mcg/0.5 mL or 25mcg/0.25 mL dose 3 completed Zuleima Johnson RN [facility], [place] - [facility] [employer] 09/11/2022 15:15:29 Past Encounters Encounter ID Performer Location Encounter Start Date Encounter Closed Date Diagnosis/Indication Diagnosis SNOMED-CT Code Diagnosis ICD10 Code Diagnosis Note [id number] REY Singh S_[facility] Primary Care [facility] [address] [facility] [address] [place] [address] 07/19/2021 00:00:00 07/19/2021 18:19:23 [id number] REY Singh S_[facility] [address] [place] [address] 08/02/2021 00:00:00 08/02/2021 13:40:24 [id number] [facility] Endo Bautista Alston [address] [place] [address] 08/16/2021 00:00:00 08/16/2021 14:04:01 [id number] _ATHN_MIGR ATION_1 _ATHENA_M IGRATION_ DEFAULT_1 _1 , 08/21/2021 00:00:00 08/21/2021 15:09:23 [id number] Roberta Garcia MD [facility] Primary Care [facility] [address] [facility] [address] [place] [address] 01/08/2022 00:00:00 01/08/2022 18:32:28 Health Concerns Section Related Observation LastModified by Organization Detai ls LastModified Time None Recorded Concern Status LastModified by Organization Details LastModified Time None Recorded Advance Directives Directive N: Payers Insurance Date Sequence Insurance Name Policy Number Policy Aguirre Covered Member ID Aguirre Member ID Guarantor Name 12/10/2022 1 [place] 112 Tarik Boucher [id number] Tita Boucher OBGyn Episode No OBEpisode recorded.
--- OUTSIDE RECORDS SUMMARY | 2024-09-13 08:22 | XMS_ITS | Clinical Summary ---
Author Organization [facility] Address [facility] [place] [address] Care Team Providers Care Resource Development Manager Name Role Phone None, Provider MD Primary [...] 11:57 AM CDT Height 170.2 cm (5' 7) 11/14/2018 11:57 AM CDT Body Mass Index [...] HPV MRNA E6/E7 Routine 02/27/2017 5:04 PM DEMOLITION CRANE OPERATOR from Last 3 Months or Most Recently Relevant to Health Maintenance Results * HPV MRNA E6/E7 (02/27/2017 5:04 PM DEMOLITION CRANE OPERATOR) HPV MRNA E6/E7 Not Detected NOT DETECTED 03/04/2017 11:36 PM DEMOLITION CRANE OPERATOR [employer] BENOIT BUCKNER Comment: This test was performed using the APTIMA(R) HPV Assay([employer]This assay detects E6/E7 viral messenger RNA (mRNA)from 14 high-risk HPV types (16,18,31,33,35,39,45,51,52,56,58,59,66,68).For additional information please refer to:http://education.SCYNEXIS.New Relic/faq/HPN789n3(This link is being provided for informational/educational purposes only.)Test Performed by Britta ErvinSkeed Seth Hudson Arminto,[address] [place] [id number] Bauer M.D., Ph.D., Director of [phone], [facility] [id number] FLUID SPECIMEN / Unknown 02/27/2017 5:04 PM DEMOLITION CRANE OPERATOR 02/27/2017 5:04 PM DEMOLITION CRANE OPERATOR us Generic Conversion Md MOY PATHOLOGY/CYTOLOGY LETTY LY Final Result DIO[facility] WIL[facility] [address] [place] [address], [place] [phone] from Last 3 Months or Most Recently Relevant to Health Maintenance Insurance Care Teams Resource Development Manager Relationship Specialty Start Date End Date None, Provider, PCP - General 11/14/18
--- OUTSIDE RECORDS SUMMARY | 2024-09-13 08:25 | XMS_ITS ---
Author Organization [facility] [employer] Address [facility] [address] Care Team Providers Care Private Security Guard Name Role Phone Osiris Vázquez Unavailable [phone] Social History Sex Assigned At : Social History Observation Description Sex Assigned At Female Encounters Encounter Location Date Provider Diagnosis [facility] [address] 11/19/2023 Osiris Vázquez Plan Of Treatment No Information Progress Notes * Tita BOUCHERDOB:1975 (3 0 yo F)Acc No.[id number]:11/19/2023 Patient: Tita HOSKINS Provider: Pillo VÁZQUEZ MD :1975 A ge:48 Y S ex:Female Date:11/19/2023 Phone: Address:[address] [place], [place] [phone] Subjective: * Chief Complaints: * * Medical History: Objective: * Vitals: Assessment: Plan: * Treatment: * Billing Information: * Visit Code: * Procedure Codes: * Electronic signature of Dariel Vázquez MD on 09/13/2024 at 08:24 AM CDT Sign off status: Pending * Provider: Pillo VÁZQUEZ MD Date: 0 11/19/2023 Generated for Hali dickson/Peyton/eTnoahsmitting on: 09/13/2024 08:24 AM CDT
--- OUTSIDE RECORDS SUMMARY | 2024-09-13 08:25 | XMS_ITS | Patient Health Record ---
Author Organization [facility] Address [address] [facility] [address] [place] [address] Care Team Providers Care Marine Water Tender Name Role Phone Osiris West Unavailable [phone] Allergies No Known Allergies Reason For Referral No Information Medications Medication [...] Problem Status W/U Status Risk Notes Problem Severe recurrent major depression without psychotic features (30254034) Major depressive disorder, recurrent severe without psychotic features (F33.2) Active confirmed Problem Asperger's syndrome (65010671) Asperger's syndrome (F84.5) Active confirmed Problem Posttraumatic stress disorder (31795752) Post traumatic stress disorder (PTSD) (F43.10) Active confirmed Problem Recurrent major depression (63631906) Recurrent major depressive disorder, remission status unspecified (F33.9) Active confirmed Problem Pervasive developmental disorder (disorder) (57704891) Autism spectrum (F84.0) Active confirmed Vital Signs Heart Rate 92 /min 09/21/2023 Blood pressure diastolic 85 mm Hg 09/21/2023 Weight-kg 111.77 kg 09/21/2023 Blood pressure systolic 117 mm Hg 09/21/2023 Weight 246.4 lbs 09/21/2023 Encounters Encounter Location Date Provider Diagnosis [address] [facility] [address] [place] [address] 09/21/2023 Osiris West Autism spectrum F84. 0 ; Major depressive disorder, recurrent severe without psychotic features F33.2 and Post traumatic stress disorder (PTSD) F43.10 Assessments Encounter Date Diagnosis (ICD Code) Assessment Notes Treatment Notes Treatment Clinical Notes Section Notes 09/21/2023 Major depressive disorder, recurrent severe without psychotic features (ICD-10 - F33.2) 09/21/2023 Autism spectrum (ICD-10 - F84.0) 09/21/2023 Post traumatic stress disorder (PTSD) (ICD-10 - F43.10) Plan Of Treatment No Information Insurance Providers Payer Name Payer Address Payer Phone Subscriber Number Group Number Insured Name Patient Relationship to Insured Coverage Start Date Coverage End Date [employer] [address] [place] [address] [id number] Tita Boucher Self - patient is the insured [address] [address] [place] [address] [id number] SanderTita Self - patient is the insured Medical (General) History Medical History History ICD Code Past Psychiatric History: Anxiety Disord er,Major Depressive Episode
--- OUTSIDE RECORDS SUMMARY | 2024-09-13 08:25 | XMS_ITS | Continuity of Care Document ---
Author Name [facility] Organization [facility] Care Team Providers Care Veterinary Surgeon Name Role Phone [facility] Unavailable Unavailable Problems Combined list of problems from Department of Defense and Veterans Affairs facilities. It does not include entries that were removed or entered in error. Problem Status Onset Date Problem Type Date of Resolution Comments Source PYREXIA Inactive Condition [facility] Fever Inactive Condition Pt to walk in for recurrent fevers. [facility] Vaginal Pap Smear Inactive Condition [facility] Cervical Pap Smear Inactive Condition [facility] Contraceptive Management Active Condition [facility] visit for: screening exam malignant neoplasm breast Inactive Condition [facility] Pelvic Exam (Internal) Active Condition Mood/Depression : stable, pt has few weeks of Zoloft remaining. Instructed pt to call clinic 4-5 days prior to run out of meds, leave [facility] for med refill...... will provide 90 day supply of Zoloft 100mg daily.Of note: , will no longer have after . [facility] THYROID NODULE, SOLITARY Active Condition Pt notes that a previous FNAB at [employer] was benign, pt advised that the nodule would need to be re-aspirated if the lesion increases in size. [facility] Gynecologic Service Prescrip Of Contracept Agent - Repeat Rx Active Condition Pt overdue for PapSmear; due in . Refill current OCP until can be seen for CPE/well woman exam for breast/pap/pelvi c. [facility] ESOPHAGEAL REFLUX Active Condition Ne w onset, trial of acute management with Zantac and addition of Prilosec fo senior care therapy. [facility] GOITER (DIFFUSE NONTOXIC) Active Condition [...] consult neurosurg to discuss management options and senior living prognosis. [facility] visit for: services physical Inactive [...] Known Allergies Drug allergy (disorder) active [facility] Encounters Combined list of: 1) Encounters from Department of Veterans Affairs facilities going backup to the last 18 months, not all VA inpatient encounters are included; 2) Encounters from the Department of Defense facilities going backup to 280 months. Location Location Details Encounter Type Encounter Number Reason For Visit Attending Provider ADM Date DC Date Status Disposition Source [facility]) TELE CONSULT [id number] aleara GLADYS Mckenzie 10/05 [facility]( am Prac Resourc e Sharing ) [facility]) OUTPATIENT [id number] sore throat and congest GLADYS Low 12/31 Released w/o Limitations [facility]) [facility]) OUTPATIENT [id number] SHOULDE GLADYS ANGELES M 05/09 Released w/o Limitations [facility]) [facility]) TELE CONSULT [id number] Med refGLADYS Saenz M 06/03 [facility]) [address] [place] [address]([facility]) TELE CONSULT [id number] Medicat ion refill GLADYS FLORENCE M 07/30 [facility]) [facility] OUTPATIENT [id number] OSS GLADYS FLORENCE M 11/27 Released w/o Limitations [facility] Practic [facility]rac t [facility]) [facility]) OUTPATIENT [id number] WAYNE BLAKE 08/14 Released w/o Limitations [facility]) [facility](Phy Ther FE) OUTPATIENT [id number] Lumbago HUMAIRA WAKEFIELD 09/03 Released w/o Limitations [facility]) [facility]) OUTPATIENT [id number] mri results WAYNE BLAKE 09/04 Released w/o Limitations [facility]) [facility]) OUTPATIENT [id number] back ALEXANDRA SERNA 09/08 Released w/o Limitations [facility]) [facility]) OUTPATIENT [id number] back GUDELIA MCCORMACK 09/10 Released w/o Limitations [facility]) [facility]) OUTPATIENT [id number] back SCARLETT HART 09/11 Released w/o Limitations [facility]) [facility]) TELE CONSULT [id number] mri results need to be address ed lab results were negWAYNE Lobato 09/11 [facility]) [facility]) OUTPATIENT [id number] back SCARLETT HART 09/16 Released w/o Limitations [facility]) [facility](Neurosu rgery [facility]) OUTPATIENT [id number] HERNIAT ED DISC (L5 - S1) ELTON GARCIA 09/22 Released w/o Limitations [facility](Clive rosurge ry NM[facility]) [facility]) OUTPATIENT [id number] back HUMAIRA WAKEFIELD 09/23 Released w/o Limitations [facility]) [facility]) OUTPATIENT [id number] back TRENTON, YOANNA H 09/30 Released w/o Limitations [facility]) [facility]) OUTPATIENT [id number] back TRENTON, YOANNA H 10/01 Released w/o Limitations [facility]) [facility]) OUTPATIENT [id number] back ALEXANDRA SERNA 10/06 Released w/o Limitations [facility]) [facility]) OUTPATIENT [id number] back TRENTON, YOANNA H 10/08 Released w/o Limitations [facility]) [facility]) OUTPATIENT [id number] back ALEXANDRA SERNA 10/13 Released w/o Limitations [facility]) [facility]) OUTPATIENT [id number] back ALEXANDRA SERNA 10/15 Released w/o Limitations [facility]) [facility]) OUTPATIENT [id number] back GUDELIA MCCORMACK 10/29 Released w/o Limitations [facility]) [facility]) OUTPATIENT [id number] LOWER BACK HUMAIRA WAKEFIELD 10/30 Released w/o Limitations [id number] [facility] Released w/o Limitations [facility]) [facility]) TELE CONSULT [id number] lab results MURTAZAEYAD 12/02 [facility]) [facility]) OUTPATIENT [id number] ongoing fevers WAYNE BLAKE 12/10 Released w/o Limitations [facility]) [facility]) OUTPATIENT [id number] f/u labs WAYNE BLAKE 01/14 Released w/o Limitations [facility]) [facility]) TELE CONSULT [id number] CT results WAYNE BLAKE 02/09 [facility]) [facility]) OUTPATIENT [id number] Pas entered the order WAYNE BLAKE 03/04 Released w/o Limitations [facility]) [facility]) TELE CONSULT [id number] Thyroid US results WAYNE BLAKE 03/25 [facility]) [facility](Infecti ous Disease [facility]) OUTPATIENT [id number] FEVER OF UNKNOWN ORIGIN ADELA VAUGHAN 03/31 Released w/o Limitations [facility](Inf ectious Disease [facility]) [facility](Endocri nology [facility]) OUTPATIENT [id number] GOITER (DIFFUS E NONTOXI C) JEANETTE CHAVEZ 04/22 Released w/o Limitations [facility](End ocrinol ogy [facility]) [facility]) TELE CONSULT [id number] MED REFILL EYAD HAUSER 04/28 [facility]) [facility]) OUTPATIENT [id number] WAYNE Brower 05/20 Released w/o Limitations [facility]) [facility](Infecti ous Disease [facility]) OUTPATIENT [id number] ADELA VAUGHAN 05/26 Released w/o Limitations [facility](Inf ectious Disease [facility]) [facility]) TELE CONSULT [id number] MED REFILL EYAD HAUSER 06/01 [facility]) [facility](Infecti ous Disease [facility]) TELE CONSULT [id number] MRI [facility] ADELA VAUGHAN 06/03 [facility](Inf ectious Disease [facility]) [facility]) TELE CONSULT [id number] pap WYATT Barboza 06/10 [facility]) [facility](Infecti ous Disease [facility]) TELE CONSULT [id number] retrun call ADELA VAUGHAN 06/15 [facility](Inf ectious Disease [facility]) [facility](Infecti ous Disease [facility]) OUTPATIENT [id number] ADELA VAUGHAN 06/18 Released w/o Limitations [facility](Inf ectious Disease [facility]) [facility](Infecti ous Disease [facility]) TELE CONSULT [id number] Lab Results ALEXUS ADELA Ness 06/29 [facility](Inf ectious Disease [facility]) [facility](Infecti ous Disease [facility]) TELE CONSULT [id number] lab results ALEXUS ADELA Ness 07/07 [facility](Inf ectious Disease [facility]) Procedures Combined list of: 1) Procedures from Department of [facility] Affairs facilities going back up to thelast 18 months, not all [place] non-surgical procedures are included; 2) All procedures from the Department of Defense facilities. Procedure Procedure Type Code Date Perfomer Comments Sourc e SCREENING PAPANICOLAOU SMEAR; OBTAINING, PREPARING AND CONVEYANCE OF CERVICAL OR VAGINAL SMEAR TO LABORATORY 05/20/2006 [facility] SELF-CARE/HOME MANAGMENT TRAIN (EG,ACT OF DAILY LIVING (ADL) &COMPENSAT TRAIN,MEAL PREPARATION,SAFETY PROCS,AND INSTRUCT IN USE OF ASST TECHNOLOGY DEV/ADPT EQUIP) DIR ONE-ON-ONE CONT,EA 15 MINUTES 10/30/2005 [facility] THERAPEUTIC PROCEDURE,1 OR MORE AREAS,EACH 15 MINUTES;NEUROMUSCULA R REEDUCATION OF MOVEMENT,BALANCE,CARD CHECKER RDINATION,KINESTHETI C SENSE,POSTURE,AND/OR PROPRIOCEPTION FOR SITTING AND/OR STANDING ACTIVITIES 10/29/2005 [facility] THERAPEUTIC PROCEDURE,1 OR MORE AREAS,EACH 15 MINUTES;NEUROMUSCULA R REEDUCATION OF MOVEMENT,BALANCE,CARD CHECKER RDINATION,KINESTHETI C SENSE,POSTURE,AND/OR PROPRIOCEPTION FOR SITTING AND/OR STANDING ACTIVITIES 10/15/2005 [facility] THERAPEUTIC PROCEDURE,1 OR MORE AREAS,EACH 15 MINUTES;NEUROMUSCULA R REEDUCATION OF MOVEMENT,BALANCE,CARD CHECKER RDINATION,KINESTHETI C SENSE,POSTURE,AND/OR PROPRIOCEPTION FOR SITTING AND/OR STANDING ACTIVITIES 10/13/2005 [facility] THERAPEUTIC PROCEDURE,1 OR MORE AREAS,EACH 15 MINUTES;NEUROMUSCULA R REEDUCATION OF MOVEMENT,BALANCE,CARD CHECKER RDINATION,KINESTHETI C SENSE,POSTURE,AND/OR PROPRIOCEPTION FOR SITTING AND/OR STANDING ACTIVITIES 10/08/2005 [facility] THERAPEUTIC PROCEDURE,1 OR MORE AREAS,EACH 15 MINUTES;NEUROMUSCULA R REEDUCATION OF MOVEMENT,BALANCE,CARD CHECKER RDINATION,KINESTHETI C SENSE,POSTURE,AND/OR PROPRIOCEPTION FOR SITTING AND/OR STANDING ACTIVITIES 10/06/2005 [facility] THERAPEUTIC ACTIVITIES, DIRECT (ONE-ON-ONE) PATIENT CONTACT (USE OF DYNAMIC ACTIVITIES TO IMPROVE FUNCTIONAL PERFORMANCE), EACH 15 MINUTES 10/01/2005 [facility] THERAPEUTIC PROCEDURE,1 OR MORE AREAS,EACH 15 MINUTES;NEUROMUSCULA R REEDUCATION OF MOVEMENT,BALANCE,CARD CHECKER RDINATION,KINESTHETI C SENSE,POSTURE,AND/OR PROPRIOCEPTION FOR SITTING AND/OR [...] MORE AREAS,EACH 15 MINUTES;NEUROMUSCULA R REEDUCATION OF MOVEMENT,BALANCE,CARD CHECKER RDINATION,KINESTHETI C SENSE,POSTURE,AND/OR PROPRIOCEPTION FOR SITTING AND/OR STANDING ACTIVITIES 09/10/2005 [facility] APPLICATION OF A MODALITY TO 1 OR MORE AREAS; HOT OR COLD PACKS 09/08/2005 [facility] APPLICATION OF A MODALITY TO 1 OR MORE AREAS; HOT OR COLD PACKS 09/03/2005 [facility] INJECTION, DIAZEPAM, UP TO 5 MG 08/07/2005 [facility] CYTOPATHOLOGY, SMEARS, CERVICAL OR VAGINAL, UP TO THREE SMEARS; SCREENING BY RED CROSS EXECUTIVE DIRECTOR UNDER PHYSICIAN SUPERVISION 02/03/2005 [facility] DOPPLER ECHOCARDIOGRAPHY, , PULSED WAVE AND/OR CONTINUOUS WAVE WITH SPECTRAL DISPLAY; COMPLETE 07/28/2001 [facility] DOPPLER ECHOCARDIOGRAPHY, , PULSED WAVE AND/OR CONTINUOUS WAVE WITH SPECTRAL DISPLAY; COMPLETE 07/01/2001 [facility] HANDLING AND/OR CONVEYANCE OF SPECIMEN FOR TRANSFER FROM THE OFFICE TO A LABORATORY 05/31/2001 [facility] HANDLING AND/OR CONVEYANCE OF SPECIMEN FOR TRANSFER FROM THE OFFICE TO A LABORATORY 05/28/2001 [facility] PHYS/OTH QUALIFIED HEALTH TOBACCO SHAKER QUALIFIED,EDUCATION, TRAIN,LICENSURE/REGU LATION (WHEN APPLICABLE) EDUC SER RENDERED TO PATS IN A GRP SETTING (EG,,OBESITY ,OR DIABETIC INSTRUCT) 05/27/2001 [facility] NASAL/SINUS ENDOSCOPY, SURGICAL, WITH FRONTAL SINUS EXPLORATION, INCLUDING REMOVAL OF TISSUE FROM FRONTAL SINUS, WHEN PERFORMED 12/03/1999 [facility] REPAIR OF OTHER CURRENT OBSTETRIC LACERATION 07/27/1997 [facility] MONITORING, NOT OTHERWISE SPECIFIED 07/27/1997 [facility] EKG (SCALP) 07/27/1997 [facility] EPISIOTOMY 07/27/1997 [facility] MEDICAL INDUCTION OF LABOR 07/27/1997 [facility] OTHER ARTIFICIAL RUPTURE OF MEMBRANES 07/27/1997 [facility] INJECTION OF ANTIBIOTIC 07/27/1997 [facility] INDIVIDUAL PSYCHOTHERAPY, INSIGHT ORIENTED, BEHAVIOR MODIFYING AND/OR SUPPORTIVE, IN AN OFFICE OR OUTPATIENT FACILITY, APPROXIMATELY 20 TO 30 MINUTES [id number] WITH THE PATIENT 11/27/2004 [facility] Screening papanicolaou smear; obtaining, preparing and conveyance of cervical or vaginal smear to laboratory 05/20/2006 WAYNE BLAKE [facility] Training And Self-Care Skills Training And Self-Care Skills [id number] 10/30/2005 HUMAIRA WAKEFIELD [facility] Physical Medicine Physical Therapy Re-Evaluation Physical Medicine Physical Therapy Re-Evaluation [id number] 10/30/2005 HUMAIRA WAKEFIELD [facility] Physical Therapy Neuromuscular Re-education Physical Therapy Neuromuscular Re-education 82806 10/29/2005 GUDELIA MCCORMACK [facility] Physical Therapy: ___ Se ion Segments, 15 Minutes Each Physical Therapy: ___ Session Segments, 15 Minutes Each [id number] 10/29/2005 GUDELIA MCCORMACK [facility] Physical Therapy Neuromuscular Re-education Physical Therapy Neuromuscular Re-education 61283 10/15/2005 ALEXANDRA SERNA [facility] Physical Therapy: ___ Se ion Segments, 15 Minutes Each Physical Therapy: ___ Session Segments, 15 Minutes Each [id number] 10/15/2005 ALEXANDRA SERNA [facility] Physical Therapy Neuromuscular Re-education Physical Therapy Neuromuscular Re-education 70509 10/13/2005 ALEXANDRA SERNA [facility] Physical Therapy: ___ Se ion Segments, 15 Minutes Each Physical Therapy: ___ Session Segments, 15 Minutes Each [id number] 10/13/2005 ALEXANDRA SERNA [facility] Physical Therapy Neuromuscular Re-education Physical Therapy Neuromuscular Re-education 54878 10/08/2005 YOANNA CHOWDHURY [facility] Physical Therapy: ___ Se ion Segments, 15 Minutes Each Physical Therapy: ___ Session Segments, 15 Minutes Each [id number] 10/08/2005 YOANNA CHOWDHURY [facility] Physical Therapy Neuromuscular Re-education Physical Therapy Neuromuscular Re-education 73969 10/06/2005 ALEXANDRA SERNA [facility] Physical Therapy: ___ Se ion Segments, 15 Minutes Each Physical Therapy: ___ Session Segments, 15 Minutes Each [id number] 10/06/2005 ALEXANDRA SERNA [facility] PT A e ment Kinetic Training PT Assessment Kinetic Training 10764 10/03/2005 YOANNA CHOWDHURY [facility] Physical Therapy: ___ Se ion Segments, 15 Minutes Each Physical Therapy: ___ Session Segments, 15 Minutes Each [id number] 10/03/2005 YOANNA CHOWDHURY [facility] Physical Therapy Neuromuscular Re-education Physical Therapy Neuromuscular Re-education 91650 09/30/2005 YOANNA CHOWDHURY [facility] Physical Therapy: ___ Se ion Segments, 15 Minutes Each Physical Therapy: ___ Session Segments, 15 Minutes Each [id number] 09/30/2005 YOANNA CHOWDHURY [facility] Physical Medicine Physical Therapy Re-Evaluation Physical Medicine Physical Therapy Re-Evaluation [id number] 09/23/2005 HUMAIRA WAKEFIELD [facility] Training And Self-Care Skills Training And Self-Care Skills 68456 09/23/2005 HUMAIRA WAKEFIELD [facility] Physical Therapy: ___ Se ion Segments, 15 Minutes Each Physical Therapy: ___ Session Segments, 15 Minutes Each [id number] 09/16/2005 SCARLETT HART [facility] Physical Therapy Neuromuscular Re-education Physical Therapy Neuromuscular Re-education 66279 09/16/2005 SCARLETT HART [facility] Traction Pelvic Traction Pelvic 89938 09/16/2005 SCARLETT SANCHEZ [facility] Physical Therapy: ___ Se ion Segments, 15 Minutes Each Physical Therapy: ___ Session Segments, 15 Minutes Each [id number] 09/11/2005 SCARLETT HART [facility] Physical Therapy Neuromuscular Re-education Physical Therapy Neuromuscular Re-education 27634 09/11/2005 SCARLETT HART [facility] Traction Pelvic Traction Pelvic 83849 09/11/2005 SCARLETT SANCHEZ [facility] Physical Therapy: ___ Se ion Segments, 15 Minutes Each Physical Therapy: ___ Session Segments, 15 Minutes Each [id number] 09/08/2005 ALEXANDRA SERNA [facility] Physical Therapy Neuromuscular Re-education Physical Therapy Neuromuscular Re-education 30001 09/08/2005 ALEXANDRA SERNA [facility] Modalities Traction Modalities Traction 77135 006 ALEXANDRA SERNA [facility] Modalities Cryotherapy Cold Packs Modalities Cryotherapy Cold Packs 78273 09/08/2005 ALEXANDRA SERNA [facility] Training And Self-Care Skills Training And Self-Care Skills 80336 09/03/2005 HUMAIRA WAKEFIELD [facility] Physical Therapy: ___ Se ion Segments, 15 Minutes Each Physical Therapy: ___ Session Segments, 15 Minutes Each 40401 09/03/2005 HUMAIRA WAKEFIELD [facility] Modalities Heat Hot Packs Modalities Heat Hot Packs 92011 09/03/2005 HUMAIRA WAKEFIELD [facility] Physical Medicine Physical Therapy Evaluation Physical Medicine Physical Therapy Evaluation 92141 09/03/2005 HUMAIRA WAKEFIELD [facility] Social History Combined list of available smoking, tobacco, and other social history from Department of Defense and Veterans Affairs facilities. Social History Type Response Date Comment [facility] e This section is an empty social history section. [facility]
--- NOTE | 2024-10-11 21:26 | P.SLEEP_ITS ---
Sleep Study Date of Study: 09/13/24 Ordering Provider: Dafne Gomez DO Interpreting Physician: Talia Mendoza MD Sleep Study Type: CPAP Titration Height: 1.68 m Weight: 111.584 kg Body Mass Index: 39.6 Neck Circumference (inches): 16 [place]: 12 Reason for Sleep Study * 06/09/2024, home sleep test using Watch[employer]At showing severe obstructive sleep apnea, AHI of 46.6 with desaturation down to 84%. She returns for a CPAP titration. Sleep History This history is from her 06/09/2024 sleep questionnaire. Tita Boucher is a 48-year-old female who had a home sleep test 06/09/2024 showing severe AVIS, and returns for a CPAP titration. The patient admits to excessive daytime sleepiness and trouble maintaining sleep. The patient denies snoring loudly. She denies interruptions in breathing while asleep. She denies choking or gasping at night. She does have trouble breathing on her back. She does have morning headaches. She does have a dry or sore mouth /throat in the morning. She admits to nocturnal heartburn. She denies nocturia. She denies having trouble falling asleep. She denies having trouble remaining asleep. She does have difficulty returning to sleep if she wakes up throughout the night. She does use a hypnotic or sedative. She denies feeling anxious about sleep. She does feel tired or sleepy during the day. She does feel tired in the morning. She does have the urge to fall asleep during the day. She denies feeling drowsy while driving. She denies sleep paralysis, cataplexy and hypnagogic/ hypnopompic hallucinations. She does clench or grind her teeth. She does kick her jerk her legs excessively. She does have a restless feeling in her legs it causes an urge to move her legs. The restless feeling gets worse with rest but better with activity. It is worse in the evening or nighttime. The restless feeling does cause a disturbance in her sleep. She goes to bed at 9:00 p.m. on both weekdays and weekends. It takes her 45 minutes To fall asleep. She gets 7 hours of sleep on work days and 6 hours on her days off. Her sleep is somewhat restorative on her days off. She denies taking any planned naps. She denies dream enactment behavior and sleep walking. She consumes 3-4 cups of caffeinated beverage per day. She denies tobacco and alcohol use. She exercises 3-4 nights per week. [facility] Past Medical History Medical History History of miscarriage Sciatica Kidney stones staghorn Umbilical hernia Iron deficiency anemia Major depressive disorder Restless leg syndrome Family history of colon cancer in father Encounter for screening colonoscopy Nausea Jamar's disease Febrile seizures GERD (gastroesophageal reflux disease) Skin cancer Basal cell carcinoma, s/p Moh's, 2002 Arthritis Anxiety Asthma Allergies Hyperlipidemia Hypertension CVA (cerebral vascular accident) Received tPA 11/2022, transferred to [facility], discharged without antiplatelet therapy. Familial Mediterranean fever Surgical History Surgical History H/O: hysterectomy Mark teeth extracted Hx of dilation and curettage H/O colposcopy with cervical biopsy Family History Family History Father Alcoholism Carcinoma of colon Diabetes mellitus Hypertension Malignant neoplasm of prostate Mother Diabetes mellitus Hypertension Depression Thyroid disorder Daughter Asthma Depression Grandparent Alcoholism Cancer Cerebrovascular accident Social History Social History Smoking packs per day: 0.5 Smoking cigarettes per day: 10.0 Years smoked: 7 Smoking pack-years: 3.50 Smoking status: Former smoker Tobacco type: cigarettes Smoking end date: 03/11/18 Alcohol intake: never Substance use: current Substance use type: marijuana Other substance usage details: Daily Do You Feel Safe in your Home?: Yes Lack of Transportation: No Lack of Food: Never True Current Housing: I Have Housing Concerned About Future Housing: No Difficulty Paying Gas/Electric Bills: No Difficulty Paying for Meds: No Currently Unemployed: No Education: High School Diploma/GED Difficulty w/ Childcare or Family Care: No Living arrangements: with family Spiritual care concerns: No Medications Home Medications ?Medication ?Instructions ?Recorded ?Confirmed ?Type inhalational spacing device #1 ea 05/09/23 08/09/24 Rx (Aerochamber MV spacer) albuterol sulfate 90 mcg/actuation 2 puff inhalation Q 4H PRN 11/23/23 08/09/24 Rx aerosol inhaler shortness of breath or wheez ing #8.5 grams ipratropium 0.5 mg-albuterol 3 mg 3 ml inhalation QID PRN SOB 11/25/23 08/09/24 History (2.5 mg base)/3 mL nebulization soln multivitamin 1 tablet PO DAILY 12/23/23 0 08/09/24 History losartan 100 1 tablet PO DAILY #90 tabs 0 04/20/24 08/09/24 Rx mg-hydrochlorothiazide 25 mg tablet fluticasone propionate 115 2 puff inhalation BID #12 g denny 06/07/24 08/12/24 Rx mcg-salmeterol 21 mcg/actuation HFA inhaler (Advair HFA) eszopiclone 3 mg tablet (Lunesta) 3 mg PO QHS #1 table t 06/21/24 08/09/24 Rx hydroxyzine HCl 25 mg tablet 25 mg PO QID #90 tabs 07/1708/09/24 Rx levothyroxine 25 mcg tablet 25 mcg PO DAILY #90 tabs 0 06/28/24 08/09/24 Rx atorvastatin 80 mg tablet 80 mg PO QHS #90 tabs 08/09/24 Rx omeprazole 10 mg capsule,delayed 10 mg PO HS 08/09/24 08/09/24 History release nitrofurantoin 100 mg PO Q12H 3 days #6 cap s 08/12/24 Rx monohydrate/macrocrystals 100 mg capsule (Macrobid) tramadol 50 mg tablet 50 mg PO Q6H PRN pain #20 ta bs 08/12/24 Rx desvenlafaxine succinate 25 mg 25 mg PO DAILY #90 tabs 08/19/24 Rx tablet,extended release 24 hr escitalopram oxalate 20 mg tablet 20 mg PO DAILY #90 t abs 09/26/24 Rx (Lexapro) Sleep Procedure A full CPAP polysomnogram using the [employer] multi-channel system recorded the standard physiologic parameters including EEG, EOG, submentalis EMG, anterior tibialis EMG, EKG, body position, nasal and oral airflow using nasal pressure sensor and thermistor. Respiratory parameters of chest and abdominal movements were recorded with Respiratory Inductance Plethysmography belts. Oxygen saturation was recorded by pulse oximetry. Video monitoring was also performed. Sleep stages, periodic limb movements, and EEG arousals were scored in 30 second epochs according to the criteria of the AASM Scoring Manual. The Apnea-Hypopnea Index was calculated using CMS guidelines for definition of hypopnea while scoring respiratory events. No sleep aid was used at the start of the study. The patient was started on CPAP using a medium ResMed AirTouch F20 fullface mask with heated humidity, initial pressure was CPAP 5 cm, titrated to 7 cm, 9 cm, 11 cm, 13 cm, final pressure was 14 cm. At this setting the patient had supine REM. At CPAP 14 cm, the patient spent 160 minutes in bed, 6 minutes awake, 154 minutes in non-REM, no time in REM. The residual apnea-hypopnea index was 1.2. CPAP 13 cm was also acceptable, with a residual apnea-hypopnea index of 0.7 and 40.5 minutes of supine REM at that setting. Sleep Architecture The total recording time was 503.3 minutes.? The total sleep time was 459.5 minutes. Sleep latency was 25.2 minutes. REM latency was 265.5 minutes. Sleep efficiency was 91.3%. The patient had 20 awakenings for an awakening index of 2.6. Wake after Sleep Onset time was 19 minutes. The patient spent 34.5 minutes, 7.5% of total sleep time in Stage N1. The patient spent 347.5 minutes, 75.6% in Stage N2. The patient spent 37 minutes, 8.1% in Stage N3. The patient spent 40.5 minutes, 8.8% in Stage REM. Respiratory Analysis The patient had 47 hypopneas, 30 obstructive apneas, no mixed apneas, and 5 central apneas for an overall Apnea Hypopnea Index of 10.7 events per hour. The REM Apnea Hypopnea Index was 0. The NREM Apnea Hypopnea Index was 11.7. The patient had a Central Apnea Hypopnea Index of 0.7. There were no Respiratory Effort Related Arousals. The Respiratory Disturbance Index is 11.4 events per hour. There was no evidence of Wes-Brandt Respirations. Arousals There were 200 total arousals for an arousal index of 26.1. There were 121 spontaneous arousals for an index of 15.8. There were 54 arousals due to respiratory events for an index of 7.1. There were no arousals due to periodic limb movements. There were 25 arousals due to isolated limb movements for an index of 3.3. Periodic Limb Movements The patient had 34 isolated limb movements with an index of 4.4. The patient had no periodic limb movements. Patient had a total of 34 limb movements with a total limb movement index of 4.4. Oximetry Data The patient had an average oxygen saturation of 94.8% in sleep with a minimum oxygen saturation of 82% and a maximum oxygen saturation of 98%. The patient had 78 oxygen desaturations that were 4% or greater resulting in an Oxygen Desaturation Index of 10.2.? The patient spent 5.2 minutes, 1% of total sleep time with an oxygen saturation below 88%. Snoring Profile Snoring was moderate, eliminated during the titration. Cardiac Profile The EKG showed normal sinus rhythm. The patient had an average pulse rate of 66.6 bpm with a minimum pulse rate of 55 bpm and a maximum pulse rate of 89 bpm. No arrhythmias noted. EEG Profile EEG was unremarkable, no evidence of seizures. Assessment and Plan Assessment and Plan (1) AVIS (obstructive sleep apnea): Code(s): G47.33 - Obstructive sleep apnea (adult) (pediatric) Status: Acute Assessment and Plan: This full night CPAP titration showed a successful study with an optimal pressure of CPAP 14 cm using a medium ResMed AirTouch F20 fullface mask with heated humidity. At CPAP 14 cm, the patient spent 160 minutes in bed, 6 minutes awake, 154 minutes in non-REM, no time in REM. The residual apnea-hypopnea index was 1.2. CPAP 13 cm was also acceptable, with a residual apnea-hypopnea index of 0.7 and 40.5 minutes of supine REM at that setting. The patient should be prescribed this ResMed equipment as well as tubing, filters and reservoir. This should be used with all episodes of sleep. Compliance should be reviewed within 31-90 days of starting therapy for usage greater than 4 hours per night greater than 70% of the nights. The patient should be asked about symptoms such as excessive daytime sleepiness, quality of sleep, decreased nocturia, increased mental functioning such as memory, mood, and concentration. The patient's sleep history is highly suggestive of Restless Leg Syndrome. Her serum ferritin level on 04/18/2024 was 25.40. She needs to continue taking an iron supplement along with Vitamin C daily. Data The data obtained during this sleep study is adequate for interpretation. Certification This sleep study has been reviewed by a board certified sleep medicine physician.
[2024-10-11 21:29] VITALS: BMI 39.6
== END 2024-09-14 06:48 | disposition home or self-care (01) ==
LOC: ANHCSM 08:19
PROVIDERS: PCP Family Medicine; Visit Provider Family Medicine
DX: G47.33 Obstructive sleep apnea (adult) (pediatric) (principal)
CPT/HCPCS: 95811

== ENCOUNTER 2024-10-05 13:17 | Outpatient (CLI) | payer BC, OTHER, SELFPAY ==
--- NOTE | ~2024-10-05 | XR_ITS ---
EXAMINATION: XR abdomen/kub 1V DATE: 10/05/2024 13:32 INDICATION: Calcium kidney stone TECHNIQUE: A supine view of the abdomen on 2 radiographs was obtained. COMPARISON: 08/15/2024 FINDINGS: Moderate amount of air and stool in nondilated large bowel. Lung bases are clear. Small amount of air in nondilated small bowel. There is a 5 mm calcification in the midpole the left kidney. There are two 5 mm calcifications in the lower pole of the left kidney. IMPRESSION: 1. There is a 5 mm calcification in the midpole the left kidney. 2. There are two 5 mm calcifications in the lower pole of the left kidney. Reviewed, dictated and finalized at location A.
--- OUTSIDE RECORDS SUMMARY | 2024-10-05 13:22 | XMS_ITS | Clinical Summary ---
Author Organization [facility] [employer] Address [address] [place] [address] Care Team Providers Care Airfreight Loading Supervisor Name Role Phone None, Physician Primary Care Provider Unavailabl e Source Comments [facility],non-owned Affiliates and Associated Physician Practices is amultiple site organization consisting of ambulatory clinics and hospital sitesin [place], [place], [place] and [place]. This disclosure is being madepursuant to the Care Everywhere program and may not contain all information available regarding this patient. Last updated 17.[facility] [employer] Allergies Active Allergy Reactions Criticality Noted Date [...] hours as needed Active aspirin effervescent ([place]) 325 MG efferv tablet Take 1 (one) [...] Recorded Patient Health Questionnaire-2 Score 0 12/04/2022 [facility] - Occupational [...] place to sleep or slept in a [place] health care facility (including now)? No 12/02/2022 Comments No Sex and Gender Information Value Date Recorded Sex Assigned at Not on file Legal Sex Female 6:40 PM CDT Gender Identity Not on file Sexual Orientation Not on file Last Filed Vital Signs Vital Sign Reading Time Taken Comments Blood Pressure 127/86 01/01/2023 9:23 AM OFFICE ELECTRICIAN Pulse 76 01/01/2023 9:23 AM OFFICE ELECTRICIAN Temperature 36.9 C (98.4 F) 12/04/2022 11:36 AM CDT Respiratory Rate 12 01/01/2023 9:23 AM OFFICE ELECTRICIAN Oxygen Saturation 100% 12/04/2022 11:36 AM CDT Inhaled Oxygen Concentration - - Weight 111.1 kg (245 lb) 01/01/2023 9:23 AM OFFICE ELECTRICIAN Height 167.6 cm (5' 6) 12/03/2022 9:00 [...] 7 - 26 mg/dL 12/04/2022 3:[address] [facility] Creatinine 0.68 0.56 - 0.96 mg/dL 12/04/2022 3:[address] [facility] Sodium 139 136 - 145 mmol/L 12/04/2022 3:[address] [facility] Potassium 3.3(L) 3.5 - 4.5 mmol/L 12/04/2022 3:[address] [facility] Chloride 103 98 - 107 mmol/L 12/04/2022 3:[address] [facility] CO2 24 22 - 29 mmol/L 12/04/2022 3:[address] [facility] Glucose 105 70 - 115 mg/dL 12/04/2022 3:[address] [facility] Calcium 9.0 8.4 - 10.2 mg/dL 12/04/2022 3:22 AM CDT [facility] Anion Gap 12 6 - 16 12/04/2022 3:22 AM T [facility] BUN/Creatinine Ratio 25(H) 7 - 23 12/04/2022 3:22 AM T [facility] Osmolality Calculated 290 275 - 295 mOsm/kg 12/04/2022 3:22 AM T [facility] eGFR by CKD-EPI >90 >=90 mL/min/1.7 3 m2 12/04/2022 3:22 AM T [facility] Blood BLOOD SPECIMEN / Unknown Lab Venipuncture / Unknown 12/04/2022 2:08 AM CDT 12/04/2022 2:53 AM CDT us Juanita Alvarez MD LAB - CHEMISTRY ORDERABLES Fin al Result [facility] [address] [place] [address], [facility] [phone] from Last 3 Months or Most Recently Relevant to Health Maintenance Insurance [facility] For [employer] Agency-Miscellaneous Address: [address] [address] [place] [address] [facility] [employer]Miscellaneous Address: [address] [address] [place] [address] [facility] [employer] Address: [address] [address] [place] [address] [facility] * Guarantor: CIERRA BOUCHER Account Type Relation to Patient Date of Phone Billing Address Personal/Family Spouse Advance Directives * Full Code (Latest Code Status on File) Date Activated Date Inactivated Comments 12/02/2022 7:46 PM 12/04/2022 5:26 PM Care Teams Airfreight Loading Supervisor Relationship Specialty Start Date End Date None, Physician [address] [place] [address] PCP - General 01/01/23
--- OUTSIDE RECORDS SUMMARY | 2024-10-05 13:23 | XMS_ITS | Clinical Summary ---
Author Organization [facility] Dominique Enrique Address [address] [place] [address] Care Team Providers Care Registered Respiratory Technician Name Role Phone Dafne Gomez DO Primary [...] Encounters Date Type Department Care Team Description 09/27/2024 External Device Data [facility]CTION Provider, Abstract 09/07/2024 External Device Data [facility] Provider, Abstract 09/06/2024 External Device Data [facility] Provider, Abstract 08/09/2024 External Device Data [facility] Provider, [...] Description 10/11/2024 11:00 AM CDT Office Visit [facility] Oncology and Hematology - [place] [address] [place] [address] Kali Caputo MD [address] [place] [address] Health Maintenance Due Date Last [...] Flex Sig/CT Colonography Q 5 years 2018 ZOSTER VACCINE (1 of 2) 11/16/2023 Preventative Visit- Commercial 02/24/2024 INFLUENZA VACCINE (#1) 2024 01/01/2022 BREAST CANCER SCREENING 10/07/2024 10/08/2023 Procedures Procedure Name Priority Date/Time Associated Diagnosis Comments MAMMO SCREENING BILAT Routine 10/08/2023 11:19 AM CDT from Last 3 Months or Most Recently Relevant to Health Maintenance Results * MAMMO SCREENING BILAT (10/08/2023 11:19 AM CDT) Anatomical Region Laterality Modality Breast Bilateral Mammography Kali Caputo MD MAMMO ORDERABLES Final Result from Last 3 Months or Most Recently Relevant to Health Maintenance Insurance [facility] Care Teams Registered Respiratory Technician Relationship Specialty Start Date End Date Dafne Gomez DO [facility] [place] [address] PCP - General Family Practice 08/18/23
--- OUTSIDE RECORDS SUMMARY | 2024-10-05 13:23 | XMS_ITS | Patient Health Record ---
Author Organization [facility] [employer] Address [address] [facility] [address] [place] [address] Care Team Providers Care Mobile Home Set Up Person Name Role Phone Osiris West Unavailable [phone] Allergies No Known Allergies Reason For Referral [...] Severe recurrent major depression without psychotic features (75409149) Major depressive disorder, recurrent severe without psychotic features (F33.2) Active confirmed Problem Asperger's syndrome (46901696) Asperger's syndrome (F84.5) Active confirmed Problem Posttraumatic stress disorder (13381178) Post traumatic stress disorder (PTSD) (F43.10) Active confirmed Problem Recurrent major depression (73651339) Recurrent major depressive disorder, remission status unspecified (F33.9) Active confirmed Problem Pervasive developmental disorder (disorder) (10670891) Autism spectrum (F84.0) Active confirmed Plan Of Treatment No Information Insurance Providers Payer Name Payer Address Payer Phone Subscriber Number Group Number Insured Name Patient Relationship to Insured Coverage Start Date Coverage End Date [employer] [address] [place] [address] [id number] Tita Boucher Self - patient is the insured [facility] [address] [address] [place] [address] [id number] Tita Boucher Self - patient is the insured Medical (General) History Medical History History ICD Code Past Psychiatric History: Anxiety Disord er,Major Depressive Episode
--- OUTSIDE RECORDS SUMMARY | 2024-10-05 13:23 | XMS_ITS ---
Author Organization [facility] [employer] Address [facility] [address] Care Team Providers Care Inspector Balance Bridge Name Role Phone Osiris Vázquez Unavailable [phone] Social History Sex Assigned At : Social History Observation Description Sex Assigned At Female Encounters Encounter Location Date Provider Diagnosis [facility] [address] 11/19/2023 Osiris Vázquez Plan Of Treatment No Information Progress Notes * Tita BOUCHERDOB:1975 (3 0 yo F)Acc No.[id number]:11/19/2023 Patient: Tita HOSKINS Provider: Pillo VÁZQUEZ MD :1975 A ge:48 Y S ex:Female Date:11/19/2023 Phone: Address:[address] [place], [place] [id number] Subjective: * Chief Complaints: * * Medical History: Objective: * Vitals: Assessment: Plan: * Treatment: * Billing Information: * Visit Code: * Procedure Codes: * Electronic signature of Dariel Vázquez MD on 10/05/2024 at 01:23 PM CDT Sign off status: Pending * Provider: Pillo VÁZQUEZ MD Date: 11/19/2023 Generated for Hali dickson/Peyton/eTnoahsmitting on: 10/05/2024 01:23 PM CDT
--- OUTSIDE RECORDS SUMMARY | 2024-10-05 13:23 | XMS_ITS | Clinical Summary ---
Author Organization [facility] Address [facility] [place] [address] Care Team Providers Care Basket Turner Name Role Phone None, Provider MD Primary [...] HPV MRNA E6/E7 Routine 02/27/2017 5:04 PM DIRECTOR OF OUTREACH from Last 3 Months or Most Recently Relevant to Health Maintenance Results * HPV MRNA E6/E7 (02/27/2017 5:04 PM DIRECTOR OF OUTREACH) HPV MRNA E6/E7 Not Detected NOT DETECTED 03/04/2017 11:36 PM DIRECTOR OF OUTREACH [employer] [address]NER Comment: This test was performed using the APTIMA(R) HPV Assay([employer]This assay detects E6/E7 viral messenger RNA (mRNA)from 14 high-risk HPV types (16,18,31,33,35,39,45,51,52,56,58,59,66,68).For additional information please refer to:http://education.Xenome.artaculous/faq/EZW895m1(This link is being provided for informational/educational purposes only.)Test Performed by [employer] [place],[address] [place] [id number] Bauer M.D., Ph.D., Director of [phone], [facility] [id number] FLUID SPECIMEN / Unknown 02/27/2017 5:04 PM DIRECTOR OF OUTREACH 02/27/2017 5:04 PM DIRECTOR OF OUTREACH us Generic Conversion Md MOY PATHOLOGY/CYTOLOGY LETTY LY Final Result [facility] [address] [address] [place] [address], [place] [phone] from Last 3 Months or Most Recently Relevant to Health Maintenance Insurance Care Teams Basket Turner Relationship Specialty Start Date End Date None, Provider, PCP - General 11/14/18
== END 2024-10-05 13:18 | disposition home or self-care (01) ==
PROVIDERS: PCP Family Medicine; Visit Provider Urology
DX: N20.0 Calculus of kidney (principal)
CPT/HCPCS: 74018

== ENCOUNTER 2025-02-01 10:05 | Outpatient (CLI) | payer BC, OTHER, SELFPAY ==
[2025-02-01 13:17] LABS: Hematocrit 42.0 % (37.0-47.0); Hemoglobin 12.9 g/dL (12.0-15.0); Immature Granulocyte Percent A 0.4 % (0-0.5); Lymphocytes Absolute Auto 2.36 K/mm3 (0.9-3.2); Mean Corpuscular HGB Conc 30.7 g/dl (32-36); Mean Corpuscular Hemoglobin 26.9 pg (26-34); Mean Corpuscular Volume 87.7 fl (80-100); Nucleated Red Blood Cells Absolute Auto 0.000 K/mm3 (0.0-0.012); Nucleated Red Blood Cells Perc 0.0 % (0.0-0.2); Platelet Count Result 299 k/mm3 (150-375); Red Blood Count 4.79 M/mm3 (4.2-5.4); White Blood Count 10.6 K/mm3 (4.5-10.0)
[2025-02-01 13:44] LABS: Alanine Aminotransferase 77 U/L (6-35); Albumin Level 4.5 g/dL (3.5-5.1); Alkaline Phosphatase 122 U/L (38-126); Anion Gap 14 mmol/L (4-12); Aspartate Amino Transferase 65 U/L (14-36); Bilirubin,Total 0.6 mg/dL (0.2-1.3); Blood Urea Nitrogen 17 mg/dL (7-17); Calcium 9.7 mg/dL (8.4-10.2); Carbon Dioxide 25 mmol/L (22-30); Chloride 96 mmol/L (98-107); Estimated Glomerular Filt Rate > 60; Glucose 322 mg/dL (65-110); Potassium 4.1 mmol/L (3.4-5.0); Sodium 135 mmol/L (137-145); Total Protein 8.1 g/dL (6.3-8.2)
[2025-02-02 09:37] LABS: Hemoglobin A1C 10.1 % (<5.7)
== END 2025-02-01 10:06 | disposition home or self-care (01) ==
LOC: ANHGOSHLAB 10:06
PROVIDERS: PCP Family Medicine; Visit Provider Family Medicine
DX: R00.2 Palpitations (principal); R73.9 Hyperglycemia, unspecified
CPT/HCPCS: 36415; 80053; 83036; 85025